=== PATIENT | female | born 1965 | race Caucasian/White ===

== ENCOUNTER → 2017-06-30 16:07 | Outpatient (CLI) | payer BC, SELFPAY ==
--- NOTE | 2017-06-30 16:10 | RAD_ITS ---
STUDY: X-RAY - SKULL REASON FOR EXAM: Female, 52 years old. Lumps TECHNIQUE: 7 view(s) of the skull were obtained. COMPARISON: None. FINDINGS: There is no demonstrated soft tissue swelling. Normal visualized soft tissues. Normal osseous calvarium. There is no demonstrated calvarial fracture. No destructive lesions. Normal visualized facial bones. Normal visualized paranasal sinuses. RAD/Skull min 4 Views IMPRESSION: Normal x-ray examination of the skull. Electronically Signed: Marcus Angel MD at 11:31 EDT , Service support ,
== END ==
PROVIDERS: Family Provider Internal Medicine; PCP Internal Medicine; Visit Provider Internal Medicine
DX: M95.9 Acquired deformity of musculoskeletal system, unspecified (principal)
CPT/HCPCS: 70260

== ENCOUNTER → 2017-10-21 14:58 | Outpatient (CLI) | payer BC, SELFPAY ==
--- NOTE | 2017-10-21 15:02 | EKG12_ITS ---
Test Reason : PREOP Blood Pressure : / mmHG Vent. Rate : 070 BPM Atrial Rate : 070 BPM P-R Int : 142 ms QRS Dur : 064 ms QT Int : 392 ms P-R-T Axes : 069 063 066 degrees QTc Int : 423 ms Normal sinus rhythm Normal ECG Confirmed by CHOLO MORENO, QUITA ([id number]), editor house organ HILARIA DAVIDSON ([id number] on 10/22/2017 12:52:17 PM Referred By: Priscila Chance Confirmed By:QUITA EMMANUEL MD
== END ==
PROVIDERS: Family Provider Internal Medicine; PCP Internal Medicine; Visit Provider Physician Assistant
DX: Z01.810 Encounter for preprocedural cardiovascular examination (principal)
CPT/HCPCS: 93005

== ENCOUNTER → 2018-01-26 07:30 | Outpatient (CLI) | payer BC, SELFPAY ==
--- NOTE | 2018-01-26 10:36 | NEURO ---
NCS and/or EMG Patient Report Ordering Doctor: Bipin Ackerman DATE OF SERVICE: 01/26/18 This is a right upper extremity EMG and nerve conduction study performed on this 52-year-old female who is had right upper extremity discomfort not involving the hand or fingers without trigger. She did have a rotator cuff repair in October 2017 and reports somewhat improved symptoms. Right upper extremity sensory and motor nerve conduction study is performed. The median motor distal latency is mildly prolonged. The median sensory distal latency is mildly prolonged as well. Amplitudes and conduction velocities are preserved. Ulnar motor and sensory and radial sensory responses are normal. The median and ulnar F-wave latencies are within normal range. Right upper extremity needle electromyography is performed. Muscles evaluated included the first dorsal interosseous, abductor pollicis brevis, brachioradialis, biceps, triceps and deltoid muscles. All muscles demonstrated normal insertional activity with absence of pathologic spontaneous activity. Motor unit potential recruitment pattern and amplitude was normal in all muscles tested. Impression: This is an abnormal electrophysiologic study of the right upper extremity consistent with mild carpal tunnel syndrome, this does not appear to be clinically significant.
== END ==
PROVIDERS: Family Provider Internal Medicine; PCP Internal Medicine; Referring Provider Orthopaedic Surgery; Visit Provider Orthopaedic Surgery
DX: M75.51 Bursitis of right shoulder (principal); G56.01 Carpal tunnel syndrome, right upper limb
CPT/HCPCS: 95886; 95910

== ENCOUNTER → 2018-05-01 08:35 | Outpatient (CLI) | payer BC, SELFPAY ==
[2018-05-01 09:12] LABS: Absolute Lymphocyte Count 1.16 X10^3/ul (0.83-4.51); Absolute Neutrophil Count 2.3 X10^3/uL (2.0-7.7); Basophil# 0.02 X10^3/uL; Basophil% 0.4 % (0-1); Eosinophil# 0.52 X10^3/uL; Eosinophils% 11.5 % (0-5); Hematocrit 43.8 % (37-47); Hemoglobin 14.5 g/dl (12.0-15.0); Lymphocyte # 1.16 X10^3/ul (4.0); Lymphocyte % 25.7 % (19-41); Mean Corp Hgb Conc 33.1 g/gl (32-36); Mean Corpuscular Hgb 30.7 pg (27.0-32.0); Mean Corpuscular Volume 92.8 fL (81-99); Mean Platelet Vol. 9.7 fl (6.2-12.0); Monocyte# 0.47 X10^3/uL; Monocyte% 10.4 % (0-10); Neutrophil # 2.34 X10^3/uL (2.7-7.7); Neutrophil % 51.8 % (47-70); Platelet Count 206 K/mm3 (150-450); RBC Distribution Width CV 12.4 % (11.6-14.6); RBC Distribution Width SD 42.1 fl (35.1-43.9); Red Blood Count 4.72 M/mm3 (4.2-5.4); White Blood Count 4.5 K/mm3 (4.4-11.0)
[2018-05-01 09:15] LABS: POSITIVE COUNT NO; POSITIVE DIFFERENTIAL NO; POSITIVE MORPHOLOGY NO
[2018-05-01 09:41] LABS: ALB/GLOB Ratio 1.2 RATIO (0.9-2.4); AST(SGOT) 11 U/L (15-37); Alanine Aminotransfer ALT/SGPT 21 U/L (13-56); Alkaline Phosphatase 65 U/L (45-117); Anion Gap 7 (5-15); BUN 19 mg/dL (7-18); BUN/Creat Ratio 24.6 RATIO (10-20); Calcium,Total 8.5 mg/dL (8.5-10.1); Chloride 110 mmol/L (98-107); Cholesterol 230 mg/dL (200); Creatinine, Serum 0.77 mg/dL (0.55-1.02); EST Glomerular Filtration Rate 83 mL/min (>60); Est Glom Filt Rate - Afr Amer 101 mL/min (>60); Globulin 3.2 g/dL (2.2-4.2); Glucose 103 mg/dL (74-106); High Density Lipoprotein 62 mg/dL; Potassium 4.2 mmol/L (3.5-5.1); Protein, Total 7.2 g/dL (6.4-8.2); Sodium Level 141 mmol/L (136-145); Thyroid Stim Hormone (TSH) 0.76 uIU/mL (0.358-3.74); Triglycerides 123 mg/dL; Very Low Density Lipoprotein 25 mg/dL (5-40)
--- OUTSIDE RECORDS SUMMARY | 2018-07-05 09:32 | XMS RPT_ITS | Continuity of Care Document ---
:1965 Author Organization [facility] Address [address] [facility] [address] [place] [address] Phone Care Team Providers Name Role Phone Samantha Barrera DO Unavailable Benedict Cormier MD Unavailable Bipin Carbajal Unavailable Unavailable Bipin Ackerman DO Unavailable Dr. Mike Varner Unavailable Justino MORENO, Dr. Jose Coughlin Unavailable Lupe Abdi Unavailable Unavailable Domenica PHAN, Ciara Unavailable Unavailable David Joseph Unavailable Unavailable Colby SAWYERCarolina E Unavailable Unavailable Unavailable Problems Name Dates Details Acute cystitis with hematuria (N30.01, 595.0) Status: Active Allergic reaction, initial encounter (T78.40XA, 995.3) Comments: possible will refer to allegerist to see if can test for specific env and chemicals Status: Active Allergic rhinitis (J30.9, 477.9) Status: Active Allergic rhinitis (J30.9, 477.9) Status: Active Asthma (J45.909, 493.90) Status: Active Asthma, mild intermittent (Renamed from Mild intermittent asthma) (J45.20, 493.90) Comments: wants to switch to another med to avoid oral thrush Status: Active BMI 26.0-26.9,adult (Z68.26, V85.22) Status: Active 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, 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 Breast screening (Z12.39, V76.10) Status: Active Carpal tunnel syndrome, left (G56.02, 354.0) Status: Active Contact dermatitis due to poison jacinda (L23.7, 692.6) Status: Active Deliveries (Parity) Comments: 1 Status: Active Dysthymic (F34.1, 300.4) Status: Active Elevated liver enzymes (R74.8, 790.5) Status: Active Emotional disorder (F99, V40.9) Comments: emotional eatign -- offerered emotional eating counselor but she declined Status: Active Fatigue (R53.83, 780.79) Status: Active Folliculitis (L73.9, 704.8) Status: Active Fungal nail infection (B35.1, 110.1) Status: Active GERD (gastroesophageal reflux disease) (K21.9, 530.81) Status: Active Hair loss (L65.9, 704.00) Status: Active Hematuria (R31.9, 599.70) Status: Active Hormone imbalance (E34.9, 259.9) Comments: lack of libidio - testosterone def-- did compounding pharm nad no relief -- she said they were supposed to contact me and they never did Status: Active Hyperlipidemia (E78.5, 272.4) Status: Active Influenza vaccination declined (Renamed from Refused influenza vaccine) (Z28.21, V64.06) Status: Active Laryngitis (J04.0, 464.00) Comments: improving Status: Active Nasal dryness (J34.89, 478.19) Status: Active Non-smoker (Z78.9, V49.89) Status: Active Non-smoker (Z78.9, V49.89) Status: Active Osteopenia (M85.80, 733.90) Comments: needs to start wt bearing exercise, 1500 mg ca and vit d Status: Active Other specified viral infection, in conditions classified elsewhere and of unspecified site (B97.89, 079.89) Status: Active Pharyngitis, acute (J02.9, 462) Status: Active Pregnancies () Comments: 1 Status: Active Screening for hyperlipidemia (Z13.220, V77.91) Status: Active Stress reaction (F43.0, 308.9) Status: Active Tearfulness (R45.89, 780.99) Status: Active Thrush (B37.0, 112.0) Comments: different strain ??-- if no better refer to dermresistant Status: Active Thrush (B37.0, 112.0) Comments: will try nutra fix probiotic Status: Active Unspecified Diagnosis Status: Active Unspecified Diagnosis Status: Active Unspecified Diagnosis Status: Active Unspecified Diagnosis Status: Active Vitamin D deficiency, unspecified (E55.9, 268.9) Status: Active Medications Name Dates Details CALCIUM 500/VITAMIN D, 340-959GK-MFPD (Oral Tablet) 2 (two) Tablet daily for 360 days Quantity: 360 {Tablet} Refills: 0 Ordered:06-Aug-2015 Carolina Bowman CNP Start : 06-Aug-2015 Active Citalopram Hydrobromide 10 MG Oral Tablet 1 (one) Tablet qd for 0 days Quantity: 30 {Tablet} Refills: 3 Ordered:14-Apr-2018 Francisco Javier Barrera DO, DO, Kathleen Start : 14-Apr-2018 Active Dulera 200-5 MCG/ACT Inhalation Aerosol 2 (two) Puff BID for 30 days Quantity: 1 {Inhalation} Refills: 5 Ordered:26-Apr-2018 Francisco Javier Barrera DO, DO, Kathleen Start : 26-Apr-2018 Active ProAir HFA 108 (90 Base) MCG/ACT Inhalation Aerosol Solution 2 (two) Puff tid prn for 0 days Quantity: 1 {Inhaler} Refills: 3 Ordered:23-Mar-2018 Kassandra Kenyon DO Start : 23-Mar-2018 Active Probiotic Oral Capsule 1 (one) Capsule daily for 360 days Quantity: 360 {Capsule} Refills: 3 Ordered:24-Dec-2015 Francisco Javier Barrera DO, DO, Kathleen Start : 24-Dec-2015 Active Allergy 24-HR 180 MG Oral Tablet 1 (one) Tablet daily for 30 days Quantity: 30 {Tablet} Refills: 0 Ordered:21-Apr-2016 Carolina Bowman CNP Start : 04-Feb-2016 End : 05-Mar-2016 Inactive BACTROBAN NASAL, 2% (Nasal Ointment) 1 Ointment each nostril daily for 10 days Quantity: 10 {Ointment} Refills: 0 Ordered:18-Dec-2011 Francisco Javier Barrera DO, DO, Kathleen Start : 18-Dec-2011 End : 28-Dec-2011 Inactive Comments:supply enough for 10 day supply each nostril daily CEFDINIR, 300MG (Oral Capsule) 1 (one) Capsule bid for 7 days Quantity: 14 {QS} Refills: 0 Ordered:17-Jan-2015 Carolina Bowman CNP Start : 17-Jan-2015 End : 24-Jan-2015 Inactive CELEBREX, 100MG (Oral Capsule) 1 (one) Capsule as needed for 30 days Quantity: 30 {Capsule} Refills: 0 Ordered:06-Aug-2015 Ciara Metzger LPN Start : 06-Aug-2015 End : 05-Sep-2015 Inactive Comments:Medication taken as needed. Clotrimazole 10 MG Mouth/Throat Rod 1 (one) Rod Rdo 5x daily for 10 days Quantity: 50 {Rod} Refills: 0 Ordered:03-Dec-2015 Carolina Bowman CNP Start : 03-Dec-2015 End : 13-Dec-2015 Inactive CORTISPORIN, 3.5-28259-5 (Otic Solution) 4 Drop(s) tid for 10 days Quantity: 1 {Solution} Refills: 0 Ordered:19-Nov-2011 Carolina Bowman CNP Start : 19-Nov-2011 End : 29-Nov-2011 Inactive ESTRADIOL, 0.5MG (Oral Tablet) 1 (one) Tablet daily for 360 days Quantity: 360 {Tablet} Refills: 0 Ordered:06-Aug-2015 Carolina Bowman CNP Start : 06-Aug-2015 End : 31-Jul-2016 Inactive HYDROCORTISONE, 2.5% (External Cream) 1 Cream daily for 0 days Quantity: 1 {Cream} Refills: 3 Ordered:13-May-2011 Ronda Crisosotmo LPN Start : 12-Feb-2011 End : 13-May-2011 Inactive Comments:Use for one week at a timeuse indefinetly KETOCONAZOLE, 2% (External Cream) 1 Cream once daily for 0 days Quantity: 1 {Cream} Refills: 0 Ordered:13-May-2011 Ronda Crisostomo LPN Start : 12-Feb-2011 End : 13-May-2011 Inactive Comments:large bottle METAXALONE, 800MG (Oral Tablet) 1 Tablet tid prn for 0 days Quantity: 30 {Tablet} Refills: 0 Ordered:16-Sep-2010 Angela Schneider LPN Start : 28-Aug-2010 End : 16-Sep-2010 Inactive Comments:thirty Mupirocin 2 % External Ointment 1 (one) Application Apply to each nostril TID x 7 days for 7 days Quantity: 1 {Tube} Refills: 0 Ordered:12-Nov-2017 Angela Martínez Start : 12-Nov-2017 End : 19-Nov-2017 Inactive Nystatin 586040 UNIT/ML Mouth/Throat Suspension 5 cc 5times a day for 10 days Quantity: 250 {Milliliter} Refills: 0 Ordered:24-Dec-2015 Francisco Javier Barrera DO, DO, Kathleen Start : 24-Dec-2015 End : 03-Jan-2016 Inactive POTASSIUM, 75MG (Oral Tablet) 1 Tablet daily for 360 days Refills: 0 Ordered:08-Sep-2012 Ronda Crisostomo LPN Start : 21-May-2011 End : 15-May-2012 Inactive PredniSONE 10 MG Oral Tablet 3 (three) Tablet daily for 7 days Quantity: 21 {Tablet} Refills: 0 Ordered:24-Nov-2016 Colby SAWYERCarolina Start : 24-Nov-2016 End : 01-Dec-2016 Inactive Comments:take with food in am PREDNISONE, 20MG (Oral Tablet) 1 Tablet bid for 2 days then daily for 4 days then 1/2 tab qd for 4 days for 0 days Refills: 0 Ordered:16-Sep-2010 Angela Schneider LPN Start : 28-Aug-2010 End : 16-Sep-2010 Inactive VENTOLIN HFA, 108 (90 Base)MCG/ACT (Inhalation Aerosol Solution) 2 (two) Aerosol Soln QID PRN for 30 days Quantity: 1 {Aerosol_Soln} Refills: 3 Ordered:13-Jun-2010 KELIN Murillo Start : 22-Jan-2010 End : 13-Jun-2010 Inactive VISTARIL, 50MG (Oral Capsule) 1 Capsule every night prn itch for 0 days Quantity: 10 {Capsule} Refills: 0 Ordered:28-Aug-2010 Angela Schneider LPN Start : 12-Aug-2010 End : 28-Aug-2010 Inactive VITAMIN B12, 100MCG (Oral Tablet) 1 (one) Tablet daily for 360 days Quantity: 360 {Tablet} Refills: 0 Ordered:06-Aug-2015 Carolina Bowman CNP Start : 06-Aug-2015 End : 31-Jul-2016 Inactive WELLBUTRIN XL, 150MG (Oral Tablet Extended Release 24 Hour) 1 tab bid for 0 days Refills: 0 Ordered:28-Feb-2009 Angela Schneider LPN End : 28-Feb-2009 Inactive ZITHROMAX Z-SANG, 250MG (Oral Tablet) tad Tablet q 6 hr prn for 0 days Quantity: 1 {Tablet} Refills: 0 Ordered:13-Jun-2010 KELIN Murillo Start : 08-Feb-2010 End : 13-Jun-2010 Inactive Advair Diskus 250-50 MCG/DOSE Inhalation Aerosol Powder Breath Activated 1 puff Misc bid for 0 days Quantity: 1 {Disk} Refills: 3 Ordered:03-Dec-2015 Ciara Metzger LPN Start : 06-Jun-2015 End : 03-Dec-2015 Discontinued [place] Saline Nasal Nasal Gel 1 (one) Gel Gel Apply BID for 0 days Quantity: 1 {Tube} Refills: 0 Ordered:26-Apr-2018 Lupe Abdi Start : 12-Nov-2017 End : 26-Apr-2018 Discontinued Diflucan 150 MG Oral Tablet 1 (one) Tablet qod for 8 days for 0 days Quantity: 4 {Tablet} Refills: 0 Ordered:04-Feb-2016 Ciara Metzger LPN Start : 24-Dec-2015 End : 04-Feb-2016 Discontinued FLONASE, 50MCG/ACT (Nasal Suspension) 2 (two) Puff(s) daily for 0 days Quantity: 1 {Suspension} Refills: 0 Ordered:17-Sep-2012 Francisco Javier Barrera DO, DO, Kathleen Start : 17-Sep-2012 End : 17-Sep-2012 Discontinued LAMISIL, 250MG (Oral Tablet) 1 (one) Tablet Tablet qd for 90 days Quantity: 30 {Tablet} Refills: 2 Ordered:06-Aug-2015 Ciara Metzger LPN Start : 17-Nov-2014 End : 06-Aug-2015 Discontinued Comments:do for 12 weeks MELOXICAM, 7.5MG (Oral Tablet) 1 (one) Tablet Tablet daily for 0 days Quantity: 15 {Tablet} Refills: 0 Ordered:17-Jan-2015 Ciara Metzger LPN Start : 15-May-2014 End : 17-Jan-2015 Discontinued Comments:daily OMEPRAZOLE, 40MG (Oral Capsule Delayed Release) 1 (one) Capsule DR Capsule DR daily for 0 days Quantity: 30 {Capsule} Refills: 1 Ordered:07-Aug-2015 Colby SAWYER Katie Start : 07-Aug-2015 Discontinued Comments:1h before a meal once daily x2-4 weeks then wean off PHENERGAN, 12.5MG (Rectal Suppository) 2 (two) Suppository q6h prn for 0 days Quantity: 20 {Suppository} Refills: 0 Ordered:26-Jun-2014 Ronda Crisostomo LPN Start : 22-Jun-2014 End : 26-Jun-2014 Discontinued PROVENTIL HFA, 108 (90 Base)MCG/ACT (Inhalation Aerosol Solution) 2 puffs Aerosol Soln qid, prn for 0 days Quantity: 3 {Aerosol_Soln} Refills: 3 Ordered:17-Jan-2015 Ciara Metzger LPN Start : 21-Feb-2011 End : 17-Jan-2015 Discontinued Comments:please substitute generic albulterol VITAMIN D3, 77570NTFX (Oral Capsule) 1 Capsule 2 x week for 0 days Quantity: 24 {Capsule} Refills: 1 Ordered:23-Jun-2011 Francisco Javier Barrera DO, DO, Kathleen Start : 23-Jun-2011 End : 23-Jun-2011 Discontinued ZOFRAN ODT, 4MG (Oral Tablet Dispersible) 1-2 Tablet Disperse Tablet Disperse q8hrs prn for 0 days Quantity: 30 {Tablet} Refills: 0 Ordered:17-Jan-2015 Ciara Metzger LPN Start : 26-Jun-2014 End : 17-Jan-2015 Discontinued ZyrTEC Allergy 10 MG Oral Capsule 1 (one) Capsule daily for 0 days Quantity: 30 {Capsule} Refills: 0 Ordered:03-Dec-2015 Ciara Metzger LPN Start : 06-Jun-2015 End : 03-Dec-2015 Discontinued Allergies and Adverse Reactions Name Dates Details No Known Drug Allergies (Allergy) Status: Active Past Medical History Name Dates Details Abdominal pain (R10.9, 789.00) Comments: if no improvement will send for US gallbladder Status: Inactive as of 24-Dec-2015 Abnormal glucose tolerance test (R73.09, 790.22) Comments: based on 2 [facility] -- will follow Status: Resolved as of 17-Sep-2012 Back pain, thoracic (M54.6, 724.1) Comments: reproducible, worse with stretching likely musculoskeletal, improving while resting with exercise Status: Inactive as of 24-Dec-2015 Bloating (R14.0, 787.3) Status: Inactive as of 24-Dec-2015 BMI 23.0-23.9, adult (Z68.23, V85.1) Status: Resolved as of 03-May-2018 BMI 25.0-25.9,adult (Z68.25, V85.21) Status: Resolved as of 03-May-2018 BMI 27.0-27.9,adult (Z68.27, V85.23) Status: Resolved as of 03-May-2018 Body mass index (BMI) of 25.0 to 29.9 (E66.3, 278.02) Status: Resolved as of 03-May-2018 Breast pain, left (N64.4, 611.71) Comments: normal mammogram Status: Inactive as of 24-Dec-2015 Bronchitis (J40, 490) Status: Resolved as of 06-May-2012 Bug bites (W57.XXXA, 919.4) Status: Inactive as of 29-Apr-2017 Calf pain (M79.669, 729.5) Status: Inactive as of 24-Dec-2015 Cellulitis (L03.90, 682.9) Comments: from poison jacinda Status: Inactive as of 24-Dec-2015 Chest pain (R07.9, 786.59) Status: Resolved as of 06-May-2012 Chest tightness (R07.89, 786.59) Comments: related to asthma Status: Inactive as of 24-Dec-2015 Chills (R68.83, 780.64) Status: Inactive as of 26-Apr-2018 Chronic obstructive asthma with acute exacerbation (J44.1, 493.22) Status: Resolved as of 18-Dec-2011 Dehydration symptoms (R63.8, 783.9) Status: Inactive as of 26-Apr-2018 Diarrhea (R19.7, 787.91) Status: Inactive as of 26-Apr-2018 Eustachian tube dysfunction (H69.80, 381.81) Status: Resolved as of 18-Dec-2011 Headache, acute (R51, 784.0) Status: Inactive as of 24-Dec-2015 Left wrist pain (M25.532, 719.43) Status: Inactive as of 24-Dec-2015 Muscle spasm (M62.838, 728.85) Status: Resolved as of 16-Sep-2010 Nausea (R11.0, 787.02) Comments: pancreatic enzymes neg and labs normal, US normal nausea improved will do Hida scan Status: Inactive as of 24-Dec-2015 Neck pain (M54.2, 723.1) Status: Resolved as of 16-Sep-2010 Other specified abnormal findings of blood chemistry (R79.89, 790.6) Status: Inactive as of 24-Dec-2015 Otitis externa (H60.90, 380.10) Status: Resolved as of 18-Dec-2011 Pain of hand, unspecified laterality (M79.643, 729.5) Status: Inactive as of 16-Sep-2010 RADIAL STYLOID TENOSYNOVITIS (Dequevain's) (727.04) Status: Resolved as of 18-Dec-2011 Rash (R21, 782.1) Comments: ? contact dermatitis vs other Status: Resolved as of 29-Apr-2017 Right shoulder pain (M25.511, 719.41) Status: Inactive as of 24-Dec-2015 Seborrhea capitis (L21.0, 690.11) Status: Resolved as of 06-May-2012 Shortness of breath at rest (R06.02, 786.05) Status: Inactive as of 06-May-2012 Swelling of left lower extremity (M79.89, 729.81) Status: Inactive as of 24-Dec-2015 Procedures Procedure Dates Details Hysterectomy; Abdominal Completed Date Value Details 26-Jan-2018 NCS and/or EMG Patient Result: Comments: See Note; NOTES: [facility] Pulmonary Services/Neurology [address] [place] [address] MR#: [id number] Acct: [id number] Name: KATHRYN AMARO Rep #: [id number] : 1965 52 From: Ever Allen MD Referring Dr: Bipin Ackerman DO Status: REG CLI Ordering Dr: Date: Location: [facility] Sex: F C NCS and/or EMG Patient Report Ordering Doctor: Bipin Ackerman DATE O F SERVICE: 01/26/18 This is a right upper extremity EMG and nerve conduction study performed on this 52-year-old female who is had right upper extremity discomfort not involving the hand or fingers with out trigger. She did have a rotator cuff repair in October 2017 and reports somewhat improved symptoms. Right upper extremity sensory and motor nerve conduction study is performed. The median motor distal latency is mildly prolonged. The median sensory distal latency is mildly prolonged as well. Amplitudes and conduction velocities are preserved. Ulnar motor and sensory and radial sensory responses are normal. The median and ulnar F-wave latencies are within normal range. Right upper extremity needle electromyography is performed. Muscles evaluated included the first dorsal interosseous, abductor abdoul licis brevis, brachioradialis, biceps, triceps and deltoid muscles. All muscles demonstrated normal insertional activity with absence of pathologic spontaneous activity. Motor unit potential recruitment pattern and amplitude was normal in all muscles tested. Impression: This is an abnormal electrophysiologic study of the right upper extremity consistent with mild carpal tunnel syndrome, this does not appear to be clinically significant. 01/26/18 1105 <Electronically signed by Ever Allen MD> Date Ever Allen MD CC: Samantha Ackerman DO; Ever Allen MD Date Dictated: 01/26/18 1036 Date Transcribed: 01/26/18 1036 Claim Inspector: MAUREEN Signed 22-Oct-2017 12 Lead Electrocardiogram Result: Comments: See Note; NOTES: [facility] Cardiovascular Services [address] [place] [address] 12 Lead EKG 10/21/17 1508 MR#: [id number] Acct: [id number] Name: KATHRYN AMARO Rep #: [id number] : 1965 52 From: Carroll Emmanuel MD Attending Dr: Priscila Chance Status: REG CLI Ordering Dr: Priscila Chance Date: 10/21/17 Location: [facility] Sex: F C Admitted: Test Reason : PREO P Blood Pressure : / mmHG Vent. Rate : 070 BPM Atrial Rate : 070 BPM P-R Int : 142 ms QRS Dur : 064 ms QT Int : 392 ms P-R-T Axes : 069 063 066 degrees QTc Int : 423 ms Normal sinus rhythm Normal ECG Confirmed by CHOLO MORENO, CARROLL ([id number]), editor greeting card HILARIA DAVIDSON ([id number]) on 10/22/2017 12:52:17 PM Referred By: Priscila Chance Confirmed By:CARROLL EMMANUEL MD 10/22/17 1252 Date Carroll Emmanuel MD CC: Priscila Chance; Samantha Barrera DO Signed 30-Jun-2017 Skull min 4 Views Result: Comments: See Note; NOTES: [facility] Imaging Services [address] [place] [address] Skull min 4 Views MR#: [id number] Acct: [id number] Name: KATHRYN AMARO Rep #: [id number] : 1965 F 52 From: Marcus Angel MD PCP: Samantha Barrera DO Status: REG CLI Study: Skull min 4 Views Date of Exam: 06/30/17 Exam# [id number] Ordering Dr: Samantha Barrera DO STUDY: X-RAY - SKULL REASON FOR EXAM: Female, 52 years old. Lumps TECHNIQUE: 7 view(s) of the skull were obtained. COMPARISON: None. FINDINGS: There is no de monstrated soft tissue swelling. Normal visualized soft tissues. Normal osseous calvarium. There is no demonstrated calvarial fracture. No destructive lesions. Normal visualized facial bones. Normal vi sualized paranasal sinuses. 0094 RAD/Skull min 4 Views IMPRESSION: Normal x-ray examination of the skull. Electronically Signed: Marcus Angel MD at 11:31 EDT , Service support , CC: Samantha Barrera DO Claim Inspector: Signed 13-Oct-2016 SCREENING MAMM (CAD), BILAT Result: Comments: See Note; NOTES: [facility] Imaging Services [address] [place] [address] Verdana 4d SCREENING MAMM (CAD), BILAT MR#: [id number] Acct: [id number] Name: ALETHA AMARO Rep #: [id number] : 1965 F 51 From: Ron Roman MD PCP: Samantha Barrera DO Status: [facility] CLI Study: SCREENING MAMM (CAD), BILAT Date of Exam: 10/13/16 Exam# [id number] Ordering Dr: Karuna Mixon MD MAMMOGRAPHY - BILATERAL SCREENING REASON FOR EXAM: Female, 51 years old. Routine annual screening examination. PERTINENT HISTORY: Non- contributory. TECHNIQUE: Digital examination. Mediolat eral oblique (MLO) and craniocaudad (CC) views of both breasts were obtained, along with 3D tomosynthesis. CAD: CAD was performed on this study. COMPARISON: 08/07/2015 _ FINDINGS: Breast Density: Heterogeneously dense, which may obscure small masses. There are no dominant masses or suspicious calcifications. Stable large chunky calcification in the right breast. No other significant abnormalities are identified. There has been no significant change since the prior study. HPBI/SCREENING MAMM (CAD), BILAT IMP RESSION: Stable bilateral screening mammogram. Yearly follow-up mammogram recommended. (A) ASSESSMENT CATEGORY: BIRADS Category 2: Benign. A letter regarding these results will be sent to the patient by the facility within 30 days. BR2 Approximately 10% of breast cancers are not detected by mammography. A normal mammogram should not delay biopsy of a clinically suspicious abnormality. [id number] Electronically Signed: Anujm Roman MD at 8:41 EDT , Service support , CC: Karuna Mixon MD; Samantha Barrera DO Claim Inspector: Signed 22-Jul-2016 Emergency Department Summary Result: Comments: See Note; NOTES: [facility] Medical Records Department [address] [place] [id number] Emergency Department Summary MR#: [id number] Acct: [id number] Name: ALETHA AMARO Rep #: [id number] : 1965 51 From: Kyle Tinsley MD PCP: Samantha Barrera DO Status: DEP ER DATE OF SERVICE: 07/22/2016 HISTORY OF PRESENT ILLNESS: A 51-year-old woman who presents with supra pubic pressure sensation and tingling when she urinates with gross hematuria and clots. She has no history of fever, chills or night sweats. She denies weight gain or weight loss. She denies nausea, vom iting, diarrhea. She denies history of renal or ureterolithiasis. She denies history of cancer. She has no other complaints. PAST MEDICAL HISTORY: Negative. PRIMARY CARE PHYSICIAN: Dr. Holly Munoz EXAMINATION: VITAL SIGNS: Remarkable for pressure of 134/77. She is afebrile. GENERAL: The patient appears in no discomfort. HEENT: Unremarkable. NECK: Trachea midline. LUNGS: Clear to auscultation. H EART: Regular without murmur, gallop or rub. ABDOMEN: She has suprapubic discomfort with deep palpation. There is no CVA tenderness noted. No umbilical or inguinal hernia. There is no inguinal lymphaden opathy. EMERGENCY DEPARTMENT COURSE: Urine is remarkable for leukocyte esterase, negative nitrites, positive blood. Micro reveals 10-25 wbc's with greater than 100 rbc's and no bacteria. A CT was obtai mary since she does not complain of pain and concern this may represent a malignancy. CT was interpreted by our radiologist as cystitis. Culture was sent and the patient was placed on antibiotics. She wa s recommended to follow up with her physician, Dr. Barrera. IMPRESSION: Hemorrhagic cystitis. DISPOSITION: Discharge. MD Vik Retana C: Samantha Barrera DO T: [facility] JOB: [id number] 07/22/164 &amp ;#60;Electronically signed by Kyle Tinsley MD> Date Kyle Tinsley MD Cosigner Signature (If Indicated): Date CC: Samantha Barrera DO Date Dictated: 07/22/162026 Date Transcribed: 07/22/162026 Claim Inspector: Signed 22-Jul-2016 Discharge Instruction Result: Comments: See Note; NOTES: [facility] Medical Records Department [address] [place] [address] Discharge Instruction 07/22/162024 MR#: [id number] Acct: [id number] Name: KATHRYN AMARO Rep #: [id number] : 1965 51 From: Kyle Tinsley MD PCP: Samantha Barrera DO Status: REG ER ED Disposition - Plan for ED Patient: Chief Complaint: Complaint Instructions: ED UTI Cyst itis Female Prescriptions: Ciprofloxacin [Cipro] 500 mg PO BID #14 tablet Phenazopyridine HCl [Pyridium] 200 mg PO TID #10 tablet Referrals: Samantha Barrera DO [Primary Care Provider] - 1 Week What to do if you have Problems For any increased pain, shortness of breath, bleeding, nausea or vomiting, chest pain, or any unexpected problems, contact your Primary Care Provider. Call [facility] ) or report to the closest Emergency Room. Call 911 if necessary. 07/22/162027 <Electronically signed by Kyle Tinsley MD> Date Kyle Tinsley MD Cosigner Signature (If Indicated): Date CC: Samantha Barerra DO 22-Jul-2016 Abdomen/Pelvis W IV Cont ONLY Result: Comments: See Note; NOTES: [facility] Imaging Services [address] [place] [address] Verdana 4d Abdomen/Pelvis W IV Cont ONLY MR#: [id number] Acct: [id number] Name: ROLLY AMARO Rep #: [id number] : 1965 F 51 From: Leo Shin DO PCP: Samantha Barrera DO Status: REG ER Study: Abdomen/Pelvis W IV Cont ONLY Date of Exam: 07/22/16 Exam# [id number] Ordering Dr: Kyle Tinsley MD STUDY: CT ABDOMEN AND PELVIS WITH CONTRAST REASON FOR EXAM: Female, 51 years old. Hematuria today RADIATION DOSAGE (If Supplied By Facility): CTDIvol = ( 14.19 ) mGy, DLP = ( 711.08 ) mGycm TECHNIQUE: Transaxial images were obtained from the dome of the diaphragm to the symphysis pubis without oral contrast. 100ML ml of Isovue 300 contrast was administered. Sagittal and coronal images wer e reconstructed. Individualized dose optimization techniques were used for this CT. COMPARISON: 03/20/2014 FINDINGS: The visualized lung bases are unremarkable. The visualized portions of the heart are within normal limits. There is hepatomegaly with diffuse hepatic enlargement. Normal gallbladder and extrahepatic biliary system. Normal spleen. Normal pancreas. Normal bilateral adrenal glands. Normal right kidney. Nonenhancing mid pole left renal cyst. There is a small hiatal hernia. Normal small intestine. There are multiple colonic diverticula consistent w ith diverticulosis. The appendix is visualized and appears normal. Normal abdominal aorta. Normal inferior vena cava. Normal retroperitoneum. There appears to be circumferential wall thickening of kathi dder suggesting cystitis. There is absence of the uterus consistent with a prior hysterectomy. Normal abdominal wall. Normal osseous structures. CT/Abdomen/Pelvis W IV Cont ONLY IMPRESSION: 1. Circumferential wall thickening of the bladder suggesting cystitis. 2. Nonenhancing left renal cyst 3. No evidence of urolithiasis or renal obstruction . Electronically Signed: Leo Shin DO at 20:11 EDT Tel , Service support [phone], CC: Samantha Barrera DO; Kyle Tinsley MD Claim Inspector: Signed 07-Mar-2016 Esophagus Only Result: Comments: See Note; NOTES: [facility] Imaging Services [address] [place] [address] Verdana 4d Esophagus Only MR#: [id number] Acct: [id number] Name: KATHRYN AMARO Rep #: [id number] : 1965 F 50 From: Amrit Mac MD PCP: Carolina Bowman Status: REG CLI Study: Esophagus Only Date of Exam: 03/07/16 Exam# [id number] Ordering Dr: Mike Varner MD STUDY: AIR-CONTRAST ESOPHAGRAM STUDY REASON FOR EXAM: Female, 50 years old. Difficulty swallowing possible reflux RADIATION DOSAGE (If Supplied By Facility): CTDIvol = ( ) mGy, DLP = ( ) mGycm FLUOROSCOPY TIME (if supp lied): (0:48) minutes/seconds, 17 images. TECHNIQUE: Barium pill swallow with sips of water is performed at the beginning of the study without difficulty. Multiple barium swallows were performed under fluoroscopic monitoring. Multiple views of the esophagus, the upper stomach were performed. COMPARISON: None. FINDINGS: Barium pill swallow with sips of water is p erformed at the beginning of the study without difficulty. The esophagus appears normal in size and shape it shows unremarkable mucosal pattern. There is no evidence of hiatal hernia or abnormal vascula r compression. RAD/Esophagus Only IMPRESSION: Unremarkable study. Electronically Signed: Amrit Mac MD at 12:42 EST Tel , Service support [phone], CC: Carolina Bowman; Mike Varner Claim Inspector: Signed 07-Aug-2015 Bilat Diag Digital AND CAD Result: Comments: See Note; NOTES: [facility] Imaging Services [address] [place] [address] Verdana 4d Bilat Diag Digital AND CAD MR#: [id number] Acct: [id number] Name: KATHRYN AMARO Rep #: [id number] : 1965 F 50 From: Luciano Dowell MD PCP: Carolina Bowman Status: REG CLI Study: Bilat Diag Digital AND CAD Date of Exam: 08/07/15 Exam# [id number] Itzel lara Dr: Carolina Bowman MAMMOGRAPHY - BILATERAL DIAGNOSTIC REASON FOR EXAM: Female, 50 years old. Medial left breast pain. PERTINENT HISTORY: TECHNIQUE: Digital bilateral breast tomosynthesis (3-D m ammographic acquisition) in the CC and MLO projections. Synthesized 2-D images (C-View reconstruction from tomosynthesis acquisition) providing bilateral breast CC and MLO views. Mediolateral oblique (MLO) and craniocaudad (CC) views of both breasts were obtained. CAD: Full Field Digital Mammography with Computer Added Detection was performed. COMPARISON: Comparison is made with prior examinati on dated April 19, 2014 and April 12, 2013. FINDINGS: Breast Composition: The breasts are heterogeneously dense, which may obscure small masses. There are no dominant masses or suspicious calcifications. No other significant abnormalities are identified. There has been no significant change since the prior study. IMPRESSION: Stable bilateral diagnostic mammogram. One year follow-up recommended. (A) ASSESSMENT CATEGORY: BIRADS Category 1: Negative. A letter regarding the se results will be sent to the patient by the facility within 30 days. Approximately 10% of breast cancers are not detected by mammography. A normal mammogram should not delay biopsy of a clinically suspicious abnormality. Electronically Signed: Luciano Dowell MD at 9:36 EDT Tel [phone], Service support [phone], CC: Carolina oBwman Claim Inspector: Signed 06-Aug-2015 Chest PA and Lateral Result: Comments: See Note; NOTES: [facility] Imaging Services [address] [place] [address] Verdana 4d Chest PA and Lateral MR#: [id number] Acct: [id number] Name: SREEDHAR AdornoKATHRYN SUE Rep #: [id number] : 1965 F 50 From: Luciano Dowell MD PCP: Carolina Bowman Status: REG CLI Study: Chest PA and Lateral Date of Exam: 08/06/15 Exam# [id number] Ordering Dr: Carolina Bowman STUDY: X-RAY CHEST REASON FOR EXAM: Female, 50 years old. Back pain. TECHNIQUE: COMPARISON: None. FINDINGS: The lungs are clear and expanded. Sca ttered calcified granulomas. There is no demonstrated pleural abnormality. Normal size heart. Normal mediastinum and jose enrique. Normal visualized pulmonary arteries. Normal visualized aortic arch and jovita cending thoracic aorta. There are degenerative changes of the visualized thoracic spine. Increased kyphosis. Normal visualized ribs, clavicles, and shoulders. There is no demonstrated abnormality of the visualized soft tissue structures of the upper abdomen. IMPRESSION: No acute abnormality is seen. Electronically Signed: Luciano Dowell MD 08/05 at 11:03 EDT Tel [phone], Service support [phone], RAD/Chest PA and Lateral IMPRESSION: No acute abnormality is seen. Electronically Signed: Agustin Dowell MD at 11:03 EDT Tel [phone], Service support [phone], CC: Carolina Bowman Claim Inspector: Signed 06-Aug-2015 Ribs Unil 2V No CXR Result: Comments: See Note; NOTES: [facility] Imaging Services [address] [place] [address] Verdana 4d Ribs Unil 2V No CXR MR#: [id number] Acct: [id number] Name: KATHRYN AMARO Rep #: [id number] : 1965 F 50 From: Luciano Dowell MD PCP: Carolina Bowman Status: REG CLI Study: Ribs Unil 2V No CXR Date of Exam: 08/06/15 Exam# [id number] Ordering Dr: Jorje Bwoman STUDY: X-RAY - UNILATERAL RIBS ( LEFT ) REASON FOR EXAM: Female, 50 years old. Upper chest pain. TECHNIQUE: 4 view(s) of the ribs. COMPARISON: None. FINDINGS: Normal visualized ribs without a demonstrated fracture. The visualized lung is clear and expanded. IMPRESSION: Normal x-ray examination of the ribs. Electronically Signed: Luciano Dowell MD at 11:02 EDT Tel [phone], Service support [phone], 0036 RAD/Ribs Unil 2V No CXR IMPRESSION: Norm al x-ray examination of the ribs. Electronically Signed: Luciano Dowell MD at 11:02 EDT Tel [phone], Service support [phone], CC: Carolina Bowman Claim Inspector: Signed 06-Jun-2015 Spirometry ([id number]) Comments: Fevi/fvc 72% Result: 18-Nov-2014 Shoulder min 2 Views Result: Comments: See Note; NOTES: [facility] Imaging Services [address] [place] [address] Radiology Report MR#: [id number] Acct: [id number] Name: KATHRYN AMARO Rep #: [id number] : 1965 F 49 From: Pete Curtis MD PCP: Samantha Barrera DO Status: REG CLI Study: Shoulder min 2 Views Date of Exam: 11/18/14 Exam# [id number] Ordering Dr: Samantha Barrera: X-RAY - RIGHT SHOULDER REASON FOR EXAM: Female, 49 years old. Right shoulder pain on and off x 20 years-pt states she dislocated it 20 years ago but put it back in herself and never saw a doct or for it almost fell 2-3 weeks ago, eleanor shoulder, now having decrease hand strength, increase shoulder and arm pain TECHNIQUE: 4 view(s) of the shoulder. COMPARISON: None. _ FINDINGS: Normal glenohumeral articulation. There is degenerative arthrosis of the acromioclavicular joint without inferior osseous spur formation. Normal acromio n. Normal humeral head and visualized proximal humerus. The soft tissue structures are unremarkable. Normal visualized pulmonary apex. IMPRESSION: Mild dege nerative findings of the right a.c. joint. Electronically Signed: Pete Curtis MD at 22:54 EDT , Service support [phone], R AD/Shoulder min 2 Views IMPRESSION: Mild 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 Electronically Signed: Pete Curtis MD at 22:54 EDT , Service support [phone], CC: Samantha Barrera DO Claim Inspector: Signed 10-Jul-2014 Hepatobilliary Imaging Result: Comments: See Note; NOTES: [facility] Imaging Services [address] [place] [address] Nuclear Medicine Report MR#: [id number] Acct: [id number] Name: KATHRYN AMARO Rep #: [id number] : 1965 F 49 From: Shreyas Groves DO PCP: Samantha Barrera DO Status: REG CLI Study: Hepatobilliary Imaging Date of Exam: 07/10/14 Exam# [id number] Ordering Dr: Carolina Bowman LINICAL: 49-year-old female with reported history of abdominal pain and nausea. RADIONUCLIDE HEPATOBILIARY SCINTIGRAPHY COMPARISON: Abdominal ultrasound report 06/30/14 CT of the abdomen-pelvis re port of 03/20/14 FINDINGS: Following the intravenous administration of 5.2 mCi of Tc Mebrofenin, hepatobiliary images reveal: 1. Relatively prompt and homogeneous radiopharmaceutical concentratio n is noted by a normal sized liver. No parenchymal defects are identified. 2. Gallbladder activity is identified at 60 minutes post radiopharmaceutical administration. 3. Small intestinal tract is o bserved at 30 minutes following tracer injection. 4. Washout of the radiopharmaceutical by the hepatic parenchyma appears qualitatively normal. Cholecystokinin (0.02 ug/kg) was administered intrave nously over a 30-minute period. The post CCK gallbladder ejection fraction calculated at 20 minutes following Cholecystokinin administration was noted to be 88.0 % (normal greater than 35%). During 3 0 minutes of post CCK imaging, there is no scintigraphic evidence of reflux of the radiotracer into the common hepatic duct or refilling of the gallbladder. There is scintigraphic evidence of post CC K duodenal gastric reflux. IMPRESSION: 1. A gallbladder ejection fraction calculated to be greater than 35% following the administration of Cholecystokinin makes the probability of functional hepat obiliary disease (gallbladder and/or sphincter of Oddi dyskinesia) and/or organic hepatobiliary disease (chronic acalculous cholecystitis and/or cystic duct syndrome) to be low. (Rosanna Chan et al, Journal of Nuclear Medicine 32:1695, 1990). 2. There is scintigraphic evidence of post CCK duodenal-gastric reflux. (Chichi et al, Nucl Med Xiomy Becki Press pg. 35, 1980). Electronically Signed: Shreyas Groves DO at 22:24 EDT Tel [phone], Service support [phone], CC: Carolina Bowman; Samantha Barrera DO Claim Inspector: Signed 30-Jun-2014 Pelvic (Non ) Result: Comments: See Note; NOTES: [facility] Imaging Services [address] [place] [address] Ultrasound Report MR#: [id number] Acct: [id number] Name: KATHRYN AMARO Rep #: [id number] : 1965 F 49 From: Pete Curtis MD PCP: Samantha Barrera DO Status: REG CLI Study: Pelvic (Non ) Date of Exam: 06/30/14 Exam# [id number] Ordering Dr: Carolina Bowman STUDY: U LTRASOUND OF THE FEMALE PELVIS - COMPLETE REASON FOR EXAM: Female, 49 years old. bloating TECHNIQUE: Transabdominal TECHNICAL QUALITY: Adequate. COMPARISON: CT 03/20/14. FINDINGS: The uterus is not visualized and is most likely surgically absent. Right and left ovary not visualized. There is no fluid in the cul-de-sac. The distended urinary bladder had a volume of 226 ml at the time of the exam. IMPRESSION: Hysterectomy and bilateral oophorectomy Electronically Signed: Pete Curtis MD at 19:53 EDT , Service support [phone], CC: Carolina Bowman; Samantha Barrera DO Claim Inspector: Signed 30-Jun-2014 Abdomen Complete Result: Comments: See Note; NOTES: [facility] Imaging Services [address] [place] [address] Ultrasound Report MR#: [id number] Acct: [id number] Name: KATHRYN AMARO Rep #: [id number] : 1965 F 49 From: Noé Pascual MD PCP: Samantha Barrera DO Status: REG CLI Study: Abdomen Complete Date of Exam: 06/30/14 Exam# [id number] Ordering Dr: Carolina Bowman STUDY: ABDOM INAL ULTRASOUND REASON FOR EXAM: Female, 49 years old. Nausea. Bloating TECHNIQUE: Transabdominal ultrasound was performed with real-time and static kuhn scale imaging. TECHNICAL QUALITY: Adequat e. COMPARISON: CT March 20, 2014. FINDINGS: Liver: The liver measures 17.3 cm. There is normal echogenicity of the liver. The bile ducts are within normal l imits. There is hepatic color flow. The direction of portal flow is hepatopetal. There is no demonstrated mass lesion. Gallbladder: Normal distended gallbladder. The gallbladder wall measures 2 mm. There is a negative sonographic Colunga's sign. There is no pericholecystic fluid. There are no gallstones. Common Bile Duct (C.B.D.): The common bile duct measures 2 mm. Pancreas: Normal size of t he head, body and tail of the pancreas. There is normal echogenicity of the pancreas. There is no demonstrated pancreatic mass or cyst. Spleen: Normal size of the spleen. The spleen measures 11.2 cm . Right Kidney: Normal size of the right kidney. The right kidney measures 10.7 cm. Normal renal cortex. The right cortex measures 1.3 cm. There is no demonstrated renal mass or cyst. There is no ri ght hydronephrosis. Left Kidney: Normal size of the left kidney. The left kidney measures 11.3 cm. Normal renal cortex. The left cortex measures 1.5 cm. Cyst measuring 1.9 cm. There is no left hydro nephrosis. Aorta: Normal . I.V.C.: The IVC is patent. There is no ascites. IMPRESSION: Normal abdominal ultrasound examination. No gallstones or biliary di latation. Left renal cyst. Electronically Signed: Noé Pascual MD at 15:42 EDT , Service support [phone], CC: Carolina Bowman; Samantha Barrera DO Claim Inspector: Signed 21-Jun-2014 Toradol Injection, 30 mg ([id number]) Comments: [id number]:02/11/2015Dose:1MlRoute:IMSite:R glutGiven By:RIC signed Result: Comments: Lot:Exp:Dose:1mlRoute:IMSite:R GlutGiven By:RIC signed 19-Apr-2014 Bilat Scrn Digital AND CAD Result: Comments: See Note; NOTES: [facility] Imaging Services [address] [place] [address] Breast Imaging Report MR#: [id number] Acct: [id number] Name: KATHRYN AMARO Rep # : [id number] : 1965 F 49 From: Luciano Dowell MD PCP: Samantha Barrera DO Status: REG CLI Study: Bilat Scrn Digital AND CAD Date of Exam: 04/19/14 Exam# [id number] Ordering Dr: Gasper Barrera DO MAMMOGRAPHY - BILATERAL SCREENING REASON FOR EXAM: Female, 49 years old. Routine annual screening examination. PERTINENT HISTORY: Non- contributory. TECHNIQUE: Digital examination. M ediolateral oblique (MLO) and craniocaudad (CC) views of both breasts were obtained. CAD: CAD was performed on this study. COMPARISON: Comparison is made with prior study dated April 12, 2013 an d December 02, 2011. FINDINGS: Breast Composition: The breasts are heterogeneously dense, which may obscure small masses. There are no dominant masses or suspici ous calcifications. Stable calcified nodule in the inferior medial portion of the right breast. No other significant abnormalities are identified. There has been no significant change since the prio r study. IMPRESSION: Stable bilateral screening mammogram. Yearly follow-up recommended. (A) ASSESSMENT CATEGORY: BIRADS C ategory 2: Benign. A letter regarding these results will be sent to the patient by the facility within 30 days. Approximately 10% of breast cancers are not detected by mammography. A normal mammogra m should not delay biopsy of a clinically suspicious abnormality. Electronically Signed: Luciano Dowell MD at 8:19 EST Tel [phone], Service support [phone], Fax CC: Samantha Barrera DO Claim Inspector: Signed 20-Mar-2014 Abdomen/Pelvis WITH Contrast Result: Comments: See Note; NOTES: [facility] Imaging Services [address] [place] [address] CAT Scan Report MR#: [id number] Acct: [id number] Name: PREMKATHRYN WEN Rep #: [id number] : 1965 F 48 From: Brayan Wilson MD PCP: Samantha Barrera DO Status: REG CLI Study: Abdomen/Pelvis WITH Contrast Date of Exam: 03/20/14 Exam# [id number] Ordering Dr: Samantha Barrera DO STUDY: CT ABDOMEN AND PELVIS WITH CONTRAST REASON FOR EXAM: Female, 48 years old. Left leg swelling with a history of a POLINA/BSO. No other surgical or medical history. RADIATION DOSAGE (If Blake pplied By Facility): CTDIvol = ( 13.07 ) mGy, DLP = ( 1171.33 ) mGycm TECHNIQUE: Transaxial images were obtained from the dome of the diaphragm to the symphysis pubis with oral contrast. 100ml ml of Isovue 300 contrast was administered. Sagittal and coronal images were reconstructed. COMPARISON: None. FINDINGS: The visualized lung bases are unremarkable. The visualized portions of the heart are within normal limits. Normal liver. Normal gallbladder and extrahepatic biliary system. Normal spleen. Normal pancreas. Normal bilateral adrenal glands. Normal right kidney. There is a 1.4 cm left renal cyst. Normal visualized stomach. Normal small intestine. Moderate stool noted in the right hemicolon. Normal appendix, axial images #80 through #82. The small intestine intraluminal contrast is seen from journey of the small bowel. No evidence of a small bowel obstruction. Normal abdominal aorta. Normal inferior vena cava. Normal retroperitoneu m. Normal urinary bladder. Normal abdominal wall. Degenerative changes affecting the lower thoracic spine. IMPRESSION: No CT evidence of an acute intra-abdom inal or pelvic process. Left renal cyst. Normal appendix. Electronically Signed: Brayan Wilson MD at 21:48 EST , Service support [phone], CC: Samantha Barrera DO Claim Inspector: Signed 15-Sep-2013 NCS and/or EMG Patient Result: Comments: See Note; NOTES: [facility] Pulmonary Services/Neurology [address] [place] [address] NCS and/or EMG Patient MR#: [id number] Acct: [id number] Name: LA AMARO RA Rep #: [id number] : 1965 48 From: Ever Allen MD Referring Dr: Carolina Bowman Status: REG CLI Ordering Dr: Carolina Bowman Date: 09/13/13 Location: PSN Sex: F C DATE OF SERVICE: [facility] 2013 REFERRING PHYSICIAN: Carolina Bowman. INTRODUCTION: This is a nerve conduction study performed of the left upper extremity on this 48-year-old female with a 2 week history of left wrist pa in. She denies any symptoms in her hand. Symptoms are worse with flexion of the left wrist. Sensory and motor nerve conduction studies demonstrate mild prolongation of the left median motor response with intact ulnar responses and median and ulnar F waves. The median ulnar and radial sensory responses are normal. IMPRESSION: This is a normal nerve conduction study of the left upper extremity. 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 09/15/13 1108 <Electronically signed by Ever Allen MD&#6 2; Date Ever Allen MD CC: Carolina Bowman; Dr. Carbajal; Samantha Barrera DO; Ever Allen MD Date Dictated: 09/13/13 1043 Date Transcribed: 09/13/13 1520 Claim Inspector: ARON Signed 12-Apr-2013 Bilat Scrn Digital & CAD Result: Comments: See Note; NOTES: [facility] Imaging Services [address] [place] [address] Breast Imaging Report MR#: [id number] Acct: [id number] Name: KATHRYN AMARO Rep # : [id number] : 1965 F 48 From: Luciano Dowell MD PCP: Samantha Barrera DO Status: REG CLI Exam# [id number] Ordering Dr: Samantha Barrera DO MAMMOGRAPHY - BILATERAL SCREENING REASON FOR EXAM: Female, 48 years old. Routine annual screening examination. PERTINENT HISTORY: Non-contributory. TECHNIQUE: Digital examination. Mediolateral oblique (MLO) and craniocaudad (CC) views of both breasts were obtained. CAD: CAD was performed on this study. COMPARISON: Comparison is made with prior study dated December 02, 2011 and December 01, 2007. F INDINGS: The breast composition is heterogeneously dense - ranging from 51% to 75% of the breast tissue. There are no dominant masses or suspicious calcifications. Stable calcified fibroadenoma in the inferior medial portion of the right breast. No other significant abnormalities are identified. There has been no significant change since the prior study. IMPRESSION: Stable bilateral screening mammogram. Yearly follow-up recommended. (A) ASSESSMENT CATEGORY: BIRADS Category 2: Benign finding(s). A letter regarding these results will be sent to the patient by the facility within 30 days. Approximately 10% of breast cancers are not detected by mammography. A normal mammogram should not delay biopsy of a clinic ally suspicious abnormality. Electronically Signed: Luciano Dowell M.D. at 8:09 EST , Service support [phone], CC: Samantha Barrera DO Claim Inspector: Signed 12-Apr-2013 Dexa Bone Density Study (HP) Result: Comments: See Note; NOTES: [facility] Imaging Services [address] [place] [address] Bone Density Report MR#: [id number] Acct: [id number] Name: KATHRYN AMARO Rep #: [id number] : 1965 F 48 From: Luciano Dowell MD PCP: Samantha Barrera DO Status: REG CLI Study: Dexa Bone Density Study (HP) Date of Exam: 04/12/13 Exam# [id number] Ordering Dr: Gasper Barrera DO STUDY: DUAL ENERGY X-RAY ABSORPTIOMETRY / DXA REASON FOR EXAM: Female, 48 years old. Osteopenia. Early menopause. TECHNIQUE: Bone Mineral Density (BMD) measurements of lumbar spine and bilateral hips were obtained. COMPARISON: Comparison is made with prior examination dated March 12, 2011. FINDINGS: Lumbar Spine (L1-L4): g/cm2 (0.934) / T-score (-2.1) / Z-score (-1.9) Findings are suggestive of osteopenia with a moderate fracture risk. Left Femur Total: g/cm2 (0.834) / T-score (-1.4) / Z- score (-1.0) Left Femoral Neck: g/cm2 (0.70 0) / T-score (-2.4) / Z-score (-1.8) Right Femur Total: g/cm2 (0.786) / T-score (-1.8) / Z-score (-1.4) Right Femoral Neck: g/cm2 (0.680) / T-score (-2.6) / Z-score (-1.9) The T-Scores on the most r ecent prior examination were: Lumbar Spine (L1-L4): There has been worsening of bone density since the previous examination. Left Femur Total: which represents a worsening of 11.9%. Right Femur To celia: which represents a worsening of 7.6%. IMPRESSION: The patient is considered osteopenic as outlined below according to World [place] Organization (WHO) criteri a with a moderate fracture risk. There has been worsening of bone density since the previous examination. Reference Information: The T-score is the number of st andard deviations above or below the standard which is normal for young adults at their peak bone mineral density. The World Health Organization (WHO) interprets the T-scores as follows: Above -1 N ormal bone density Between -1 and -2.5 Osteopenia Equal to / or below -2.5 Osteoporosis As a practical clinical guideline, osteopenia may be graded as follows: Mild -1 through -1.5 Moderate -1.6 t hrough -2.0 Severe -2.1 through -2.4 The Z-score is the number of standard deviations above or below age-matched controls. A Z-score of less than -1.5 would be considered abnormal. References: 1. NIH Osteoporosis and Related Bone Diseases http://www.osteo.org 2. International Society for Clinical Densitometry http://www.iscd.org 3. National Osteoporosis Foundation http://www.nof.org Electro nically Signed: Luciano Dowell M.D. 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 Comments: 06/23/11 Status: Active Smoking Status Name Dates Details Never smoker Vital Signs Date Test Result Details [id number] Temperature 98.1 f Comments: Method: Temporal Pulse 80 /min Comments: Pattern: Regular Respiration Rate 18 /min Comments: Pattern: Unlabored O2 SAT 97 % Comments: Room air BP Systolic 101 mm[Hg] Comments: Patient Position: Sitting; Cuff Location: Left Arm; Cuff Size: Standard BP Diastolic 80 mm[Hg] Comments: Patient Position: Sitting; Cuff Location: Left Arm; Cuff Size: Standard Weight 145.5 lb Height 62 in Body Mass Index Calculated 26.61 kg/m2 Body Surface Area Calculated 1.67 m2 [id number] Comments: ortho scatic bp: sitting 105/66 P 98standing 95/67 P 113 Temperature 99 f Comments: Method: Temporal Pulse 113 /min Comments: Pattern: Regular Respiration Rate 20 /min Comments: Pattern: Unlabored O2 SAT 97 % Comments: Room air BP Systolic 80 mm[Hg] Comments: Patient Position: Sitting; Cuff Location: Left Arm; Cuff Size: Standard BP Diastolic 61 mm[Hg] Comments: Patient Position: Sitting; Cuff Location: Left Arm; Cuff Size: Standard Weight 137.5 lb Height 62 in Body Mass Index Calculated 25.15 kg/m2 Body Surface Area Calculated 1.63 m2 :06 Temperature 97.6 f Comments: Method: Temporal Pulse 71 /min Comments: Pattern: Regular Respiration Rate 17 /min Comments: Pattern: Unlabored O2 SAT 96 % Comments: Room air BP Systolic 118 mm[Hg] Comments: Patient Position: Sitting; Cuff Location: Left Arm; Cuff Size: Standard BP Diastolic 82 mm[Hg] Comments: Patient Position: Sitting; Cuff Location: Left Arm; Cuff Size: Standard Weight 133.5 lb Height 62 in Body Mass Index Calculated 24.42 kg/m2 Body Surface Area Calculated 1.61 m2 :04 Pulse 86 /min Comments: Pattern: Regular Respiration Rate 18 /min Comments: Pattern: Unlabored O2 SAT 97 % Comments: Room air BP Systolic 110 mm[Hg] Comments: Patient Position: Sitting; Cuff Location: Left Arm; Cuff Size: Standard BP Diastolic 76 mm[Hg] Comments: Patient Position: Sitting; Cuff Location: Left Arm; Cuff Size: Standard Weight 133.5 lb Height 62 in Body Mass Index Calculated 24.42 kg/m2 Body Surface Area Calculated 1.61 m2 :14 Pulse 88 /min Comments: Pattern: Regular Respiration Rate 18 /min Comments: Pattern: Unlabored O2 SAT 97 % Comments: Room air BP Systolic 118 mm[Hg] Comments: Patient Position: Sitting; Cuff Location: Left Arm; Cuff Size: Standard BP Diastolic 70 mm[Hg] Comments: Patient Position: Sitting; Cuff Location: Left Arm; Cuff Size: Standard Weight 133.5 lb Height 62 in Body Mass Index Calculated 24.42 kg/m2 Body Surface Area Calculated 1.61 m2 :03 Pulse 71 /min Comments: Pattern: Regular Respiration Rate 18 /min Comments: Pattern: Unlabored O2 SAT 99 % Comments: Room air BP Systolic 118 mm[Hg] Comments: Patient Position: Sitting; Cuff Location: Left Arm; Cuff Size: Standard BP Diastolic 80 mm[Hg] Comments: Patient Position: Sitting; Cuff Location: Left Arm; Cuff Size: Standard Weight 131 lb Height 62 in Body Mass Index Calculated 23.96 kg/m2 Body Surface Area Calculated 1.6 m2 :23 Temperature 97.7 f Pulse 79 /min Comments: Pattern: Regular Respiration Rate 16 /min Comments: Pattern: Unlabored O2 SAT 98 % Comments: Room air BP Systolic 118 mm[Hg] Comments: Patient Position: Sitting; Cuff Location: Left Arm; Cuff Size: Standard BP Diastolic 76 mm[Hg] Comments: Patient Position: Sitting; Cuff Location: Left Arm; Cuff Size: Standard Weight 148.25 lb Height 62 in Body Mass Index Calculated 27.12 kg/m2 Body Surface Area Calculated 1.68 m2 :00 Pulse 76 /min Comments: Pattern: Regular Respiration Rate 18 /min Comments: Pattern: Unlabored O2 SAT 97 % Comments: Room air BP Systolic 138 mm[Hg] Comments: Patient Position: Sitting; Cuff Location: Left Arm; Cuff Size: Standard BP Diastolic 80 mm[Hg] Comments: Patient Position: Sitting; Cuff Location: Left Arm; Cuff Size: Standard Weight 148.25 lb Height 62 in Body Mass Index Calculated 27.12 kg/m2 Body Surface Area Calculated 1.68 m2 :30 Temperature 97.7 f Pulse 90 /min Comments: Pattern: Regular Respiration Rate 16 /min Comments: Pattern: Unlabored O2 SAT 97 % Comments: Room air BP Systolic 118 mm[Hg] Comments: Patient Position: Sitting; Cuff Location: Left Arm; Cuff Size: Standard BP Diastolic 76 mm[Hg] Comments: Patient Position: Sitting; Cuff Location: Left Arm; Cuff Size: Standard Weight 141.375 lb Height 62 in Body Mass Index Calculated 25.86 kg/m2 Body Surface Area Calculated 1.65 m2 :13 Pulse 77 /min Comments: Pattern: Regular Respiration Rate 18 /min Comments: Pattern: Unlabored O2 SAT 98 % Comments: Room air BP Systolic 122 mm[Hg] Comments: Patient Position: Sitting; Cuff Location: Left Arm; Cuff Size: Large BP Diastolic 68 mm[Hg] Comments: Patient Position: Sitting; Cuff Location: Left Arm; Cuff Size: Large Weight 141.375 lb Height 62 in Body Mass Index Calculated 25.86 kg/m2 Body Surface Area Calculated 1.65 m2 :22 Temperature 97.2 f Pulse 77 /min Comments: Pattern: Regular Respiration Rate 16 /min Comments: Pattern: Unlabored O2 SAT 98 % Comments: Room air BP Systolic 116 mm[Hg] Comments: Patient Position: Sitting; Cuff Location: Left Arm; Cuff Size: Standard BP Diastolic 74 mm[Hg] Comments: Patient Position: Sitting; Cuff Location: Left Arm; Cuff Size: Standard Weight 138.25 lb Height 62 in Body Mass Index Calculated 25.29 kg/m2 Body Surface Area Calculated 1.63 m2 :50 Pulse 74 /min Comments: Pattern: Regular Respiration Rate 18 /min Comments: Pattern: Unlabored O2 SAT 98 % Comments: Room air BP Systolic 122 mm[Hg] Comments: Patient Position: Sitting; Cuff Location: Left Arm; Cuff Size: Standard BP Diastolic 78 mm[Hg] Comments: Patient Position: Sitting; Cuff Location: Left Arm; Cuff Size: Standard Weight 137 lb Height 62 in Body Mass Index Calculated 25.06 kg/m2 Body Surface Area Calculated 1.63 m2 :40 Temperature 97.2 f Pulse 73 /min Comments: Pattern: Regular Respiration Rate 15 /min Comments: Pattern: Unlabored O2 SAT 97 % Comments: Room air BP Systolic 108 mm[Hg] Comments: Patient Position: Sitting; Cuff Location: Left Arm; Cuff Size: Standard BP Diastolic 72 mm[Hg] Comments: Patient Position: Sitting; Cuff Location: Left Arm; Cuff Size: Standard Weight 131.125 lb Height 62 in Body Mass Index Calculated 23.98 kg/m2 Body Surface Area Calculated 1.6 m2 :13 Temperature 97.4 f Pulse 77 /min Comments: Pattern: Regular Respiration Rate 17 /min Comments: Pattern: Unlabored O2 SAT 98 % Comments: Room air BP Systolic 114 mm[Hg] Comments: Patient Position: Sitting; Cuff Location: Left Arm; Cuff Size: Standard BP Diastolic 80 mm[Hg] Comments: Patient Position: Sitting; Cuff Location: Left Arm; Cuff Size: Standard Weight 131.125 lb Height 62 in Body Mass Index Calculated 23.98 kg/m2 Body Surface Area Calculated 1.6 m2 :24 Temperature 97.8 f Pulse 72 /min Comments: Pattern: Regular Respiration Rate 17 /min Comments: Pattern: Unlabored O2 SAT 96 % Comments: Room air BP Systolic 126 mm[Hg] Comments: Patient Position: Sitting; Cuff Location: Left Arm; Cuff Size: Standard BP Diastolic 82 mm[Hg] Comments: Patient Position: Sitting; Cuff Location: Left Arm; Cuff Size: Standard Weight 131.125 lb Height 62 in Body Mass Index Calculated 23.98 kg/m2 Body Surface Area Calculated 1.6 m2 :52 Temperature 97.4 f Pulse 88 /min Comments: Pattern: Regular Respiration Rate 16 /min Comments: Pattern: Unlabored O2 SAT 95 % Comments: Room air BP Systolic 112 mm[Hg] Comments: Patient Position: Sitting; Cuff Location: Left Arm; Cuff Size: Standard BP Diastolic 68 mm[Hg] Comments: Patient Position: Sitting; Cuff Location: Left Arm; Cuff Size: Standard Weight 131.125 lb Height 62 in Body Mass Index Calculated 23.98 kg/m2 Body Surface Area Calculated 1.6 m2 :47 Pulse 68 /min Comments: Pattern: Regular Respiration Rate 18 /min Comments: Pattern: Unlabored O2 SAT 98 % Comments: Room air BP Systolic 110 mm[Hg] Comments: Patient Position: Sitting; Cuff Location: Left Arm; Cuff Size: Standard BP Diastolic 70 mm[Hg] Comments: Patient Position: Sitting; Cuff Location: Left Arm; Cuff Size: Standard Weight 133.25 lb Height 62 in Body Mass Index Calculated 24.37 kg/m2 Body Surface Area Calculated 1.61 m2 :09 Temperature 98.2 f Comments: Method: Temporal Pulse 90 /min Comments: Pattern: Regular Respiration Rate 16 /min Comments: Pattern: Unlabored O2 SAT 97 % Comments: Room air BP Systolic 102 mm[Hg] Comments: Patient Position: Sitting; Cuff Location: Left Arm; Cuff Size: Standard BP Diastolic 64 mm[Hg] Comments: Patient Position: Sitting; Cuff Location: Left Arm; Cuff Size: Standard Weight 134.25 lb Height 62 in Body Mass Index Calculated 24.55 kg/m2 Body Surface Area Calculated 1.61 m2 :15 Temperature 97 f Pulse 81 /min Comments: Pattern: Regular Respiration Rate 16 /min Comments: Pattern: Unlabored O2 SAT 98 % Comments: Room air BP Systolic 116 mm[Hg] Comments: Patient Position: Sitting; Cuff Location: Left Arm; Cuff Size: Standard BP Diastolic 82 mm[Hg] Comments: Patient Position: Sitting; Cuff Location: Left Arm; Cuff Size: Standard Weight 134.25 lb Height 62 in Body Mass Index Calculated 24.55 kg/m2 Body Surface Area Calculated 1.61 m2 :36 Temperature 98.5 f Pulse 78 /min Comments: Pattern: Regular Respiration Rate 16 /min Comments: Pattern: Unlabored O2 SAT 95 % Comments: Room air BP Systolic 114 mm[Hg] Comments: Patient Position: Sitting; Cuff Location: Left Arm; Cuff Size: Standard BP Diastolic 76 mm[Hg] Comments: Patient Position: Sitting; Cuff Location: Left Arm; Cuff Size: Standard Weight 134.25 lb Height 62 in Body Mass Index Calculated 24.55 kg/m2 Body Surface Area Calculated 1.61 m2 :21 Temperature 98.8 f Comments: Method: Oral Pulse 74 /min Comments: Pattern: Regular Respiration Rate 15 /min O2 SAT 98 % Comments: Room air BP Systolic 120 mm[Hg] Comments: Patient Position: Sitting; Cuff Location: Left Arm; Cuff Size: Standard BP Diastolic 80 mm[Hg] Comments: Patient Position: Sitting; Cuff Location: Left Arm; Cuff Size: Standard Weight 134.5 lb Height 62 in Body Mass Index Calculated 24.6 kg/m2 Body Surface Area Calculated 1.62 m2 :33 Temperature 97.6 f Pulse 82 /min Comments: Pattern: Regular Respiration Rate 18 /min Comments: Pattern: Unlabored O2 SAT 98 % Comments: Room air BP Systolic 110 mm[Hg] Comments: Patient Position: Sitting; Cuff Location: Left Arm; Cuff Size: Standard BP Diastolic 76 mm[Hg] Comments: Patient Position: Sitting; Cuff Location: Left Arm; Cuff Size: Standard Weight 152 lb Height 62.5 in Body Mass Index Calculated 27.36 kg/m2 Body Surface Area Calculated 1.71 m2 :41 Pulse 77 /min Comments: Pattern: Regular Respiration Rate 20 /min Comments: Pattern: Unlabored O2 SAT 98 % Comments: Room air BP Systolic 122 mm[Hg] Comments: Patient Position: Sitting; Cuff Location: Left Arm; Cuff Size: Large BP Diastolic 80 mm[Hg] Comments: Patient Position: Sitting; Cuff Location: Left Arm; Cuff Size: Large Weight 152 lb Height 62.5 in Body Mass Index Calculated 27.36 kg/m2 Body Surface Area Calculated 1.71 m2 :07 Temperature 97.8 f Comments: Method: Oral Pulse 76 /min Comments: Pattern: Regular Respiration Rate 18 /min O2 SAT 97 % Comments: Room air BP Systolic 126 mm[Hg] Comments: Patient Position: Sitting; Cuff Location: Left Arm; Cuff Size: Standard BP Diastolic 78 mm[Hg] Comments: Patient Position: Sitting; Cuff Location: Left Arm; Cuff Size: Standard Weight 152 lb Height 62.5 in Body Mass Index Calculated 27.36 kg/m2 Body Surface Area Calculated 1.71 m2 :25 Pulse 81 /min Comments: Pattern: Regular Respiration Rate 18 /min Comments: Pattern: Unlabored O2 SAT 98 % Comments: Room air BP Systolic 124 mm[Hg] Comments: Patient Position: Sitting; Cuff Location: Left Arm; Cuff Size: Standard BP Diastolic 86 mm[Hg] Comments: Patient Position: Sitting; Cuff Location: Left Arm; Cuff Size: Standard Weight 152 lb Height 62.5 in Body Mass Index Calculated 27.36 kg/m2 Body Surface Area Calculated 1.71 m2 :03 Temperature 98.2 f Comments: Method: Temporal Pulse 72 /min Comments: Pattern: Regular Respiration Rate 16 /min Comments: Pattern: Unlabored O2 SAT 99 % Comments: Room air BP Systolic 122 mm[Hg] Comments: Patient Position: Sitting; Cuff Location: Left Arm; Cuff Size: Standard BP Diastolic 76 mm[Hg] Comments: Patient Position: Sitting; Cuff Location: Left Arm; Cuff Size: Standard Weight 143.0625 lb Height 62.5 in Body Mass Index Calculated 25.75 kg/m2 Body Surface Area Calculated 1.67 m2 :17 Temperature 98.1 f Comments: Method: Oral Pulse 62 /min Comments: Pattern: Regular Respiration Rate 16 /min Comments: Pattern: Unlabored BP Systolic 106 mm[Hg] Comments: Patient Position: Sitting; Cuff Location: Left Arm; Cuff Size: Standard BP Diastolic 78 mm[Hg] Comments: Patient Position: Sitting; Cuff Location: Left Arm; Cuff Size: Standard Weight 143.0625 lb Height 62.5 in Body Mass Index Calculated 25.75 kg/m2 Body Surface Area Calculated 1.67 m2 :40 Temperature 98.2 f Comments: Method: Oral Pulse 60 /min Comments: Pattern: Regular Respiration Rate 18 /min Comments: Pattern: Unlabored BP Systolic 188 mm[Hg] Comments: Patient Position: Sitting; Cuff Location: Left Arm; Cuff Size: Large BP Diastolic 68 mm[Hg] Comments: Patient Position: Sitting; Cuff Location: Left Arm; Cuff Size: Large Weight 140.5625 lb Height 62.5 in Body Mass Index Calculated 25.3 kg/m2 Body Surface Area Calculated 1.66 m2 :38 Pulse 60 /min Comments: Pattern: Regular Respiration Rate 20 /min Comments: Pattern: Unlabored BP Systolic 122 mm[Hg] Comments: Patient Position: Sitting; Cuff Location: Left Arm; Cuff Size: Large BP Diastolic 82 mm[Hg] Comments: Patient Position: Sitting; Cuff Location: Left Arm; Cuff Size: Large Weight 145.125 lb Height 62.5 in Body Mass Index Calculated 26.12 kg/m2 Body Surface Area Calculated 1.68 m2 :09 Temperature 98.7 f Comments: Method: Oral Pulse 76 /min Comments: Pattern: Regular Respiration Rate 16 /min Comments: Pattern: Unlabored BP Systolic 120 mm[Hg] Comments: Patient Position: Sitting; Cuff Location: Left Arm; Cuff Size: Standard BP Diastolic 72 mm[Hg] Comments: Patient Position: Sitting; Cuff Location: Left Arm; Cuff Size: Standard Weight 151.1875 lb Height 62.5 in Body Mass Index Calculated 27.21 kg/m2 Body Surface Area Calculated 1.71 m2 :00 Temperature 98 f Pulse 60 /min Comments: Pattern: Regular Respiration Rate 20 /min Comments: Pattern: Unlabored BP Systolic 118 mm[Hg] Comments: Patient Position: Sitting; Cuff Location: Left Arm; Cuff Size: Standard BP Diastolic 60 mm[Hg] Comments: Patient Position: Sitting; Cuff Location: Left Arm; Cuff Size: Standard Weight 151.1875 lb Height 62.5 in Body Mass Index Calculated 27.21 kg/m2 Body Surface Area Calculated 1.71 m2 :37 Temperature 98.3 f Comments: Method: Oral Pulse 76 /min Comments: Pattern: Regular Respiration Rate 16 /min Comments: Pattern: Unlabored BP Systolic 112 mm[Hg] Comments: Patient Position: Sitting; Cuff Location: Left Arm; Cuff Size: Standard BP Diastolic 74 mm[Hg] Comments: Patient Position: Sitting; Cuff Location: Left Arm; Cuff Size: Standard Weight 150.5625 lb Height 62.5 in Body Mass Index Calculated 27.1 kg/m2 Body Surface Area Calculated 1.7 m2 :27 Temperature 97.8 f Comments: Method: Oral Pulse 72 /min Comments: Pattern: Regular Respiration Rate 16 /min Comments: Pattern: Unlabored BP Systolic 114 mm[Hg] Comments: Patient Position: Sitting; Cuff Location: Left Arm; Cuff Size: Standard BP Diastolic 68 mm[Hg] Comments: Patient Position: Sitting; Cuff Location: Left Arm; Cuff Size: Standard Weight 150.5625 lb Height 62.5 in Body Mass Index Calculated 27.1 kg/m2 Body Surface Area Calculated 1.7 m2 :34 Temperature 97.8 f Comments: Method: Oral Pulse 80 /min Comments: Pattern: Regular Respiration Rate 20 /min Comments: Pattern: Unlabored BP Systolic 118 mm[Hg] Comments: Patient Position: Sitting; Cuff Location: Left Arm; Cuff Size: Large BP Diastolic 72 mm[Hg] Comments: Patient Position: Sitting; Cuff Location: Left Arm; Cuff Size: Large Weight 150.5625 lb Height 62.5 in Body Mass Index Calculated 27.1 kg/m2 Body Surface Area Calculated 1.7 m2 :29 Temperature 98.2 f Comments: Method: Oral Pulse 64 /min Comments: Pattern: Regular Respiration Rate 17 /min Comments: Pattern: Unlabored BP Systolic 112 mm[Hg] Comments: Patient Position: Sitting; Cuff Location: Left Arm; Cuff Size: Standard BP Diastolic 68 mm[Hg] Comments: Patient Position: Sitting; Cuff Location: Left Arm; Cuff Size: Standard Weight 154.5625 lb Height 62.5 in Body Mass Index Calculated 27.82 kg/m2 Body Surface Area Calculated 1.72 m2 :53 Pulse 60 /min Comments: Pattern: Regular Respiration Rate 18 /min Comments: Pattern: Unlabored BP Systolic 110 mm[Hg] Comments: Patient Position: Sitting; Cuff Location: Left Arm; Cuff Size: Standard BP Diastolic 68 mm[Hg] Comments: Patient Position: Sitting; Cuff Location: Left Arm; Cuff Size: Standard Weight 154.5625 lb Height 62.5 in Body Mass Index Calculated 27.82 kg/m2 Body Surface Area Calculated 1.72 m2 :10 Pulse 60 /min Comments: Pattern: Regular Respiration Rate 18 /min Comments: Pattern: Unlabored BP Systolic 122 mm[Hg] Comments: Patient Position: Sitting; Cuff Location: Left Arm; Cuff Size: Large BP Diastolic 78 mm[Hg] Comments: Patient Position: Sitting; Cuff Location: Left Arm; Cuff Size: Large Weight 152.5625 lb Height 62.5 in Body Mass Index Calculated 27.46 kg/m2 Body Surface Area Calculated 1.71 m2 :44 Temperature 98 f Comments: Method: Oral Pulse 82 /min Comments: Pattern: Regular Respiration Rate 18 /min Comments: Pattern: Unlabored BP Systolic 126 mm[Hg] Comments: Patient Position: Sitting; Cuff Location: Left Arm; Cuff Size: Standard BP Diastolic 80 mm[Hg] Comments: Patient Position: Sitting; Cuff Location: Left Arm; Cuff Size: Standard Weight 131 lb Height 62.5 in Body Mass Index Calculated 23.58 kg/m2 Body Surface Area Calculated 1.61 m2 :49 Temperature 97.7 f Comments: Method: Oral Pulse 84 /min Comments: Pattern: Regular Respiration Rate 20 /min Comments: Pattern: Unlabored O2 SAT 98 % Comments: Room air BP Systolic 120 mm[Hg] Comments: Patient Position: Sitting; Cuff Location: Left Arm; Cuff Size: Standard BP Diastolic 68 mm[Hg] Comments: Patient Position: Sitting; Cuff Location: Left Arm; Cuff Size: Standard Weight 131 lb Height 62.5 in Body Mass Index Calculated 23.58 kg/m2 Body Surface Area Calculated 1.61 m2 :44 Temperature 97.2 f Comments: Method: Oral Pulse 60 /min Comments: Pattern: Regular Respiration Rate 20 /min Comments: Pattern: Unlabored BP Systolic 122 mm[Hg] Comments: Patient Position: Sitting; Cuff Location: Left Arm; Cuff Size: Large BP Diastolic 62 mm[Hg] Comments: Patient Position: Sitting; Cuff Location: Left Arm; Cuff Size: Large Weight 130.375 lb Height 62.5 in Body Mass Index Calculated 23.47 kg/m2 Body Surface Area Calculated 1.6 m2 :19 Pulse 72 /min Comments: Pattern: Regular Respiration Rate 20 /min Comments: Pattern: Unlabored BP Systolic 118 mm[Hg] Comments: Patient Position: Sitting; Cuff Location: Left Arm; Cuff Size: Large BP Diastolic 72 mm[Hg] Comments: Patient Position: Sitting; Cuff Location: Left Arm; Cuff Size: Large Weight 130.375 lb Height 62.5 in Body Mass Index Calculated 23.47 kg/m2 Body Surface Area Calculated 1.6 m2 Head Circumference 0.00 cm :06 Temperature 98.7 f Comments: Method: Undefined Pulse 76 /min Comments: Pattern: Regular Respiration Rate 16 /min Comments: Pattern: Undefined BP Systolic 114 mm[Hg] Comments: Patient Position: Sitting; Cuff Location: Left Arm; Cuff Size: Standard BP Diastolic 78 mm[Hg] Comments: Patient Position: Sitting; Cuff Location: Left Arm; Cuff Size: Standard Weight 0 lb Height 0 in Head Circumference 0.00 cm Results Date Description Value Details :38 CBC W/Diff, Automated Comments: [facility] [id number] DohertyJannette [place], [place], [address] Absolute Lymph 1.16 {X10_3/ul} (Normal) Range: 0.83-4.51 Absolute Neut 2.3 {X10_3/uL} (Normal) Range: 2.0-7.7 IM GRAN % 0.200 % (Normal) Range: 0.0-0.9 Comments: IG% - Immature Granulocytes (promyelocytes, myelocytes andmetamyelocytes) > 1% indicates that a LEFT SHIFT is Present. BASO% 0.4 % (Normal) Range: 0-1 EO% 11.5 % (Abnormal) Range: 0-5 MONO% 10.4 % (Abnormal) Range: 0-10 LY% 25.7 % (Normal) Range: 19-41 NEUT% 51.8 % (Normal) Range: 47-70 MPV 9.7 fL (Normal) Range: 6.2-12.0 PLT 206 K/mm3 (Normal) Range: 150-450 RDW SD 42.1 fL (Normal) Range: 35.1-43.9 RDW CV 12.4 % (Normal) Range: 11.6-14.6 MCHC 33.1 {g/gl} (Normal) Range: 32-36 MCH 30.7 pg (Normal) Range: 27.0-32.0 MCV 92.8 fL (Normal) Range: 81-99 HCT 43.8 % (Normal) Range: 37-47 HGB 14.5 g/dL (Normal) Range: 12.0-15.0 RBC 4.72 {M/mm3} (Normal) Range: 4.2-5.4 WBC 4.5 K/mm3 (Normal) Range: 4.4-11.0 :38 Comprehensive Metabolic Profil Comments: [facility] [id number] [place], [address] GAP 7 (Normal) Range: 5-15 CO2 24.0 mmol/L (Normal) Range: 21.0-32.0 CL 110 mmol/L (Abnormal) Range: 98-107 K 4.2 mmol/L (Normal) Range: 3.5-5.1 NA 141 mmol/L (Normal) Range: 136-145 T BILI 0.40 mg/dL (Normal) Range: 0.20-1.00 ALT 21 U/L (Normal) Range: 13-56 ALK P 65 U/L (Normal) Range: 45-117 AST 11 U/L (Abnormal) Range: 15-37 CA 8.5 mg/dL (Normal) Range: 8.5-10.1 A/G 1.2 {RATIO} (Normal) Range: 0.9-2.4 GLOB 3.2 g/dL (Normal) Range: 2.2-4.2 ALB 4.0 g/dL (Normal) Range: 3.2-5.0 T PROT 7.2 g/dL (Normal) Range: 6.4-8.2 BUN/CRE 24.6 {RATIO} (Abnormal) Range: 10-20 EST GFR - AA 101 mL/min (Normal) Comments: GFR Calc EST GFR 83 mL/min (Normal) Comments: Non- GFR Calc CREAT,SERUM 0.77 mg/dL (Normal) Range: 0.55-1.02 Comments: The validity of the calculated GFR AND GFRAA in patients over70 years has not been determined. Clinical correlation isessential. BUN 19 mg/dL (Abnormal) Range: 7-18 GLU 103 mg/dL (Normal) Range: 74-106 Comments: Fasting Glucose result from 100 to 125 mg/dLsuggests IMPAIRED HOMEOSTASIS per A.D.A. criteria.Please note revised GLUCOSE reference range [id number]/02/2018. :38 Lipid Profile Comments: [facility] [id number] [place], [place], [id number] VLDL 25 mg/dL (Normal) Range: 5-40 LDL 143 mg/dL (Abnormal) Range: 0-130 HDL 62 mg/dL (Normal) Comments: The drugs N-Acetylcysteine and Metamizole may falselydepress this assay. Reference Range HDL <40 mg/dL Low HDL Cholesterol HDL >or= 60 mg/dL High HDL Cholesterol TRIG 123 mg/dL (Normal) Comments: The drugs N-Acetylcysteine and Metamizole may falselydepress this assay.Serum Triglycerides Reference Interval Normal <150 mg/dL Borderline high 150 - 199 mg/dL High 200 - 499 mg/dL Very High > or = 500 mg/dL CHOL 230 mg/dL (Abnormal) Comments: <200 mg/dL Desirable 200-240 mg/dL Borderline >240 mg/dL High Risk [id number] Thyroid Stim Hormone (TSH) Comments: [facility] [id number] [facility] [address]. [place], [place], [address] TSH 0.76 {uIU/mL} (Normal) Range: 0.358-3.74 [id number] ([id number]) Comments: PATIENT NOT FASTINGPERFORMED BY: [id number] [facility] [id number] AFP, Serum, Tumor Marker 6.2 ng/mL (Normal) Range: 0.0-8.3 Comments: Kyler ECLIA methodology :06 HEPATIC FUNCTION PANEL Comments: PATIENT NOT FASTINGPERFORMED BY: [id number] [facility] [id number] ([id number]) ALT (SGPT) 30 [iU]/L (Normal) Range: 0-32 AST (SGOT) 18 [iU]/L (Normal) Range: 0-40 Alkaline Phosphatase 56 [iU]/L (Normal) Range: 39-117 Bilirubin, Direct 0.10 mg/dL (Normal) Range: 0.00-0.40 Bilirubin, Total 0.2 mg/dL (Normal) Range: 0.0-1.2 Albumin 4.8 g/dL (Normal) Range: 3.5-5.5 Protein, Total 6.7 g/dL (Normal) Range: 6.0-8.5 [id number] HEPATIC FUNCTION PANEL Comments: PATIENT NOT FASTINGPERFORMED BY: [employer] [id number] [facility] [id number] ([id number]) ALT (SGPT) 110 [iU]/L (Abnormal) Range: 0-32 AST (SGOT) 48 [iU]/L (Abnormal) Range: 0-40 Alkaline Phosphatase 52 [iU]/L (Normal) Range: 39-117 Bilirubin, Direct 0.16 mg/dL (Normal) Range: 0.00-0.40 Bilirubin, Total 0.5 mg/dL (Normal) Range: 0.0-1.2 Albumin 4.5 g/dL (Normal) Range: 3.5-5.5 Protein, Total 6.5 g/dL (Normal) Range: 6.0-8.5 [id number] CBC & PLATELETS (AUTO) Comments: PATIENT NOT FASTINGPERFORMED BY: [employer] [id number] [facility] [id number] ([id number]) Platelets 312 {x10E3/uL} (Normal) Range: 150-379 RDW 12.7 % (Normal) Range: 12.3-15.4 MCHC 34.6 g/dL (Normal) Range: 31.5-35.7 MCH 30.7 pg (Normal) Range: 26.6-33.0 MCV 89 fL (Normal) Range: 79-97 Hematocrit 38.4 % (Normal) Range: 34.0-46.6 Hemoglobin 13.3 g/dL (Normal) Range: 11.1-15.9 RBC 4.33 {x10E6/uL} (Normal) Range: 3.77-5.28 WBC 6.0 {x10E3/uL} (Normal) Range: 3.4-10.8 [id number] PARATHORMONE ([id number]) Comments: PATIENT NOT FASTINGPERFORMED BY: [address] Yhcl[address] [facility] [id number] PTH, Intact 30 pg/mL (Normal) Range: 15-65 19-Gif-798737:56 CALCIFEDIOL (38325) Comments: PATIENT NOT FASTINGPERFORMED BY: LabCo Rymrfy9523 [facility] [id number] Vitamin D, 25-Hydroxy 79.3 ng/mL (Normal) Range: 30.0-100.0 Comments: Vitamin D deficiency has been defined by the [place] of[place] and an Endocrine Society practice guideline as alevel of serum 25-OH vitamin D less than 20 ng/mL (1,2).The Endocrine Society went on to further define vitamin Dinsufficiency as a level between 21 and 29 ng/mL (2).1. IOM ([place] of [employer]). 2010. Dietary reference intakes for calcium and D. [place]: The National Academies Press.2. Henna MF, Jerman MORRIS, Piedad SHARP, et al. Evaluation, treatment, and prevention of vitamin D deficiency: an Endocrine Society clinical practice guideline. JCEM. 2010; 96(7):1911-30. 46-Dfz-731181:56 MAGNESIUM (33090) Comments: PATIENT NOT FASTINGPERFORMED BY: LabCoSaint Michael's Medical CenterYbbtvh6195 [facility] [id number] Magnesium 2.1 mg/dL (Normal) Range: 1.6-2.3 06-Oyd-041918:51 Metabolic Panel, Comprehensive Comments: PATIENT NOT FASTINGPERFORMED BY: LabCoSaint Michael's Medical CenterQzqyaa3885 [facility] [id number] (60154) ALT (SGPT) 67 [iU]/L (Abnormal) Range: 0-32 AST (SGOT) 45 [iU]/L (Abnormal) Range: 0-40 Alkaline Phosphatase 61 [iU]/L (Normal) Range: 39-117 Bilirubin, Total 0.3 mg/dL (Normal) Range: 0.0-1.2 A/G Ratio 2.2 (Normal) Range: 1.2-2.2 Globulin, Total 1.8 g/dL (Normal) Range: 1.5-4.5 Albumin 4.0 g/dL (Normal) Range: 3.5-5.5 Protein, Total 5.8 g/dL (Abnormal) Range: 6.0-8.5 Calcium 7.7 mg/dL (Abnormal) Range: 8.7-10.2 Carbon Dioxide, Total 18 mmol/L (Abnormal) Range: 20-29 Chloride 107 mmol/L (Abnormal) Range: 96-106 Potassium 3.7 mmol/L (Normal) Range: 3.5-5.2 Sodium 142 mmol/L (Normal) Range: 134-144 BUN/Creatinine Ratio 14 (Normal) Range: 9-23 eGFR If Africn Am 89 mL/min/1.73 (Normal) eGFR If NonAfricn Am 77 mL/min/1.73 (Normal) Creatinine 0.87 mg/dL (Normal) Range: 0.57-1.00 BUN 12 mg/dL (Normal) Range: 6-24 Glucose 116 mg/dL (Abnormal) Range: 65-99 64-Ssg-498232:51 CBC & PLATELETS (AUTO) Comments: PATIENT NOT FASTINGPERFORMED BY: Leti ArtsFormerly [facility]6370 [facility] [id number] (12272) Platelets 101 {x10E3/uL} Range: 150-379 (Abnormal) RDW 12.8 % (Normal) Range: 12.3-15.4 MCHC 35.2 g/dL (Normal) Range: 31.5-35.7 MCH 30.9 pg (Normal) Range: 26.6-33.0 MCV 88 fL (Normal) Range: 79-97 Hematocrit 37.8 % (Normal) Range: 34.0-46.6 Hemoglobin 13.3 g/dL (Normal) Range: 11.1-15.9 RBC 4.30 {x10E6/uL} Range: 3.77-5.28 (Normal) WBC 10.6 {x10E3/uL} Range: 3.4-10.8 (Normal) :1 Cortisol - AM 13.3 ug/dL (Normal) Comments: PATIENT NOT FASTINGPERFORMED BY: Leti ArtsFormerly [facility]6370 [facility] [id number] BY: [address] [id number] Range: 6.2-19.4 :10 CALCIFEDIOL (69175) Comments: PATIENT NOT FASTINGPERFORMED BY: [facility]6370 [facility] [id number] BY: GeliyooCentraState Healthcare SystemEyqfiuovie0037 [facility] [id number] Vitamin D, 25-Hydroxy 86.0 ng/mL (Normal) Range: 30.0-100.0 Comments: Vitamin D deficiency has been defined by the [place] [facility] Hospitalcine and an Endocrine Society practice guideline as alevel of serum 25-OH vitamin D less than 20 ng/mL (1,2).The Endocrine Society went on to further define vitamin Dinsufficiency as a level between 21 and 29 ng/mL (2).1. IOM ([place]). 2010. Dietary reference intakes for calcium and D. [place]: The National Academies Press.2. Henna MF, Jerman NC, Piedad SHARP, et al. Evaluation, treatment, and prevention of vitamin D deficiency: an Endocrine Society clinical practice guideline. JCEM. 2010; 96(7):1911-30. 95-Ehr-99332:10 TESTOSTERONE TOTAL (04943) Comments: PATIENT NOT FASTINGPERFORMED BY: Leaf70 [facility] [id number] BY: Sidense[address] [id number] Information: AM CORTISOL Testosterone, Serum <3 ng/dL (Abnormal) Range: 3-41 87-Dir-33877:10 ESTRONE (78337) Comments: PATIENT NOT FASTINGPERFORMED BY: Leaf70 NeighborMDFormerly [facility], [facility] [id number] BY: Geliyoo[address] [id number] Estrone, Serum 36 pg/mL (Normal) Comments: . Age Male Female 0 - 5 years 18 - 53 19 - 46 6 - 7 years 17 - 48 17 - 4 4 8 - 9 years 20 - 54 31 - 70 10 - 11 years 21 - 49 28 - 68 12 - 14 years 17 - 44 57 - 140 Adult 12 - 72 See below Female: Follicular Phase 37 - 138 Mid-cycle 60 - 229 Luteal Phase 50 - 114 Post Menopausal 14 - 103 44-Oeg-47211:10 PROGESTERONE (20970) Comments: PATIENT NOT FASTINGPERFORMED BY: Leaf70 [facility] [id number] BY: Sidense[address] [id number] Progesterone 0.2 ng/mL (Normal) Comments: Follicular phase 0.1 - 0.9 Luteal phase 1.8 - 23.9 Ovulation phase 0.1 - 12.0 First trimester 11.0 - 44.3 Second trimester 25.4 - 83.3 Third t rimester 58.7 - 214.0 Postmenopausal 0.0 - 0.1 99-Rsu-97113:10 ESTRADIOL (81061) Comments: PATIENT NOT FASTINGPERFORMED BY: SidenseSaint Michael's Medical CenterMvhzce2037 [facility] [id number] BY: Sidense[address] [id number] Estradiol <5.0 pg/mL (Normal) Comments: Adult Female: Follicular phase 12.5 - 166.0 Ovulation phase 85.8 - 498.0 Luteal phase 43.8 - 211.0 Postmenopausal <6.0 - 54.7 1st trimester 215.0 - & gt;4300.0 Girls (1-10 years) 6.0 - 27.0Roche ECLIA methodology 89-Xkh-925012:02 CBC & PLATELETS (AUTO) Comments: PATIENT NOT FASTINGPERFORMED BY: Leti ArtsFormerly [facility]6370 [facility] [id number] (56708) Platelets 214 {x10E3/uL} (Normal) Range: 150-379 RDW 13.0 % (Normal) Range: 12.3-15.4 MCHC 32.9 g/dL (Normal) Range: 31.5-35.7 MCH 31.3 pg (Normal) Range: 26.6-33.0 MCV 95 fL (Normal) Range: 79-97 Hematocrit 41.0 % (Normal) Range: 34.0-46.6 Hemoglobin 13.5 g/dL (Normal) Range: 11.1-15.9 RBC 4.32 {x10E6/uL} (Normal) Range: 3.77-5.28 WBC 6.8 {x10E3/uL} (Normal) Range: 3.4-10.8 36-Sxm-995760:02 TSH (65225) Comments: PATIENT NOT FASTINGPERFORMED BY: [facility]6370 [facility] [id number] TSH 1.190 {uIU/mL} (Normal) Range: 0.450-4.500 49-Yvu-314380:02 T4, FREE (THYROXINE) (14328) Comments: PATIENT NOT FASTINGPERFORMED BY: [address] [id number] T4,Free(Direct) 1.07 ng/dL (Normal) Range: 0.82-1.77 25-Nsd-040797:02 T3, FREE (TRIDOTHYRONINE) (67440) Comments: PATIENT NOT FASTINGPERFORMED BY: [place] [address] [facility] [id number] Triiodothyronine,Free,Serum 2.9 pg/mL (Normal) Range: 2.0-4.4 61-Cow-009542:02 Metabolic Panel, Comprehensive Comments: PATIENT NOT FASTINGPERFORMED BY: [place] [address] [facility] [id number] (96704) ALT (SGPT) 14 [iU]/L (Normal) Range: 0-32 AST (SGOT) 14 [iU]/L (Normal) Range: 0-40 Alkaline Phosphatase, S 51 [iU]/L (Normal) Range: 39-117 Bilirubin, Total <0.2 mg/dL (Normal) Range: 0.0-1.2 A/G Ratio 1.9 (Normal) Range: 1.2-2.2 Globulin, Total 2.2 g/dL (Normal) Range: 1.5-4.5 Albumin, Serum 4.2 g/dL (Normal) Range: 3.5-5.5 Protein, Total, Serum 6.4 g/dL (Normal) Range: 6.0-8.5 Calcium, Serum 9.5 mg/dL (Normal) Range: 8.7-10.2 Carbon Dioxide, Total 23 mmol/L (Normal) Range: 18-29 Chloride, Serum 102 mmol/L (Normal) Range: 96-106 Potassium, Serum 4.2 mmol/L (Normal) Range: 3.5-5.2 Sodium, Serum 141 mmol/L (Normal) Range: 134-144 BUN/Creatinine Ratio 39 (Abnormal) Range: 9-23 eGFR If Africn Am 81 mL/min/1.73 (Normal) eGFR If NonAfricn Am 70 mL/min/1.73 (Normal) Creatinine, Serum 0.94 mg/dL (Normal) Range: 0.57-1.00 BUN 37 mg/dL (Abnormal) Range: 6-24 Glucose, Serum 84 mg/dL (Normal) Range: 65-99 93-Fba-561223:02 IRON (54257) Comments: PATIENT NOT FASTINGPERFORMED BY: HistoRx6370 NeighborMDFormerly [facility], [facility] [id number] Iron, Serum 46 ug/dL (Normal) Range: 27-159 08-Vrw-349624:02 DHEA-S (DEHYDROEPIANDROSTERONE Comments: PATIENT NOT FASTINGPERFORMED BY: Leaf70 JacobsGeckoFormerly [facility], [facility] [id number] SULFATE) (47433) DHEA-Sulfate 40.7 ug/dL (Abnormal) Range: 41.2-243.7 :57 Microscopic Examination Comments: PATIENT NOT FASTINGPERFORMED BY: HistoRx6370 2[facility]avantAt[facility] Health [id number] Bacteria Few (Normal) Mucus Threads Present (Normal) Epithelial Cells (non renal) 0-10 {/hpf} (Normal) Range: 0 - 10 RBC 0-2 {/hpf} (Normal) Range: 0 - 2 WBC 0-5 {/hpf} (Normal) Range: 0 - 5 :57 URINALYSIS (30662) Comments: PATIENT NOT FASTINGPERFORMED BY: HistoRx6370 2heuresavantAtrium Health [id number] Microscopic Examination See below: (Normal) Comments: Microscopic was indicated and was performed. Nitrite, Urine Negative (Normal) Urobilinogen,Semi-Qn 0.2 mg/dL (Normal) Range: 0.2-1.0 Bilirubin Negative (Normal) Occult Blood Negative (Normal) Ketones Negative (Normal) Glucose Negative (Normal) Protein Negative (Normal) WBC Esterase 1+ (Abnormal) Appearance Clear (Normal) Urine-Color Yellow (Normal) pH 7.0 (Normal) Range: 5.0-7.5 Specific [place] 1.008 (Normal) Range: 1.005-1.030 :50 Basic Metabolic Profile (BMP) Comments: [facility] [address] [place], [place], [id number] GAP 4 (Abnormal) Range: 5-15 CO2 27.0 mmol/L (Normal) Range: 21.0-32.0 CL 109 mmol/L (Abnormal) Range: 98-107 K 3.7 mmol/L (Normal) Range: 3.5-5.1 NA 140 mmol/L (Normal) Range: 136-145 CA 9.1 mg/dL (Normal) Range: 8.5-10.1 BUN/CRE 22.7 {RATIO} (Abnormal) Range: 10-20 Estimated CRCL 60.49 ml/min (Normal) EST GFR - AA 87 mL/min (Normal) Comments: GFR Calc EST GFR 72 mL/min (Normal) Comments: Non- GFR Calc CREAT,SERUM 0.88 mg/dL (Normal) Range: 0.55-1.02 Comments: The validity of the calculated GFR AND GFRAA in patients over70 years has not been determined. Clinical correlation isessential. BUN 20 mg/dL (Abnormal) Range: 7-18 GLU 87 mg/dL (Normal) Range: 70-110 :50 CBC W/Diff, Automated Comments: [facility] Ditetaerbd[address] [place], [place], [id number] Absolute Lymph 1.18 {X10_3/ul} (Normal) Range: 0.83-4.51 Absolute Neut 7.7 {X10_3/uL} (Normal) Range: 2.0-7.7 IM GRAN % 0.200 % (Normal) Range: 0.0-0.9 Comments: IG% - Immature Granulocytes (promyelocytes, myelocytes andmetamyelocytes) > 1% indicates that a LEFT SHIFT is Present. BASO% 0.3 % (Normal) Range: 0-1 EO% 4.7 % (Normal) Range: 0-5 MONO% 8.5 % (Normal) Range: 0-10 LY% 11.5 % (Abnormal) Range: 19-41 NEUT% 74.8 % (Abnormal) Range: 47-70 MPV 9.2 fL (Normal) Range: 6.2-12.0 PLT 199 K/mm3 (Normal) Range: 150-450 RDW SD 41.0 fL (Normal) Range: 35.1-43.9 RDW CV 12.2 % (Normal) Range: 11.6-14.6 MCHC 34.2 {g/gl} (Normal) Range: 32-36 MCH 31.4 pg (Normal) Range: 27.0-32.0 MCV 91.7 fL (Normal) Range: 81-99 HCT 40.9 % (Normal) Range: 37-47 HGB 14.0 g/dL (Normal) Range: 12.0-15.0 RBC 4.46 {M/mm3} (Normal) Range: 4.2-5.4 WBC 10.3 K/mm3 (Normal) Range: 4.4-11.0 26-Ebo-159730:00 Urinalysis, Complete Comments: Order Date: 07/22/16Order Date: 07/22/16How was Urine Obtained? 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 [place], [place], [id number] MUCUS, URINE 0 SEEN {/hpf} (Normal) BACTERIA 0 SEEN {/hpf} (Normal) SQUAM EPI 0 SEEN {/hpf} (Normal) Range: 5-10 RBC-UA > 100 SEEN {/hpf} (Normal) Range: 0-5 WBC 10-25 SEEN {/hpf} (Normal) Range: 0-5 LEUK ESTERASE 500 /ul (Abnormal) OCCULT BLOOD-UR 250 /ul (Abnormal) NITRITE UR Negative (Normal) UROBILI Normal mg/dL (Normal) PROT DIPSTX 100 mg/dL (Abnormal) pH UR 7.0 (Normal) Range: 5.0 - 8.0 SP.GR. DIPSTX 1.010 (Normal) Range: 1.002-1.030 KETONE UR Negative mg/dL (Normal) BILIRUBIN URINE Negative mg/dL (Normal) GLUCOSE, UR Normal mg/dL (Normal) CLARITY Cloudy (Normal) COLOR SEE COMMENT BELOW (Normal) Comments: Visual Urine Color: PINK 40-Xba-396916:44 Culture, Wound Comments: [facility] [address] [place], [address] CUW See Note (Normal) Comments: Order Date: 03/12/16 Order Info: [id number] - *Culture and Sensitivity, wound Comments: *no yeastGram StainSOURCE: MOUTH TOUNGE ALSO CHECK FOR YEAST Gram Stain 2+ Gram positive rods 2+ Gram positive c occi Rare Epithelial cells No White Blood Cells No Yeast Like Organisms Wound CultureMixed normal respiratory birdie. No YEAST, Haemophilus, Streptococcus pneumoniae, beta-hemolytic Streptococcus or Staphylococcus aureus isolated. 18-Cgf-766197:49 HgA1C , Office (12928) HgA1C , Office 5.3 % (Normal) Range: 4.6 - 7.1 :03 Metabolic Panel, Basic Comments: PATIENT NOT FASTINGPERFORMED BY: Hartman Wright [facility] [id number] Information: [id number] (48566) Calcium, Serum 9.4 mg/dL (Normal) Range: 8.7-10.2 Carbon Dioxide, Total 20 mmol/L (Normal) Range: 18-29 Chloride, Serum 107 mmol/L (Normal) Range: 97-108 Potassium, Serum 4.8 mmol/L (Normal) Range: 3.5-5.2 Sodium, Serum 144 mmol/L (Normal) Range: 134-144 BUN/Creatinine Ratio 30 (Abnormal) Range: 9-23 eGFR If Africn Am 110 mL/min/1.73 (Normal) eGFR If NonAfricn Am 95 mL/min/1.73 (Normal) Creatinine, Serum 0.74 mg/dL (Normal) Range: 0.57-1.00 BUN 22 mg/dL (Normal) Range: 6-24 Glucose, Serum 103 mg/dL (Abnormal) Range: 65-99 :03 CALCIFEDIOL (58569) Comments: PATIENT NOT FASTINGPERFORMED BY: [employer]70 [facility] [id number] Vitamin D, 25-Hydroxy 38.0 ng/mL (Normal) Range: 30.0-100.0 Comments: Vitamin D deficiency has been defined by the [place] of[place]icine and an Endocrine Society practice guideline as alevel of serum 25-OH vitamin D less than 20 ng/mL (1,2).The Endocrine Society went on to further define vitamin Dinsufficiency as a level between 21 and 29 ng/mL (2).1. IOM ([place]). 2010. Dietary reference intakes for calcium and D. [place]: The National Academies Press.2. Henna MF, Jerman MORRIS, Piedad SHARP, et al. Evaluation, treatment, and prevention of vitamin D deficiency: an Endocrine Society clinical practice guideline. JCEM. 2010; 96(7):1911-30. 72-Xhm-435416:03 TSH (THYROID STIMULATING Comments: PATIENT NOT FASTINGPERFORMED BY: Cargoh.comFormerly [facility] [id number] HORMONE) (79965) TSH 0.764 {uIU/mL} (Normal) Range: 0.450-4.500 :45 HEPATIC FUNCTION PANEL Comments: PATIENT NOT FASTINGPERFORMED BY: HistoRx6370 2[facility]ant[facility] Health [id number] Information: [id number] (85927) ALT (SGPT) 12 [iU]/L (Normal) Range: 0-32 AST (SGOT) 12 [iU]/L (Normal) Range: 0-40 Alkaline Phosphatase, S 42 [iU]/L (Normal) Range: 39-117 Bilirubin, Direct 0.17 mg/dL (Normal) Range: 0.00-0.40 Bilirubin, Total 0.6 mg/dL (Normal) Range: 0.0-1.2 Albumin, Serum 4.7 g/dL (Normal) Range: 3.5-5.5 Protein, Total, Serum 6.6 g/dL (Normal) Range: 6.0-8.5 :58 HEPATIC FUNCTION PANEL Comments: PATIENT NOT FASTINGPERFORMED BY: Z2 Wwfnsl7126 [facility] [id number] Information: [id number] (15226) ALT (SGPT) 14 [iU]/L (Normal) Range: 0-32 AST (SGOT) 14 [iU]/L (Normal) Range: 0-40 Alkaline Phosphatase, S 42 [iU]/L (Normal) Range: 39-117 Bilirubin, Direct 0.17 mg/dL (Normal) Range: 0.00-0.40 Bilirubin, Total 0.7 mg/dL (Normal) Range: 0.0-1.2 Albumin, Serum 4.9 g/dL (Normal) Range: 3.5-5.5 Protein, Total, Serum 6.9 g/dL (Normal) Range: 6.0-8.5 :43 HEPATIC FUNCTION PANEL Comments: PATIENT NOT FASTINGPERFORMED BY: [place] [address] [facility] [id number] Information: [id number] (43464) ALT (SGPT) 16 [iU]/L (Normal) Range: 0-32 AST (SGOT) 12 [iU]/L (Normal) Range: 0-40 Alkaline Phosphatase, S 44 [iU]/L (Normal) Range: 39-117 Bilirubin, Direct 0.13 mg/dL Range: 0.00-0.40 (Normal) Bilirubin, Total 0.4 mg/dL (Normal) Range: 0.0-1.2 Albumin, Serum 4.6 g/dL (Normal) Range: 3.5-5.5 Protein, Total, Serum 6.6 g/dL (Normal) Range: 6.0-8.5 Amylase, Serum 68 U/L (Normal) Comments: PATIENT NOT FASTINGPERFORMED BY: [facility]6370 [facility] [id number] 0:23 Range: 31-124 Lipase, Serum 17 U/L (Normal) Comments: PATIENT NOT FASTINGPERFORMED BY: [facility]6370 [facility] [id number] Information: [id number] 0:23 Range: 0-59 Written Authorization WAR (Normal) Comments: PATIENT NOT FASTINGPERFORMED BY: [facility]6370 [facility] [id number] 0:23 Comments: Written Authorization Received.Authorization received from KELIN MURILLO [id number] by Rosemary Staples 36-Kld-839182:23 Metabolic Panel, Comprehensive Comments: PATIENT NOT FASTINGPERFORMED BY: Sidense Enndcv7927 [facility] [id number] (17116) ALT (SGPT) 13 [iU]/L (Normal) Range: 0-32 AST (SGOT) 11 [iU]/L (Normal) Range: 0-40 Alkaline Phosphatase, S 45 [iU]/L (Normal) Range: 39-117 Bilirubin, Total 0.3 mg/dL (Normal) Range: 0.0-1.2 A/G Ratio 2.5 (Normal) Range: 1.1-2.5 Globulin, Total 1.9 g/dL (Normal) Range: 1.5-4.5 Albumin, Serum 4.7 g/dL (Normal) Range: 3.5-5.5 Protein, Total, Serum 6.6 g/dL (Normal) Range: 6.0-8.5 Calcium, Serum 9.1 mg/dL (Normal) Range: 8.7-10.2 Carbon Dioxide, Total 20 mmol/L (Normal) Range: 18-29 Chloride, Serum 103 mmol/L (Normal) Range: 97-108 Potassium, Serum 3.9 mmol/L (Normal) Range: 3.5-5.2 Sodium, Serum 142 mmol/L (Normal) Range: 134-144 BUN/Creatinine Ratio 21 (Normal) Range: 9-23 eGFR If Africn Am 101 mL/min/1.73 (Normal) eGFR If NonAfricn Am 87 mL/min/1.73 (Normal) Creatinine, Serum 0.80 mg/dL (Normal) Range: 0.57-1.00 BUN 17 mg/dL (Normal) Range: 6-24 Glucose, Serum 105 mg/dL (Abnormal) Range: 65-99 36-Wks-562379:23 HEPATIC FUNCTION PANEL Comments: PATIENT NOT FASTINGPERFORMED BY: Z2 Lnrjxb[address] [facility] [id number] (87722) Bilirubin, Direct 0.10 mg/dL (Normal) Range: 0.00-0.40 23-Iut-940700:23 CBC, Platelets & Auto Comments: PATIENT NOT FASTINGPERFORMED BY: Z2 Sdnk[address] [facility] [id number] Information: [id number] Diff (37401) Immature Grans (Abs) 0.0 {x10E3/uL} (Normal) Range: 0.0-0.1 Immature Granulocytes 0 % (Normal) Baso (Absolute) 0.0 {x10E3/uL} (Normal) Range: 0.0-0.2 Eos (Absolute) 0.3 {x10E3/uL} (Normal) Range: 0.0-0.4 Monocytes(Absolute) 0.6 {x10E3/uL} (Normal) Range: 0.1-0.9 Lymphs (Absolute) 0.6 {x10E3/uL} (Abnormal) Range: 0.7-3.1 Neutrophils (Absolute) 5.0 {x10E3/uL} (Normal) Range: 1.4-7.0 Basos 0 % (Normal) Eos 4 % (Normal) Monocytes 10 % (Normal) Lymphs 10 % (Normal) Neutrophils 76 % (Normal) Platelets 169 {x10E3/uL} (Normal) Range: 150-379 RDW 12.6 % (Normal) Range: 12.3-15.4 MCHC 33.3 g/dL (Normal) Range: 31.5-35.7 MCH 31.2 pg (Normal) Range: 26.6-33.0 MCV 94 fL (Normal) Range: 79-97 Hematocrit 42.6 % (Normal) Range: 34.0-46.6 Hemoglobin 14.2 g/dL (Normal) Range: 11.1-15.9 RBC 4.55 {x10E6/uL} (Normal) Range: 3.77-5.28 WBC 6.5 {x10E3/uL} (Normal) Range: 3.4-10.8 49-Dcs-048527:13 URINE TULIO CULTURE-IDENTIFICATN Comments: PATIENT NOT FASTINGPERFORMED BY: CATRACHO [facility] Ximvgs1437 [facility] [id number] Information: SRC: URINE [id number] (83865) Result 1 MUG (Normal) Comments: Mixed urogenital flora5,000 Colonies/mL Urine Culture,Comprehensive Final report (Normal) 06-Syi-229058:07 Urinalysis, Office (75178) UA - LEUKOCYTE ESTERASE Negative (Normal) UA - NITRITE Negative (Normal) URINE UROBILINGN DEBBIE TIMED 2 mg/dL (Normal) UA - PROTEIN Negative mg/dL (Normal) UA - PH 5.0 (Normal) UA - BLOOD Negative (Normal) UA - SPECIFIC GRAVITY 1.030 (Abnormal) UA - KETONES Negative mg/dL (Normal) UA - BILIRUBIN Negative (Normal) UA - GLUCOSE Negative (Normal) :35 Rapid Flu (37964 x 2) Influenza A Ag Negative (Normal) :08 HEPATIC FUNCTION PANEL Comments: PATIENT NOT FASTINGPERFORMED BY: SidenseSaint Michael's Medical CenterNckyor6686 [facility] [id number] Information: [id number], [id number] (69814) ALT (SGPT) 13 [iU]/L (Normal) Range: 0-32 AST (SGOT) 9 [iU]/L (Normal) Range: 0-40 Alkaline Phosphatase, S 45 [iU]/L (Normal) Range: 39-117 Bilirubin, Direct 0.09 mg/dL (Normal) Range: 0.00-0.40 Bilirubin, Total 0.4 mg/dL (Normal) Range: 0.0-1.2 Albumin, Serum 4.8 g/dL (Normal) Range: 3.5-5.5 Protein, Total, Serum 6.8 g/dL (Normal) Range: 6.0-8.5 :41 HEPATIC FUNCTION PANEL Comments: PATIENT NOT FASTINGPERFORMED BY: LabCoSaint Michael's Medical CenterAzhirb9902 [facility] [id number] Information: [id number] (13827) ALT (SGPT) 14 [iU]/L (Normal) Range: 0-32 AST (SGOT) 14 [iU]/L (Normal) Range: 0-40 Alkaline Phosphatase, S 49 [iU]/L (Normal) Range: 39-117 Bilirubin, Direct 0.13 mg/dL (Normal) Range: 0.00-0.40 Bilirubin, Total 0.5 mg/dL (Normal) Range: 0.0-1.2 Albumin, Serum 4.8 g/dL (Normal) Range: 3.5-5.5 Protein, Total, Serum 6.9 g/dL (Normal) Range: 6.0-8.5 :53 CALCIFIDIOL (88062) VIT D 25 Comments: PATIENT WAS FASTINGPERFORMED BY: [facility]6370 [facility] [id number] Vitamin D, 25-Hydroxy 41.1 ng/mL (Normal) Range: 30.0-100.0 Comments: Vitamin D deficiency has been defined by the [place] of[facility] and an Endocrine Society practice guideline as alevel of serum 25-OH vitamin D less than 20 ng/mL (1,2).The Endocrine Society went on to further define vitamin Dinsufficiency as a level between 21 and 29 ng/mL (2).1. IOM ([place] of Medicine). 2010. Dietary reference intakes for calcium and D. [place]: The National AcademCoinify Press.2. Henna MF, Jerman MORRIS, Piedad SHARP, et al. Evaluation, treatment, and prevention of vitamin D deficiency: an Endocrine Society clinical practice guideline. JCEM. 2010; 96(7):1911-30. :53 LIPID PANEL (83255) Comments: PATIENT WAS FASTINGPERFORMED BY: [facility] [facility] [id number] Information: [id number] LDL/HDL Ratio 2.3 {ratio_units} (Normal) Range: 0.0-3.2 LDL Cholesterol Calc 137 mg/dL (Abnormal) Range: 0-99 VLDL Cholesterol Kaleb 12 mg/dL (Normal) Range: 5-40 HDL Cholesterol 60 mg/dL (Normal) Comments: According to ATP-III Guidelines, HDL-C >59 mg/dL is considered anegative risk factor for CHD. Triglycerides 60 mg/dL (Normal) Range: 0-149 Cholesterol, Total 209 mg/dL (Abnormal) Range: 100-199 :41 LIPID PANEL ([id number]) Comments: PATIENT WAS FASTINGPERFORMED BY: [facility] [facility] [id number] Information: [id number] LDL/HDL Ratio 2.2 {ratio_units} (Normal) Range: 0.0-3.2 LDL Cholesterol Calc 153 mg/dL (Abnormal) Range: 0-99 HDL Cholesterol 70 mg/dL (Normal) Comments: According to ATP-III Guidelines, HDL-C >59 mg/dL is considered anegative risk factor for CHD. VLDL Cholesterol Kaleb 18 mg/dL (Normal) Range: 5-40 Triglycerides 89 mg/dL (Normal) Range: 0-149 Cholesterol, Total 241 mg/dL (Abnormal) Range: 100-199 :26 Blood Glucose , Office (50766) Blood Glucose , Office 179 (Normal) :26 HgA1C , Office (01724) HgA1C , Office 5.4 % (Normal) Range: 4.6 - 7.1 :28 LIPOPROTEIN, BLD, BY NMR Comments: PATIENT WAS FASTINGPERFORMED BY: Prabhjot [employer] [id number] [facility], [place], [facility] [id number] BY: [facility]Former[facility] [facility] [id number] Information: [id number] ([id number]) LP-IR Score 38 (Normal) Comments: The LP-IR Score combines information from lipoproteinparticle concentration and size to give improvedassessment of insulin resistance and diabetes risk.Small LDL-P, LDL Particle Size, HDL-Pa rticle, andL P-IR Score have been validated by [employer]but not cleared by [place] FDA; the clinical utilityof these test results has not been fully established.INSULIN RESISTANCE MARKER <--Insulin Sensitive I nsulin Resistant--> Percentile in Reference PopulationInsulin Resistance ScoreLP-IR Score Low 25th 50th 75th High <27 27 45 63 >63 LDL Size 21.2 nm (Normal) Comments: INTERPRETATIVE INFORMATION PARTICLE CONCENTRATION AND SIZE <--Lower CVD Risk High er CVD Risk--> LDL AND HDL PARTICLES Percentile in Reference Population HDL-P (total) High 75th 50th 25th Low >34.9 34.9 30.5 26.7 <26.7 . Small LDL-P Low 25th 50th 75th High <117 117 527 839 >839 . LDL Size <-Large (Pattern A)- > <-Small (Pattern B)-> 23.0 20.6 20.5 19.0 Small LDL-P 719 nmol/L (Abnormal) HDL-P (Total) 43.1 umol/L (Normal) Cholesterol, Total 223 mg/dL (Abnormal) Triglycerides 58 mg/dL (Normal) HDL-C 68 mg/dL (Normal) LDL-C 143 mg/dL (Abnormal) Comments: . Optimal < 100 Above optimal 100 - 129 Borderline 1 30 - 159 High 160 - 189 Very high > 189 . LDL-P 1970 nmol/L (Abnormal) Comments: Low < 1000 Moderate 1000 - 1299 Borderline-High 1300 - 1599 High 1600 - 2000 Very High > 2000 52-Lei-76376:28 HEPATIC FUNCTION PANEL Comments: PATIENT WAS FASTINGPERFORMED BY: S7 [employer] Wbx0504 [facility], [place], operated by [facility] [id number] BY: CB LabCoSaint Michael's Medical CenterSprmaa1254 [facility] [id number] ([id number]) ALT (SGPT) 23 [iU]/L (Normal) Range: 0-32 AST (SGOT) 25 [iU]/L (Normal) Range: 0-40 Alkaline Phosphatase, S 56 [iU]/L (Normal) Range: 25-150 Bilirubin, Direct 0.12 mg/dL (Normal) Range: 0.00-0.40 Bilirubin, Total 0.5 mg/dL (Normal) Range: 0.0-1.2 Albumin, Serum 4.8 g/dL (Normal) Range: 3.5-5.5 Protein, Total, Serum 6.7 g/dL (Normal) Range: 6.0-8.5 78-Llr-798034:43 HgA1C , Office (63218) HgA1C , Office 5.3 % (Normal) Range: 4.6 - 7.1 98-Gtz-234072:43 Blood Glucose , Office (61726) Blood Glucose , Office 113 (Normal) :34 Microscopic Examination Comments: PATIENT WAS FASTINGPERFORMED BY: [facility] HospitalWddhxk4057 [facility] [id number] Bacteria Few (Normal) Mucus Threads Present (Normal) Epithelial Cells (non renal) 0-10 {/hpf} (Normal) Range: 0 - 10 RBC 0-3 {/hpf} (Normal) Range: 0 - 3 WBC 6-10 {/hpf} (Abnormal) Range: 0 - 5 :34 TSH (46226) Comments: PATIENT WAS FASTINGPERFORMED BY: [facility] HospitalFcrpzl4998 [facility] [id number] TSH 0.714 {uIU/mL} (Normal) Range: 0.450-4.500 :34 URINALYSIS, W/ MICRO (23633) Comments: PATIENT WAS FASTINGPERFORMED BY: [facility] HospitalLdmbek4611 [facility] [id number] Microscopic Examination See below: (Normal) Nitrite, Urine Positive (Abnormal) Urobilinogen,Semi-Qn 0.2 mg/dL (Normal) Range: 0.0-1.9 Bilirubin Negative (Normal) Occult Blood Negative (Normal) Ketones Negative (Normal) Glucose Negative (Normal) Protein Negative (Normal) WBC Esterase Negative (Normal) Appearance Clear (Normal) Urine-Color Yellow (Normal) pH 5.5 (Normal) Range: 5.0-7.5 Specific [place] 1.019 (Normal) Range: 1.005-1.030 :34 MICROALBUMIN: CREATININE RATIO Comments: PATIENT WAS FASTINGPERFORMED BY: Leti ArtsFormerly [facility]6370 [facility] [id number] ([id number]) AND (92503) Microalb/Creat Ratio 5.1 {mg/g_creat} (Normal) Range: 0.0-30.0 Microalbumin, Urine 4.2 ug/mL (Normal) Range: 0.0-17.0 Creatinine, Urine 82.3 mg/dL (Normal) Range: 15.0-278.0 :34 CBC WITH MANUAL DIFF (86109) Comments: PATIENT WAS FASTINGPERFORMED BY: [facility]CoSaint [facility] Medical CenterHnmyft8366 [facility] [id number] Immature Grans (Abs) 0.0 {x10E3/uL} (Normal) Range: 0.0-0.1 Immature Granulocytes 0 % (Normal) Range: 0-2 Baso (Absolute) 0.0 {x10E3/uL} (Normal) Range: 0.0-0.2 Eos (Absolute) 0.4 {x10E3/uL} (Normal) Range: 0.0-0.4 Monocytes(Absolute) 0.5 {x10E3/uL} (Normal) Range: 0.1-1.0 Lymphs (Absolute) 1.1 {x10E3/uL} (Normal) Range: 0.7-4.5 Neutrophils (Absolute) 2.7 {x10E3/uL} (Normal) Range: 1.8-7.8 Basos 1 % (Normal) Range: 0-3 Eos 8 % (Abnormal) Range: 0-7 Monocytes 10 % (Normal) Range: 4-13 Lymphs 24 % (Normal) Range: 14-46 Neutrophils 57 % (Normal) Range: 40-74 Platelets 251 {x10E3/uL} (Normal) Range: 140-415 RDW 12.7 % (Normal) Range: 12.3-15.4 MCHC 33.9 g/dL (Normal) Range: 31.5-35.7 MCH 31.1 pg (Normal) Range: 26.6-33.0 MCV 92 fL (Normal) Range: 79-97 Hematocrit 41.6 % (Normal) Range: 34.0-46.6 Hemoglobin 14.1 g/dL (Normal) Range: 11.1-15.9 RBC 4.54 {x10E6/uL} (Normal) Range: 3.77-5.28 WBC 4.7 {x10E3/uL} (Normal) Range: 4.0-10.5 :34 METABOLIC PANEL, COMPREHENSIVE Comments: PATIENT WAS FASTINGPERFORMED BY: LabCoSaint [facility] Medical CenterGyvljc8442 [facility] [id number] (48840) ALT (SGPT) 13 [iU]/L (Normal) Range: 0-32 AST (SGOT) 15 [iU]/L (Normal) Range: 0-40 Alkaline Phosphatase, S 67 [iU]/L (Normal) Range: 25-150 Bilirubin, Total 0.7 mg/dL (Normal) Range: 0.0-1.2 A/G Ratio 2.3 (Normal) Range: 1.1-2.5 Globulin, Total 2.1 g/dL (Normal) Range: 1.5-4.5 Albumin, Serum 4.8 g/dL (Normal) Range: 3.5-5.5 Protein, Total, Serum 6.9 g/dL (Normal) Range: 6.0-8.5 Calcium, Serum 9.4 mg/dL (Normal) Range: 8.7-10.2 Carbon Dioxide, Total 21 mmol/L (Normal) Range: 20-32 Chloride, Serum 106 mmol/L (Normal) Range: 97-108 Potassium, Serum 4.5 mmol/L (Normal) Range: 3.5-5.2 Sodium, Serum 142 mmol/L (Normal) Range: 134-144 BUN/Creatinine Ratio 34 (Abnormal) Range: 9-23 eGFR If Africn Am 94 mL/min/1.73 (Normal) eGFR If NonAfricn Am 81 mL/min/1.73 (Normal) Creatinine, Serum 0.86 mg/dL (Normal) Range: 0.57-1.00 BUN 29 mg/dL (Abnormal) Range: 6-24 Glucose, Serum 104 mg/dL (Abnormal) Range: 65-99 53-Jsy-56760:34 LIPID PANEL (61289) Comments: PATIENT WAS FASTINGPERFORMED BY: LabCoSaint Michael's Medical CenterRvycrw9774 [facility] [id number] LDL/HDL Ratio 1.7 {ratio_units} (Normal) Range: 0.0-3.2 LDL Cholesterol Calc 132 mg/dL (Abnormal) Range: 0-99 VLDL Cholesterol Kaleb 14 mg/dL (Normal) Range: 5-40 HDL Cholesterol 76 mg/dL (Normal) Comments: According to ATP-III Guidelines, HDL-C >59 mg/dL is considered anegative risk factor for CHD. Triglycerides 69 mg/dL (Normal) Range: 0-149 Cholesterol, Total 222 mg/dL (Abnormal) Range: 100-199 3-Ltn-447855:06 Blood Glucose , Office (30237) Blood Glucose , Office 109 (Normal) 6-Yka-468174:06 HgA1C , Office (95288) HgA1C , Office 5.5 % (Normal) Range: 4.6 - 7.1 99-Imh-413483:57 BILAT SCRN DIGITAL & CAD Radiology Report See Note (Normal) Comments: MAMMOGRAPHY - BILATERAL SCREENING REASON FOR EXAM: Female, 46 years old. Routine annual screeningexamination. PERTINENT HISTORY: TECHNIQUE: Digital examination. Mediolateral oblique ( MLO) andcran iocaudad (CC) views of both breasts were obtained. CAD: CAD wasperformed on this study. COMPARISON: December 01, 2007. FINDINGS:The breast composition is heterogeneously dense. There are no dominant mas ses or suspicious calcifications. No other significant abnormalities are identified. IMPRESSION:Stable bilateral screening mammogram. Yearly follow-up recommended. (A) ASSESSMENT CATEGORY:BIRADS Emily gory 1: Negative. A letter regarding these results will besent to the patient by the facility within 30 days. Approximately 10% of breast cancers are not detected by mammography. Anormal mammogram sh ould not delay biopsy of a clinically suspiciousabnormality. Signed:Philip Dominguez M.D.December 02, 2011 at 1:17:04 PM [phone] Signed MV/MV If you are the referring physician a nd would like to consult with theradiologist who provided this interpretation, please contact Philip Melgar M.D. at . If this radiologist is unavailable, youwillbe directed to another radiologist to assist. If you are a patient with a question regarding this report, pleasecontactyour referring physician directly. Professional Interpretation Provided By: [employer], Phone , These documents contain legally protected and confidential healthinformation intended only for the use of the individual or entity namedabove. If you are not the intended recipient, you are hereby notifiedthatany disclosure, copying, distribution, or other use of these documents isstrictly prohibited. If you have received this information in error,pleasenotify the sender immediate ly and arrange for the return or destructionofthese documents. Dictated on 12/02/11 1157 by RAMÓN MORENO,Kwakuanscribed on 12/03/11 160 by ITS IMPORTSign by PHILIP MELGAR MD on 12/03/111607 Sign by: PHILIP MELGAR MD :46 LIPID VLDL 26 mg/dL (Normal) Range: 5-40 LDL 140 mg/dL (Abnormal) Range: 0-130 HDL 56 mg/dL (Normal) Comments: Reference Range HDL <40 mg/dL Low HDL Cholesterol HDL >or= 60 mg/dL High HDL Cholesterol TRIG 130 mg/dL (Normal) Comments: Serum Triglycerides Reference Interval Normal <150 mg/dL Borderline high 150 - 199 mg/dL High 200 - 499 mg/dL Very High > or = 500 mg/dL CHOL 222 mg/dL (Abnormal) Comments: <200 mg/dL Desirable 200-240 mg/dL Borderline >240 mg/dL High Risk :46 VITD 45.7 ng/mL (Normal) Range: 30.0-100.0 Comments: Vitamin D deficiency has been defined by the [place] of[place]icine and an Endocrine Society practice guideline as alevel of serum 25-OH vitamin D less than 20 ng/mL (1,2).The Endocrine Society went on to further define vitamin Dinsufficiency as a level between 21 and 29 ng/mL (2).1. IOM ([place] of Medicine). 2010. Dietary reference intakes for calcium and D. [place]: The National Academies Press.2. Henna MF, Jerman [place], Piedad SHARP, et al. Evaluation, treatment, and prevention of vitamin D deficiency: an Endocrine Society clinical practice guideline. JCEM. 2010; 96(7): 1911-30.Performed at: [address] [id number] Director: Darlene Schwartz MD, Phone: [phone] HgA1C , Office (63698) HgA1C , Office 6.0 % (Normal) Range: 4.6 - 7.1 :43 Blood Glucose , Office (65111) Blood Glucose , 99 (Normal) Office :45 VITD 121.0 ng/mL Range: 30.0-100.0 (Abnormal) Comments: Vitamin D deficiency has been defined by the [place] of[place]icine and an Endocrine Society practice guideline as alevel of serum 25-OH vitamin D less than 20 ng/mL (1,2).The Endocrine Society went on to further define vitamin Dinsufficiency as a level between 21 and 29 ng/mL (2).1. IOM ([place] of Medicine). 2010. Dietary reference intakes for calcium and D. [place]: The National Academies Press.2. Henna MF, J[place], Piedad SHARP, et al. Evaluation, treatment, and prevention of vitamin D deficiency: an Endocrine Society clinical practice guideline. JCEM. 2010; 96(7): 1911-30. .Effective June 16, 2011, Vitamin D, 25 Hydroxy specimen requirements will change to serum only.Performed at: [address] [id number] Director: Darlene Schwartz MD, Phone: [phone] 8-Gwi-818412:0 CULTURE, THROAT See Note (Normal) Comments: Normal throat birdie isolated. No beta-hemolyticstreptococcus isolated. 5 :48 DEXA BONE DENSITY STUDY (HP) Radiology Report See Note (Normal) Comments: PROCEDURE: DUAL ENERGY X-RAY ABSORPTIOMETRY / DEXA. REASON FOR EXAM: Female, 45 years old. Status post hysterectomy. TECHNIQUE: Bone Mineral Density (BMD) measurements of lumbar spine andbilateral hips were obtained. COMPARISON: None. FINDINGS: Lumbar Spine (L1-L4): g/cm2 (0.944) / T-score (-2.0) / Z-score (-2.0)Left Femur Total: g/cm2 (0.795) / T-score (-1.8) / Z-score (-1.2)Right F emur Total: g/cm2 (0.736) / T-score (-2.2) / Z-score (-1.6) IMPRESSION:The patient is considered osteopenic, as outlined above, according toWorldHealth Organization (WHO) criteria. Fracture risk i s moderate. Reference Information:The T-score is the number of standard deviations above or below thestandard which is normal for young adults at their peak bone mineraldensity. The World Health Organiz ation (WHO) interprets the T-scores asfollows: Above -1 Normal bone densityBetween -1 and -2.5 OsteopeniaEqual to / or below -2.5 Osteoporosis As a practical clinical guideline, osteopenia may be graded as follows:Mild -1 through -1.5Moderate -1.6 through -2.0Severe -2.1 through -2.4 The Z-score is the number of standard deviations above or below age-matchedcontrols. A Z-score of less than -1.5 would be considered abnormal. References:1. NIH Osteoporosis and Related Bone Diseases http://www.osteo.org2. International Society for Clinical Densitometry http://www.iscd.org3. National Osteoporosis Foundation http://www.nof.org Dictated on 03/12/11 0858 by Hector Dowell MDranscribed on 03/12/111115 by ITS IMPORTSign by Luciano Dowell MD on 03/12/11 111 Sign by: Luciano Dowell MD 90-Bui-044717:53 PARATHORMONE (89533) Comments: PATIENT NOT FASTINGPERFORMED BY: [facility] [place] [id number] PTH, Intact 26 pg/mL (Normal) Range: 15-65 76-Ybm-855285:53 CALCIUM SERUM (50227) Comments: PATIENT NOT FASTINGPERFORMED BY: [facility] [place] [id number] Calcium, Serum 9.5 mg/dL (Normal) Range: 8.7-10.2 12-Feb-20110:00 CALCIFEDIOL (93857) Comments: PATIENT NOT FASTINGPERFORMED BY: [facility] Healthlin[address] [place] [id number] Information: PSPN Vitamin D, 25-Hydroxy 11.6 ng/mL (Abnormal) Range: 32.0-100.0 Comments: Effective March 03, 2011 Vitamin D, 25-Hydroxy reference intervals will be changing to 30-100. .Recent studies consider the lower li krysta of 32.0 ng/mL to be athreshold for optimal health.Sulaiman HILL. J Nutr. 2004;135(2):317-22. 12-Feb-20110:00 Vitamin B-12 (cyanocobalamin) Comments: PATIENT NOT FASTINGPERFORMED BY: [facility]CoSaint [facility] CenterBbfnzu8186 [facility] [id number] (00667) Vitamin B12 549 pg/mL (Normal) Range: 211-946 :59 CERV SPINE,MIN 4 VIEWS Radiology Report See Note (Normal) Comments: CLINICAL:Female, 45 years old. Neck pain radiating to both shoulders. X-RAY EXAMINATION - CERVICAL SPINE TECHNIQUE:Five views of the cervical spine were obtained. COMPARISON:January 14, 2006 FINDINGS:No rmal craniovertebral junction. Normal anterior atlantoaxialarticulation. Normal odontoid process. Normal cervical lordosis. Normal vertebral bodies and posterior osseouselements. There is slight ret rolisthesis of C3 on C4. There is multi-level degenerative disc space narrowing with endplatespondylosis at C5-C6 and C6-C7. Normal visualized intervertebralneuroforamina. Normal visualized soft tissue structures. IMPRESSION:Multilevel degenerative disc disease.Slight retrolisthesis of C3 on C4. Dictated on 08/28/10 1011 by Brittney DYER MDcribed on 08/28/10 1423 by ITS IMPORTSign by JENNIFER DYER MD on 08/28/10 1424 Sign by: JENNIFER DYER MD :59 CHEST, PA AND LATERAL Radiology Report See Note (Normal) Comments: CLINICAL:Female, 45 years old. Shortness of breath with bruising of the leftsideof chest. X-RAY EXAMINATION - CHEST TECHNIQUE:PA and lateral views of the chest. COMPARISON:February 27 FINDINGS: The lungs are expanded. There is no demonstrated pulmonary parenchymalabnormality. There is no demonstrated pleural abnormality. The heart is normal in size and morphology. Normal mediastinum and jose enrique . Normal visualized pulmonary arteries. Normal visualized aortic arch anddescending thoracic aorta. Normal visualized thoracic spine. IMPRESSION:Normal x-ray examination of the chest. Dictated on 1011 by Brittney DYER MDcribed on 08/28/10 1425 by ITS IMPORTSign by JENNIFER DYER MD on 08/28/10 1426 Sign by: JENNIFER DYER MD GLUP 89 mg/dL (Normal) Comments: GLU,2HPPG 75gm GLUC PPG GLUP from 1119:[id number]. :07 : CORTISOL 4051 9.5 ug/dL (Normal) Range: 2.3-19.4 00 Comments: Please note referenceinterval change : DHEA SULF 4697 28 ug/dL (Abnormal) Range: 32-240 00 Comments: Effective March 19, 2009, DHEA-Sulfate will be changing to the [employer] ECLIA methodology. The reference interval will be changing to: Units: ug/dL Age Both 1 - 6 days 108.0 - 607.0 1 - 4 weeks 31.6 - 431.0 1 - 12 months 3.4 - 124.0 1 - 4 yrs 0.5 - 19.4 5 - 9 yrs 2.8 - 85.2 Age Male Female 10-14 yrs 24.4 - 247.0 33.9 - 280.0 15-19 yrs 70.2 - 492.0 65.1 - 368.0 20-24 yrs 211.0 - 492.0 148.0 - 407.0 25-34 yrs 160.0 - 449.0 98.8 - 340.0 35-44 yrs 88.9 - 427.0 60.9 - 337.0 45-54 yrs 44.3 - 331.0 35.4 - 256.0 55-64 yrs 51.7 - 295.0 18.9 - 205.0 65-74 yrs 33.6 - 249.0 9.4 - 246.0 >75 yrs 16.2 - 123.0 12.0 - 154.0 : ESTRADIOL 4515 < 5.1 pg/mL Comments: Adult Female: Follicular phase 12.5 - 166.0 Ovulation phase 85.8 - 498.0 Luteal phase 00 (Normal) 43.8 - 211.0 Postmenopausal <6.0 - 54.7 1st trimester 215.0 - & gt;4300.0 Girls (1-10 years) 6.0 - 27.0. Please note referenceinterval change [employer] ECLIA methodology : FREE T3 3.1 pg/mL (Normal) Range: 2.18-3.98 00 : INSULIN 4333 8.1 {uIU/mL} Range: 0.0-29.1 00 (Normal) Comments: Effective March 19, 2009, Insulin will be changing to the [employer] ECLIA methodology. The reference interval will be changing to: 0.0 - 24.9 uIU/mL . PLEASE NOTE: Specimen requirements will be changing to: FROZEN SERUM Performed At: [address] [id number] LIPID CHOL 207 mg/dL (Abnormal) Comments: <200 mg/dL Desirable 200-240 mg/dL Borderline >240 mg/dL High Risk HDL 67 mg/dL (Normal) Comments: Reference Range HDL <40 mg/dL Low HDL Cholesterol HDL >or= 60 mg/dL High HDL Cholesterol LDL 121 mg/dL (Normal) Range: 0-130 TRIG 97 mg/dL (Normal) Comments: Serum Triglycerides Reference Interval Normal <150 mg/dL Borderline high 150 - 199 mg/dL High 200 - 499 mg/dL Very High > or = 500 mg/dL VLDL 19 mg/dL (Normal) Range: 5-40 :0 PROGESTER. 4317 < 0.1 ng/mL (Normal) Comments: Follicular phase 0.2 - 1.5 Luteal phase 1.7 - 27.0 Ovulation phase 0.8 - 3.0 0 Postmenopausal 0.1 - 0.8 Please note referenceinterval change :0 T4 FREE DIRECT 0.8 ng/dL (Normal) Range: 0.76-1.146 0 :0 TESTOSTER 4226 < 3 ng/dL (Abnormal) Range: 6-82 0 Comments: Please note referenceinterval change :0 TSH 0.50 {uIU/mL} (Normal) Range: 0.358-3.74 0 Plan of Care Name Dates Details Instructions Hyperlipidemia : Follow up in 6 months Indication: Hyperlipidemia Dysthymic : Continue Current Prescription(s) Indication: Dysthymic BMI 26.0-26.9,adult : Eprescribed prescriptions (G8553) Indication: BMI 26.0-26.9,adult BMI 25.0-25.9,adult : Follow up if no improvement or if symptoms worsen Indication: BMI 25.0-25.9,adult BMI 25.0-25.9,adult : Eprescribed prescriptions (G8553) Indication: BMI 25.0-25.9,adult Folliculitis : Follow up if no improvement or if symptoms worsen Indication: Folliculitis Non-smoker : Eprescribed prescriptions (G8553) Indication: Non-smoker Bone anomaly : Reviewed Diagnostic Tests Indication: Bone anomaly Hair loss : Reviewed Lab Indication: Hair loss Non-smoker : Eprescribed prescriptions (G8553) Indication: Non-smoker Dysthymic : Follow up in 4 weeks Indication: Dysthymic BMI 23.0-23.9, adult : Eprescribed prescriptions (G8553) Indication: BMI 23.0-23.9, adult Bug bites : Eprescribed prescriptions (G8553) Indication: Bug bites Hematuria : Reviewed Lab Indication: Hematuria Hematuria : Reviewed Diagnostic Tests Indication: Hematuria Hematuria : Reviewed Otr Driver Letter Indication: Hematuria Allergic rhinitis : Follow up after consult Indication: Allergic rhinitis Thrush : Follow up if no improvement or if symptoms worsen Indication: Thrush Laryngitis : Laryngitis Education Indication: Laryngitis Breast pain, left : Follow up if no improvement or if symptoms worsen Indication: Breast pain, left Back pain, thoracic : Reviewed Diagnostic Tests Indication: Back pain, thoracic Breast pain, left : Reviewed Lab Indication: Breast pain, left Breast pain, left : Reviewed Diagnostic Tests Indication: Breast pain, left Fatigue : Follow up in 1 week Indication: Fatigue Chest tightness : Follow up in 3 months Indication: Chest tightness Fungal nail infection : Follow up if no improvement or if symptoms worsen Indication: Fungal nail infection Contact dermatitis due to poison jacinda : Poison Jacinda Education Indication: Contact dermatitis due to poison jacinda Right shoulder pain : Shoulder Injection Indication: Right shoulder pain Right shoulder pain : Reviewed Diagnostic Tests Indication: Right shoulder pain Right shoulder pain : Joint Aspiration (Arthrocentesis): joint Indication: Right shoulder pain Fungal nail infection : Eprescribed prescriptions (G8553) Indication: Fungal nail infection Allergic rhinitis : Follow up in 6 weeks Indication: Allergic rhinitis Allergic rhinitis : Follow up if no improvement or if symptoms worsen Indication: Allergic rhinitis Nausea : Reviewed Diagnostic Tests Indication: Nausea Nausea : Reviewed Lab Indication: Nausea Nausea : Follow up in 1 week Indication: Nausea Nausea : Follow up if no improvement or if symptoms worsen Indication: Nausea Carpal tunnel syndrome, left : Follow up - Make appt after diagnostic tests Indication: Carpal tunnel syndrome, left Asthma : Continue Current Prescription(s) Indication: Asthma Hyperlipidemia : Follow up in 4 months: do spiromketry Indication: Hyperlipidemia Osteopenia : Reviewed Diagnostic Tests Indication: Osteopenia Hyperlipidemia : Reviewed Lab Indication: Hyperlipidemia Abnormal glucose tolerance test : Follow up in 6 months gen med and to follow sugar Indication: Abnormal glucose tolerance test Asthma : Continue Current Prescription(s) Indication: Asthma Hyperlipidemia : Reviewed Lab Indication: Hyperlipidemia Osteopenia : *Calcium Education (KF) Indication: Osteopenia Abnormal glucose tolerance test : Reviewed Lab Indication: Abnormal glucose tolerance test Abnormal glucose tolerance test : Follow up in 4 months Indication: Abnormal glucose tolerance test Hyperlipidemia : Cholesterol mgmt Indication: Hyperlipidemia Hyperlipidemia : *Cholesterol - Nonprescription Treatment Indication: Hyperlipidemia Hyperlipidemia : *Cholesterol - Medication Side Effects Indication: Hyperlipidemia Abnormal glucose tolerance test : Diet, Exercise, and Wt loss Indication: Abnormal glucose tolerance test Abnormal glucose tolerance test : *Diabetes Education Indication: Abnormal glucose tolerance test Abnormal glucose tolerance test : Follow up in 4 months Indication: Abnormal glucose tolerance test Hyperlipidemia : *Cholesterol - Nonprescription Treatment Indication: Hyperlipidemia Hyperlipidemia : Cholesterol mgmt Indication: Hyperlipidemia Abnormal glucose tolerance test : Diet, Exercise, and Wt loss Indication: Abnormal glucose tolerance test Abnormal glucose tolerance test : *Diabetes Education Indication: Abnormal glucose tolerance test Osteopenia : *Calcium Education (KF) Indication: Osteopenia Asthma : Asthma: asthma Indication: Asthma Asthma : Follow up in 6 months: do spirometry Indication: Asthma Osteopenia : Continue Current Prescription(s) Indication: Osteopenia Osteopenia : Reviewed Diagnostic Tests Indication: Osteopenia Other specified viral infection, in conditions classified elsewhere and of unspecified site : Follow up in 2 weeks Indication: Other specified viral infection, in conditions classified elsewhere and of unspecified site Other specified viral infection, in conditions classified elsewhere and of unspecified site : *URI Symptoms Indication: Other specified viral infection, in conditions classified elsewhere and of unspecified site Other specified viral infection, in conditions classified elsewhere and of unspecified site : *URI Treatment Indication: Other specified viral infection, in conditions classified elsewhere and of unspecified site RADIAL STYLOID TENOSYNOVITIS (Dequevain's) : extensor thumb tendon injection injection Indication: RADIAL STYLOID TENOSYNOVITIS (Dequevain's) RADIAL STYLOID TENOSYNOVITIS (Dequevain's) : Follow up as needed Indication: RADIAL STYLOID TENOSYNOVITIS (Dequevain's) Vitamin D deficiency, unspecified : *ERGOCALCIFEROL DOSAGE PER SHEWMON Indication: Vitamin D deficiency, unspecified Seborrhea capitis : Follow up in 3 weeksmec Indication: Seborrhea capitis Pain of hand, unspecified laterality : FOLLOW UP IN 3 WEEKS Indication: Pain of hand, unspecified laterality Bronchitis : *URI Treatment Indication: Bronchitis Bronchitis : *URI Symptoms Indication: Bronchitis Bronchitis : *Antibiotic Usage Education - Female Indication: Bronchitis Chronic obstructive asthma with acute exacerbation : Solu Medrol Injection/ Education Indication: Chronic obstructive asthma with acute exacerbation Bronchitis : *URI Treatment Indication: Bronchitis Bronchitis : *URI Symptoms Indication: Bronchitis Bronchitis : *Antibiotic Usage Education - Female Indication: Bronchitis Contact dermatitis due to poison jacinda : Poison Jacinda Education Indication: Contact dermatitis due to poison jacinda Planned Observations TSH ([id number])Indication: Hair loss On: 84-Bvh-246723:11 Request METABOLIC PANEL, COMPREHENSIVE ([id number])Indication: Hyperlipidemia On: 92-Bls-615065:11 Request CBC W/AUTO DIFF WBC ([id number])Indication: Hyperlipidemia On: 99-Ddx-705513:11 Request LIPID PANEL ([id number])Indication: Hyperlipidemia On: 79-Mmk-512761:11 Request Rapid Flu (15130 x 2)Indication: Unspecified Diagnosis On: 28-Pof-200454:19 Request CORTISOL FREE ([id number]) MorningIndication: Hormone imbalance On: 17-Sep-20178:03 Request HEPATIC FUNCTION PANEL ([id number])Indication: Fungal nail infection On: 16-Jan-2015 Request HEPATIC FUNCTION PANEL ([id number])Indication: Fungal nail infection On: 15-May-2014 Request LIPID PANEL ([id number])Indication: Hyperlipidemia On: 77-Fgx-657886:10 Request Vitamin D Hydroxy ([id number])Indication: Vitamin D deficiency, unspecified On: 03-Spf-54568:46 Request TULIO CULTURE-OTHER ([id number])Indication: Pharyngitis, acute On: :35 Request Rapid Strep Test, Office ([id number])Indication: Pharyngitis, acute On: :35 Request Glucose, PP/2 Hour (07361)Indication: Other specified abnormal findings of blood chemistry On: :29 Request LIPID PANEL ([id number])Indication: Screening for hyperlipidemia On: :29 Request Planned Procedures INFUSION OF NORMAL SALINE On: 23-Feb-2018 Intent ([id number])By: Colby SAWYER, Comments: Lot#[id number]: [id number] Site given:left anticubital space 1000ml Given By: rocael phan ABN signed patient tolerated without any difficulty Carolina Padilla ORTHOSTATIC BLOOD On: 23-Feb-2018 Intent PRESSURE ASSESSMENT ([id number])By: Carolina Bowman CNP ELECTROCARDIOGRAM, On: 23-Feb-2018 Intent COMPLETE (ECG) ([id number])By: Carolina Bowman CNP X-RAY SKULL 4+ VIEWS On: 29-Jun-2017 Intent ([id number])By: Samantha Barrera DO, DO, Kathleen Xurgvjvkk-Ngp-Kvzs On: 06-Aug-2015 Intent ([id number])By: Carolina Bowman CNP Radiology - ChestBy: On: 06-Aug-2015 Intent Carolina Bowman CNP MAMMOGRAM, BILATERAL On: 06-Aug-2015 Intent ([id number])By: Carolina Bowman CNP Solu -Medrol Injection, On: 17-Jan-2015 Intent 125 mg ([id number])By: Colby Comments: [id number]:06/2017Dose:125mgRoute:imSite:l hipGiven By:Carolina Stone CNP Radiology - Shoulder - On: 17-Nov-2014 Intent RightBy: Samantha Barrera DO, DO, Kathleen Nuclear Medicine - HIDA On: 05-Jul-2014 Intent w/CPKBy: Carolina Bowman CNP Nuclear Medicine - HIDA On: 26-Jun-2014 Intent w/CPKBy: Colby SAWYER Carolina Padilla Ultrasound - Abdomen On: 26-Jun-2014 Intent Complete & PelvisBy: Colby SAWYER Katie Ultrasound - On: 26-Jun-2014 Intent GallbladderBy: Colby SAWYER, Comments: if negative schedule Hida scan Carolina Padilla Phenergan Injection, up On: 21-Jun-2014 Intent to 50 mg ([id number])By: Colby Comments: Lot:[id number]:01/12/2016Dose:1MLRoute:IMSite:L GlutGiven By:RIC schneider CNPCarolina MAMMOGRAM, SCREENING, On: 24-Mar-2014 Intent BOTH BREAST ([id number])By: Angela Schneider LPN CT - Abdomen & Pelvis (IV On: 16-Mar-2014 Intent Contrast Needed)By: Samantha Barrera DO, DO, Kathleen Doppler Ultrasound On: 16-Mar-2014 Intent OtherBy: Holly LINDSAY, Comments: left lower extrem Samantha Samantha Barrera DO EMGBy: Colby SAWYER Carolina Padilla On: 02-Sep-2013 Intent Comments: send results to Dr Carbajal Nerve ConductionBy: Colby On: 02-Sep-2013 Intent 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 Carbajal Spirometry ([id number])By: On: 17-Sep-2012 Intent Samantha Barrera DO Comments: ok but poor effort clinical asx and not using rescue inhaler Samantha Barrera DO MAMMOGRAM, SCREENING, On: 17-Sep-2012 Intent BOTH BREASTS ([id number])By: Comments: due after 12/01/12 Holly DO, Samantha HollySamantha love DO DXA, BONE DENSITY, AXIAL On: 17-Sep-2012 Intent SKELETON ([id number])By: Comments: do not do until after feb Samantha Barrera DO, DO, Kathleen Eprescribed prescriptions On: 17-Sep-2012 Intent ([id number])By: Ellen Rivera LPN Eprescribed prescriptions On: 08-Sep-2012 Intent ([id number])By: Kassandra Kenyon DO EKG ([id number])By: Holly On: 06-May-2012 Intent Samantha LINDSAY DO, Comments: nsr no acute chg Samantha Spirometry ([id number])By: On: 18-Dec-2011 Intent Samantha Barrera DO, DO, Kathleen MAMMOGRAM, SCREENING, On: 23-Jun-2011 Intent BOTH BREASTS ([id number])By: Samantha Barrera DO, DO, Samantha THER/PROPH/DIAG INJ, On: 13-May-2011 Intent SC/IM ([id number])By: Colby Comments: 1/2ml kenalog 40 [id number] and exp 1/2ml bupivacaine -dk and exp 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, 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 DXA, BONE DENSITY, AXIAL On: 21-Feb-2011 Intent SKELETON ([id number])By: Samantha Barrera DO, DO, Kathleen Spirometry ([id number])By: On: 28-Aug-2010 Intent Samantha Barrera DO Comments: mild obstruction Samantha Barrrea DO Eprescribed prescriptions On: 28-Aug-2010 Intent ([id number])By: Samantha Barrera DO, DO, Kathleen Radiology - Cervical On: 28-Aug-2010 Intent SpineBy: Samantha Barrera DO, DO, Samantha Radiology - Chest- PA and On: 28-Aug-2010 Intent LatBy: Samantha Barrera DO, DO, Kathleen Solu -Medrol Injection, On: 12-Aug-2010 Intent 125 mg ([id number])By: Adilia Rios MD Eprescribed prescriptions On: 12-Aug-2010 Intent ([id number])By: Adilia Rios MD Pulse Oximetry ([id number])By: On: 13-Jun-2010 Intent KELIN Murillo Pulse Oximetry ([id number])By: On: 08-Feb-2010 Intent Samantha Barrera DO Comments: 95% Samantha Barrera DO Solu- Medrol Injection, On: 08-Feb-2010 Intent 125mg ([id number])By: Holly Comments: 2ml given im rt hip [id number] exp 09-12-11 DOSamantha DO, Kathleen Aerosol Treatment On: 08-Feb-2010 Intent ([id number])By: Holly LINDSAY, Comments: after aerosol much better a/e less wheeze Samantha Tan DO Spirometry ([id number])By: On: 28-Feb-2009 Intent Samantha Barrera DO Comments: ok stable physiologic variant Samantha Barrera DO Planned Medications INJECTION, KETOROLAC TROMETHAMINE, PER 15 MG Ordered: 21-Jun-2014 Pending Carolina Bowman CNP INJECTION, METHYLPREDNISOLONE SODIUM SUCCINATE, UP TO 125 MG Ordered: 08-Feb-2010 Pending Samantha Barrera DO, DO, Kathleen INJECTION, METHYLPREDNISOLONE SODIUM SUCCINATE, UP TO 125 MG Ordered: 12-Aug-2010 Pending Adilia Rios MD INJECTION, METHYLPREDNISOLONE SODIUM SUCCINATE, UP TO 125 MG Ordered: 17-Jan-2015 Pending Carolina Bowman CNP Phenergan 50 MG/ML Injection Solution Ordered: 21-Jun-2014 Pending Carolina Bowman CNP UNCLASSIFIED DRUGS Ordered: 23-Feb-2018 Pending Carolina Bowman CNP Instructions Name Dates Details BMI 26.0-26.9,adult : How to access health information online Indication: BMI 26.0-26.9,adult BMI 26.0-26.9,adult : How to access health information online - Detail Indication: BMI 26.0-26.9,adult BMI 26.0-26.9,adult : Patient Instructions Indication: BMI 26.0-26.9,adult BMI 25.0-25.9,adult : How to access health information online Indication: BMI 25.0-25.9,adult BMI 25.0-25.9,adult : How to access health information online - Detail Indication: BMI 25.0-25.9,adult BMI 25.0-25.9,adult : Patient Instructions Indication: BMI 25.0-25.9,adult Non-smoker : How to access health information online Indication: Non-smoker Non-smoker : How to access health information online - Detail Indication: Non-smoker Folliculitis : Patient Instructions Indication: Folliculitis Non-smoker : How to access health information online Indication: Non-smoker Non-smoker : How to access health information online - Detail Indication: Non-smoker Non-smoker : Patient Instructions Indication: Non-smoker Non-smoker : How to access health information online Indication: Non-smoker Non-smoker : How to access health information online - Detail Indication: Non-smoker Non-smoker : Patient Instructions Indication: Non-smoker BMI 23.0-23.9, adult : How to access health information online - Detail Indication: BMI 23.0-23.9, adult BMI 23.0-23.9, adult : Patient Instructions Indication: BMI 23.0-23.9, adult Bug bites : How to access health information online Indication: Bug bites Bug bites : How to access health information online - Detail Indication: Bug bites Bug bites : Patient Instructions Indication: Bug bites Non-smoker : How to access health information online Indication: Non-smoker Non-smoker : How to access health information online - Detail Indication: Non-smoker Non-smoker : Patient Instructions Indication: Non-smoker Thrush : Patient Instructions Indication: Thrush Body mass index (BMI) of 25.0 to 29.9 : Patient Instructions Indication: Body mass index (BMI) of 25.0 to 29.9 Right shoulder pain : How to access health information online Indication: Right shoulder pain Right shoulder pain : How to access health information online - Detail Indication: Right shoulder pain Right shoulder pain : Patient Instructions Indication: Right shoulder pain Fungal nail infection : How to access health information online Indication: Fungal nail infection Fungal nail infection : How to access health information online - Detail Indication: Fungal nail infection Fungal nail infection : Patient Instructions Indication: Fungal nail infection Vitamin D deficiency, unspecified : Patient Instructions Indication: Vitamin D deficiency, unspecified Hyperlipidemia : Patient Instructions Indication: Hyperlipidemia Contact dermatitis due to poison jacinda : Patient Instructions Indication: Contact dermatitis due to poison jacinda Abnormal glucose tolerance test : Patient Instructions: limit sugars 20 grams a day / aviod all white starches - start exercise program Indication: Abnormal glucose tolerance test Encounters Office Visit On: 26-Apr-2018 16:23 Encounter Reason: Follow up for chronic medical issues - The patient feels well with no complaints, has good energy level and is sleeping well. Patient has been compliant with instructions. Current medication use: no jonathan End: 26-Apr-2018 17:17 e effects. Patient sleeps 6 hours per night. Impact of disease: no emotional impact. Nutrition: balanced diet. Note for Follow up for chronic medical issues: the hormone replacement wasnt working so i stopped itEncounter Diagnosis: BMI 26.0-26.9,adult, Non-smoker, Hyperlipidemia, Asthma, Hair loss, Hormone imbalance, Dysthymic, Influenza vaccination declined (Borisamed from Refused influenza vaccine) [facility] Prescription Refill On: 03-Mar-2018 16:38 Encounter Diagnosis: Elevated liver enzymes End: 03-Mar-2018 16:42 [facility] Annotation/Addendum On: 24-Feb-2018 10:15 Encounter Diagnosis: Unspecified Diagnosis End: 24-Feb-2018 10:19 [facility] Lab Order On: 24-Feb-2018 8:10 Encounter Diagnosis: Elevated liver enzymes End: 24-Feb-2018 8:13 [facility] Office Visit On: 23-Feb-2018 13:49 Encounter Reason: Diarrhea - The onset of the diarrhea has been sudden and has been occurring in an intermittent (usually after meals) pattern for 1 week. The course has been decreasing (after using imodium). The stools End: 23-Feb-2018 15:39 are watery. The volume of the stools is large. The symptoms have been associated with fever, nocturnal bowel movements, vomiting (1 episode) and weakness., [ADDITIONAL REASON] Vomiting - Note for Vomiting: Vomiting 5 days ago, then in am BM pasty and went ice cold and sweating Encounter Diagnosis: Non-smoker, BMI 25.0-25.9,adult, Dehydration symptoms, Chills, Diarrhea [facility] Office Visit On: 12-Nov-2017 11:05 Encounter Reason: Nasal Congestion - The onset of the nasal congestion has been acute. It is relieved by [id number]-[id number] medication. Note for Nasal congestion: Symptoms started a few weeks ago with nasal dryness, matthew End: 12-Nov-2017 12:35 ty inside of nose. No nosebleeds, drainage, headaches. Was seen for this problem before and Dr. Barrera prescribed ointment for it and it worked.Encounter Diagnosis: BMI 23.0-23.9, adult, Non-smoker, Folliculitis, Asthma, Nasal dryness [facility] Phone Encounter On: 17-Sep-2017 8:00 Encounter Diagnosis: Hormone imbalance, Osteopenia (733.90) End: 17-Sep-2017 8:05 [facility] Office Visit On: 15-Jul-2017 15:51 Encounter Reason: Follow up tests - Date: (06/30/17).Encounter Diagnosis: Non-smoker, BMI 23.0-23.9, adult, Hair loss, Bone anomaly End: 15-Jul-2017 16:29 [facility] Office Visit On: 29-Jun-2017 16:13 Encounter Reason: Follow up Meds - The patient feels well with minor complaints, has decreased energy level and is sleeping well. Patient has been compliant with instructions. Current medication use: experiencing side ef End: 29-Jun-2017 17:00 fects and compliant with dosing regimen. Patient sleeps 7 hours per night. Nutrition: balanced diet.Encounter Diagnosis: BMI 23.0-23.9, adult, Non-smoker, Dysthymic, Stress reaction, Emotional disorder, Bone anomaly, Hair loss [facility] Office Visit On: 29-Apr-2017 15:50 Encounter Reason: Depression - The onset of the depression has been gradual and has been occurring in a persistent pattern for months. The course has been constant. The depression is described as feeling sad. The sympto End: 29-Apr-2017 16:44 ms have been associated with depression in the past, while the symptoms have not been associated with difficulty sleeping.Encounter Diagnosis: Non-smoker, BMI 23.0-23.9, adult, Tearfulness, Dysthymic, Stress reaction [facility] Office Visit On: 24-Nov-2016 16:15 Encounter Reason: Insect Bite/Sting - Presenting symptoms included multiple insect bites/stings, itching at the site of the bite/sting, swelling at the site of the bite/sting, redness at the site of the bite/sting and pa End: 24-Nov-2016 17:08 in at the site of the bite/sting. Symptoms include multiple insect bites or stings, itching at the site of the bite or sting, pain at the site of the bite or sting and redness at the site of the bite or sting. Symptoms are located on the left arm, left leg and right hand. The symptoms occur constantly.Encounter Diagnosis: BMI 27.0-27.9,adult, Non-smoker, Bug bites, Rash [facility] Office Visit On: 13-Aug-2016 15:58 Encounter Reason: Follow up ER - Reason for hospitalization note: (bladder wall inflamed and I was peeing blood and tingling when I peeded). Patient has been compliant with instructions. The patient feels well with minor complaints. End: 13-Aug-2016 16:25 Encounter Diagnosis: BMI 27.0-27.9,adult, Non-smoker, Acute cystitis with hematuria, Hematuria [facility] Office Visit On: 04-Feb-2016 16:23 Encounter Reason: Thrush - Mouth feels yucky, scrapes tongue, throat feels as if something is in it. Encounter Diagnosis: Allergic rhinitis, Thrush, GERD (gastroesophageal reflux disease) End: 04-Feb-2016 16:43 [facility] Office Visit On: 24-Dec-2015 16:02 Encounter Reason: ThrushEncounter Diagnosis: Thrush, Laryngitis, Fungal nail infection End: 24-Dec-2015 17:46 [facility] Office Visit On: 03-Dec-2015 16:20 Encounter Reason: Hoarsness - hoarsenessOn dulera wondering if this cause layrngitis Encounter Diagnosis: Laryngitis, Thrush End: 03-Dec-2015 17:00 [facility] Phone Encounter On: 24-Sep-2015 12:41 Encounter Diagnosis: Asthma End: 24-Sep-2015 12:46 [facility] Office Visit On: 24-Sep-2015 11:37 Encounter Reason: Allergic Reaction - AdultEncounter Diagnosis: Allergic reaction, initial encounter, Body mass index (BMI) of 25.0 to 29.9 End: 24-Sep-2015 12:34 [facility] Office Visit On: 13-Aug-2015 8:08 Encounter Reason: Follow up tests - Diagnostic tests include mammography and other (labs). Date: (08/06). Current symptoms include other (pain with stretching-back pain).Encounter Diagnosis: Breast pain, left, Back pain, thoracic End: 13-Aug-2015 10:10 [facility] Office Visit On: 06-Aug-2015 9:08 Encounter Reason: Back Pain - This condition occurred without any known injury. The injury involved the mid back. This occurred 2 week(s) ago at home. Symptoms include back pain. Symptoms are located in the left mid back End: 06-Aug-2015 9:55 . The pain radiates to the shoulder (left chest/breast area). The patient describes the pain as sharp. Onset was sudden 2 week(s) ago. The symptoms occur intermittently. The patient describes symptoms a s unchanged. Symptoms are exacerbated by bending and twisting. The patient is not currently being treated for this problem. Previous presentation included mid back pain. Note for Back pain: back pain occured then compressed back with pain directly to breast on left side , [ADDITIONAL REASON] Breast pain - The breast pain has been occurring for weeks (2). The course has b een recurrent. The breast pain is described as moderate. The location of the pain is in the left upper inner quadrant. Note for Breast pain: With radiation to back , [ADDITIONAL REASON] Mouth Pain - Symptoms include sore tongue. The episodes occur daily. Encounter Diagnosis: Breast pain, left, Thrush, Asthma, mild intermittent (Renamed from Mild intermittent asthma), Back pain, thoracic, Fatigue [facility] Office Visit On: 06-Jun-2015 9:20 Encounter Reason: Asthma - The onset of the asthma has been gradual and has been occurring for 4 days. The course has been worsening. The asthma has no relieving factors. No previous evaluations were reported. Note for End: 06-Jun-2015 10:30 Asthma : new job so shoulder betterEncounter Diagnosis: Chest tightness, Asthma, mild intermittent (Renamed from Mild intermittent asthma), Allergic rhinitis, Thrush [facility] Office Visit On: 17-Jan-2015 8:47 Encounter Reason: Rash - The last clinic visit was 1 week(s) ago. No changes in management were made at the last visit. Symptoms include skin blistering, skin bumps, draining, skin redness and skin weeping. The skin rash End: 17-Jan-2015 10:20 is located on the right buttock and right leg. Onset was sudden 1 week(s) ago. There is no known event that preceded symptom onset. The symptoms occur constantly. The episodes occur daily and last for 1 week. The patient describes this as moderate in severity and worsening. Symptoms are not exacerbated by constant allergen contact, continuous moisture, itch- scratch cycle, sunlight, tight clothing, dr y air, friction, harsh soaps, hot water or over washing. Symptoms are not relieved by cold compresses, barrier creams, antihistamines or topical corticosteroids. Associated symptoms include purulent huong inage. The patient is not currently being treated for this problem. By report there is good compliance with treatment. Previous presentation included rash, redness, itching, blistering and weeping. This problem has not been previously evaluated. This problem has not been previously treated.Encounter Diagnosis: CONTACT DERMATITIS D/T POISON JACINDA, (692.6), Right shoulder pain, Fungal nail infection, Cellulitis [facility] Office Visit On: 23-Nov-2014 11:36 Encounter Reason: Shoulder Problem - This shoulder problem is following a specific injury. The patient is right hand dominant. The injury involved the right shoulder. This occurred 1 week(s) ago. Symptoms include shoulder pain.Encounter Diagnosis: End: 23-Nov-2014 14:10 Right shoulder pain [facility] Office Visit On: 17-Nov-2014 13:55 Encounter Reason: Nail ProblemsEncounter Diagnosis: Fungal nail infection, Right shoulder pain End: 17-Nov-2014 14:30 [facility] Office Visit On: 19-Jul-2014 9:09 Encounter Reason: Follow up tests - Diagnostic tests include other (HIDA scan). Date: (07/10/14). Current symptoms include abdominal pain (comes and goes. Also feel bloated when I eat).Encounter Diagnosis: Hormonal Imbalance (259.9), Abdominal pain, End: 19-Jul-2014 9:47 Allergic rhinitis, GERD (gastroesophageal reflux disease) [facility] Office Visit On: 05-Jul-2014 8:33 Encounter Reason: Follow up acute care visit - The patient feeling better since last seen. Patient has been compliant with instructions. Current medication use: no side effects. Patient sleeps 7 hours per night. Impact o End: 05-Jul-2014 8:45 f disease: no overall impact. Nutrition: balanced diet.Encounter Diagnosis: Nausea, Allergic rhinitis [facility] Office Visit On: 26-Jun-2014 10:14 Encounter Reason: Follow up acute care visit - The patient feels the same, has decreased energy level and worsening. Patient has been non-compliant with instructions. Current medication use: experiencing side effects (di End: 26-Jun-2014 11:00 arrhea ). The medical issues the patient is following up for include All identified problems below and other (SHARP, Abd pain ).Encounter Diagnosis: Nausea, Right shoulder pain, Bloating, Allergic rhinitis [facility] Phone Encounter On: 22-Jun-2014 15:16 Encounter Diagnosis: Unspecified Diagnosis End: 22-Jun-2014 15:21 [facility] Office Visit On: 21-Jun-2014 9:27 Encounter Reason: Headache - The last clinic visit was 4 day(s) ago. Symptoms include new onset headache and nausea. The headache is located in the entire head. The patient describes the pain as dull. Onset was sudden 4 End: 21-Jun-2014 12:36 day(s) ago. The headaches occur daily and last for 4 days. The patient describes this as moderate in severity and unchanged. Current treatment includes non- opioid analgesics. By report there is good com pliance with treatment. Previous presentation included new onset headache and nausea., [ADDITIONAL REASON] Nausea - The last clinic visit was 3 day(s) ago. Symptoms include nausea, abdomi nal pain and anorexia. Symptom onset was sudden 3 day(s) ago. The symptoms occur intermittently. The patient describes this as moderate in severity and unchanged. Symptoms are exacerbated by eating keily ds. Associated symptoms include headache. Previous presentation included nausea and abdominal pain. Encounter Diagnosis: Headache, acute, Nausea, Abdominal pain [facility] Phone Encounter On: 24-Mar-2014 12:24 Encounter Diagnosis: Breast screening End: 24-Mar-2014 12:25 [facility] Office Visit On: 16-Mar-2014 9:31 Encounter Reason: Nail Problems - The last clinic visit was month(s) ago (yrs and has used the otc stuff and it is not healing). No changes in management were made at the last visit. Symptoms include nail discoloration. Symptoms are severe., End: 16-Mar-2014 13:52 [ADDITIONAL REASON] Edema - No changes in management were made at the last visit. Symptoms include edema. The edema involves the left lower extremity. There is no known event that preceded symptom onset. Encounter Diagnosis: Swelling of left lower extremity, Calf pain, Fungal nail infection [facility] Office Visit On: 02-Sep-2013 8:54 Encounter Reason: Wrist Pain - The patient is right hand dominant. Symptoms include wrist pain and decreased range of motion. Symptoms are located in the left wrist. The pain radiates to the left hand and left forearm. T End: 02-Sep-2013 9:30 he patient describes the pain as burning (with touch ) and stinging. The symptoms occur constantly. The patient describes symptoms as severe and worsening. Symptoms are exacerbated by motion at the wrist, use of the hand and direct pressure. Encounter Diagnosis: Left wrist pain, Carpal tunnel syndrome, left [facility] Office Visit On: 21-Apr-2013 8:05 Encounter Reason: Follow up tests - Date: (04/12/13 labs)., [ADDITIONAL REASON] Follow up for chronic medical issues - The patient feels well with minor complai End: 21-Apr-2013 9:30 nts, has good energy level and is sleeping well. Patient has been compliant with instructions. Current medication use: no side effects and compliant with dosing regimen. Patient sleeps 7 hours per night . Nutrition: balanced diet and no supplemental vitamins & iron. The medical issues the patient is following up for include All identified problems below, asthma and osteoporosis/osteopenia. weight :. Encounter Diagnosis: Hyperlipidemia (272.4), Asthma (493.11), Osteopenia (733.90), Vitamin D deficiency, unspecified (268.9) [facility] Office Visit On: 17-Sep-2012 14:02 Encounter Diagnosis: Hyperlipidemia (272.4), Abnormal Glucose Tolerance Test (790.22), Asthma (493.11), Osteopenia (733.90) End: 17-Sep-2012 15:26 [facility] Office Visit On: 08-Sep-2012 8:13 Encounter Reason: Rash - The last clinic visit was 2 day(s) ago. No changes in management were made at the last visit. Symptoms include skin blistering, skin bumps and skin redness. The skin rash is located on the left t End: 10-Sep-2012 13:25 runcal area (and bra strap area.) and right truncal area. Onset was gradual. The patient describes this as moderate in severity and worsening. Symptoms are exacerbated by constant allergen contact (says cat bringing it in and getting on her bed covers.). Symptoms are relieved by antihistamines.Encounter Diagnosis: CONTACT DERMATITIS D/T POISON JACINDA, (692.6), Abnormal Glucose Tolerance Test (790.22) [facility] Office Visit On: 06-May-2012 10:35 Encounter Reason: Follow up tests - Date: (04/30/12 labs)., [ADDITIONAL REASON] Follow up for chronic medical issues - The patient feels well with minor complai End: 06-May-2012 16:11 nts, has good energy level and is sleeping well. Patient has been compliant with instructions. Current medication use: no side effects and compliant with dosing regimen. Patient sleeps 7 hours per night . Nutrition: balanced diet and supplemental vitamins. The medical issues the patient is following up for include All identified problems below, blood sugar issues and high cholesterol. weight :. Encounter Diagnosis: Abnormal Glucose Tolerance Test (790.22), Hyperlipidemia (272.4), BRONCHITIS, NOT SPECIFIED ACUTE OR CHRONIC (490.), Chest pain (786.59), Seborrhea capitis (690.11), Osteopenia (733.90) [facility] Phone Encounter On: 18-Dec-2011 10:05 Encounter Diagnosis: Abnormal Glucose Tolerance Test (790.22) End: 18-Dec-2011 10:07 [facility] Office Visit On: 18-Dec-2011 8:32 Encounter Reason: Follow up tests - Date: (12/02/11 labs)., [ADDITIONAL REASON] Follow up for chronic medical issues - The patient feels well with minor complai End: 18-Dec-2011 9:24 nts, has good energy level and is sleeping well. Patient has been compliant with instructions. Current medication use: no side effects and compliant with dosing regimen. Patient sleeps 7 hours per night . Nutrition: balanced diet and supplemental vitamins. The medical issues the patient is following up for include All identified problems below, high blood pressure and high cholesterol. weight :. Encounter Diagnosis: Asthma (493.11), Eustachian tube dysfunction (381.81), Otitis externa (380.10), Osteopenia (733.90), CHRONIC OBSTRUCTIVE ASTHMA WITH (ACUTE) EXACERBATION (493.22), RADIAL STYLOID TENOSYNOVITIS (Dequevain's)(727.04), Abnormal Glucose Tolerance Test (790.22), Hyperlipidemia (272.4), Foliculitis (704.8) [facility] Office Visit On: 19-Nov-2011 8:59 Encounter Reason: Ear Discharge - Symptoms include ear pain, while symptoms do not include dizziness, hearing impairment, need for high sound levels or tinnitus. Symptoms are located in the right ear. Onset was sudden 4 End: 19-Nov-2011 9:46 day(s) ago. Onset followed barotrauma. The symptoms occur constantly. The patient describes this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
--- OUTSIDE RECORDS SUMMARY | 2018-07-05 09:33 | XMS RPT_ITS | Continuity of Care Document ---
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) Status: [...] 780.99) Status: Active Thrush (B37.0, 112.0) Comments: will try nutra fix probiotic Status: Active Thrush (B37.0, 112.0) Comments: different strain ??-- if no better refer to dermresistant Status: Active Unspecified Diagnosis Status: Active Unspecified Diagnosis Status: Active Unspecified Diagnosis Status: Active Unspecified Diagnosis Status: Active Vitamin D deficiency, unspecified (E55.9, 268.9) Status: Active Medications Name Dates Details CALCIUM 500/VITAMIN D, 626-482XI-VSMQ (Oral Tablet) 2 (two) Tablet daily for [...] days Quantity: 360 {Capsule} Refills: 3 Ordered:24-Dec-2015 Holly LINDSAY YariElise Samantha Start : 24-Dec-2015 Active Allergy 24-HR 180 MG Oral Tablet 1 (one) Tablet daily for 30 days Quantity: 30 {Tablet} Refills: 0 Ordered:21-Apr-2016 Carolina Bowman CNP Start : 04-Feb-2016 End : 05-Mar-2016 Inactive BACTROBAN NASAL, 2% (Nasal Ointment) 1 Ointment each nostril daily for 10 days Quantity: 10 {Ointment} Refills: 0 Ordered:18-Dec-2011 Holly LINDSAYFrancisco Javier Samantha Start : 18-Dec-2011 End : 28-Dec-2011 Inactive Comments:supply enough for 10 day supply each nostril daily CEFDINIR, 300MG (Oral Capsule) 1 (one) Capsule bid for 7 days Quantity: 14 {QS} Refills: 0 Ordered:17-Jan-2015 Carolina Bowman CNP Start : 17-Jan-2015 End : 24-Jan-2015 Inactive CELEBREX, 100MG (Oral Capsule) 1 (one) Capsule as needed for 30 days Quantity: 30 {Capsule} Refills: 0 Ordered:06-Aug-2015 Blayne Metzger LPNa Start : 06-Aug-2015 End : 05-Sep-2015 Inactive Comments:Medication taken as needed. Clotrimazole 10 MG Mouth/Throat Rod 1 (one) Rod Rod 5x daily for 10 days Quantity: 50 {Rod} Refills: 0 Ordered:03-Dec-2015 Carolina Bowman CNP Start : 03-Dec-2015 End : 13-Dec-2015 Inactive CORTISPORIN, 3.5-89039-7 (Otic Solution) 4 Drop(s) tid for 10 [...] Quantity: 1 {Cream} Refills: 3 Ordered:13-May-2011 Ronda Crisostomo LPN Start : 12-Feb-2011 [...] : 12-Nov-2017 End : 19-Nov-2017 Inactive Nystatin 647344 UNIT/ML Mouth/Throat Suspension 5 cc 5times a [...] days Quantity: 21 {Tablet} Refills: 0 Ordered:24-Nov-2016 Carolina Bowman CNP Start : 24-Nov-2016 End : 01-Dec-2016 Inactive [...] days Quantity: 360 {Tablet} Refills: 0 Ordered:06-Aug-2015 Janisdamonbenita SAWYERCarolina Start : 06-Aug-2015 End : 31-Jul-2016 Inactive [...] Start : 06-Jun-2015 End : 03-Dec-2015 Discontinued [place] Saline Nasal Nasal Gel 1 (one) Gel [...] days Quantity: 30 {Capsule} Refills: 1 Ordered:07-Aug-2015 Carolina Bowman CNP Start : 07-Aug-2015 Discontinued Comments:1h before a [...] Discontinued Comments:please substitute generic albulterol VITAMIN D3, 35085TSYW (Oral Capsule) 1 Capsule 2 x week for 0 days Quantity: 24 {Capsule} Refills: 1 Ordered:23-Jun-2011 Francisco Javier Barrera DO, DO, Kathleen Start : 23-Jun-2011 End : 23-Jun-2011 Discontinued ZOFRAN ODT, 4MG (Oral Tablet Dispersible) 1-2 Tablet Disperse Tablet Disperse q8hrs prn for 0 days Quantity: 30 {Tablet} Refills: 0 Ordered:17-Jan-2015 Slarb Blayne PHANa Start : 26-Jun-2014 End : 17-Jan-2015 Discontinued ZyrTEC Allergy 10 MG Oral Capsule 1 (one) Capsule daily for 0 days Quantity: 30 {Capsule} Refills: 0 Ordered:03-Dec-2015 SlaBlayne mora LPNa Start : 06-Jun-2015 End : 03-Dec-2015 Discontinued Allergies and Adverse Reactions Name Dates Details No Known Drug Allergies (Allergy) Status: Active Past Medical History Name Dates Details Abdominal pain (R10.9, 789.00) Comments: if no improvement will send for US gallbladder Status: Inactive as of 24-Dec-2015 Abnormal glucose tolerance test (R73.09, 790.22) Comments: based on 2 [facility] -- will follow Status: Resolved as of 17-Sep-2012 Back pain, thoracic (M54.6, 724.1) Comments: reproducible, worse with stretching likely musculoskeletal, improving while resting with exercise Status: Inactive as of 24-Dec-2015 Bloating (R14.0, 787.3) Status: Inactive as of 24-Dec-2015 Breast pain, left (N64.4, 611.71) Comments: normal [...] EMG Patient Result: Comments: See Note; NOTES: [facility] Pulmonary Services/Neurology [address] [place] [address] MR#: [id number] Acct: [id number] Name: KATHRYN AMARO Rep #: [id number] : 1965 52 From: Ever Allen MD Referring Dr: Bipin Ackerman DO Status: REG CLI Ordering Dr: Date: Location: [facility] Sex: F C NCS and/or EMG Patient [...] MD> Date Ever Allen MD CC: Samantha lewis DO; Bipin Ackerman DO; Ever Allen MD Date Dictated: 01/26/18 1036 Date Transcribed: 01/26/18 1036 Band Master: NF Signed 22-Oct-2017 12 Lead Electrocardiogram Result: Comments: See Note; NOTES: [facility] Cardiovascular Services [address] [place] [address] 12 Lead EKG 10/21/17 1508 MR#: [id number] Acct: [id number] Name: KATHRYN AMARO Rep #: [id number] : 1965 52 From: Carroll Emmanuel MD Attending Dr: Priscila Chance Status: REG CLI Ordering Dr: Priscila Chance Date: 10/21/17 Location: [facility] Sex: F C Admitted: Test Reason : PREO P Blood Pressure : / mmHG Vent. Rate : 070 BPM Atrial Rate : 070 BPM P-R Int : 142 ms QRS Dur : 064 ms QT Int : 392 ms P-R-T Axes : 069 063 066 degrees QTc Int : 423 ms Normal sinus rhythm Normal ECG Confirmed by CHOLO MORENO, CARROLL ([id number]), web content editor HILARIA DAVIDSON ([id number]) on 10/22/2017 12:52:17 PM Referred By: Priscila Chance Confirmed By:CARROLL EMMANUEL MD 10/22/17 1252 Date Carroll Emmanuel MD CC: Priscila Chance; Samantha Barrera DO Signed 30-Jun-2017 Skull min 4 Views Result: Comments: See Note; NOTES: [facility] Imaging Services [address] [place] [address] Skull min 4 Views MR#: [id number] Acct: [id number] Name: KATHRYN AMARO Rep #: [id number] : 1965 F 52 From: Marcus Angel MD PCP: Samantha Barrera DO Status: REG CLI Study: Skull min 4 Views Date of Exam: 06/30/17 Exam# [id number] Ordering Dr: Samantha Barrera DO STUDY: X-RAY [...] Service support , CC: Samantha Barrera DO Band Master: Signed 13-Oct-2016 SCREENING MAMM (CAD), BILAT Result: Comments: See Note; NOTES: [facility] Imaging Services [address] [place] [address] Verdana 4d SCREENING MAMM (CAD), BILAT MR#: [id number] Acct: [id number] Name: ALETHA AMARO Rep #: [id number] : 1965 F 51 From: Ron Roman MD PCP: Samantha Barrera DO Status: REG CLI Study: SCREENING MAMM (CAD), BILAT Date of Exam: 10/13/16 Exam# [id number] Ordering Dr: Karuna Mixon MD MAMMOGRAPHY - [...] delay biopsy of a clinically suspicious abnormality. [id number] Electronically Signed: Anjum Roman MD at 8:41 EDT , Service support , CC: Karuna Mixon MD; Samantha Barrera DO Band Master: Signed 22-Jul-2016 Emergency Department Summary Result: Comments: See Note; NOTES: [facility] Medical Records Department [address] [place] [address] Emergency Department Summary MR#: [id number] Acct: [id number] Name: ALETHA AMARO Rep #: [id number] : 1965 51 From: Kyle Tinsley MD [...] Vik Retana C: Samantha Barrera DO T: [facility] JOB: [id number] 07/22/162113 &amp ;#60;Electronically signed by Kyle Tinsley MD> Date Kyle Tinsley MD Cosigner Signature (If Indicated): Date CC: Samantha Barrera DO Date Dictated: 07/22/162026 Date Transcribed: 07/22/162026 Band Master: Signed 22-Jul-2016 Discharge Instruction Result: Comments: See Note; NOTES: [facility] Medical Records Department [address] [place] [address] Discharge Instruction 07/22/162024 MR#: [id number] Acct: [id number] Name: KATHRYN AMARO Rep #: [id number] : 1965 51 From: Kyle Tinsley MD [...] problems, contact your Primary Care Provider. Call [facility] ) or report to the closest Emergency Room. Call 911 if necessary. 07/22/162027 <Electronically signed by Kyle Tinsley MD> Date Kyle Tinsley MD Cosigner Signature (If Indicated): Date CC: Samantha Barrera DO 22-Jul-2016 Abdomen/Pelvis W IV Cont ONLY Result: Comments: See Note; NOTES: [facility] Imaging Services [address] [place] [address] Verdana 4d Abdomen/Pelvis W IV Cont ONLY MR#: [id number] Acct: [id number] Name: PREMROLLY WEN Rep #: [id number] : 1965 F 51 From: Leo Shin DO PCP: Samantha Barrera DO Status: REG ER Study: Abdomen/Pelvis W IV Cont ONLY Date of Exam: 07/22/16 Exam# [id number] Ordering Dr: Kyle Tinsley MD STUDY: CT [...] at 20:11 EDT Tel , Service support [phone], CC: Samantha Barrera DO; Kyle Tinsley MD Band Master: Signed 07-Mar-2016 Esophagus Only Result: Comments: See Note; NOTES: [facility] Imaging Services [address] [place] [address] Verdana 4d Esophagus Only MR#: [id number] Acct: [id number] Name: KATHRYN AMARO Rep #: [id number] : 1965 F 50 From: Amrit Mac MD PCP: Carolina Bowman Status: REG CLI Study: Esophagus Only Date of Exam: 03/07/16 Exam# [id number] Ordering Dr: Mike Varner MD STUDY: AIR-CONTRAST [...] at 12:42 EST Tel , Service support [phone], CC: Carolina Bowman; Mike Varner Band Master: Signed 07-Aug-2015 Bilat Diag Digital AND CAD Result: Comments: See Note; NOTES: [facility] Imaging Services [address] [place] [address] Verdana 4d Bilat Diag Digital AND CAD MR#: [id number] Acct: [id number] Name: KATHRYN AMARO Rep #: [id number] : 1965 F 50 From: Luciano Dowell MD PCP: Carolina Bowman Status: REG CLI Study: Bilat Diag Digital AND CAD Date of Exam: 08/07/15 Exam# [id number] Itzel lara Dr: Carolina Bowman MAMMOGRAPHY - [...] Luciano Dowell MD at 9:36 EDT Tel [phone], Service support [phone], CC: Carolina Bowman Band Master: Signed 06-Aug-2015 Chest PA and Lateral Result: Comments: See Note; NOTES: [facility] Imaging Services [address] [place] [address] Verdana 4d Chest PA and Lateral MR#: [id number] Acct: [id number] Name: KATHRYN JACOBSEN Rep #: [id number] : 1965 F 50 From: Luciano Dowell MD PCP: Carolina Bowman Status: REG CLI Study: Chest PA and Lateral Date of Exam: 08/06/15 Exam# [id number] Ordering Dr: Carolina Bowman STUDY: X-RAY CHEST [...] Dowell MD 08/05 at 11:03 EDT Tel [phone], Service support [phone], RAD/Chest PA and Lateral IMPRESSION: No acute abnormality is seen. Electronically Signed: Agustin Dowell MD at 11:03 EDT Tel [phone], Service support [phone], CC: Carolina Bowman Band Master: Signed 06-Aug-2015 Ribs Unil 2V No CXR Result: Comments: See Note; NOTES: [facility] Imaging Services [address] [place] [address] Verdana 4d Ribs Unil 2V No CXR MR#: [id number] Acct: [id number] Name: KATHRYN AMARO Rep #: [id number] : 1965 F 50 From: Luciano Dowell MD PCP: Carolina Bowman Status: REG CLI Study: Ribs Unil 2V No CXR Date of Exam: 08/06/15 Exam# [id number] Ordering Dr: Jorje Bowman STUDY: X-RAY - UNILATERAL RIBS ( LEFT ) REASON FOR EXAM: Female, 50 years old. Upper chest pain. TECHNIQUE: 4 view(s) of the ribs. COMPARISON: None. FINDINGS: Normal visualized ribs without a demonstrated fracture. The visualized lung is clear and expanded. IMPRESSION: Normal x-ray examination of the ribs. Electronically Signed: Luciano Dowell MD at 11:02 EDT Tel [phone], Service support [phone], 0036 RAD/Ribs Unil 2V No CXR IMPRESSION: Norm al x-ray examination of the ribs. Electronically Signed: Luciano Dowell MD at 11:02 EDT Tel [phone], Service support [phone], CC: Carolina Bowman Band Master: Signed 06-Jun-2015 Spirometry (00772) Comments: Fevi/fvc 72% Result: 18-Nov-2014 Shoulder min 2 Views Result: Comments: See Note; NOTES: [facility] Imaging Services [address] [place] [address] Radiology Report MR#: [id number] Acct: [id number] Name: KATHRYN AMARO Rep #: [id number] : 1965 F 49 From: Pete Curtis MD PCP: Samantha Barrera DO Status: REG CLI Study: Shoulder min 2 Views Date of Exam: 11/18/14 Exam# [id number] Ordering Dr: Samantha Barrera TUDY: X-RAY - RIGHT SHOULDER REASON FOR EXAM: [...] MD at 22:54 EDT , Service support [phone], R AD/Shoulder min 2 Views IMPRESSION: Mild 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 Electronically Signed: Pete Curtis MD at 22:54 EDT , Service support , CC: Samantha Barrera DO Band Master: Signed 10-Jul-2014 Hepatobilliary Imaging Result: Comments: See Note; NOTES: [facility] Imaging Services [address] [place] [address] Nuclear Medicine Report MR#: [id number] Acct: [id number] Name: KATHRYN AMARO Rep #: [id number] : 1965 F 49 From: Shreyas Groves DO PCP: Samantha Barrera DO Status: REG CLI Study: Hepatobilliary Imaging Date of Exam: 07/10/14 Exam# [id number] Ordering Dr: Carolina Bowman LINICAL: 49-year-old female [...] Shreyas Groves DO at 22:24 EDT Tel [phone], Service support [phone], CC: Carolina Bowman; Samantha Barrera DO Band Master: Signed 30-Jun-2014 Pelvic (Non ) Result: Comments: See Note; NOTES: [facility] Imaging Services [address] [place] [address] Ultrasound Report MR#: [id number] Acct: [id number] Name: KATHRYN AMARO Rep #: [id number] : 1965 F 49 From: Pete Curtis MD PCP: Samantha Barrera DO Status: REG CLI Study: Pelvic (Non ) Date of Exam: 06/30/14 Exam# [id number] Ordering Dr: Carolina Bowman STUDY: U LTRASOUND [...] MD at 19:53 EDT , Service support [phone], CC: Carolina Bowman; Samantha Barrera DO Band Master: Signed 30-Jun-2014 Abdomen Complete Result: Comments: See Note; NOTES: [facility] Imaging Services [address] [place] [address] Ultrasound Report MR#: [id number] Acct: [id number] Name: KATHRYN AMARO Rep #: [id number] : 1965 F 49 From: Noé Pascual MD PCP: Samantha Barrera DO Status: REG CLI Study: Abdomen Complete Date of Exam: 06/30/14 Exam# [id number] Ordering Dr: Carolina Bowman STUDY: ABDOM INAL [...] MD at 15:42 EDT , Service support [phone], CC: Carolina Bowman; Samantha Barrera DO Band Master: Signed 21-Jun-2014 Toradol Injection, 30 mg (J1885) Comments: Lot:57-125-HPPyx:02/11/2015Dose:1MlRoute:IMSite:R glutGiven By:RIC signed Result: Comments: Lot:Exp:Dose:1mlRoute:IMSite:R GlutGiven By:RIC signed 19-Apr-2014 Bilat Scrn Digital AND CAD Result: Comments: See Note; NOTES: [facility] Imaging Services [address] [place] [address] Breast Imaging Report MR#: [id number] Acct: [id number] Name: KATHRYN AMARO Rep # : [id number] : 1965 F 49 From: Luciano Dowell MD PCP: Samantha Barrera DO Status: REG CLI Study: Bilat Scrn Digital AND CAD Date of Exam: 04/19/14 Exam# [id number] Ordering Dr: Gasper Barrera DO MAMMOGRAPHY - [...] Luciano Dowell MD at 8:19 EST Tel [phone], Service support [phone], Fax CC: Samantha Barrera DO Band Master: Signed 20-Mar-2014 Abdomen/Pelvis WITH Contrast Result: Comments: See Note; NOTES: [facility] Imaging Services [address] [place] [address] CAT Scan Report MR#: [id number] Acct: [id number] Name: KATHRYN AMARO Rep #: [id number] : 1965 F 48 From: Brayan Wilson MD PCP: Samantha Barrera DO Status: REG CLI Study: Abdomen/Pelvis WITH Contrast Date of Exam: 03/20/14 Exam# [id number] Ordering Dr: Samantha Barrera DO STUDY: CT [...] MD at 21:48 EST , Service support [phone], CC: Samantha Barrera DO Band Master: Signed 15-Sep-2013 NCS and/or EMG Patient Result: Comments: See Note; NOTES: [facility] Pulmonary Services/Neurology [address] [place] [address] NCS and/or EMG Patient MR#: [id number] Acct: [id number] Name: LA AMARO RA Rep #: [id number] : 1965 48 From: Ever Allen MD Referring Dr: Carolina Bowman Status: REG CLI Ordering Dr: Carolina Bowman Date: 09/13/13 Location: [facility] Sex: F C DATE OF SERVICE: [facility] [...] Dictated: 09/13/13 1043 Date Transcribed: 09/13/13 1520 Band Master: SHARP Signed 12-Apr-2013 Bilat Scrn Digital & CAD Result: Comments: See Note; NOTES: [facility] Imaging Services [address] [place] [address] Breast Imaging Report MR#: [id number] Acct: [id number] Name: KATHRYN AMARO Rep # : [id number] : 1965 F 48 From: Luciano Dowell MD PCP: Samantha Barrera DO Status: REG CLI Exam# [id number] Ordering Dr: Samantha Barrera DO MAMMOGRAPHY - [...] M.D. at 8:09 EST , Service support [phone], CC: Samantha Barrera DO Band Master: Signed 12-Apr-2013 Dexa Bone Density Study (HP) Result: Comments: See Note; NOTES: [facility] Imaging Services [address] [place] [address] Bone Density Report MR#: [id number] Acct: [id number] Name: KATHRYN AMARO Rep #: [id number] : 1965 F 48 From: Luciano Dowell MD PCP: Samantha Barrera DO Status: [facility] Study: Dexa Bone Density Study (HP) Date of Exam: 04/12/13 Exam# [id number] Ordering Dr: Holly, Ka thleen DO STUDY: DUAL ENERGY X-RAY ABSORPTIOMETRY / [...] M.D. 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 Comments: 06/23/11 Status: Active Smoking Status Name Dates Details Never smoker Vital Signs Date Test Result Details 96-Iwh-271107:28 Temperature 98.1 f Comments: Method: Temporal Pulse [...] kg/m2 Body Surface Area Calculated 1.67 m2 28-Zxd-426411:51 Comments: ortho scatic bp: sitting 105/66 P [...] 0.00 cm Results Date Description Value Details :06 [id number] (28248) Comments: PATIENT NOT FASTINGPERFORMED BY: [employer] [id number] AFP, Serum, Tumor Marker 6.2 ng/mL (Normal) Range: 0.0-8.3 Comments: Kyler ECLIA methodology :06 HEPATIC FUNCTION PANEL Comments: PATIENT NOT FASTINGPERFORMED BY: [employer]6370 [facility] [id number] ([id number]) ALT (SGPT) 30 [iU]/L (Normal) Range: 0-32 AST (SGOT) 18 [iU]/L (Normal) Range: 0-40 Alkaline Phosphatase 56 [iU]/L (Normal) Range: 39-117 Bilirubin, Direct 0.10 mg/dL (Normal) Range: 0.00-0.40 Bilirubin, Total 0.2 mg/dL (Normal) Range: 0.0-1.2 Albumin 4.8 g/dL (Normal) Range: 3.5-5.5 Protein, Total 6.7 g/dL (Normal) Range: 6.0-8.5 88-Iya-287647:56 HEPATIC FUNCTION PANEL Comments: PATIENT NOT FASTINGPERFORMED BY: [employer]6370 [facility] [id number] (76232) ALT (SGPT) 110 [iU]/L (Abnormal) Range: 0-32 AST (SGOT) 48 [iU]/L (Abnormal) Range: 0-40 Alkaline Phosphatase 52 [iU]/L (Normal) Range: 39-117 Bilirubin, Direct 0.16 mg/dL (Normal) Range: 0.00-0.40 Bilirubin, Total 0.5 mg/dL (Normal) Range: 0.0-1.2 Albumin 4.5 g/dL (Normal) Range: 3.5-5.5 Protein, Total 6.5 g/dL (Normal) Range: 6.0-8.5 53-Zrx-228456:56 CBC & PLATELETS (AUTO) Comments: PATIENT NOT FASTINGPERFORMED BY: [facility]6370 [facility] [id number] (37815) Platelets 312 {x10E3/uL} (Normal) Range: 150-379 RDW 12.7 % (Normal) Range: 12.3-15.4 MCHC 34.6 g/dL (Normal) Range: 31.5-35.7 MCH 30.7 pg (Normal) Range: 26.6-33.0 MCV 89 fL (Normal) Range: 79-97 Hematocrit 38.4 % (Normal) Range: 34.0-46.6 Hemoglobin 13.3 g/dL (Normal) Range: 11.1-15.9 RBC 4.33 {x10E6/uL} (Normal) Range: 3.77-5.28 WBC 6.0 {x10E3/uL} (Normal) Range: 3.4-10.8 :56 PARATHORMONE (36734) Comments: PATIENT NOT FASTINGPERFORMED BY: [facility]6370 [facility] [id number] PTH, Intact 30 pg/mL (Normal) Range: 15-65 97-Qev-712163:56 CALCIFEDIOL (54359) Comments: PATIENT NOT FASTINGPERFORMED BY: [facility]6370 [facility] [id number] Vitamin D, 25-Hydroxy 79.3 ng/mL (Normal) Range: 30.0-100.0 Comments: Vitamin D deficiency has been defined by the [place] of[place] and an Endocrine Society practice guideline as alevel of serum 25-OH vitamin D less than 20 ng/mL (1,2).The Endocrine Society went on to further define vitamin Dinsufficiency as a level between 21 and 29 ng/mL (2).1. IOM ([place] [employer]). 2010. Dietary reference intakes for calcium and D. [place]: The National Academies Press.2. Henna MF, Jerman MORRIS, Piedad SHARP, et al. Evaluation, treatment, and prevention of vitamin D deficiency: an Endocrine Society clinical practice guideline. JCEM. 2010; 96(7):1911-30. 45-Uqk-764791:56 MAGNESIUM (57097) Comments: PATIENT NOT FASTINGPERFORMED BY: [facility] Prfszb5976 [facility] [id number] Magnesium 2.1 mg/dL (Normal) Range: 1.6-2.3 17-Zxs-528995:51 Metabolic Panel, Comprehensive Comments: PATIENT NOT FASTINGPERFORMED BY: [facility] Fngwlu4270 [facility] [id number] (26854) ALT (SGPT) 67 [iU]/L (Abnormal) Range: 0-32 [...] 6-24 Glucose 116 mg/dL (Abnormal) Range: 65-99 02-Vfj-043958:51 CBC & PLATELETS (AUTO) Comments: PATIENT NOT FASTINGPERFORMED BY: [facility]6370 [facility] [id number] (75717) Platelets 101 {x10E3/uL} Range: 150-379 (Abnormal) RDW [...] ug/dL (Normal) Comments: PATIENT NOT FASTINGPERFORMED BY: [facility]6370 [facility] [id number] BY: [employer] [id number] 0 Range: 6.2-19.4 00-Vqx-16693:10 CALCIFEDIOL (76015) Comments: PATIENT NOT FASTINGPERFORMED BY: [place] 3080370 [facility] [id number] BY: [facility] [id number] Vitamin D, 25-Hydroxy 86.0 ng/mL (Normal) Range: 30.0-100.0 Comments: Vitamin D deficiency has been defined by the [place] [employer] and an Endocrine Society practice guideline as alevel of serum 25-OH vitamin D less than 20 ng/mL (1,2).The Endocrine Society went on to further define vitamin Dinsufficiency as a level between 21 and 29 ng/mL (2).1. IOM ([place] [employer]). 2010. Dietary reference intakes for calcium and D. [place]: The National Academies Press.2. Henna MF, Jerman [place], Piedad SHARP, et al. Evaluation, treatment, and prevention of vitamin D deficiency: an Endocrine Society clinical practice guideline. JCEM. 2010; 96(7):1911-30. 64-Loe-62094:10 TESTOSTERONE TOTAL (21482) Comments: PATIENT NOT FASTINGPERFORMED BY: [employer]70 [facility] [id number] BY: Rayneer[address] [id number] Information: AM CORTISOL Testosterone, Serum <3 ng/dL (Abnormal) Range: 3-41 49-Xcq-01925:10 ESTRONE (90158) Comments: PATIENT NOT FASTINGPERFORMED BY: [employer]70 [facility] [id number] BY: Rayneer[address] [id number] Estrone, Serum 36 pg/mL (Normal) Comments: . [...] - 114 Post Menopausal 14 - 103 59-Xsy-07637:10 PROGESTERONE (89905) Comments: PATIENT NOT FASTINGPERFORMED BY: [employer] Wdajfb3579 [facility] [id number] BY: Rayneer[address] [id number] Progesterone 0.2 ng/mL (Normal) Comments: Follicular phase 0.1 - 0.9 Luteal phase 1.8 - 23.9 Ovulation phase 0.1 - 12.0 First trimester 11.0 - 44.3 Second trimester 25.4 - 83.3 Third t rimester 58.7 - 214.0 Postmenopausal 0.0 - 0.1 01-Hzb-64310:10 ESTRADIOL (07170) Comments: PATIENT NOT FASTINGPERFORMED BY: [facility]6370 [facility] [id number] BY: [address] [id number] Estradiol <5.0 pg/mL (Normal) Comments: Adult Female: Follicular phase 12.5 - 166.0 Ovulation phase 85.8 - 498.0 Luteal phase 43.8 - 211.0 Postmenopausal <6.0 - 54.7 1st trimester 215.0 - & gt;4300.0 Girls (1-10 years) 6.0 - 27.0Roche ECLIA methodology 21-Hzq-316000:02 CBC & PLATELETS (AUTO) Comments: PATIENT NOT FASTINGPERFORMED BY: [address] [id number] (78687) Platelets 214 {x10E3/uL} (Normal) Range: 150-379 RDW 13.0 % (Normal) Range: 12.3-15.4 MCHC 32.9 g/dL (Normal) Range: 31.5-35.7 MCH 31.3 pg (Normal) Range: 26.6-33.0 MCV 95 fL (Normal) Range: 79-97 Hematocrit 41.0 % (Normal) Range: 34.0-46.6 Hemoglobin 13.5 g/dL (Normal) Range: 11.1-15.9 RBC 4.32 {x10E6/uL} (Normal) Range: 3.77-5.28 WBC 6.8 {x10E3/uL} (Normal) Range: 3.4-10.8 91-Ktv-836992:02 TSH (30414) Comments: PATIENT NOT FASTINGPERFORMED BY: [place] 3080370 [facility] [id number] TSH 1.190 {uIU/mL} (Normal) Range: 0.450-4.500 20-Gjp-990182:02 T4, FREE (THYROXINE) (74578) Comments: PATIENT NOT FASTINGPERFORMED BY: [address] [id number] T4,Free(Direct) 1.07 ng/dL (Normal) Range: 0.82-1.77 22-Tho-411705:02 T3, FREE (TRIDOTHYRONINE) (66842) Comments: PATIENT NOT FASTINGPERFORMED BY: RayneerCrownpoint Healthcare FacilityYvofxa1462 JacobsViva la VitaUNC Health [id number] Triiodothyronine,Free,Serum 2.9 pg/mL (Normal) Range: 2.0-4.4 09-Squ-875992:02 Metabolic Panel, Comprehensive Comments: PATIENT NOT FASTINGPERFORMED BY: Rayneer Yaizih3288 [facility] [id number] (71995) ALT (SGPT) 14 [iU]/L (Normal) Range: 0-32 [...] Glucose, Serum 84 mg/dL (Normal) Range: 65-99 35-Taq-259411:02 IRON (56529) Comments: PATIENT NOT FASTINGPERFORMED BY: Enuclia SemiconductorHenry Ford West Bloomfield Hospital6370 [facility] [id number] Iron, Serum 46 ug/dL (Normal) Range: 27-159 08-Msm-308126:02 DHEA-S (DEHYDROEPIANDROSTERONE Comments: PATIENT NOT FASTINGPERFORMED BY: [facility]6370 [facility] [id number] SULFATE) (62849) DHEA-Sulfate 40.7 ug/dL (Abnormal) Range: 41.2-243.7 :57 Microscopic Examination Comments: PATIENT NOT FASTINGPERFORMED BY: [facility]6370 [facility] [id number] Bacteria Few (Normal) Mucus Threads Present (Normal) Epithelial Cells (non renal) 0-10 {/hpf} (Normal) Range: 0 - 10 RBC 0-2 {/hpf} (Normal) Range: 0 - 2 WBC 0-5 {/hpf} (Normal) Range: 0 - 5 :57 URINALYSIS (65601) Comments: PATIENT NOT FASTINGPERFORMED BY: [facility]6370 [facility] [id number] Microscopic Examination See below: (Normal) Comments: Microscopic was indicated and was performed. Nitrite, Urine Negative (Normal) Urobilinogen,Semi-Qn 0.2 mg/dL (Normal) Range: 0.2-1.0 Bilirubin Negative (Normal) Occult Blood Negative (Normal) Ketones Negative (Normal) Glucose Negative (Normal) Protein Negative (Normal) WBC Esterase 1+ (Abnormal) Appearance Clear (Normal) Urine-Color Yellow (Normal) pH 7.0 (Normal) Range: 5.0-7.5 Specific Wells 1.008 (Normal) Range: 1.005-1.030 56-Azu-575868:50 Basic Metabolic Profile (BMP) Comments: [facility] Ywnsmoyret0[address] Mal[address] DohertyJannette [place], [place], [id number] GAP 4 (Abnormal) Range: 5-15 CO2 27.0 [...] 7-18 GLU 87 mg/dL (Normal) Range: 70-110 30-Jjq-775578:50 CBC W/Diff, Automated Comments: [facility] Dgcnuzdlac88[address] [place], [address] Absolute Lymph 1.18 {X10_3/ul} (Normal) Range: 0.83-4.51 [...] 4.2-5.4 WBC 10.3 K/mm3 (Normal) Range: 4.4-11.0 77-Ceq-036110:00 Urinalysis, Complete Comments: Order Date: 07/22/16Order Date: 07/22/16How was Urine Obtained? MARKET RESEARCH MANAGER TO SPECIFYWMercy Health St[facility] Qptdsdtozh0179 [facility] Christelle. [place], [place], [id number] MUCUS, URINE 0 SEEN {/hpf} (Normal) BACTERIA [...] BELOW (Normal) Comments: Visual Urine Color: PINK 51-Egr-467714:44 Culture, Wound Comments: [facility] Uzrkqalsqo48[address]herty. [place], [place], [address] CUW See Note (Normal) Comments: Order Date: [...] pneumoniae, beta-hemolytic Streptococcus or Staphylococcus aureus isolated. 71-Xyh-679597:49 HgA1C , Office (04533) HgA1C , Office 5.3 % (Normal) Range: 4.6 - 7.1 :03 Metabolic Panel, Basic Comments: PATIENT NOT FASTINGPERFORMED BY: RayneerJFK Johnson Rehabilitation InstituteWbwstd5514 [facility] [id number] Information: [id number] (36478) Calcium, Serum 9.4 mg/dL (Normal) Range: 8.7-10.2 [...] 103 mg/dL (Abnormal) Range: 65-99 :03 CALCIFEDIOL (02216) Comments: PATIENT NOT FASTINGPERFORMED BY: RayneerJFK Johnson Rehabilitation InstituteLslxcy5291 [facility] [id number] Vitamin D, 25-Hydroxy 38.0 ng/mL (Normal) Range: 30.0-100.0 Comments: Vitamin D deficiency has been defined by the [place] ofBarber[facility] Citizens Hospitalcine and an Endocrine Society practice guideline as alevel of serum 25-OH vitamin D less than 20 ng/mL (1,2).The Endocrine Society went on to further define vitamin Dinsufficiency as a level between 21 and 29 ng/mL (2).1. IOM ([place] Medicine). 2010. Dietary reference intakes for calcium and D. [place]: The National Academies Press.2. Henna MF, Jerman MORRIS, Piedad SHARP, et al. Evaluation, treatment, and prevention of vitamin D deficiency: an Endocrine Society clinical practice guideline. JCEM. 2010; 96(7):1911-30. :03 TSH (THYROID STIMULATING Comments: PATIENT NOT FASTINGPERFORMED BY: [facility]6370 [facility] [id number] HORMONE) (09444) TSH 0.764 {uIU/mL} (Normal) Range: 0.450-4.500 :45 HEPATIC FUNCTION PANEL Comments: PATIENT NOT FASTINGPERFORMED BY: [address] [id number] Information: [id number] (46191) ALT (SGPT) 12 [iU]/L (Normal) Range: 0-32 AST (SGOT) 12 [iU]/L (Normal) Range: 0-40 Alkaline Phosphatase, S 42 [iU]/L (Normal) Range: 39-117 Bilirubin, Direct 0.17 mg/dL (Normal) Range: 0.00-0.40 Bilirubin, Total 0.6 mg/dL (Normal) Range: 0.0-1.2 Albumin, Serum 4.7 g/dL (Normal) Range: 3.5-5.5 Protein, Total, Serum 6.6 g/dL (Normal) Range: 6.0-8.5 :58 HEPATIC FUNCTION PANEL Comments: PATIENT NOT FASTINGPERFORMED BY: [place] 3080370 [facility] [id number] Information: [id number] (27717) ALT (SGPT) 14 [iU]/L (Normal) Range: 0-32 AST (SGOT) 14 [iU]/L (Normal) Range: 0-40 Alkaline Phosphatase, S 42 [iU]/L (Normal) Range: 39-117 Bilirubin, Direct 0.17 mg/dL (Normal) Range: 0.00-0.40 Bilirubin, Total 0.7 mg/dL (Normal) Range: 0.0-1.2 Albumin, Serum 4.9 g/dL (Normal) Range: 3.5-5.5 Protein, Total, Serum 6.9 g/dL (Normal) Range: 6.0-8.5 :43 HEPATIC FUNCTION PANEL Comments: PATIENT NOT FASTINGPERFORMED BY: [address] [id number] Information: [id number] (05492) ALT (SGPT) 16 [iU]/L (Normal) Range: 0-32 AST (SGOT) 12 [iU]/L (Normal) Range: 0-40 Alkaline Phosphatase, S 44 [iU]/L (Normal) Range: 39-117 Bilirubin, Direct 0.13 mg/dL Range: 0.00-0.40 (Normal) Bilirubin, Total 0.4 mg/dL (Normal) Range: 0.0-1.2 Albumin, Serum 4.6 g/dL (Normal) Range: 3.5-5.5 Protein, Total, Serum 6.6 g/dL (Normal) Range: 6.0-8.5 Amylase, Serum 68 U/L (Normal) Comments: PATIENT NOT FASTINGPERFORMED BY: [place] 3080370 [facility] [id number] 0:23 Range: 31-124 Lipase, Serum 17 U/L (Normal) Comments: PATIENT NOT FASTINGPERFORMED BY: [facility]6370 [facility] [id number] Information: [id number] 0:23 Range: 0-59 Written Authorization WAR (Normal) Comments: PATIENT NOT FASTINGPERFORMED BY: [facility]6370 [facility] [id number] 0:23 Comments: Written Authorization Received.Authorization received from KELIN MURILLO [id number] by Rosemary Staples 13-Vty-894388:23 Metabolic Panel, Comprehensive Comments: PATIENT NOT FASTINGPERFORMED BY: [facility]6370 [facility] [id number] (09276) ALT (SGPT) 13 [iU]/L (Normal) Range: 0-32 [...] Glucose, Serum 105 mg/dL (Abnormal) Range: 65-99 55-Gxa-489406:23 HEPATIC FUNCTION PANEL Comments: PATIENT NOT FASTINGPERFORMED BY: FarmeronCrownpoint Healthcare FacilityGrtkqs3520 [facility] [id number] (19624) Bilirubin, Direct 0.10 mg/dL (Normal) Range: 0.00-0.40 00-Rkl-501548:23 CBC, Platelets & Auto Comments: PATIENT NOT FASTINGPERFORMED BY: FarmeronJFK Johnson Rehabilitation InstituteUrdjmw1328 [facility] [id number] Information: [id number] Diff (15202) Immature Grans (Abs) 0.0 {x10E3/uL} (Normal) Range: [...] 3.77-5.28 WBC 6.5 {x10E3/uL} (Normal) Range: 3.4-10.8 73-Drl-454519:13 URINE TULIO CULTURE-IDENTIFICATN Comments: PATIENT NOT FASTINGPERFORMED BY: Analiza [facility] [id number] Information: SRC: URINE [id number] (14346) Result 1 MUG (Normal) Comments: Mixed urogenital flora5,000 Colonies/mL Urine Culture,Comprehensive Final report (Normal) 88-Kkn-391194:07 Urinalysis, Office (77257) UA - LEUKOCYTE ESTERASE Negative (Normal) UA - NITRITE Negative (Normal) URINE UROBILINGN DEBBIE TIMED 2 mg/dL (Normal) UA - PROTEIN Negative mg/dL (Normal) UA - PH 5.0 (Normal) UA - BLOOD Negative (Normal) UA - SPECIFIC GRAVITY 1.030 (Abnormal) UA - KETONES Negative mg/dL (Normal) UA - BILIRUBIN Negative (Normal) UA - GLUCOSE Negative (Normal) 95-Kmm-72518:35 Rapid Flu (64869 x 2) Influenza A Ag Negative (Normal) 19-Apr-20148:08 HEPATIC FUNCTION PANEL Comments: PATIENT NOT FASTINGPERFORMED BY: IntelliMatDublin [place] [id number] Information: [id number], [id number] (15625) ALT (SGPT) 13 [iU]/L (Normal) Range: 0-32 AST (SGOT) 9 [iU]/L (Normal) Range: 0-40 Alkaline Phosphatase, S 45 [iU]/L (Normal) Range: 39-117 Bilirubin, Direct 0.09 mg/dL (Normal) Range: 0.00-0.40 Bilirubin, Total 0.4 mg/dL (Normal) Range: 0.0-1.2 Albumin, Serum 4.8 g/dL (Normal) Range: 3.5-5.5 Protein, Total, Serum 6.8 g/dL (Normal) Range: 6.0-8.5 :41 HEPATIC FUNCTION PANEL Comments: PATIENT NOT FASTINGPERFORMED BY: [facility]6370 [facility] [id number] Information: [id number] (34242) ALT (SGPT) 14 [iU]/L (Normal) Range: 0-32 AST (SGOT) 14 [iU]/L (Normal) Range: 0-40 Alkaline Phosphatase, S 49 [iU]/L (Normal) Range: 39-117 Bilirubin, Direct 0.13 mg/dL (Normal) Range: 0.00-0.40 Bilirubin, Total 0.5 mg/dL (Normal) Range: 0.0-1.2 Albumin, Serum 4.8 g/dL (Normal) Range: 3.5-5.5 Protein, Total, Serum 6.9 g/dL (Normal) Range: 6.0-8.5 :53 CALCIFIDIOL (12837) VIT D 25 Comments: PATIENT WAS FASTINGPERFORMED BY: [facility]6370 [facility] [id number] Vitamin D, 25-Hydroxy 41.1 ng/mL (Normal) Range: 30.0-100.0 Comments: Vitamin D deficiency has been defined by the [place] of[place] and an Endocrine Society practice guideline as alevel of serum 25-OH vitamin D less than 20 ng/mL (1,2).The Endocrine Society went on to further define vitamin Dinsufficiency as a level between 21 and 29 ng/mL (2).1. IOM ([place] of Medicine). 2010. Dietary reference intakes for calcium and D. [place]: The National Academies Press.2. Henna MF, Jerman MORRIS, Piedad SHARP, et al. Evaluation, treatment, and prevention of vitamin D deficiency: an Endocrine Society clinical practice guideline. JCEM. 2010; 96(7):1911-30. 32-Eki-20857:53 LIPID PANEL (34262) Comments: PATIENT WAS FASTINGPERFORMED BY: LabCoSara Ville 4929570 [facility] [id number] Information: [id number] LDL/HDL Ratio 2.3 {ratio_units} (Normal) Range: 0.0-3.2 LDL Cholesterol Calc 137 mg/dL (Abnormal) Range: 0-99 VLDL Cholesterol Kaleb 12 mg/dL (Normal) Range: 5-40 HDL Cholesterol 60 mg/dL (Normal) Comments: According to ATP-III Guidelines, HDL-C >59 mg/dL is considered anegative risk factor for CHD. Triglycerides 60 mg/dL (Normal) Range: 0-149 Cholesterol, Total 209 mg/dL (Abnormal) Range: 100-199 :41 LIPID PANEL (77251) Comments: PATIENT WAS FASTINGPERFORMED BY: LabCoJFK Johnson Rehabilitation InstitutePwuawz9631 [facility] [id number] Information: [id number] LDL/HDL Ratio 2.2 {ratio_units} (Normal) Range: 0.0-3.2 LDL Cholesterol Calc 153 mg/dL (Abnormal) Range: 0-99 HDL Cholesterol 70 mg/dL (Normal) Comments: According to ATP-III Guidelines, HDL-C >59 mg/dL is considered anegative risk factor for CHD. VLDL Cholesterol Kaleb 18 mg/dL (Normal) Range: 5-40 Triglycerides 89 mg/dL (Normal) Range: 0-149 Cholesterol, Total 241 mg/dL (Abnormal) Range: 100-199 :26 Blood Glucose , Office (69917) Blood Glucose , Office 179 (Normal) :26 HgA1C , Office (31714) HgA1C , Office 5.4 % (Normal) Range: 4.6 - 7.1 38-Skq-08118:28 LIPOPROTEIN, BLD, BY NMR Comments: PATIENT WAS FASTINGPERFORMED BY: Prabhjot LipoSciYesweplay Yba[address] Cueto [place] [id number] BY: CATRACHO LabCo Tpjtue8956 [address] [place] [id number] Information: [id number] (18078) LP-IR Score 38 (Normal) Comments: The LP-IR [...] 1600 - 2000 Very High > 2000 36-Qpk-79071:28 HEPATIC FUNCTION PANEL Comments: PATIENT WAS FASTINGPERFORMED BY: Tractive2500 [facility] [id number] BY: Snipi70 DigilabUNC Hospitals [facility] [id number] (98324) ALT (SGPT) 23 [iU]/L (Normal) Range: 0-32 AST (SGOT) 25 [iU]/L (Normal) Range: 0-40 Alkaline Phosphatase, S 56 [iU]/L (Normal) Range: 25-150 Bilirubin, Direct 0.12 mg/dL (Normal) Range: 0.00-0.40 Bilirubin, Total 0.5 mg/dL (Normal) Range: 0.0-1.2 Albumin, Serum 4.8 g/dL (Normal) Range: 3.5-5.5 Protein, Total, Serum 6.7 g/dL (Normal) Range: 6.0-8.5 68-Bre-731233:43 HgA1C , Office (49310) HgA1C , Office 5.3 % (Normal) Range: 4.6 - 7.1 13-Ioj-245460:43 Blood Glucose , Office (20901) Blood Glucose , Office 113 (Normal) :34 Microscopic Examination Comments: PATIENT WAS FASTINGPERFORMED BY: Snipi70 JacobsImage SocketUNC Hospitals Hillsborough Campus [id number] Bacteria Few (Normal) Mucus Threads Present (Normal) Epithelial Cells (non renal) 0-10 {/hpf} (Normal) Range: 0 - 10 RBC 0-3 {/hpf} (Normal) Range: 0 - 3 WBC 6-10 {/hpf} (Abnormal) Range: 0 - 5 :34 TSH (15086) Comments: PATIENT WAS FASTINGPERFORMED BY: RayneerJFK Johnson Rehabilitation InstituteRsmgtu5691 [facility] [id number] TSH 0.714 {uIU/mL} (Normal) Range: 0.450-4.500 :34 URINALYSIS, W/ MICRO (13281) Comments: PATIENT WAS FASTINGPERFORMED BY: RayneerJFK Johnson Rehabilitation InstituteDeubyx6106 [facility] [id number] Microscopic Examination See below: (Normal) Nitrite, Urine Positive (Abnormal) Urobilinogen,Semi-Qn 0.2 mg/dL (Normal) Range: 0.0-1.9 Bilirubin Negative (Normal) Occult Blood Negative (Normal) Ketones Negative (Normal) Glucose Negative (Normal) Protein Negative (Normal) WBC Esterase Negative (Normal) Appearance Clear (Normal) Urine-Color Yellow (Normal) pH 5.5 (Normal) Range: 5.0-7.5 Specific Wells 1.019 (Normal) Range: 1.005-1.030 :34 MICROALBUMIN: CREATININE RATIO Comments: PATIENT WAS FASTINGPERFORMED BY: Enuclia SemiconductorHenry Ford West Bloomfield Hospital6370 [facility] [id number] (89483) AND (25168) Microalb/Creat Ratio 5.1 {mg/g_creat} (Normal) Range: 0.0-30.0 Microalbumin, Urine 4.2 ug/mL (Normal) Range: 0.0-17.0 Creatinine, Urine 82.3 mg/dL (Normal) Range: 15.0-278.0 :34 CBC WITH MANUAL DIFF (60793) Comments: PATIENT WAS FASTINGPERFORMED BY: Enuclia SemiconductorHenry Ford West Bloomfield Hospital6370 [facility] [id number] Immature Grans (Abs) 0.0 {x10E3/uL} (Normal) Range: [...] 3.77-5.28 WBC 4.7 {x10E3/uL} (Normal) Range: 4.0-10.5 69-Khm-99187:34 METABOLIC PANEL, COMPREHENSIVE Comments: PATIENT WAS FASTINGPERFORMED BY: LabCoJFK Johnson Rehabilitation InstituteEtjole8028 [facility] [id number] (77640) ALT (SGPT) 13 [iU]/L (Normal) Range: 0-32 [...] Glucose, Serum 104 mg/dL (Abnormal) Range: 65-99 74-Nqi-41625:34 LIPID PANEL (07254) Comments: PATIENT WAS FASTINGPERFORMED BY: LabHenry Ford West Bloom[facility] Hospital6370 [facility] [id number] LDL/HDL Ratio 1.7 {ratio_units} (Normal) Range: 0.0-3.2 LDL Cholesterol Calc 132 mg/dL (Abnormal) Range: 0-99 VLDL Cholesterol Kaleb 14 mg/dL (Normal) Range: 5-40 HDL Cholesterol 76 mg/dL (Normal) Comments: According to ATP-III Guidelines, HDL-C >59 mg/dL is considered anegative risk factor for CHD. Triglycerides 69 mg/dL (Normal) Range: 0-149 Cholesterol, Total 222 mg/dL (Abnormal) Range: 100-199 9-Cnx-662880:06 Blood Glucose , Office (23670) Blood Glucose , Office 109 (Normal) 3-Zqz-415138:06 HgA1C , Office (68104) HgA1C , Office 5.5 % (Normal) Range: 4.6 - 7.1 31-Fee-322335:57 BILAT SCRN DIGITAL & CAD Radiology Report [...] Dominguez M.D.December 02, 2011 at 1:17:04 PM [phone] Signed MV/MV If you are the referring physician a nd would like to consult with theradiologist who provided this interpretation, please contact Philip Melgar M.D. at . If this radiologist is unavailable, youwillbe directed to another radiologist to assist. If you are a patient with a question regarding this report, pleasecontactyour referring physician directly. Professional Interpretation Provided By: ooma, Phone , These documents contain legally protected [...] destructionofthese documents. Dictated on 12/02/11 1157 by Deann MELGAR MDcribed on 12/03/11 1607 by ITS IMPORTSign by PHILIP MELGAR MD on 12/03/11 1608 Sign by: PHILIP MELGAR MD 27-Ofv-21824:46 LIPID VLDL 26 mg/dL (Normal) Range: 5-40 [...] D deficiency has been defined by the [place] of[place]icine and an Endocrine Society practice guideline as alevel of serum 25-OH vitamin D less than 20 ng/mL (1,2).The Endocrine Society went on to further define vitamin Dinsufficiency as a level between 21 and 29 ng/mL (2).1. IOM ([place] of Medicine). 2010. Dietary reference intakes for calcium and D. [place]: The National AcademReelmotionmedia.com Press.2. Henna MF, Jerman MORRIS, Piedad SHARP, et al. Evaluation, treatment, and prevention of vitamin D deficiency: an Endocrine Society clinical practice guideline. JCEM. 2010; 96(7): 1911-30.Performed at: [address] [id number] Director: Darlene Schwartz MD, Phone: [phone] HgA1C , Office (21235) HgA1C , Office 6.0 % (Normal) Range: 4.6 - 7.1 :43 Blood Glucose , Office (60671) Blood Glucose , 99 (Normal) Office :45 VITD 121.0 ng/mL Range: 30.0-100.0 (Abnormal) Comments: Vitamin D deficiency has been defined by the [place] of[place]icine and an Endocrine Society practice guideline as alevel of serum 25-OH vitamin D less than 20 ng/mL (1,2).The Endocrine Society went on to further define vitamin Dinsufficiency as a level between 21 and 29 ng/mL (2).1. IOM ([place] of Medicine). 2010. Dietary reference intakes for calcium and D. [place]: The National AcademReelmotionmedia.com Press.2. Henna MF, Jerman [place], Piedad SHARP, et al. Evaluation, treatment, and prevention of vitamin D deficiency: an Endocrine Society clinical practice guideline. JCEM. 2010; 96(7): 1911-30. .Effective June 16, 2011, Vitamin D, 25 Hydroxy specimen requirements will change to serum only.Performed at: [address] [id number] Director: Darlene Schwartz MD, Phone: [phone] 4-Vzz-474210:0 CULTURE, THROAT See Note (Normal) Comments: Normal throat birdie isolated. No beta-hemolyticstreptococcus isolated. 5 82-Tmi-19338:48 DEXA BONE DENSITY STUDY (HP) Radiology Report [...] 03/12/11 0858 by Hector Dowell MDranscribed on 03/12/11 111 by ITS IMPORTSign by Luciano Dowell MD on 03/12/111116 Sign by: Luciano Dowell MD 63-Hvt-592117:53 PARATHORMONE (06507) Comments: PATIENT NOT FASTINGPERFORMED BY: CB [facility] Fkbvnv1384 Jacobs RoadDublin [place] [id number] PTH, Intact 26 pg/mL (Normal) Range: 15-65 63-Sgt-578458:53 CALCIUM SERUM (47875) Comments: PATIENT NOT FASTINGPERFORMED BY: CB [facility] Hphzct1128 Jacobs RoadDublin [place] [id number] Calcium, Serum 9.5 mg/dL (Normal) Range: 8.7-10.2 :00 CALCIFEDIOL (95986) Comments: PATIENT NOT FASTINGPERFORMED BY: CB [facility] Iijuru6240 Jacobs RoadDublin [place] [id number] Information: PSPN Vitamin D, 25-Hydroxy 11.6 ng/mL (Abnormal) Range: 32.0-100.0 Comments: Effective March 03, 2011 Vitamin D, 25-Hydroxy reference intervals will be changing to 30-100. .Recent studies consider the lower li krysta of 32.0 ng/mL to be athreshold for optimal health.Sulaiman HILL. J Nutr. 2004;135(2):317-22. 12-Feb-20110:00 Vitamin B-12 (cyanocobalamin) Comments: PATIENT NOT FASTINGPERFORMED BY: CB [facility] Gdvipf8240 Jacobs RoadDublin [place] [id number] (95284) Vitamin B12 549 pg/mL (Normal) Range: 211-946 [...] retrolisthesis of C3 on C4. Dictated on 08/28/101010 by EVELYN DYER MDOTranscribed on 08/28/101422 by ITS IMPORTSign by JENNIFER DYER MD on 08/28/101423 Sign by: JENNIFER DYER MD :59 CHEST, [...] x-ray examination of the chest. Dictated on 1010 by EVELYN DYER MDOTranscribed on 08/28/101424 by ITS IMPORTSign by JENNIFER DYER MD on 08/28/101425 Sign by: JENNIFER DYER MD GLUP 89 mg/dL (Normal) Comments: GLU,2HPPG 75gm GLUC PPG GLUP from 1119:L66942H. :07 : CORTISOL 4051 9.5 ug/dL (Normal) Range: 2.3-19.4 00 Comments: Please note referenceinterval change : DHEA SULF 4697 28 ug/dL (Abnormal) Range: 32-240 00 Comments: Effective March 19, 2009, DHEA-Sulfate will be changing to the Kyler VetiaryIA methodology. The reference interval will be changing [...] be changing to: FROZEN SERUM Performed At: [address] [id number] :00 LIPID CHOL 207 mg/dL (Abnormal) Comments: [...] Diagnostic Tests Indication: Hematuria Hematuria : Reviewed [employer] Letter Indication: Hematuria Allergic rhinitis : Follow [...] due to poison jacinda Planned Observations TSH (12524)Indication: Hair loss On: :11 Request METABOLIC PANEL, COMPREHENSIVE (44644)Indication: Hyperlipidemia On: :11 Request CBC W/AUTO DIFF WBC (02558)Indication: Hyperlipidemia On: :11 Request LIPID PANEL (86134)Indication: Hyperlipidemia On: 29-One-268212:11 Request Rapid Flu (36061 x 2)Indication: Unspecified Diagnosis On: 50-Jrt-174038:19 Request CORTISOL FREE (36940) MorningIndication: Hormone imbalance On: 17-Sep-20178:03 Request HEPATIC FUNCTION PANEL (51197)Indication: Fungal nail infection On: 16-Jan-2015 Request HEPATIC FUNCTION PANEL (64165)Indication: Fungal nail infection On: 15-May-2014 Request LIPID PANEL (89361)Indication: Hyperlipidemia On: 08-Zzw-246149:10 Request Vitamin D Hydroxy (41433)Indication: Vitamin D deficiency, unspecified On: 84-Xlg-10680:46 Request TULIO CULTURE-OTHER (20418)Indication: Pharyngitis, acute On: :35 Request Rapid Strep Test, Office (81234)Indication: Pharyngitis, acute On: :35 Request Glucose, PP/2 Hour (44600)Indication: Other specified abnormal findings of blood chemistry On: :29 Request LIPID PANEL (04940)Indication: Screening for hyperlipidemia On: :29 Request Planned Procedures INFUSION OF NORMAL SALINE On: 23-Feb-2018 Intent (J3490)By: Colby SAWYER, Comments: Lot#[id number]: IV Site given:left anticubital space 1000ml Given By: rocael BOUDREAUX signed patient tolerated without any difficulty Carolina Padilla ORTHOSTATIC BLOOD On: 23-Feb-2018 Intent PRESSURE ASSESSMENT (72916)By: Carolina Bowman CNP ELECTROCARDIOGRAM, On: 23-Feb-2018 Intent COMPLETE (ECG) (80910)By: Carolina Bowman CNP X-RAY SKULL 4+ VIEWS On: 29-Jun-2017 Intent (18012)By: Samantha Barrera DO, DO, Kathleen Osfgplddr-Bhj-Titf On: 06-Aug-2015 Intent (48662)By: Carolina Bowman CNP Radiology - ChestBy: On: 06-Aug-2015 Intent Carolina Bowman CNP MAMMOGRAM, BILATERAL On: 06-Aug-2015 Intent (84030)By: Carolina Bowman CNP Solu -Medrol Injection, On: 17-Jan-2015 Intent 125 mg (J2930)By: Colby Comments: Lot:[id number]:06/2017Dose:125mgRoute:imSite:l hipGiven By:Carolina Stone CNP Radiology - Shoulder - On: 17-Nov-2014 Intent RightBy: Samantha Barrera DO, DO, Kathleen Nuclear Medicine - [place] On: 05-Jul-2014 Intent w/CPKBy: Carolina Bowman CNP Nuclear Medicine - [place] On: 26-Jun-2014 Intent w/CPKBy: Carolina Bowman CNP Ultrasound - Abdomen On: 26-Jun-2014 Intent Complete & PelvisBy: Carolina Bowman CNP Ultrasound - On: 26-Jun-2014 Intent GallbladderBy: Colby SAWYER, Comments: if negative schedule [place] scan Carolina Padilla Phenergan Injection, up On: 21-Jun-2014 Intent to 50 mg ([id number])By: Colby Comments: Lot:[id number]:01/12/2016Dose:1MLRoute:IMSite:L GlutGiven By:ANSVIS signed [employer]GER, Katie MAMMOGRAM, SCREENING, On: 24-Mar-2014 Intent BOTH BREAST ([id number])By: Angela Schneider LPN CT - Abdomen & Pelvis (IV On: 16-Mar-2014 Intent Contrast Needed)By: Samantha Barrera DO, DO, Kathleen Doppler Ultrasound On: 16-Mar-2014 Intent OtherBy: Holly LINDSAY, Comments: left lower extrem Samantha Holly DO, Samantha EMGBy: Carolina Bowman CNP On: 02-Sep-2013 Intent Comments: send results to Dr Carbajal Nerve ConductionBy: Colby On: 02-Sep-2013 Intent Carolina SAWYER Comments: send results to Dr. Carbajal Spirometry ([id number])By: On: 17-Sep-2012 Intent Samantha Barrera DO Comments: ok but poor effort clinical asx and not using rescue inhaler Samantha Barrera DO MAMMOGRAM, SCREENING, On: 17-Sep-2012 Intent BOTH BREASTS ([id number])By: Comments: due after 12/01/12 Holly DO, Samantha Holly DO, Samantha DXA, BONE DENSITY, AXIAL On: 17-Sep-2012 Intent SKELETON ([id number])By: Comments: do not do until after feb Holly DO, Samantha Holly DO, Samantha Eprescribed prescriptions On: 17-Sep-2012 Intent ([id number])By: Ellen Rivera LPN Eprescribed prescriptions On: 08-Sep-2012 Intent ([id number])By: Kassandra Kenyon DO EKG ([id number])By: Holly On: 06-May-2012 Intent DOSamantha Holly DO, Comments: nsr no acute chg Samantha Spirometry ([id number])By: On: 18-Dec-2011 Intent Holly DOSamantha Holly DO, Samantha MAMMOGRAM, SCREENING, On: 23-Jun-2011 Intent BOTH BREASTS ([id number])By: Samantha Barrera DO DO, Samantha THER/PROPH/DIAG INJ, On: 13-May-2011 Intent SC/IM ([id number])By: Colby Comments: 1/2ml kenalog 40 [id number] and exp /2ml bupivacaine -633-dk and exp Carolina SAWYER DXA, BONE DENSITY, AXIAL On: 21-Feb-2011 Intent SKELETON ([id number])By: Samantha Barrera DO, DO,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
--- OUTSIDE RECORDS SUMMARY | 2018-07-05 09:34 | XMS RPT_ITS | Continuity of Care Document ---
:1965 Author Organization [facility] Address [address] [facility] [address] [place] [address] Phone Care Team Providers Name Role Phone Samantha Barrera DO Unavailable Benedict Cormier MD Unavailable Bipin Carbajal Unavailable Unavailable Bipin Ackerman DO Unavailable Dr. Mike Varner Unavailable Justino MORENO, Dr. 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 Breast screening (Z12.39, V76.10) Status: Active Carpal tunnel syndrome, left (G56.02, 354.0) Status: Active Chills (R68.83, 780.64) Status: Active Contact dermatitis due to poison jacinda (L23.7, 692.6) Status: Active Dehydration symptoms (R63.8, 783.9) Status: Active Deliveries (Parity) Comments: 1 Status: Active Diarrhea (R19.7, 787.91) Status: Active Dysthymic (F34.1, 300.4) Status: Active Emotional disorder (F99, V40.9) Comments: emotional eatign -- offerered emotional eating counselor but she declined Status: Active Fatigue (R53.83, 780.79) Status: Active Folliculitis (L73.9, 704.8) Status: Active Fungal nail infection (B35.1, 110.1) Status: Active GERD (gastroesophageal reflux disease) (K21.9, 530.81) Status: Active Hair loss (L65.9, 704.00) Status: Active Hematuria (R31.9, 599.70) Status: Active Hormone imbalance (E34.9, 259.9) Status: Active Hyperlipidemia (E78.5, 272.4) Comments: uncontrolled Status: Active Laryngitis (J04.0, 464.00) Comments: improving [...] 268.9) Status: Active Medications Name Dates Details Thornton Saline Nasal Nasal Gel 1 (one) Gel Gel Apply BID for 0 days Quantity: 1 {Tube} Refills: 0 Ordered:23-Feb-2018 Lupe Abdi Start : 12-Nov-2017 Active CALCIUM 500/VITAMIN D, 895-309DT-UQUG (Oral Tablet) 2 (two) Tablet daily for 360 days Quantity: 360 {Tablet} Refills: 0 Ordered:06-Aug-2015 Carolina Bowman CNP Start : 06-Aug-2015 Active Citalopram Hydrobromide 10 MG Oral Tablet 1 (one) Tablet qd for 0 days Quantity: 30 {Tablet} Refills: 3 Ordered:21-Dec-2017 Francisco Javier Barrera DO, DO, Kathleen Start : 21-Dec-2017 Active ProAir HFA 108 (90 Base) MCG/ACT Inhalation Aerosol Solution 2 (two) Puff tid prn for 0 days Quantity: 1 {Inhaler} Refills: 3 Ordered:12-Nov-2017 Francisco Javier Barrera DO, DO, Kathleen Start : 12-Nov-2017 Active Probiotic Oral Capsule 1 (one) Capsule [...] : 03-Dec-2015 End : 13-Dec-2015 Inactive CORTISPORIN, 3.5-44386-9 (Otic Solution) 4 Drop(s) tid for 10 days Quantity: 1 {Solution} Refills: 0 Ordered:19-Nov-2011 Carolina Bowman CNP Start : 19-Nov-2011 End : 29-Nov-2011 Inactive Dulera 200-5 MCG/ACT Inhalation Aerosol 2 (two) Puff BID for 30 days Quantity: 1 {Inhalation} Refills: 0 Ordered:21-Dec-2017 Holly Francisco Javier DO, Kathleen Start : 21-Dec-2017 End : 20-Jan-2018 Inactive ESTRADIOL, 0.5MG (Oral Tablet) 1 (one) [...] : 12-Nov-2017 End : 19-Nov-2017 Inactive Nystatin 515650 UNIT/ML Mouth/Throat Suspension 5 cc 5times a [...] days Quantity: 360 {Tablet} Refills: 0 Ordered:06-Aug-2015 Colby SAWYER Katie Start : 06-Aug-2015 End : 31-Jul-2016 Inactive [...] Start : 06-Jun-2015 End : 03-Dec-2015 Discontinued Diflucan 150 MG Oral Tablet 1 [...] Discontinued Comments:please substitute generic albulterol VITAMIN D3, 16148VYMS (Oral Capsule) 1 Capsule 2 x week [...] as of 24-Dec-2015 Abnormal glucose tolerance test (R73.02, 790.22) Comments: based on 2 [facility] -- will follow Status: Resolved as of [...] to asthma Status: Inactive as of 24-Dec-2015 Chronic obstructive asthma with acute exacerbation (J44.1, 493.22) Status: Resolved as of 18-Dec-2011 Eustachian tube dysfunction (H69.80, 381.81) Status: Resolved [...] EMG Patient Result: Comments: See Note; NOTES: [facility] Pulmonary Services/Neurology [address] [place] [address] MR#: [id number] Acct: [id number] Name: KATHRYN AMARO Rep #: [id number] : 1965 52 From: Ever Allen MD Referring Dr: Bipin Ackerman DO Status: REG CLI Ordering Dr: Date: Location: PSN Sex: F C NCS and/or EMG Patient [...] Date Dictated: 01/26/18 1036 Date Transcribed: 01/26/18 103 Rubber Tubing Backer: NF Signed 22-Oct-2017 12 Lead Electrocardiogram Result: Comments: See Note; NOTES: [facility] Cardiovascular Services [address] [place] [address] 12 Lead EKG 10/21/17 1508 MR#: [id number] Acct: [id number] Name: KATHRYN AMARO Rep #: [id number] : 1965 52 From: Carroll mEmanuel MD Attending Dr: Priscila Chance Status: REG CLI Ordering Dr: Priscila Chance Date: 10/21/17 Location: [facility] Sex: F C Admitted: Test Reason : PREO P Blood Pressure : / mmHG Vent. Rate : 070 BPM Atrial Rate : 070 BPM P-R Int : 142 ms QRS Dur : 064 ms QT Int : 392 ms P-R-T Axes : 069 063 066 degrees QTc Int : 423 ms Normal sinus rhythm Normal ECG Confirmed by CHOLO MORENO, CARROLL ([id number]), sports editor HILARIA DAVIDSON ([id number]) on 10/22/2017 12:52:17 PM Referred By: Priscila Chance Confirmed By:CARROLL EMMANUEL MD 10/22/17 1252 Date Carroll Emmanuel MD CC: Priscila Chance; Samantha Barrera DO Signed 30-Jun-2017 Skull min 4 Views Result: Comments: See Note; NOTES: [facility] Imaging Services [address] [place] [address] Skull min 4 Views MR#: [id number] Acct: [id number] Name: KATHRYN AMARO Rep #: [id number] : 1965 F 52 From: Marcus nAgel MD PCP: Samantha Barrera DO Status: REG CLI Study: Skull min 4 Views Date of Exam: 06/30/17 Exam# [id number] Ordering Dr: Samantha Barrera DO STUDY: X-RAY [...] Service support , CC: Samantha Barrera DO Rubber Tubing Backer: Signed 13-Oct-2016 SCREENING MAMM (CAD), BILAT Result: Comments: See Note; NOTES: [facility] Imaging Services [address] [place] [address] Verdana 4d SCREENING MAMM (CAD), BILAT MR#: [id number] Acct: [id number] Name: ALETHA AMARO Rep #: [id number] : 1965 F 51 From: Ron Roman MD PCP: Samantha Barrera DO Status: REG CLI Study: SCREENING MAMM (CAD), BILAT Date of Exam: 10/13/16 Exam# [id number] Ordering Dr: Karuna Mixon MD MAMMOGRAPHY - [...] delay biopsy of a clinically suspicious abnormality. [id number] Electronically Signed: Anjum Roman MD at 8:41 EDT , Service support , CC: Karuna Mixon MD; Samantha Barrera DO Rubber Tubing Backer: Signed 22-Jul-2016 Emergency Department Summary Result: Comments: See Note; NOTES: [facility] Medical Records Department [address] [place] [address] Emergency Department Summary MR#: [id number] Acct: [id number] Name: ALETHA AMARO Rep #: [id number] : 1965 51 From: Kyle Tinsley MD [...] Vik Retana C: Samantha Barrera DO T: NTS JOB: [id number] 07/22/162113 &amp ;#60;Electronically signed by Kyle Tinsley MD> Date Kyle Tinsley MD Cosigner Signature (If Indicated): Date CC: Samantha Barrera DO Date Dictated: 07/22/162026 Date Transcribed: 07/22/162026 Rubber Tubing Backer: Signed 22-Jul-2016 Discharge Instruction Result: Comments: See Note; NOTES: [facility] Medical Records Department [address] [place] [address] [place] [address] Discharge Instruction 07/22/162024 MR#: [id number] Acct: [id number] Name: KATHRYN AMARO BETTYE Rep #: [id number] : 1965 51 From: Kyle Tinsley MD [...] Cosigner Signature (If Indicated): Date CC: Samantha Holly LINDSAY 22-Jul-2016 Abdomen/Pelvis W IV Cont ONLY Result: Comments: See Note; NOTES: [facility] Imaging Services [address] [place] [address] Verdana 4d Abdomen/Pelvis W IV Cont ONLY MR#: [id number] Acct: [id number] Name: ROLLY AMARO Rep #: [id number] : 1965 F 51 From: Leo Shin DO PCP: Samantha Barrera DO Status: REG ER Study: Abdomen/Pelvis W IV Cont ONLY Date of Exam: 07/22/16 Exam# [id number] Ordering Dr: Kyle Tinsley MD STUDY: CT [...] renal obstruction . Electronically Signed: Leo Shin at 20:11 EDT Tel , Service support [phone], CC: Samantha Barrera DO; Kyle Tinsley MD Rubber Tubing Backer: Signed 07-Mar-2016 Esophagus Only Result: Comments: See Note; NOTES: [facility] Imaging Services [address] [place] [address] Verdadeirdre 4d Esophagus Only MR#: [id number] Acct: [id number] Name: KATHRYN AMARO Rep #: [id number] : 1965 F 50 From: Amrit Mac MD PCP: Carolina Bowman Status: REG CLI Study: Esophagus Only Date of Exam: 03/07/16 Exam# [id number] Ordering Dr: Mike Varner MD STUDY: AIR-CONTRAST [...] at 12:42 EST Tel , Service support [phone], CC: Carolina Bowman; Mike Varner Rubber Tubing Backer: Signed 07-Aug-2015 Bilat Diag Digital AND CAD Result: Comments: See Note; NOTES: [facility] Imaging Services [address] [place] [address] Verdana 4d Bilat Diag Digital AND CAD MR#: [id number] Acct: [id number] Name: KATHRYN AMARO Rep #: [id number] : 1965 F 50 From: Luciano Dowell MD PCP: Carolina Bowman Status: REG CLI Study: Bilat Diag Digital AND CAD Date of Exam: 08/07/15 Exam# [id number] Itzel lara Dr: Carolina Bowman MAMMOGRAPHY - [...] Luciano Dowell MD at 9:36 EDT Tel [phone], Service support [phone], CC: Carolina Bowman Rubber Tubing Backer: Signed 06-Aug-2015 Chest PA and Lateral Result: Comments: See Note; NOTES: [facility] Imaging Services [address] [place] [address] Verdana 4d Chest PA and Lateral MR#: [id number] Acct: [id number] Name: SREEDHAR AdornoKATHRYN WEN Rep #: [id number] : 1965 F 50 From: Luciano Dowell MD PCP: Carolina Bowman Status: REG CLI Study: Chest PA and Lateral Date of Exam: 08/06/15 Exam# [id number] Ordering Dr: Carolina Bowman STUDY: X-RAY CHEST [...] Dowell MD 08/05 at 11:03 EDT Tel [phone], Service support [phone], RAD/Chest PA and Lateral IMPRESSION: No acute abnormality is seen. Electronically Signed: Agustin Dowell MD at 11:03 EDT Tel [phone], Service support [phone], CC: Carolina Bowman Rubber Tubing Backer: Signed 06-Aug-2015 Ribs Unil 2V No CXR Result: Comments: See Note; NOTES: [facility] Imaging Services [address] [place] [address] Verdana 4d Ribs Unil 2V No CXR MR#: [id number] Acct: [id number] Name: KATHRYN AMARO Rep #: [id number] : 1965 F 50 From: Luciano Dowell MD PCP: Carolina Bowman Status: REG CLI Study: Ribs Unil 2V No CXR Date of Exam: 08/06/15 Exam# [id number] Ordering Dr: Jorje Bowman STUDY: X-RAY - UNILATERAL RIBS ( LEFT ) REASON FOR EXAM: Female, 50 years old. Upper chest pain. TECHNIQUE: 4 view(s) of the ribs. COMPARISON: None. FINDINGS: Normal visualized ribs without a demonstrated fracture. The visualized lung is clear and expanded. IMPRESSION: Normal x-ray examination of the ribs. Electronically Signed: Luciano Dowell MD at 11:02 EDT Tel [phone], Service support [phone], 0036 RAD/Ribs Unil 2V No CXR IMPRESSION: Norm al x-ray examination of the ribs. Electronically Signed: Luciano Dowell MD at 11:02 EDT Tel [phone], Service support [phone], CC: Carolina Bowman Rubber Tubing Backer: Signed 06-Jun-2015 Spirometry (68889) Comments: Fevi/fvc 72% Result: 18-Nov-2014 Shoulder min 2 Views Result: Comments: See Note; NOTES: [facility] Imaging Services [address] [place] [address] Radiology Report MR#: [id number] Acct: [id number] Name: KATHRYN AMARO Rep #: [id number] : 1965 F 49 From: Pete Curtis MD PCP: Samantha Barrera DO Status: REG CLI Study: Shoulder min 2 Views Date of Exam: 11/18/14 Exam# [id number] Ordering Dr: Samantha Barrera TUDY: X-RAY - [...] MD at 22:54 EDT , Service support [phone], R AD/Shoulder min 2 Views IMPRESSION: Mild 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 Electronically Signed: Pete Curtis MD at 22:54 EDT , Service support , CC: Samantha Barrera DO Rubber Tubing Backer: Signed 10-Jul-2014 Hepatobilliary Imaging Result: Comments: See Note; NOTES: [facility] Imaging Services [address] [place] [address] Nuclear Medicine Report MR#: [id number] Acct: [id number] Name: KATHRYN AMARO Rep #: [id number] : 1965 F 49 From: Shreyas Groves DO PCP: Samantha Barrera DO Status: REG CLI Study: Hepatobilliary Imaging Date of Exam: 07/10/14 Exam# [id number] Ordering Dr: Carolina Bowman LINICAL: 49-year-old female [...] et al, Journal of Nuclear Medicine 32:1695, 1991). 2. There is scintigraphic evidence of post CCK duodenal-gastric reflux. (Chichi et al, Nucl Med Xiomy Becki Press pg. 35, 1981). Electronically Signed: Shreyas Groves DO at 22:24 EDT Tel [phone], Service support [phone], CC: Carolina Bowman; Samantha Barrera DO Rubber Tubing Backer: Signed 30-Jun-2014 Pelvic (Non ) Result: Comments: See Note; NOTES: [facility] Imaging Services [address] [facility] [place] [address] Ultrasound Report MR#: [id number] Acct: [id number] Name: KATHRYN AMARO Rep #: : 1965 F 49 From: Pete Curtis MD PCP: Samantha Barrera DO Status: REG CLI Study: Pelvic (Non ) Date of Exam: 06/30/14 Exam# [id number] Ordering Dr: Carolina Bowman STUDY: U LTRASOUND [...] MD at 19:53 EDT , Service support [phone], CC: Carolina Bowman; Samantha Barrera DO Rubber Tubing Backer: Signed 30-Jun-2014 Abdomen Complete Result: Comments: See Note; NOTES: [facility] Imaging Services [address] [place] [address] Ultrasound Report MR#: [id number] Acct: [id number] Name: KATHRYN AMARO Rep #: [id number] : 1965 F 49 From: Noé Pascual MD PCP: Samantha Barrera DO Status: REG CLI Study: Abdomen Complete Date of Exam: 06/30/14 Exam# [id number] Ordering Dr: Carolina Bowman STUDY: ABDOM INAL [...] 2 mm. There is a negative sonographic Colugna's sign. There is no pericholecystic fluid. There [...] MD at 15:42 EDT , Service support [phone], CC: Carolina Bowman; Samantha Barrera DO Rubber Tubing Backer: Signed 21-Jun-2014 Toradol Injection, 30 mg (J1885) Comments: Lot:[id number]:02/11/2015Dose:1MlRoute:IMSite:R glutGiven By:RIC signed Result: Comments: Lot:Exp:Dose:1mlRoute:IMSite:R GlutGiven By:RIC signed 19-Apr-2014 Bilat Scrn Digital AND CAD Result: Comments: See Note; NOTES: [facility] Imaging Services [address] [place] [address] Breast Imaging Report MR#: [id number] Acct: [id number] Name: KATHRYN AMARO Rep # : [id number] : 1965 F 49 From: Luciano Dowell MD PCP: Samantha Barrera DO Status: REG CLI Study: Bilat Scrn Digital AND CAD Date of Exam: 04/19/14 Exam# [id number] Ordering Dr: Gasper Barrera DO MAMMOGRAPHY - [...] Luciano Dowell MD at 8:19 EST Tel [phone], Service support [phone], Fax CC: Samantha Barrera DO Rubber Tubing Backer: Signed 20-Mar-2014 Abdomen/Pelvis WITH Contrast Result: Comments: See Note; NOTES: [facility] Imaging Services [address] [place] [address] CAT Scan Report MR#: [id number] Acct: [id number] Name: KATHRYN AMARO Rep #: [id number] : 1965 F 48 From: Brayan Wilson MD PCP: Samantha Barrera DO Status: REG CLI Study: Abdomen/Pelvis WITH Contrast Date of Exam: 03/20/14 Exam# [id number] Ordering Dr: Samantha Barrera DO STUDY: CT [...] MD at 21:48 EST , Service support [phone], CC: Samantha Barrera DO Rubber Tubing Backer: Signed 15-Sep-2013 NCS and/or EMG Patient Result: Comments: See Note; NOTES: [facility] Pulmonary Services/Neurology [address] [place] [address] NCS and/or EMG Patient MR#: [id number] Acct: [id number] Name: LA AMARO RA Rep #: [id number] : 1965 48 From: Ever Allen MD Referring Dr: Carolina Bowman Status: REG CLI Ordering Dr: Carolina Bowman Date: 09/13/13 Location: PSN Sex: F C DATE OF SERVICE: [facility] 2013 REFERRING PHYSICIAN: Carolina Bowman. INTRODUCTION: This [...] Dictated: 09/13/13 1043 Date Transcribed: 09/13/13 1520 Rubber Tubing Backer: SHARP Signed 12-Apr-2013 Bilat Scrn Digital & CAD Result: Comments: See Note; NOTES: [facility] Imaging Services [address] [place] [address] Breast Imaging Report MR#: [id number] Acct: [id number] Name: KATHRYN AMARO Rep # : [id number] : 1965 F 48 From: Luciano Dowell MD PCP: Samantha Barrera DO Status: REG CLI Exam# [id number] Ordering Dr: Samantha Barrera DO MAMMOGRAPHY - [...] M.D. at 8:09 EST , Service support [phone], CC: Samantha Barrera DO Rubber Tubing Backer: Signed 12-Apr-2013 Dexa Bone Density Study (HP) Result: Comments: See Note; NOTES: [facility] Imaging Services [address] [place] [place] [address] Bone Density Report MR#: [id number] Acct: [id number] Name: KATHRYN AMARO Rep #: [id number] : 1965 F 48 From: Luciano Dowell MD PCP: Samantha Barrera DO Status: [facility] Study: Dexa Bone Density Study (HP) Date of Exam: 04/12/13 Exam# [id number] Ordering Dr: Gasper Barrera DO STUDY: DUAL [...] M.D. 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 Comments: 06/23/11 Status: Active Smoking Status Name Dates Details Never smoker Vital Signs Date Test Result Details 05-Xja-911684:51 Comments: ortho scatic bp: sitting 105/66 P [...] kg/m2 Body Surface Area Calculated 1.6 m2 39-Siy-044192:19 Pulse 72 /min Comments: Pattern: Regular Respiration [...] 0.00 cm Results Date Description Value Details :10 Cortisol - AM 13.3 ug/dL (Normal) Comments: PATIENT NOT FASTINGPERFORMED BY: CATRACHO Holden6370 [facility] [id number] BY: JACQUES LabCaro Lnaeqqnfko8343 [facility] [id number] Range: 6.2-19.4 09-Buo-42788:10 CALCIFEDIOL (20585) Comments: PATIENT NOT FASTINGPERFORMED BY: CATRACHO Holden6370 [facility] [id number] BY: Memopal[address] [id number] Vitamin D, 25-Hydroxy 86.0 ng/mL (Normal) Range: 30.0-100.0 Comments: Vitamin D deficiency has been defined by the [place] of[facility] and an Endocrine Society practice guideline as alevel of serum 25-OH vitamin D less than 20 ng/mL (1,2).The Endocrine Society went on to further define vitamin Dinsufficiency as a level between 21 and 29 ng/mL (2).1. IOM ([place] of Medicine). 2010. Dietary reference intakes for calcium and D. [place]: The National Academies Press.2. Henna MF, Jerman MORRIS, Piedad SHARP, et al. Evaluation, treatment, and prevention of vitamin D deficiency: an Endocrine Society clinical practice guideline. JCEM. 2010; 96(7):1911-30. 91-Ccz-41590:10 TESTOSTERONE TOTAL (52254) Comments: PATIENT NOT FASTINGPERFORMED BY: ipvive Nllsoj3832 [facility] [id number] BY: [employer] [id number] Information: AM CORTISOL Testosterone, Serum <3 ng/dL (Abnormal) Range: 3-41 10-Fah-93318:10 ESTRONE (09856) Comments: PATIENT NOT FASTINGPERFORMED BY: ipvive Unwxda2696 [facility] [id number] BY: Memopal[address] [id number] Estrone, Serum 36 pg/mL (Normal) Comments: . [...] - 114 Post Menopausal 14 - 103 52-Ftv-38667:10 PROGESTERONE (21106) Comments: PATIENT NOT FASTINGPERFORMED BY: [employer] CoffeeSaint Barnabas Medical CenterHxjfae3704 [facility] [id number] BY: [address] [id number] Progesterone 0.2 ng/mL (Normal) Comments: Follicular phase 0.1 - 0.9 Luteal phase 1.8 - 23.9 Ovulation phase 0.1 - 12.0 First trimester 11.0 - 44.3 Second trimester 25.4 - 83.3 Third t rimester 58.7 - 214.0 Postmenopausal 0.0 - 0.1 01-Rkh-58511:10 ESTRADIOL (76280) Comments: PATIENT NOT FASTINGPERFORMED BY: [employer] Zisxqn0670 [facility] [id number] BY: Memopal[address] [id number] Estradiol <5.0 pg/mL (Normal) Comments: Adult Female: Follicular phase 12.5 - 166.0 Ovulation phase 85.8 - 498.0 Luteal phase 43.8 - 211.0 Postmenopausal <6.0 - 54.7 1st trimester 215.0 - & gt;4300.0 Girls (1-10 years) 6.0 - 27.0Roche ECLIA methodology 35-Sby-471006:02 CBC & PLATELETS (AUTO) Comments: PATIENT NOT FASTINGPERFORMED BY: [employer] [place] CoffeeKenneth [place] 6293470 [facility] [id number] (77028) Platelets 214 {x10E3/uL} (Normal) Range: 150-379 RDW 13.0 % (Normal) Range: 12.3-15.4 MCHC 32.9 g/dL (Normal) Range: 31.5-35.7 MCH 31.3 pg (Normal) Range: 26.6-33.0 MCV 95 fL (Normal) Range: 79-97 Hematocrit 41.0 % (Normal) Range: 34.0-46.6 Hemoglobin 13.5 g/dL (Normal) Range: 11.1-15.9 RBC 4.32 {x10E6/uL} (Normal) Range: 3.77-5.28 WBC 6.8 {x10E3/uL} (Normal) Range: 3.4-10.8 73-Mxx-746392:02 TSH (71481) Comments: PATIENT NOT FASTINGPERFORMED BY: [facility]6370 [facility] [id number] TSH 1.190 {uIU/mL} (Normal) Range: 0.450-4.500 94-Xvf-444047:02 T4, FREE (THYROXINE) (82991) Comments: PATIENT NOT FASTINGPERFORMED BY: [address] [id number] T4,Free(Direct) 1.07 ng/dL (Normal) Range: 0.82-1.77 34-Tij-086319:02 T3, FREE (TRIDOTHYRONINE) (31858) Comments: PATIENT NOT FASTINGPERFORMED BY: [facility]6370 [facility] [id number] Triiodothyronine,Free,Serum 2.9 pg/mL (Normal) Range: 2.0-4.4 72-Ima-046224:02 Metabolic Panel, Comprehensive Comments: PATIENT NOT FASTINGPERFORMED BY: [place] 7317370 [facility] [id number] (62011) ALT (SGPT) 14 [iU]/L (Normal) Range: 0-32 [...] Glucose, Serum 84 mg/dL (Normal) Range: 65-99 79-Mcp-499204:02 IRON (97642) Comments: PATIENT NOT FASTINGPERFORMED BY: [facility] [facility] [id number] Iron, Serum 46 ug/dL (Normal) Range: 27-159 71-Vwy-424303:02 DHEA-S (DEHYDROEPIANDROSTERONE Comments: PATIENT NOT FASTINGPERFORMED BY: [employer] [id number] SULFATE) (87098) DHEA-Sulfate 40.7 ug/dL (Abnormal) Range: 41.2-243.7 :57 Microscopic Examination Comments: PATIENT NOT FASTINGPERFORMED BY: [employer] [facility] [id number] Bacteria Few (Normal) Mucus Threads Present (Normal) Epithelial Cells (non renal) 0-10 {/hpf} (Normal) Range: 0 - 10 RBC 0-2 {/hpf} (Normal) Range: 0 - 2 WBC 0-5 {/hpf} (Normal) Range: 0 - 5 :57 URINALYSIS (31131) Comments: PATIENT NOT FASTINGPERFORMED BY: [employer] [id number] Microscopic Examination See below: (Normal) Comments: Microscopic was indicated and was performed. Nitrite, Urine Negative (Normal) Urobilinogen,Semi-Qn 0.2 mg/dL (Normal) Range: 0.2-1.0 Bilirubin Negative (Normal) Occult Blood Negative (Normal) Ketones Negative (Normal) Glucose Negative (Normal) Protein Negative (Normal) WBC Esterase 1+ (Abnormal) Appearance Clear (Normal) Urine-Color Yellow (Normal) pH 7.0 (Normal) Range: 5.0-7.5 Specific [place] 1.008 (Normal) Range: 1.005-1.030 53-Mdr-865985:50 Basic Metabolic Profile (BMP) Comments: [facility] [address] [place], [place], [id number] GAP 4 (Abnormal) Range: 5-15 CO2 27.0 [...] Range: 70-110 :50 CBC W/Diff, Automated Comments: [facility] [address] [place], [place], [id number] Absolute Lymph 1.18 {X10_3/ul} (Normal) Range: 0.83-4.51 [...] 4.2-5.4 WBC 10.3 K/mm3 (Normal) Range: 4.4-11.0 43-Nvy-214434:00 Urinalysis, Complete Comments: Order Date: 07/22/16Order Date: 07/22/16How was Urine Obtained? MANAGER SECONDARY TO [facility] Ybutkablvp3250 [facility] [address]. [place], [place], [id number] MUCUS, URINE 0 SEEN {/hpf} (Normal) BACTERIA [...] BELOW (Normal) Comments: Visual Urine Color: PINK 15-Kiw-075363:44 Culture, Wound Comments: [facility] [address] [place], [address] CUW See Note (Normal) Comments: Order Date: [...] pneumoniae, beta-hemolytic Streptococcus or Staphylococcus aureus isolated. 10-Ijc-518169:49 HgA1C , Office (54951) HgA1C , Office 5.3 % (Normal) Range: 4.6 - 7.1 :03 Metabolic Panel, Basic Comments: PATIENT NOT FASTINGPERFORMED BY: [facility] WorldwideUNC [facility] [id number] Information: [id number] (01885) Calcium, Serum 9.4 mg/dL (Normal) Range: 8.7-10.2 [...] 103 mg/dL (Abnormal) Range: 65-99 :03 CALCIFEDIOL (71014) Comments: PATIENT NOT FASTINGPERFORMED BY: BB[facility] WorldwideUNC [facility] [id number] Vitamin D, 25-Hydroxy 38.0 ng/mL (Normal) Range: 30.0-100.0 Comments: Vitamin D deficiency has been defined by the [place] of[place]icine and an Endocrine Society practice guideline as alevel of serum 25-OH vitamin D less than 20 ng/mL (1,2).The Endocrine Society went on to further define vitamin Dinsufficiency as a level between 21 and 29 ng/mL (2).1. IOM ([place] of Medicine). 2010. Dietary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
--- OUTSIDE RECORDS SUMMARY | 2018-07-05 09:35 | XMS RPT_ITS | Continuity of Care Document ---
:1965 Author Organization [facility] Address [address] [facility] [address] [place] [address] Phone Care Team Providers Name Role Phone [...] Medications Name Dates Details CALCIUM 500/VITAMIN D, 076-505QW-MWIF (Oral Tablet) 2 (two) Tablet daily for [...] : 03-Dec-2015 End : 13-Dec-2015 Inactive CORTISPORIN, 3.5-41277-0 (Otic Solution) 4 Drop(s) tid for 10 [...] : 12-Nov-2017 End : 19-Nov-2017 Inactive Nystatin 299453 UNIT/ML Mouth/Throat Suspension 5 cc 5times a [...] Start : 06-Jun-2015 End : 03-Dec-2015 Discontinued [place] Saline Nasal Nasal Gel 1 (one) Gel [...] Discontinued Comments:please substitute generic albulterol VITAMIN D3, 85112XYLT (Oral Capsule) 1 Capsule 2 x week [...] test (R73.09, 790.22) Comments: based on 2 [facility] -- will follow Status: Resolved as [...] EMG Patient Result: Comments: See Note; NOTES: [facility] Pulmonary Services/Neurology [address] [place] [address] MR#: [id number] Acct: [id number] Name: KATHRYN AMARO Rep #: [id number] : 1965 52 From: Ever Allen MD Referring Dr: Bipin Ackerman DO Status: REG CLI Ordering Dr: Date: Location: [facility] Sex: F C NCS and/or EMG [...] Dictated: 01/26/18 1036 Date Transcribed: 01/26/18 1036 Assistant Program Director: NF Signed 22-Oct-2017 12 Lead Electrocardiogram Result: Comments: See Note; NOTES: [facility] Cardiovascular Services [address] [place] [address] 12 Lead EKG 10/21/17 1508 MR#: [id number] Acct: [id number] Name: KATHRYN AMARO Rep #: [id number] : 1965 52 From: Carroll Emmanuel MD Attending Dr: Priscila Chance Status: REG CLI Ordering Dr: Priscila Chance Date: 10/21/17 Location: [facility] Sex: F C Admitted: Test Reason : PREO P Blood Pressure : / mmHG Vent. Rate : 070 BPM Atrial Rate : 070 BPM P-R Int : 142 ms QRS Dur : 064 ms QT Int : 392 ms P-R-T Axes : 069 063 066 degrees QTc Int : 423 ms Normal sinus rhythm Normal ECG Confirmed by CHOLO MORENO, CARROLL ([id number]), deputy editor in chief HILARIA DAVIDSON ([id number]) on 10/22/2017 12:52:17 PM Referred By: Priscila Chance Confirmed By:CARROLL EMMANUEL MD 10/22/17 1252 Date Carroll Emmanuel MD CC: Priscila Chance; Samantha Barrera DO Signed 30-Jun-2017 Skull min 4 Views Result: Comments: See Note; NOTES: [facility] Imaging Services [address] [place] [address] Skull min 4 Views MR#: [id number] Acct: [id number] Name: KATHRYN AMARO Rep #: [id number] : 1965 F 52 From: Marcus Angel MD PCP: Samantha Barrera DO Status: REG CLI Study: Skull min 4 Views Date of Exam: 06/30/17 Exam# [id number] Ordering Dr: Samantha Barrera DO STUDY: X-RAY [...] Service support , CC: Samantha Barrera DO Assistant Program Director: Signed 13-Oct-2016 SCREENING MAMM (CAD), BILAT Result: Comments: See Note; NOTES: [facility] Imaging Services [address] [place] [address] Verdana 4d SCREENING MAMM (CAD), BILAT MR#: [id number] Acct: [id number] Name: ALETHA AMARO Rep #: [id number] : 1965 F 51 From: Ron Roman MD PCP: Samantha Barrera DO Status: REG CLI Study: SCREENING MAMM (CAD), BILAT Date of Exam: 10/13/16 Exam# [id number] Ordering Dr: Karuna Mixon MD MAMMOGRAPHY - [...] delay biopsy of a clinically suspicious abnormality. [id number] Electronically Signed: Anjum Roman MD at 8:41 EDT , Service support , CC: Karuna Mixon MD; Samantha Barrera DO Assistant Program Director: Signed 22-Jul-2016 Emergency Department Summary Result: Comments: See Note; NOTES: [facility] Medical Records Department [address] [place] [address] Emergency Department Summary MR#: [id number] Acct: [id number] Name: ALETHA AMARO Rep #: [id number] : 1965 51 From: Kyle Tinsley MD [...] HISTORY: Negative. PRIMARY CARE PHYSICIAN: Dr. Holly Munzo EXAMINATION: VITAL SIGNS: Remarkable for pressure of [...] Vik Retana C: Samantha Barrera DO T: [facility] JOB: [id number] 07/22/162113 &amp ;#60;Electronically signed by Kyle Tinsley MD> Date Kyle Tinsley MD Cosigner Signature (If Indicated): Date CC: Samantha Barrera DO Date Dictated: 07/22/162026 Date Transcribed: 07/22/162026 Assistant Program Director: Signed 22-Jul-2016 Discharge Instruction Result: Comments: See Note; NOTES: [facility] Medical Records Department [address] [place] [address] Discharge Instruction 07/22/162024 MR#: [id number] Acct: [id number] Name: KATHRYN AMARO Rep #: [id number] : 1965 51 From: Kyle Tinsley MD [...] problems, contact your Primary Care Provider. Call [employer] [facility] ) or report to the closest Emergency Room. Call 911 if necessary. 07/22/162027 <Electronically signed by Kyle Tinsley MD> Date Kyle Tinsley MD Cosigner Signature (If Indicated): Date CC: Samantha Barrera DO 22-Jul-2016 Abdomen/Pelvis W IV Cont ONLY Result: Comments: See Note; NOTES: [facility] Imaging Services [address] [place] [address] Verdana 4d Abdomen/Pelvis W IV Cont ONLY MR#: [id number] Acct: [id number] Name: PREMROLLY WEN Rep #: [id number] : 1965 F 51 From: Leo Shin DO PCP: Samantha Barrera DO Status: REG ER Study: Abdomen/Pelvis W IV Cont ONLY Date of Exam: 07/22/16 Exam# [id number] Ordering Dr: Kyle Tinsley MD STUDY: CT [...] at 20:11 EDT Tel , Service support [phone], CC: Samantha Barrera DO; Kyle Tinsley MD Assistant Program Director: Signed 07-Mar-2016 Esophagus Only Result: Comments: See Note; NOTES: [facility] Imaging Services [address] [place] [address] Verdana 4d Esophagus Only MR#: [id number] Acct: [id number] Name: KATHRYN AMARO Rep #: [id number] : 1965 F 50 From: Amrit Mac MD PCP: Carolina Bowman Status: REG CLI Study: Esophagus Only Date of Exam: 03/07/16 Exam# [id number] Ordering Dr: Mike Varner MD STUDY: AIR-CONTRAST [...] at 12:42 EST Tel , Service support [phone], CC: Carolina Bowman; Mike Varner Assistant Program Director: Signed 07-Aug-2015 Bilat Diag Digital AND CAD Result: Comments: See Note; NOTES: [facility] Imaging Services [address] [place] [address] Verdana 4d Bilat Diag Digital AND CAD MR#: [id number] Acct: [id number] Name: KATHRYN AMARO Rep #: [id number] : 1965 F 50 From: Luciano Dowell MD PCP: Carolina Bowman Status: REG CLI Study: Bilat Diag Digital AND CAD Date of Exam: 08/07/15 Exam# [id number] Itzel lara Dr: Carolina Bowman MAMMOGRAPHY - [...] Luciano Dowell MD at 9:36 EDT Tel [phone], Service support [phone], CC: Carolina Bowman Assistant Program Director: Signed 06-Aug-2015 Chest PA and Lateral Result: Comments: See Note; NOTES: [facility] Imaging Services [address] [place] [address] Verdana 4d Chest PA and Lateral MR#: [id number] Acct: [id number] Name: AKTHRYN JACOBSEN Rep #: [id number] : 1965 F 50 From: Luciano Dowell MD PCP: Carolina Bowman Status: REG CLI Study: Chest PA and Lateral Date of Exam: 08/06/15 Exam# [id number] Ordering Dr: Carolina Bowman STUDY: X-RAY CHEST [...] Dowell MD 08/05 at 11:03 EDT Tel [phone], Service support [phone], RAD/Chest PA and Lateral IMPRESSION: No acute abnormality is seen. Electronically Signed: Agustin Dowell MD at 11:03 EDT Tel [phone], Service support [phone], CC: Carolina Bowman Assistant Program Director: Signed 06-Aug-2015 Ribs Unil 2V No CXR Result: Comments: See Note; NOTES: [facility] Imaging Services [address] [place] [address] Verdana 4d Ribs Unil 2V No CXR MR#: [id number] Acct: [id number] Name: KATHRYN AMARO Rep #: [id number] : 1965 F 50 From: Luciano Dowell MD PCP: Carolina Bowman Status: REG CLI Study: Ribs Unil 2V No CXR Date of Exam: 08/06/15 Exam# [id number] Ordering Dr: Jorje Bowman STUDY: X-RAY - UNILATERAL RIBS ( LEFT ) REASON FOR EXAM: Female, 50 years old. Upper chest pain. TECHNIQUE: 4 view(s) of the ribs. COMPARISON: None. FINDINGS: Normal visualized ribs without a demonstrated fracture. The visualized lung is clear and expanded. IMPRESSION: Normal x-ray examination of the ribs. Electronically Signed: Luciano Dowell MD at 11:02 EDT Tel [phone], Service support [phone], 0036 RAD/Ribs Unil 2V No CXR IMPRESSION: Norm al x-ray examination of the ribs. Electronically Signed: Luciano Dowell MD at 11:02 EDT Tel [phone], Service support [phone], CC: Carolina Bowman Assistant Program Director: Signed 06-Jun-2015 Spirometry (40732) Comments: Fevi/fvc 72% Result: 18-Nov-2014 Shoulder min 2 Views Result: Comments: See Note; NOTES: [facility] Imaging Services [address] [place] [address] Radiology Report MR#: [id number] Acct: [id number] Name: KATHRYN AMARO Rep #: [id number] : 1965 F 49 From: Pete Curtis MD PCP: Samantha Barrera DO Status: REG CLI Study: Shoulder min 2 Views Date of Exam: 11/18/14 Exam# [id number] Ordering Dr: Samantha Barrera TUDY: X-RAY - [...] MD at 22:54 EDT , Service support [phone], R AD/Shoulder min 2 Views IMPRESSION: Mild 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 Electronically Signed: Pete Curtis MD at 22:54 EDT , Service support , CC: Samantha Barrera DO Assistant Program Director: Signed 10-Jul-2014 Hepatobilliary Imaging Result: Comments: See Note; NOTES: [facility] Imaging Services [address] [place] [address] Nuclear Medicine Report MR#: [id number] Acct: [id number] Name: KATHRYN AMARO Rep #: [id number] : 1965 F 49 From: Shreyas Groves DO PCP: Samantha Barrera DO Status: REG CLI Study: Hepatobilliary Imaging Date of Exam: 07/10/14 Exam# [id number] Ordering Dr: Carolina Bowman LINICAL: 49-year-old female [...] Shreyas Groves DO at 22:24 EDT Tel [phone], Service support [phone], CC: Carolina Bowman; Samantha Barrera DO Assistant Program Director: Signed 30-Jun-2014 Pelvic (Non ) Result: Comments: See Note; NOTES: [facility] Imaging Services [address] [place] [address] Ultrasound Report MR#: [id number] Acct: [id number] Name: KATHRYN AMARO Rep #: [id number] : 1965 F 49 From: Pete Curtis MD PCP: Samantha Barrera DO Status: REG CLI Study: Pelvic (Non ) Date of Exam: 06/30/14 Exam# [id number] Ordering Dr: Carolina Bowman STUDY: U LTRASOUND [...] MD at 19:53 EDT , Service support [phone], CC: Carolina Bowman; Samantha Barrera DO Assistant Program Director: Signed 30-Jun-2014 Abdomen Complete Result: Comments: See Note; NOTES: [facility] Imaging Services [address] [place] [address] Ultrasound Report MR#: [id number] Acct: [id number] Name: KATHRYN AMARO Rep #: [id number] : 1965 F 49 From: Noé Pascual MD PCP: Samantha Barrera DO Status: REG CLI Study: Abdomen Complete Date of Exam: 06/30/14 Exam# [id number] Ordering Dr: Carolina Bowman STUDY: ABDOM INAL [...] MD at 15:42 EDT , Service support [phone], CC: Carolina Bowman; Samantha Barrera DO Assistant Program Director: Signed 21-Jun-2014 Toradol Injection, 30 mg (J1885) Comments: Lot:[id number]:02/11/2015Dose:1MlRoute:IMSite:R glutGiven By:RIC signed Result: Comments: Lot:Exp:Dose:1mlRoute:IMSite:R GlutGiven By:RIC signed 19-Apr-2014 Bilat Scrn Digital AND CAD Result: Comments: See Note; NOTES: [facility] Imaging Services [address] [place] [address] Breast Imaging Report MR#: [id number] Acct: [id number] Name: KATHRYN AMARO Rep # : [id number] : 1965 F 49 From: Luciano Dowell MD PCP: Samantha Barrera DO Status: REG CLI Study: Bilat Scrn Digital AND CAD Date of Exam: 04/19/14 Exam# [id number] Ordering Dr: Gasper Barrera DO MAMMOGRAPHY - [...] Luciano Dowell MD at 8:19 EST Tel [phone], Service support [phone], Fax CC: Samantha Barrera DO Assistant Program Director: Signed 20-Mar-2014 Abdomen/Pelvis WITH Contrast Result: Comments: See Note; NOTES: [facility] Imaging Services [address] [place] [address] CAT Scan Report MR#: [id number] Acct: [id number] Name: KATHRYN AMARO Rep #: [id number] : 1965 F 48 From: Brayan Wilson MD PCP: Samantha Barrera DO Status: REG CLI Study: Abdomen/Pelvis WITH Contrast Date of Exam: 03/20/14 Exam# [id number] Ordering Dr: Samantha Barrera DO STUDY: CT [...] MD at 21:48 EST , Service support [phone], CC: Samantha Barrera DO Assistant Program Director: Signed 15-Sep-2013 NCS and/or EMG Patient Result: Comments: See Note; NOTES: [facility] Pulmonary Services/Neurology [address] [place] [address] NCS and/or EMG Patient MR#: [id number] Acct: [id number] Name: LA AMARO RA Rep #: [id number] : 1965 48 From: Ever Allen MD Referring Dr: Carolina Bowman Status: REG CLI Ordering Dr: Carolina Bowman Date: 09/13/13 Location: [facility] Sex: F C DATE OF SERVICE: [facility] 2013 REFERRING PHYSICIAN: Carolina Bowman. INTRODUCTION: This [...] Dictated: 09/13/13 1043 Date Transcribed: 09/13/13 1520 Assistant Program Director: SHARP Signed 12-Apr-2013 Bilat Scrn Digital & CAD Result: Comments: See Note; NOTES: [facility] Imaging Services [address] [place] [address] Breast Imaging Report MR#: [id number] Acct: [id number] Name: KTAHRYN AMARO Rep # : [id number] : 1965 F 48 From: Luciano Dowell MD PCP: Samantha Barrera DO Status: REG CLI Exam# [id number] Ordering Dr: Samantha Barrera DO MAMMOGRAPHY - [...] M.D. at 8:09 EST , Service support [phone], CC: Samantha Barrera DO Assistant Program Director: Signed 12-Apr-2013 Dexa Bone Density Study (HP) Result: Comments: See Note; NOTES: [facility] Imaging Services [address] [place] [address] Bone Density Report MR#: [id number] Acct: [id number] Name: KATHRYN AMARO Rep #: [id number] : 1965 F 48 From: Luciano Dowell MD PCP: Samantha Barrera DO Status: [facility] Study: Dexa Bone Density Study (HP) Date of Exam: 04/12/13 Exam# [id number] Ordering Dr: Holly, Ka thleen DO STUDY: [...] M.D. 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 Comments: 06/23/11 Status: Active Smoking Status Name Dates Details Never smoker Vital Signs Date Test Result Details 89-Gla-487363:28 Temperature 98.1 f Comments: Method: Temporal Pulse [...] kg/m2 Body Surface Area Calculated 1.67 m2 70-Yca-470953:51 Comments: ortho scatic bp: sitting 105/66 P [...] cm Results Date Description Value Details :06 TSEGS-SCAWJODEGCU-NMDJC (99371) Comments: PATIENT NOT FASTINGPERFORMED BY: [employer]70 elmeme.[facility] [id number] AFP, Serum, Tumor Marker 6.2 ng/mL (Normal) Range: 0.0-8.3 Comments: Kyler ECLIA methodology :06 HEPATIC FUNCTION PANEL Comments: PATIENT NOT FASTINGPERFORMED BY: [employer]6370 elmeme.me[facility] [id number] (84807) ALT (SGPT) 30 [iU]/L (Normal) Range: 0-32 AST (SGOT) 18 [iU]/L (Normal) Range: 0-40 Alkaline Phosphatase 56 [iU]/L (Normal) Range: 39-117 Bilirubin, Direct 0.10 mg/dL (Normal) Range: 0.00-0.40 Bilirubin, Total 0.2 mg/dL (Normal) Range: 0.0-1.2 Albumin 4.8 g/dL (Normal) Range: 3.5-5.5 Protein, Total 6.7 g/dL (Normal) Range: 6.0-8.5 02-Lgz-980100:56 HEPATIC FUNCTION PANEL Comments: PATIENT NOT FASTINGPERFORMED BY: [employer]6370 [facility] [id number] (56425) ALT (SGPT) 110 [iU]/L (Abnormal) Range: 0-32 AST (SGOT) 48 [iU]/L (Abnormal) Range: 0-40 Alkaline Phosphatase 52 [iU]/L (Normal) Range: 39-117 Bilirubin, Direct 0.16 mg/dL (Normal) Range: 0.00-0.40 Bilirubin, Total 0.5 mg/dL (Normal) Range: 0.0-1.2 Albumin 4.5 g/dL (Normal) Range: 3.5-5.5 Protein, Total 6.5 g/dL (Normal) Range: 6.0-8.5 76-Ujd-397027:56 CBC & PLATELETS (AUTO) Comments: PATIENT NOT FASTINGPERFORMED BY: [facility] [id number] (83570) Platelets 312 {x10E3/uL} (Normal) Range: 150-379 RDW 12.7 % (Normal) Range: 12.3-15.4 MCHC 34.6 g/dL (Normal) Range: 31.5-35.7 MCH 30.7 pg (Normal) Range: 26.6-33.0 MCV 89 fL (Normal) Range: 79-97 Hematocrit 38.4 % (Normal) Range: 34.0-46.6 Hemoglobin 13.3 g/dL (Normal) Range: 11.1-15.9 RBC 4.33 {x10E6/uL} (Normal) Range: 3.77-5.28 WBC 6.0 {x10E3/uL} (Normal) Range: 3.4-10.8 :56 PARATHORMONE (01370) Comments: PATIENT NOT FASTINGPERFORMED BY: [facility] [id number] PTH, Intact 30 pg/mL (Normal) Range: 15-65 87-Yrp-057457:56 CALCIFEDIOL (94284) Comments: PATIENT NOT FASTINGPERFORMED BY: [facility] [id number] Vitamin D, 25-Hydroxy 79.3 ng/mL (Normal) Range: 30.0-100.0 Comments: Vitamin D deficiency has been defined by the [place] of[place] and an Endocrine Society practice guideline as alevel of serum 25-OH vitamin D less than 20 ng/mL (1,2).The Endocrine Society went on to further define vitamin Dinsufficiency as a level between 21 and 29 ng/mL (2).1. IOM ([place] of [employer]). 2010. Dietary reference intakes for calcium and D. [place]: The National Academies Press.2. Henna MF, Jerman MORRIS, Piedad SHARP, et al. Evaluation, treatment, and prevention of vitamin D deficiency: an Endocrine Society clinical practice guideline. JCEM. 2010; 96(7):1911-30. 19-Mxl-409482:56 MAGNESIUM (36409) Comments: PATIENT NOT FASTINGPERFORMED BY: [facility] [employer]ox6667 [facility] [id number] Magnesium 2.1 mg/dL (Normal) Range: 1.6-2.3 72-Mug-389738:51 Metabolic Panel, Comprehensive Comments: PATIENT NOT FASTINGPERFORMED BY: [facility] Zeaevj2836 [facility] [id number] (29328) ALT (SGPT) 67 [iU]/L (Abnormal) Range: 0-32 [...] 6-24 Glucose 116 mg/dL (Abnormal) Range: 65-99 46-Vnn-904571:51 CBC & PLATELETS (AUTO) Comments: PATIENT NOT FASTINGPERFORMED BY: [facility] [id number] (30604) Platelets 101 {x10E3/uL} Range: 150-379 (Abnormal) RDW [...] ug/dL (Normal) Comments: PATIENT NOT FASTINGPERFORMED BY: [facility] [id number] BY: [employer] [id number] 0 Range: 6.2-19.4 14-Mnk-81541:10 CALCIFEDIOL (13979) Comments: PATIENT NOT FASTINGPERFORMED BY: [place] [address]0170 [facility] [id number] BY: [facility] [id number] Vitamin D, 25-Hydroxy 86.0 ng/mL (Normal) Range: 30.0-100.0 Comments: Vitamin D deficiency has been defined by the [place] of[place] and an Endocrine Society practice guideline as alevel of serum 25-OH vitamin D less than 20 ng/mL (1,2).The Endocrine Society went on to further define vitamin Dinsufficiency as a level between 21 and 29 ng/mL (2).1. IOM ([place] of [employer]). 2010. Dietary reference intakes for calcium and D. [place]: The National Academies Press.2. Henna MF, Jerman [place], Piedad SHARP, et al. Evaluation, treatment, and prevention of vitamin D deficiency: an Endocrine Society clinical practice guideline. JCEM. 2010; 96(7):1911-30. 82-Pwk-23103:10 TESTOSTERONE TOTAL (95985) Comments: PATIENT NOT FASTINGPERFORMED BY: [employer]70 [facility] [id number] BY: [employer] [id number] Information: AM CORTISOL Testosterone, Serum <3 ng/dL (Abnormal) Range: 3-41 10-Dax-33124:10 ESTRONE (42028) Comments: PATIENT NOT FASTINGPERFORMED BY: [employer]70 [facility] [id number] BY: [employer] [id number] Estrone, Serum 36 pg/mL (Normal) Comments: . [...] - 114 Post Menopausal 14 - 103 19-Pat-63673:10 PROGESTERONE (22008) Comments: PATIENT NOT FASTINGPERFORMED BY: 9DIAMOND Dypwko0776 [facility] [id number] BY: [employer] [id number] Progesterone 0.2 ng/mL (Normal) Comments: Follicular phase 0.1 - 0.9 Luteal phase 1.8 - 23.9 Ovulation phase 0.1 - 12.0 First trimester 11.0 - 44.3 Second trimester 25.4 - 83.3 Third t rimester 58.7 - 214.0 Postmenopausal 0.0 - 0.1 87-Mhh-23282:10 ESTRADIOL (88686) Comments: PATIENT NOT FASTINGPERFORMED BY: [facility] [id number] BY: [address] [id number] Estradiol <5.0 pg/mL (Normal) Comments: Adult Female: Follicular phase 12.5 - 166.0 Ovulation phase 85.8 - 498.0 Luteal phase 43.8 - 211.0 Postmenopausal <6.0 - 54.7 1st trimester 215.0 - & gt;4300.0 Girls (1-10 years) 6.0 - 27.0Roche ECLIA methodology 72-Vnm-113285:02 CBC & PLATELETS (AUTO) Comments: PATIENT NOT FASTINGPERFORMED BY: [address] [id number] (15003) Platelets 214 {x10E3/uL} (Normal) Range: 150-379 RDW 13.0 % (Normal) Range: 12.3-15.4 MCHC 32.9 g/dL (Normal) Range: 31.5-35.7 MCH 31.3 pg (Normal) Range: 26.6-33.0 MCV 95 fL (Normal) Range: 79-97 Hematocrit 41.0 % (Normal) Range: 34.0-46.6 Hemoglobin 13.5 g/dL (Normal) Range: 11.1-15.9 RBC 4.32 {x10E6/uL} (Normal) Range: 3.77-5.28 WBC 6.8 {x10E3/uL} (Normal) Range: 3.4-10.8 72-Ams-355018:02 TSH (58610) Comments: PATIENT NOT FASTINGPERFORMED BY: [place] 4540170 [facility] [id number] TSH 1.190 {uIU/mL} (Normal) Range: 0.450-4.500 01-Shi-211531:02 T4, FREE (THYROXINE) (05439) Comments: PATIENT NOT FASTINGPERFORMED BY: [address] [id number] T4,Free(Direct) 1.07 ng/dL (Normal) Range: 0.82-1.77 07-Rcu-958655:02 T3, FREE (TRIDOTHYRONINE) (11491) Comments: PATIENT NOT FASTINGPERFORMED BY: [facility]shipSanta Fe Indian HospitalVnxixo9363 Jacobsvmock.comNovant Health [facility] [id number] Triiodothyronine,Free,Serum 2.9 pg/mL (Normal) Range: 2.0-4.4 47-Udy-881676:02 Metabolic Panel, Comprehensive Comments: PATIENT NOT FASTINGPERFORMED BY: [employer] Kbjzub6612 [facility] [id number] (31694) ALT (SGPT) 14 [iU]/L (Normal) Range: 0-32 [...] Glucose, Serum 84 mg/dL (Normal) Range: 65-99 79-Kag-849118:02 IRON (83539) Comments: PATIENT NOT FASTINGPERFORMED BY: [facility] System6370 [facility] [id number] Iron, Serum 46 ug/dL (Normal) Range: 27-159 53-Gjw-511129:02 DHEA-S (DEHYDROEPIANDROSTERONE Comments: PATIENT NOT FASTINGPERFORMED BY: [facility] [id number] SULFATE) (69157) DHEA-Sulfate 40.7 ug/dL (Abnormal) Range: 41.2-243.7 :57 Microscopic Examination Comments: PATIENT NOT FASTINGPERFORMED BY: [facility] [id number] Bacteria Few (Normal) Mucus Threads Present (Normal) Epithelial Cells (non renal) 0-10 {/hpf} (Normal) Range: 0 - 10 RBC 0-2 {/hpf} (Normal) Range: 0 - 2 WBC 0-5 {/hpf} (Normal) Range: 0 - 5 :57 URINALYSIS (40654) Comments: PATIENT NOT FASTINGPERFORMED BY: [facility] [id number] Microscopic Examination See below: (Normal) Comments: Microscopic was indicated and was performed. Nitrite, Urine Negative (Normal) Urobilinogen,Semi-Qn 0.2 mg/dL (Normal) Range: 0.2-1.0 Bilirubin Negative (Normal) Occult Blood Negative (Normal) Ketones Negative (Normal) Glucose Negative (Normal) Protein Negative (Normal) WBC Esterase 1+ (Abnormal) Appearance Clear (Normal) Urine-Color Yellow (Normal) pH 7.0 (Normal) Range: 5.0-7.5 Specific Fabens 1.008 (Normal) Range: 1.005-1.030 38-Bic-075145:50 Basic Metabolic Profile (BMP) Comments: [facility] Xpglshihyo[address] [place], [place], [id number] GAP 4 (Abnormal) Range: 5-15 CO2 27.0 [...] 7-18 GLU 87 mg/dL (Normal) Range: 70-110 67-Opd-231605:50 CBC W/Diff, Automated Comments: [facility] J[address] [place], [address] Absolute Lymph 1.18 {X10_3/ul} (Normal) Range: 0.83-4.51 [...] 4.2-5.4 WBC 10.3 K/mm3 (Normal) Range: 4.4-11.0 23-Uwp-660833:00 Urinalysis, Complete Comments: Order Date: 07/22/16Order Date: 07/22/16How was Urine Obtained? FIRER WATERTENDER TO [facility]WW[facility] Squidzmvjn2501 [facility] Christelle. [place], [place], [id number] MUCUS, URINE 0 SEEN {/hpf} (Normal) BACTERIA [...] BELOW (Normal) Comments: Visual Urine Color: PINK 80-Wkp-833409:44 Culture, Wound Comments: [facility] Mcizkcohcb59[address]. [place], [place], [address] CUW See Note (Normal) Comments: Order Date: [...] pneumoniae, beta-hemolytic Streptococcus or Staphylococcus aureus isolated. 46-Yam-537173:49 HgA1C , Office (38272) HgA1C , Office 5.3 % (Normal) Range: 4.6 - 7.1 :03 Metabolic Panel, Basic Comments: PATIENT NOT FASTINGPERFORMED BY: Urban AirshipSt. Luke's Warren HospitalByjpzf8520 [facility] [id number] Information: [id number] (63065) Calcium, Serum 9.4 mg/dL (Normal) Range: 8.7-10.2 [...] 103 mg/dL (Abnormal) Range: 65-99 :03 CALCIFEDIOL (48721) Comments: PATIENT NOT FASTINGPERFORMED BY: Urban AirshipSt. Luke's Warren HospitalZglpmj8125 [facility] [id number] Vitamin D, 25-Hydroxy 38.0 ng/mL (Normal) Range: 30.0-100.0 Comments: Vitamin D deficiency has been defined by the [place] ofWilson [facility] Hospitalcine and an Endocrine Society practice guideline as alevel of serum 25-OH vitamin D less than 20 ng/mL (1,2).The Endocrine Society went on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
--- OUTSIDE RECORDS SUMMARY | 2018-07-05 09:36 | XMS RPT_ITS | Continuity of Care Document ---
:1965 Author Organization [facility] Address [address] [facility] [address] [place] [address] Phone Care Team Providers Name Role Phone [...] 268.9) Status: Active Medications Name Dates Details Manley Saline Nasal Nasal Gel 1 (one) Gel Gel Apply BID for 0 days Quantity: 1 {Tube} Refills: 0 Ordered:23-Feb-2018 Lupe Abdi Start : 12-Nov-2017 Active CALCIUM 500/VITAMIN D, 935-608VJ-OYWE (Oral Tablet) 2 (two) Tablet daily for 360 days Quantity: 360 {Tablet} Refills: 0 Ordered:06-Aug-2015 Colby SAWYER Katie Start : 06-Aug-2015 Active Citalopram Hydrobromide 10 MG Oral Tablet 1 (one) Tablet qd for 0 days Quantity: 30 {Tablet} Refills: 3 Ordered:14-Apr-2018 Francisco Javier Barrera DO, DO, Kathleen Start : 14-Apr-2018 Active Dulera 200-5 MCG/ACT Inhalation Aerosol 2 (two) Puff BID for 30 days Quantity: 1 {Inhalation} Refills: 0 Ordered:23-Mar-2018 Fast DOKassandra A Start : 23-Mar-2018 Active ProAir HFA 108 (90 Base) MCG/ACT Inhalation Aerosol Solution 2 (two) Puff tid prn for 0 days Quantity: 1 {Inhaler} Refills: 3 Ordered:23-Mar-2018 Fast DO Kassandra A Start : 23-Mar-2018 Active Probiotic Oral Capsule 1 (one) Capsule daily for 360 days Quantity: 360 {Capsule} Refills: 3 Ordered:24-Dec-2015 Francisco Javier Barrera DO, DO, Kathleen Start : 24-Dec-2015 Active Allergy 24-HR 180 MG Oral Tablet 1 (one) Tablet daily for 30 days Quantity: 30 {Tablet} Refills: 0 Ordered:21-Apr-2016 Janisdamonbenita SAWYERCarolina Start : 04-Feb-2016 End : 05-Mar-2016 Inactive [...] days Quantity: 14 {QS} Refills: 0 Ordered:17-Jan-2015 Colby SAWYERCarolina Start : 17-Jan-2015 End : 24-Jan-2015 Inactive CELEBREX, 100MG (Oral Capsule) 1 (one) Capsule as needed for 30 days Quantity: 30 {Capsule} Refills: 0 Ordered:06-Aug-2015 Ciara Metzger LPN Start : 06-Aug-2015 End : 05-Sep-2015 Inactive Comments:Medication taken as needed. Clotrimazole 10 MG Mouth/Throat Rod 1 (one) Rod Rod 5x daily for 10 days Quantity: 50 {Rod} Refills: 0 Ordered:03-Dec-2015 Colby SAWYERCarolina Start : 03-Dec-2015 End : 13-Dec-2015 Inactive CORTISPORIN, 3.5-44535-9 (Otic Solution) 4 Drop(s) tid for 10 days Quantity: 1 {Solution} Refills: 0 Ordered:19-Nov-2011 Colby SAWYER Carolina Padilla Start : 19-Nov-2011 End : 29-Nov-2011 Inactive ESTRADIOL, 0.5MG (Oral Tablet) 1 (one) Tablet daily for 360 days Quantity: 360 {Tablet} Refills: 0 Ordered:06-Aug-2015 Colby SAWYER Carolina Padilla Start : 06-Aug-2015 End : 31-Jul-2016 Inactive [...] : 12-Nov-2017 End : 19-Nov-2017 Inactive Nystatin 437110 UNIT/ML Mouth/Throat Suspension 5 cc 5times a [...] Discontinued Comments:please substitute generic albulterol VITAMIN D3, 70832AXXV (Oral Capsule) 1 Capsule 2 x week [...] test (R73.09, 790.22) Comments: based on 2 [facility] -- will follow Status: Resolved [...] EMG Patient Result: Comments: See Note; NOTES: [facility] Services/Neurology [address] [place] [address] MR#: [id number] Acct: [id number] Name: KATHRYN AMARO Rep #: [id number] : 1965 52 From: Ever Allen MD Referring Dr: Bipin Ackerman DO Status: REG CLI Ordering Dr: Date: Location: [facility] Sex: F C NCS and/or EMG [...] Dictated: 01/26/18 1036 Date Transcribed: 01/26/18 1036 Rn Clinician: NF Signed 22-Oct-2017 12 Lead Electrocardiogram Result: Comments: See Note; NOTES: [facility] Cardiovascular Services [address] [place] [address] 12 Lead EKG 10/21/17 1508 MR#: [id number] Acct: [id number] Name: KATHRYN AMARO Rep #: [id number] : 1965 52 From: Carroll Emmanuel MD [...] Normal ECG Confirmed by CHOLO MORENO, CARROLL ([id number]), geophysicist HILARIA DAVIDSON ([id number]) on 10/22/2017 12:52:17 PM Referred By: Priscila Chance Confirmed By:CARROLL EMMANUEL MD 10/22/17 1252 Date Carroll Emmanuel MD CC: Priscila Chance; Samantha Barrera DO Signed 30-Jun-2017 Skull min 4 Views Result: Comments: See Note; NOTES: [facility] Imaging Services [address] [place] [address] Skull min 4 Views MR#: [id number] Acct: [id number] Name: KATHRYN AMARO Rep #: [id number] : 1965 F 52 From: Marcus Angel MD PCP: Samantha Barrera DO Status: REG CLI Study: Skull min 4 Views Date of Exam: 06/30/17 Exam# [id number] Ordering Dr: Samantha Barrera DO STUDY: X-RAY [...] Service support , CC: Samantha Barrera DO Rn Clinician: Signed 13-Oct-2016 SCREENING MAMM (CAD), BILAT Result: Comments: See Note; NOTES: [facility] Imaging Services [address] [place] [address] Verdana 4d SCREENING MAMM (CAD), BILAT MR#: [id number] Acct: [id number] Name: ALETHA AMARO Rep #: [id number] : 1965 F 51 From: Ron Roman MD PCP: Samantha Barrera DO Status: [facility] CLI Study: SCREENING MAMM (CAD), BILAT Date of Exam: 10/13/16 Exam# [id number] Ordering Dr: Karuna Mixon MD MAMMOGRAPHY - [...] delay biopsy of a clinically suspicious abnormality. [id number] Electronically Signed: Anjum Roman MD at 8:41 EDT , Service support , CC: Karuna Mixon MD; Samantha Barrera DO Rn Clinician: Signed 22-Jul-2016 Emergency Department Summary Result: Comments: See Note; NOTES: [facility] Medical Records Department [address] [place] [address] Emergency Department Summary MR#: [id number] Acct: [id number] Name: ALETHA AMARO Rep #: [id number] : 1965 51 From: Kyle Tinsley MD [...] Vik Retana C: Samantha Barrera DO T: [facility] JOB: [id number] 07/22/162113 &amp ;#60;Electronically signed by Kyle Tinsley MD> Date Kyle Tinsley MD Cosigner Signature (If Indicated): Date CC: Samantha Barrera DO Date Dictated: 07/22/162026 Date Transcribed: 07/22/162026 Rn Clinician: Signed 22-Jul-2016 Discharge Instruction Result: Comments: See Note; NOTES: [facility] Medical Records Department [address] [place] [address] [place] [address] Discharge Instruction 07/22/162024 MR#: [id number] Acct: [id number] Name: KATHRYN AMARO BETTYE Rep #: [id number] : 1965 51 From: Kyle Tinsley MD [...] Tinsley MD Cosigner Signature (If Indicated): Date _ CC: Samantha Holly LINDSAY 22-Jul-2016 Abdomen/Pelvis W IV Cont ONLY Result: Comments: See Note; NOTES: [facility] Imaging Services [address] [place] [address] Verdana 4d Abdomen/Pelvis W IV Cont ONLY MR#: [id number] Acct: [id number] Name: ROLLY AMARO Rep #: [id number] : 1965 F 51 From: Leo Shin DO PCP: Samantha Barrera DO Status: REG ER Study: Abdomen/Pelvis W IV Cont ONLY Date of Exam: 07/22/16 Exam# [id number] Ordering Dr: Kyle Tinsley MD STUDY: CT [...] at 20:11 EDT Tel , Service support [phone], CC: Samantha Barrera DO; Kyle Tinsley MD Rn Clinician: Signed 07-Mar-2016 Esophagus Only Result: Comments: See Note; NOTES: [facility] Imaging Services [address] [place] [address] Verdana 4d Esophagus Only MR#: [id number] Acct: [id number] Name: KATHRYN AMARO Rep #: [id number] : 1965 F 50 From: Amrit Mac MD PCP: Carolina Bowman Status: REG CLI Study: Esophagus Only Date of Exam: 03/07/16 Exam# [id number] Ordering Dr: Mike Varner MD STUDY: AIR-CONTRAST [...] at 12:42 EST Tel , Service support [phone], CC: Carolina Bowman; Mike Varner Rn Clinician: Signed 07-Aug-2015 Bilat Diag Digital AND CAD Result: Comments: See Note; NOTES: [facility] Imaging Services [address] [place] [address] Verdana 4d Bilat Diag Digital AND CAD MR#: [id number] Acct: [id number] Name: KATHRYN AMARO Rep #: [id number] : 1965 F 50 From: Luciano Dowell MD PCP: Carolina Bowman Status: REG CLI Study: Bilat Diag Digital AND CAD Date of Exam: 08/07/15 Exam# [id number] Itzel lara Dr: Carolina Bowman MAMMOGRAPHY - [...] Luciano Dowell MD at 9:36 EDT Tel [phone], Service support [phone], CC: Carolina Bowman Rn Clinician: Signed 06-Aug-2015 Chest PA and Lateral Result: Comments: See Note; NOTES: [facility] Imaging Services [address] [place] [address] Verdana 4d Chest PA and Lateral MR#: [id number] Acct: [id number] Name: KATHRYN JACOBSEN Rep #: [id number] : 1965 F 50 From: Luciano Dowell MD PCP: Carolina Bowman Status: REG CLI Study: Chest PA and Lateral Date of Exam: 08/06/15 Exam# [id number] Ordering Dr: Carolina Bowman STUDY: X-RAY CHEST [...] Dowell MD 08/05 at 11:03 EDT Tel [phone], Service support [phone], RAD/Chest PA and Lateral IMPRESSION: No acute abnormality is seen. Electronically Signed: Agustin Dowell MD at 11:03 EDT Tel [phone], Service support [phone], CC: Carolina Bowman Rn Clinician: Signed 06-Aug-2015 Ribs Unil 2V No CXR Result: Comments: See Note; NOTES: [facility] Imaging Services [address] [place] [address] Verdana 4d Ribs Unil 2V No CXR MR#: [id number] Acct: [id number] Name: KATHRYN AMARO Rep #: [id number] : 1965 F 50 From: Luciano Dowell MD PCP: Carolina Bowman Status: REG CLI Study: Ribs Unil 2V No CXR Date of Exam: 08/06/15 Exam# [id number] Ordering Dr: Jorje Bowman STUDY: X-RAY - UNILATERAL RIBS ( LEFT ) REASON FOR EXAM: Female, 50 years old. Upper chest pain. TECHNIQUE: 4 view(s) of the ribs. COMPARISON: None. FINDINGS: Normal visualized ribs without a demonstrated fracture. The visualized lung is clear and expanded. IMPRESSION: Normal x-ray examination of the ribs. Electronically Signed: Luciano Dowell MD at 11:02 EDT Tel [phone], Service support [phone], 0036 RAD/Ribs Unil 2V No CXR IMPRESSION: Norm al x-ray examination of the ribs. Electronically Signed: Luciano Dowell MD at 11:02 EDT Tel [phone], Service support [phone], CC: Carolina Bowman Rn Clinician: Signed 06-Jun-2015 Spirometry (21206) Comments: Fevi/fvc 72% Result: 18-Nov-2014 Shoulder min 2 Views Result: Comments: See Note; NOTES: [facility] Services [address] [place] [address] Radiology Report MR#: [id number] Acct: [id number] Name: KATHRYN AMARO Rep #: [id number] : 1965 F 49 From: Pete Curtis MD PCP: Samantha Barrera DO Status: REG CLI Study: Shoulder min 2 Views Date of Exam: 11/18/14 Exam# [id number] Ordering Dr: Samantha Barrera TUDY: X-RAY - [...] MD at 22:54 EDT , Service support [phone], R AD/Shoulder min 2 Views IMPRESSION: Mild 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 Electronically Signed: Pete Curtis MD at 22:54 EDT , Service support , CC: Samantha Barrera DO Rn Clinician: Signed 10-Jul-2014 Hepatobilliary Imaging Result: Comments: See Note; NOTES: [facility] [address] [place] [address] Nuclear Medicine Report MR#: [id number] Acct: [id number] Name: KATHRYN AMARO Rep #: [id number] : 1965 F 49 From: Shreyas Groves DO PCP: Samantha Barrera DO Status: REG CLI Study: Hepatobilliary Imaging Date of Exam: 07/10/14 Exam# [id number] Ordering Dr: Carolina Bowman LINICAL: 49-year-old female [...] Shreyas Groves DO at 22:24 EDT Tel [phone], Service support [phone], CC: Carolina Bowman; Samantha Barrera DO Rn Clinician: Signed 30-Jun-2014 Pelvic (Non ) Result: Comments: See Note; NOTES: [facility] [address] [facility] [place] [address] Ultrasound Report MR#: [id number] Acct: [id number] Name: KATHRYN AMARO Rep #: : 1965 F 49 From: Pete Curtis MD PCP: Samantha Barrera DO Status: REG CLI Study: Pelvic (Non ) Date of Exam: 06/30/14 Exam# [id number] Ordering Dr: Carolina Bowman STUDY: U LTRASOUND [...] MD at 19:53 EDT , Service support [phone], CC: Carolina Bowman; Samantha Barrera DO Rn Clinician: Signed 30-Jun-2014 Abdomen Complete Result: Comments: See Note; NOTES: [facility] [address] [place] [address] Ultrasound Report MR#: [id number] Acct: [id number] Name: KATHRYN AMARO Rep #: : 1965 F 49 From: Noé Pascual MD PCP: Samantha Barrera DO Status: REG CLI Study: Abdomen Complete Date of Exam: 06/30/14 Exam# [id number] Ordering Dr: Carolina Bowman STUDY: ABDOM INAL [...] MD at 15:42 EDT , Service support [phone], CC: Carolina Bowman; Samantha Barrera DO Rn Clinician: Signed 21-Jun-2014 Toradol Injection, 30 mg (J1885) Comments: Lot:68-378-PSHnx:02/11/2015Dose:1MlRoute:IMSite:R glutGiven By:RIC signed Result: Comments: Lot:Exp:Dose:1mlRoute:IMSite:R GlutGiven By:RIC signed 19-Apr-2014 Bilat Scrn Digital AND CAD Result: Comments: See Note; NOTES: [facility] Services [address] [place], [place] [address] Breast Imaging Report MR#: [id number] Acct: [id number] Name: KATHRYN AMARO Rep # : [id number] : 1965 F 49 From: Luciano Dowell MD PCP: Samantha Barrera DO Status: REG CLI Study: Bilat Scrn Digital AND CAD Date of Exam: 04/19/14 Exam# [id number] Ordering Dr: Gasper Barrera DO MAMMOGRAPHY - [...] Luciano Dowell MD at 8:19 EST Tel [phone], Service support [phone], Fax CC: Samantha Barrera DO Rn Clinician: Signed 20-Mar-2014 Abdomen/Pelvis WITH Contrast Result: Comments: See Note; NOTES: [facility] Imaging Services [address] [place] [address] CAT Scan Report MR#: [id number] Acct: [id number] Name: KATHRYN AMARO Rep #: [id number] : 1965 F 48 From: Brayan Wilson MD PCP: Samantha Barrera DO Status: REG CLI Study: Abdomen/Pelvis WITH Contrast Date of Exam: 03/20/14 Exam# [id number] Ordering Dr: Samantha Barrera DO STUDY: CT [...] MD at 21:48 EST , Service support [phone], CC: Samantha Barrera DO Rn Clinician: Signed 15-Sep-2013 NCS and/or EMG Patient Result: Comments: See Note; NOTES: [facility] Services/Neurology [facility] [place] [address] NCS and/or EMG Patient MR#: [id number] Acct: [id number] Name: LA AMARO RA Rep #: [id number] : 1965 48 From: Ever Allen MD Referring Dr: Carolina Bowman Status: REG CLI Ordering Dr: Carolina Bowman Date: 09/13/13 Location: PSN Sex: F C DATE OF SERVICE: [facility] 2013 REFERRING PHYSICIAN: Carolina Bowman. INTRODUCTION: This [...] Dictated: 09/13/13 1043 Date Transcribed: 09/13/13 1520 Rn Clinician: SHARP Signed 12-Apr-2013 Bilat Scrn Digital & CAD Result: Comments: See Note; NOTES: [facility] [address] [place] [address] Breast Imaging Report MR#: [id number] Acct: [id number] Name: KATHRYN AMARO Rep # : [id number] : 1965 F 48 From: Luciano Dowell MD PCP: Samantha Barrera DO Status: REG CLI Exam# [id number] Ordering Dr: Samantha Barrera DO MAMMOGRAPHY - [...] M.D. at 8:09 EST , Service support [phone], CC: Samantha Barrera DO Rn Clinician: Signed 12-Apr-2013 Dexa Bone Density Study (HP) Result: Comments: See Note; NOTES: [facility] Imaging Services [address] [place] [address] Bone Density Report MR#: [id number] Acct: [id number] Name: KATHRYN AMARO Rep #: [id number] : 1965 F 48 From: Luciano Dowell MD PCP: Samantha Barrera DO Status: [facility] Study: Dexa Bone Density Study (HP) Date of Exam: 04/12/13 Exam# [id number] Ordering Dr: Gasper Barrera DO STUDY: DUAL [...] M.D. 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 Comments: 06/23/11 Status: Active Smoking Status Name Dates Details Never smoker Vital Signs Date Test Result Details 34-Inh-480392:51 Comments: ortho scatic bp: sitting 105/66 P [...] cm Results Date Description Value Details :06 ORDYA-OKFICJPUOZX-OYCCI (50212) Comments: PATIENT NOT FASTINGPERFORMED BY: [employer]70 JacobsKenguruNovant Health Forsy[facility] Medical Center [id number] AFP, Serum, Tumor Marker 6.2 ng/mL (Normal) Range: 0.0-8.3 Comments: Kyler ECLIA methodology :06 HEPATIC FUNCTION PANEL Comments: PATIENT NOT FASTINGPERFORMED BY: [employer]70 [facility] [id number] (40000) ALT (SGPT) 30 [iU]/L (Normal) Range: 0-32 AST (SGOT) 18 [iU]/L (Normal) Range: 0-40 Alkaline Phosphatase 56 [iU]/L (Normal) Range: 39-117 Bilirubin, Direct 0.10 mg/dL (Normal) Range: 0.00-0.40 Bilirubin, Total 0.2 mg/dL (Normal) Range: 0.0-1.2 Albumin 4.8 g/dL (Normal) Range: 3.5-5.5 Protein, Total 6.7 g/dL (Normal) Range: 6.0-8.5 :56 HEPATIC FUNCTION PANEL Comments: PATIENT NOT FASTINGPERFORMED BY: LabCoBristol-Myers Squibb Children's HospitalUexvit6370 [facility] [id number] (48893) ALT (SGPT) 110 [iU]/L (Abnormal) Range: 0-32 AST (SGOT) 48 [iU]/L (Abnormal) Range: 0-40 Alkaline Phosphatase 52 [iU]/L (Normal) Range: 39-117 Bilirubin, Direct 0.16 mg/dL (Normal) Range: 0.00-0.40 Bilirubin, Total 0.5 mg/dL (Normal) Range: 0.0-1.2 Albumin 4.5 g/dL (Normal) Range: 3.5-5.5 Protein, Total 6.5 g/dL (Normal) Range: 6.0-8.5 :56 CBC & PLATELETS (AUTO) Comments: PATIENT NOT FASTINGPERFORMED BY: LabCoBristol-My[facility] Squibb Children's HospitalDdnwcz3343 [facility] [id number] (70405) Platelets 312 {x10E3/uL} (Normal) Range: 150-379 RDW 12.7 % (Normal) Range: 12.3-15.4 MCHC 34.6 g/dL (Normal) Range: 31.5-35.7 MCH 30.7 pg (Normal) Range: 26.6-33.0 MCV 89 fL (Normal) Range: 79-97 Hematocrit 38.4 % (Normal) Range: 34.0-46.6 Hemoglobin 13.3 g/dL (Normal) Range: 11.1-15.9 RBC 4.33 {x10E6/uL} (Normal) Range: 3.77-5.28 WBC 6.0 {x10E3/uL} (Normal) Range: 3.4-10.8 :56 PARATHORMONE (78096) Comments: PATIENT NOT FASTINGPERFORMED BY: [facility] Zxeoql6068 Jacobs RoadDublin [place] [id number] PTH, Intact 30 pg/mL (Normal) Range: 15-65 :56 CALCIFEDIOL (57871) Comments: PATIENT NOT FASTINGPERFORMED BY: [facility] Upptkr1401 Jacobs RoadDublin [place] [id number] Vitamin D, 25-Hydroxy 79.3 ng/mL (Normal) Range: 30.0-100.0 Comments: Vitamin D deficiency has been defined by the [place] of[place]icine and an Endocrine Society practice guideline as alevel of serum 25-OH vitamin D less than 20 ng/mL (1,2).The Endocrine Society went on to further define vitamin Dinsufficiency as a level between 21 and 29 ng/mL (2).1. IOM ([place] of Medicine). 2010. Dietary reference intakes for calcium and D. [place]: The National Academies Press.2. Henna MF, Jerman [place], Piedad SHARP, et al. Evaluation, treatment, and prevention of vitamin D deficiency: an Endocrine Society clinical practice guideline. JCEM. 2010; 96(7):1911-30. :56 MAGNESIUM (21973) Comments: PATIENT NOT FASTINGPERFORMED BY: [facility] Ahiytl7914 Jacobs RoadDublin [place] [id number] Magnesium 2.1 mg/dL (Normal) Range: 1.6-2.3 :51 Metabolic Panel, Comprehensive Comments: PATIENT NOT FASTINGPERFORMED BY: [facility] Iwmvuw6483 Jacobs RoadDublin [place] [id number] (09601) ALT (SGPT) 67 [iU]/L (Abnormal) Range: 0-32 [...] 6-24 Glucose 116 mg/dL (Abnormal) Range: 65-99 78-Kbr-984212:51 CBC & PLATELETS (AUTO) Comments: PATIENT NOT FASTINGPERFORMED BY: [facility] Ybiwcf2473 [facility] [id number] (78506) Platelets 101 {x10E3/uL} Range: 150-379 (Abnormal) RDW 12.8 % (Normal) Range: 12.3-15.4 MCHC 35.2 g/dL (Normal) Range: 31.5-35.7 MCH 30.9 pg (Normal) Range: 26.6-33.0 MCV 88 fL (Normal) Range: 79-97 Hematocrit 37.8 % (Normal) Range: 34.0-46.6 Hemoglobin 13.3 g/dL (Normal) Range: 11.1-15.9 RBC 4.30 {x10E6/uL} Range: 3.77-5.28 (Normal) WBC 10.6 {x10E3/uL} Range: 3.4-10.8 (Normal) 66-Fob-15559:1 Cortisol - AM 13.3 ug/dL (Normal) Comments: PATIENT NOT FASTINGPERFORMED BY: CB [facility] Wkzjwl9115 [address] [facility]in [place] [id number] BY: [address] [id number] 0 Range: 6.2-19.4 29-Vjc-16040:10 CALCIFEDIOL (12770) Comments: PATIENT NOT FASTINGPERFORMED BY: CB [facility] Gsrqyt5862 [facility] [id number] BY: [address] [id number] Vitamin D, 25-Hydroxy 86.0 ng/mL (Normal) Range: 30.0-100.0 Comments: Vitamin D deficiency has been defined by the [place] of[place]icine and an Endocrine Society practice guideline as alevel of serum 25-OH vitamin D less than 20 ng/mL (1,2).The Endocrine Society went on to further define vitamin Dinsufficiency as a level between 21 and 29 ng/mL (2).1. IOM ([place] of [place]). 2010. Dietary reference intakes for calcium and D. [place]: The National Academies Press.2. Henna MF, Jerman [place], Piedad SHARP, et al. Evaluation, treatment, and prevention of vitamin D deficiency: an Endocrine Society clinical practice guideline. JCEM. 2010; 96(7):1911-30. :10 TESTOSTERONE TOTAL (12012) Comments: PATIENT NOT FASTINGPERFORMED BY: CB [facility] Mqgisy5753 [facility] [id number] BY: Lab[address] [id number] Information: AM CORTISOL Testosterone, Serum <3 ng/dL (Abnormal) Range: 3-41 :10 ESTRONE (82523) Comments: PATIENT NOT FASTINGPERFORMED BY: CB [facility] Ztehob8019 [facility] [id number] BY: [address] [id number] Estrone, Serum 36 pg/mL (Normal) Comments: . [...] - 114 Post Menopausal 14 - 103 67-Nne-86413:10 PROGESTERONE (40775) Comments: PATIENT NOT FASTINGPERFORMED BY: [employer] [facility] [id number] BY: [employer] [id number] Progesterone 0.2 ng/mL (Normal) Comments: Follicular phase 0.1 - 0.9 Luteal phase 1.8 - 23.9 Ovulation phase 0.1 - 12.0 First trimester 11.0 - 44.3 Second trimester 25.4 - 83.3 Third t rimester 58.7 - 214.0 Postmenopausal 0.0 - 0.1 19-Zmk-06937:10 ESTRADIOL (86932) Comments: PATIENT NOT FASTINGPERFORMED BY: [employer] [facility] HospitalDNAe LTDNovant Health Forsyth Medical Center [id number] BY: [employer] [id number] Estradiol <5.0 pg/mL (Normal) Comments: Adult Female: Follicular phase 12.5 - 166.0 Ovulation phase 85.8 - 498.0 Luteal phase 43.8 - 211.0 Postmenopausal <6.0 - 54.7 1st trimester 215.0 - & gt;4300.0 Girls (1-10 years) 6.0 - 27.0Roche ECLIA methodology 27-Xqq-204048:02 CBC & PLATELETS (AUTO) Comments: PATIENT NOT FASTINGPERFORMED BY: [employer] [facility] [id number] (25837) Platelets 214 {x10E3/uL} (Normal) Range: 150-379 RDW 13.0 % (Normal) Range: 12.3-15.4 MCHC 32.9 g/dL (Normal) Range: 31.5-35.7 MCH 31.3 pg (Normal) Range: 26.6-33.0 MCV 95 fL (Normal) Range: 79-97 Hematocrit 41.0 % (Normal) Range: 34.0-46.6 Hemoglobin 13.5 g/dL (Normal) Range: 11.1-15.9 RBC 4.32 {x10E6/uL} (Normal) Range: 3.77-5.28 WBC 6.8 {x10E3/uL} (Normal) Range: 3.4-10.8 50-Yzr-546825:02 TSH (28760) Comments: PATIENT NOT FASTINGPERFORMED BY: [place] [id number] [facility] [id number] TSH 1.190 {uIU/mL} (Normal) Range: 0.450-4.500 37-Zgl-408231:02 T4, FREE (THYROXINE) (74914) Comments: PATIENT NOT FASTINGPERFORMED BY: [address] [id number] T4,Free(Direct) 1.07 ng/dL (Normal) Range: 0.82-1.77 34-Aoa-471078:02 T3, FREE (TRIDOTHYRONINE) (47893) Comments: PATIENT NOT FASTINGPERFORMED BY: [facility]6370 [facility] [id number] Triiodothyronine,Free,Serum 2.9 pg/mL (Normal) Range: 2.0-4.4 46-Lzu-352334:02 Metabolic Panel, Comprehensive Comments: PATIENT NOT FASTINGPERFORMED BY: [place] 8396170 [facility] [id number] (56548) ALT (SGPT) 14 [iU]/L (Normal) Range: 0-32 [...] Glucose, Serum 84 mg/dL (Normal) Range: 65-99 19-Eix-440289:02 IRON (16766) Comments: PATIENT NOT FASTINGPERFORMED BY: Perfect AudienceBristol-Myers Squibb Children's HospitalSxdowv0339 [facility] [id number] Iron, Serum 46 ug/dL (Normal) Range: 27-159 47-Bxo-870435:02 DHEA-S (DEHYDROEPIANDROSTERONE Comments: PATIENT NOT FASTINGPERFORMED BY: Perfect AudienceBristol-Myers Squibb Children's HospitalLwmktq5808 [facility] [id number] SULFATE) (01792) DHEA-Sulfate 40.7 ug/dL (Abnormal) Range: 41.2-243.7 :57 Microscopic Examination Comments: PATIENT NOT FASTINGPERFORMED BY: Perfect AudienceBristol-Myers Squibb Children's HospitalIitlec3280 [facility] [id number] Bacteria Few (Normal) Mucus Threads Present (Normal) Epithelial Cells (non renal) 0-10 {/hpf} (Normal) Range: 0 - 10 RBC 0-2 {/hpf} (Normal) Range: 0 - 2 WBC 0-5 {/hpf} (Normal) Range: 0 - 5 :57 URINALYSIS (80715) Comments: PATIENT NOT FASTINGPERFORMED BY: [facility]CoB[facility] Children's HospitalHzuvjj4380 [address] [place] [id number] Microscopic Examination See below: (Normal) Comments: Microscopic was indicated and was performed. Nitrite, Urine Negative (Normal) Urobilinogen,Semi-Qn 0.2 mg/dL (Normal) Range: 0.2-1.0 Bilirubin Negative (Normal) Occult Blood Negative (Normal) Ketones Negative (Normal) Glucose Negative (Normal) Protein Negative (Normal) WBC Esterase 1+ (Abnormal) Appearance Clear (Normal) Urine-Color Yellow (Normal) pH 7.0 (Normal) Range: 5.0-7.5 Specific [place] 1.008 (Normal) Range: 1.005-1.030 03-Vfo-757171:50 Basic Metabolic Profile (BMP) Comments: [facility] [address] [place], [place],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
--- OUTSIDE RECORDS SUMMARY | 2018-07-05 09:37 | XMS RPT_ITS | Continuity of Care Document ---
:1965 Author Organization [facility] Address [address] [place] [address] Phone Care Team Providers Name Role Phone [...] 268.9) Status: Active Medications Name Dates Details [place] Saline Nasal Nasal Gel 1 (one) Gel Gel Apply BID for 0 days Quantity: 1 {Tube} Refills: 0 Ordered:23-Feb-2018 Lupe Abdi Start : 12-Nov-2017 Active CALCIUM 500/VITAMIN D, 393-401EB-DUFP (Oral Tablet) 2 (two) Tablet daily for [...] : 03-Dec-2015 End : 13-Dec-2015 Inactive CORTISPORIN, 3.5-37699-0 (Otic Solution) 4 Drop(s) tid for 10 [...] : 12-Nov-2017 End : 19-Nov-2017 Inactive Nystatin 869413 UNIT/ML Mouth/Throat Suspension 5 cc 5times a [...] Discontinued Comments:please substitute generic albulterol VITAMIN D3, 99852MRMU (Oral Capsule) 1 Capsule 2 x week [...] test (R73.09, 790.22) Comments: based on 2 [facility] -- will follow Status: Resolved [...] EMG Patient Result: Comments: See Note; NOTES: [facility] Pulmonary Services/Neurology [address] [place] [address] MR#: [id number] Acct: [id number] Name: KATHRYN AMARO Rep #: [id number] : 1965 52 From: Ever Allen MD Referring Dr: Bipin Ackerman DO Status: REG CLI Ordering Dr: Date: Location: [facility] Sex: F C NCS and/or EMG [...] Dictated: 01/26/18 1036 Date Transcribed: 01/26/18 1036 Airbrush Artist Technical: NF Signed 22-Oct-2017 12 Lead Electrocardiogram Result: Comments: See Note; NOTES: [facility] Cardiovascular Services [address] [place] [address] 12 Lead EKG 10/21/17 1508 MR#: [id number] Acct: [id number] Name: KATHRYN AMARO Rep #: [id number] : 1965 52 From: Carroll Emmanuel MD [...] Normal ECG Confirmed by CHOLO MORENO, CARROLL ([id number]), index editor HILARIA DAVIDSON ([id number]) on 10/22/2017 12:52:17 PM Referred By: Priscila Chance Confirmed By:CARROLL EMMANUEL MD 10/22/17 1252 Date Carroll Emmanuel MD CC: Priscila Chance; Samantha Barrera DO Signed 30-Jun-2017 Skull min 4 Views Result: Comments: See Note; NOTES: [facility] Imaging Services [address] [place] [address] Skull min 4 Views MR#: [id number] Acct: [id number] Name: KATHRYN AMARO Rep #: [id number] : 1965 F 52 From: Marcus Angel MD PCP: Samantha Barrera DO Status: REG CLI Study: Skull min 4 Views Date of Exam: 06/30/17 Exam# [id number] Ordering Dr: Samantha Barrera DO STUDY: X-RAY [...] Service support , CC: Samantha Barrera DO Airbrush Artist Technical: Signed 13-Oct-2016 SCREENING MAMM (CAD), BILAT Result: Comments: See Note; NOTES: [facility] Imaging Services [address] [place] [address] Verdana 4d SCREENING MAMM (CAD), BILAT MR#: [id number] Acct: [id number] Name: ALETHA AMARO Rep #: [id number] : 1965 F 51 From: Ron Roman MD PCP: Samantha Barrera DO Status: [facility] CLI Study: SCREENING MAMM (CAD), BILAT Date of Exam: 10/13/16 Exam# [id number] Ordering Dr: Karuna Mixon MD MAMMOGRAPHY - [...] delay biopsy of a clinically suspicious abnormality. [id number] Electronically Signed: Anjum Roman MD at 8:41 EDT , Service support , CC: Karuna Mixon MD; Samantha Barrera DO Airbrush Artist Technical: Signed 22-Jul-2016 Emergency Department Summary Result: Comments: See Note; NOTES: [facility] Medical Records Department [address] [place] [address] Emergency Department Summary MR#: [id number] Acct: [id number] Name: ALETHA AMARO Rep #: [id number] : 1965 51 From: Kyle Tinsley MD [...] Vik Retana C: Samantha Barrera DO T: [facility] JOB: [id number] 07/22/162113 &amp ;#60;Electronically signed by Kyle Tinsley MD> Date Kyle Tinsley MD Cosigner Signature (If Indicated): Date CC: Samantha Barrera DO Date Dictated: 07/22/162026 Date Transcribed: 07/22/162026 Airbrush Artist Technical: Signed 22-Jul-2016 Discharge Instruction Result: Comments: See Note; NOTES: [facility] Medical Records Department [address] [place] [address] [place] [address] Discharge Instruction 07/22/162024 MR#: [id number] Acct: [id number] Name: KATHRYN AMARO BETTYE Rep #: [id number] : 1965 51 From: Kyle Tinsley MD [...] Cont ONLY Result: Comments: See Note; NOTES: [facility] Imaging Services [address] [place] [address] Verdana 4d Abdomen/Pelvis W IV Cont ONLY MR#: [id number] Acct: [id number] Name: ROLLY AMARO Rep #: [id number] : 1965 F 51 From: Leo Shin DO PCP: Samantha Barrera DO Status: REG ER Study: Abdomen/Pelvis W IV Cont ONLY Date of Exam: 07/22/16 Exam# [id number] Ordering Dr: Kyle Tinsley MD STUDY: CT [...] at 20:11 EDT Tel , Service support [phone], CC: Samantha Barrera DO; Kyle Tinsley MD Airbrush Artist Technical: Signed 07-Mar-2016 Esophagus Only Result: Comments: See Note; NOTES: [facility] Imaging Services [address] [place] [address] Verdana 4d Esophagus Only MR#: [id number] Acct: [id number] Name: KATHRYN AMARO Rep #: [id number] : 1965 F 50 From: Amrit Mac MD PCP: Carolina Bowman Status: REG CLI Study: Esophagus Only Date of Exam: 03/07/16 Exam# [id number] Ordering Dr: Mike Varner MD STUDY: AIR-CONTRAST [...] at 12:42 EST Tel , Service support [phone], CC: Carolina Bowman; Mike Varner Airbrush Artist Technical: Signed 07-Aug-2015 Bilat Diag Digital AND CAD Result: Comments: See Note; NOTES: [facility] Imaging Services [address] [place] [address] Verdana 4d Bilat Diag Digital AND CAD MR#: [id number] Acct: [id number] Name: KATHRYN AMARO Rep #: [id number] : 1965 F 50 From: Luciano Dowell MD PCP: Carolina Bowman Status: REG CLI Study: Bilat Diag Digital AND CAD Date of Exam: 08/07/15 Exam# [id number] Itzel lara Dr: Carolina Bowman MAMMOGRAPHY - [...] Luciano Dowell MD at 9:36 EDT Tel [phone], Service support [phone], CC: Carolina Bowman Airbrush Artist Technical: Signed 06-Aug-2015 Chest PA and Lateral Result: Comments: See Note; NOTES: [facility] Imaging Services [address] [place] [address] Verdana 4d Chest PA and Lateral MR#: [id number] Acct: [id number] Name: KATHRYN JACOBSEN Rep #: [id number] : 1965 F 50 From: Luciano Dowell MD PCP: Carolina Bowman Status: REG CLI Study: Chest PA and Lateral Date of Exam: 08/06/15 Exam# [id number] Ordering Dr: Carolina Bowman STUDY: X-RAY CHEST [...] Dowell MD 08/05 at 11:03 EDT Tel [phone], Service support [phone], RAD/Chest PA and Lateral IMPRESSION: No acute abnormality is seen. Electronically Signed: Agustin Dowell MD at 11:03 EDT Tel [phone], Service support [phone], CC: Carolina Bowman Airbrush Artist Technical: Signed 06-Aug-2015 Ribs Unil 2V No CXR Result: Comments: See Note; NOTES: [facility] Imaging Services [address] [place] [address] Verdana 4d Ribs Unil 2V No CXR MR#: [id number] Acct: [id number] Name: KATHRYN AMARO Rep #: [id number] : 1965 F 50 From: Luciano Dowell MD PCP: Carolina Bowman Status: REG CLI Study: Ribs Unil 2V No CXR Date of Exam: 08/06/15 Exam# [id number] Ordering Dr: Jorje Bowman STUDY: X-RAY - UNILATERAL RIBS ( LEFT ) REASON FOR EXAM: Female, 50 years old. Upper chest pain. TECHNIQUE: 4 view(s) of the ribs. COMPARISON: None. FINDINGS: Normal visualized ribs without a demonstrated fracture. The visualized lung is clear and expanded. IMPRESSION: Normal x-ray examination of the ribs. Electronically Signed: Luciano Dowell MD at 11:02 EDT Tel [phone], Service support [phone], 0036 RAD/Ribs Unil 2V No CXR IMPRESSION: Norm al x-ray examination of the ribs. Electronically Signed: Luciano Dowell MD at 11:02 EDT Tel [phone], Service support [phone], CC: Carolina Bowman Airbrush Artist Technical: Signed 06-Jun-2015 Spirometry (52804) Comments: Fevi/fvc 72% Result: 18-Nov-2014 Shoulder min 2 Views Result: Comments: See Note; NOTES: [facility] Imaging Services [address] [place] [address] Radiology Report MR#: [id number] Acct: [id number] Name: KATHRYN AMARO Rep #: [id number] : 1965 F 49 From: Pete Curtis MD PCP: Samantha Barrera DO Status: REG CLI Study: Shoulder min 2 Views Date of Exam: 11/18/14 Exam# [id number] Ordering Dr: Samantha Barrera TUDY: X-RAY - [...] MD at 22:54 EDT , Service support [phone], R AD/Shoulder min 2 Views IMPRESSION: Mild 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 Electronically Signed: Pete Curtis MD at 22:54 EDT , Service support [phone], CC: Samantha Barrera DO Airbrush Artist Technical: Signed 10-Jul-2014 Hepatobilliary Imaging Result: Comments: See Note; NOTES: [facility] Imaging Services [address] [place] [address] Nuclear Medicine Report MR#: [id number] Acct: [id number] Name: KATHRYN AMARO Rep #: [id number] : 1965 F 49 From: Shreyas Groves DO PCP: Samantha Barrera DO Status: REG CLI Study: Hepatobilliary Imaging Date of Exam: 07/10/14 Exam# [id number] Ordering Dr: Carolina Bowman LINICAL: 49-year-old female [...] Shreyas Groves DO at 22:24 EDT Tel [phone], Service support [phone], CC: Carolina Bowman; Samantha Barrera DO Airbrush Artist Technical: Signed 30-Jun-2014 Pelvic (Non ) Result: Comments: See Note; NOTES: [facility] Imaging Services [address] [place] [address] Ultrasound Report MR#: [id number] Acct: [id number] Name: KATHRYN AMARO Rep #: : 1965 F 49 From: Pete Curtis MD PCP: Samantha Barrera DO Status: REG CLI Study: Pelvic (Non ) Date of Exam: 06/30/14 Exam# [id number] Ordering Dr: Carolina Bowman STUDY: U LTRASOUND [...] MD at 19:53 EDT , Service support [phone], CC: Carolina Bowman; Samantha Barrera DO Airbrush Artist Technical: Signed 30-Jun-2014 Abdomen Complete Result: Comments: See Note; NOTES: [facility] Imaging Services [address] [place] [address] Ultrasound Report MR#: [id number] Acct: [id number] Name: KATHRYN AMARO Rep #: : 1965 F 49 From: Noé Pascual MD PCP: Samantha Barrera DO Status: REG CLI Study: Abdomen Complete Date of Exam: 06/30/14 Exam# [id number] Ordering Dr: Carolina Bowman STUDY: ABDOM INAL [...] MD at 15:42 EDT , Service support [phone], CC: Carolina Bowman; Samantha Barrera DO Airbrush Artist Technical: Signed 21-Jun-2014 Toradol Injection, 30 mg (J1885) Comments: Lot:79-781-[id number]:02/11/2015Dose:1MlRoute:IMSite:R glutGiven By:RIC signed Result: Comments: Lot:Exp:Dose:1mlRoute:IMSite:R GlutGiven By:RIC signed 19-Apr-2014 Bilat Scrn Digital AND CAD Result: Comments: See Note; NOTES: [facility] Imaging Services [address] [place], [place] [address] Breast Imaging Report MR#: [id number] Acct: [id number] Name: KATHRYN AMARO Rep # : [id number] : 1965 F 49 From: Luciano Dowell MD PCP: Samantha Barrera DO Status: REG CLI Study: Bilat Scrn Digital AND CAD Date of Exam: 04/19/14 Exam# [id number] Ordering Dr: Gasper Barrera DO MAMMOGRAPHY - [...] Luciano Dowell MD at 8:19 EST Tel [phone], Service support [phone], Fax CC: Samantha Barrera DO Airbrush Artist Technical: Signed 20-Mar-2014 Abdomen/Pelvis WITH Contrast Result: Comments: See Note; NOTES: [facility] Imaging Services [address] [place] [address] CAT Scan Report MR#: [id number] Acct: [id number] Name: KATHRYN AMARO Rep #: [id number] : 1965 F 48 From: Brayan Wilson MD PCP: Samantha Barrera DO Status: REG CLI Study: Abdomen/Pelvis WITH Contrast Date of Exam: 03/20/14 Exam# [id number] Ordering Dr: Samantha Barrera DO STUDY: CT [...] MD at 21:48 EST , Service support [phone], CC: Samantha Barrera DO Airbrush Artist Technical: Signed 15-Sep-2013 NCS and/or EMG Patient Result: Comments: See Note; NOTES: [facility] Pulmonary Services/Neurology [facility] [place] [address] NCS and/or EMG Patient MR#: [id number] Acct: [id number] Name: LA AMARO RA Rep #: [id number] : 1965 48 From: Ever Allen MD Referring Dr: Carolina Bowman Status: REG CLI Ordering Dr: Carolina Bowman Date: 09/13/13 Location: PSN Sex: F C DATE OF SERVICE: [facility] 2013 REFERRING PHYSICIAN: Carolina Bowman. [...] Dictated: 09/13/13 1043 Date Transcribed: 09/13/13 1520 Airbrush Artist Technical: SHARP Signed 12-Apr-2013 Bilat Scrn Digital & CAD Result: Comments: See Note; NOTES: [facility] Imaging Services [address] [place] [address] Breast Imaging Report MR#: [id number] Acct: [id number] Name: KATHRYN AMARO Rep # : [id number] : 1965 F 48 From: Luciano Dowell MD PCP: Samantha Barrera DO Status: REG CLI Exam# [id number] Ordering Dr: Samantha Barrera DO MAMMOGRAPHY - [...] M.D. at 8:09 EST , Service support [phone], CC: Samantha Barrera DO Airbrush Artist Technical: Signed 12-Apr-2013 Dexa Bone Density Study (HP) Result: Comments: See Note; NOTES: [facility] Imaging Services [address] [place] [address] Bone Density Report MR#: [id number] Acct: [id number] Name: KATHRYN AMARO Rep #: [id number] : 1965 F 48 From: Luciano Dowell MD PCP: Samantha Barrera DO Status: [facility] Study: Dexa Bone Density Study (HP) Date of Exam: 04/12/13 Exam# [id number] Ordering Dr: Gasper Barrera DO STUDY: DUAL [...] M.D. 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 Comments: 06/23/11 Status: Active Smoking Status Name Dates Details Never smoker Vital Signs Date Test Result Details 65-Owb-975154:51 Comments: ortho scatic bp: sitting 105/66 P [...] cm Results Date Description Value Details :06 [id number]-GWXNZDAKDYN-DKIZZ (59575) Comments: PATIENT NOT FASTINGPERFORMED BY: [employer]70 JacobsValen AnalyticsCare[facility] [id number] AFP, Serum, Tumor Marker 6.2 ng/mL (Normal) Range: 0.0-8.3 Comments: Kyler ECLIA methodology :06 HEPATIC FUNCTION PANEL Comments: PATIENT NOT FASTINGPERFORMED BY: [employer] [facility] [id number] ([id number]) ALT (SGPT) 30 [iU]/L (Normal) Range: 0-32 AST (SGOT) 18 [iU]/L (Normal) Range: 0-40 Alkaline Phosphatase 56 [iU]/L (Normal) Range: 39-117 Bilirubin, Direct 0.10 mg/dL (Normal) Range: 0.00-0.40 Bilirubin, Total 0.2 mg/dL (Normal) Range: 0.0-1.2 Albumin 4.8 g/dL (Normal) Range: 3.5-5.5 Protein, Total 6.7 g/dL (Normal) Range: 6.0-8.5 :56 HEPATIC FUNCTION PANEL Comments: PATIENT NOT FASTINGPERFORMED BY: LabCoRobert [facility] Hospital at RahwayNirigr2738 [facility] [id number] ([id number]) ALT (SGPT) 110 [iU]/L (Abnormal) Range: 0-32 AST (SGOT) 48 [iU]/L (Abnormal) Range: 0-40 Alkaline Phosphatase 52 [iU]/L (Normal) Range: 39-117 Bilirubin, Direct 0.16 mg/dL (Normal) Range: 0.00-0.40 Bilirubin, Total 0.5 mg/dL (Normal) Range: 0.0-1.2 Albumin 4.5 g/dL (Normal) Range: 3.5-5.5 Protein, Total 6.5 g/dL (Normal) Range: 6.0-8.5 :56 CBC & PLATELETS (AUTO) Comments: PATIENT NOT FASTINGPERFORMED BY: LabCoRobert [facility] Johnson [facility] Hospital at RahwayPcwxho0215 [facility] [id number] ([id number]) Platelets 312 {x10E3/uL} (Normal) Range: 150-379 RDW 12.7 % (Normal) Range: 12.3-15.4 MCHC 34.6 g/dL (Normal) Range: 31.5-35.7 MCH 30.7 pg (Normal) Range: 26.6-33.0 MCV 89 fL (Normal) Range: 79-97 Hematocrit 38.4 % (Normal) Range: 34.0-46.6 Hemoglobin 13.3 g/dL (Normal) Range: 11.1-15.9 RBC 4.33 {x10E6/uL} (Normal) Range: 3.77-5.28 WBC 6.0 {x10E3/uL} (Normal) Range: 3.4-10.8 :56 PARATHORMONE (48244) Comments: PATIENT NOT FASTINGPERFORMED BY: [facility] Cnrkrz1329 Jacobs RoadDublin [place] [id number] PTH, Intact 30 pg/mL (Normal) Range: 15-65 :56 CALCIFEDIOL (97453) Comments: PATIENT NOT FASTINGPERFORMED BY: [facility] Nmbhqg5258 Jacobs RoadDublin [place] [id number] Vitamin D, 25-Hydroxy 79.3 ng/mL (Normal) Range: 30.0-100.0 Comments: Vitamin D deficiency has been defined by the [place] of[place]icine and an Endocrine Society practice guideline as alevel of serum 25-OH vitamin D less than 20 ng/mL (1,2).The Endocrine Society went on to further define vitamin Dinsufficiency as a level between 21 and 29 ng/mL (2).1. IOM ([place] of Medicine). 2010. Dietary reference intakes for calcium and D. [place]: The National Academies Press.2. Henna MF, Jerman [place], Piedad SHARP, et al. Evaluation, treatment, and prevention of vitamin D deficiency: an Endocrine Society clinical practice guideline. JCEM. 2010; 96(7):1911-30. :56 MAGNESIUM (39127) Comments: PATIENT NOT FASTINGPERFORMED BY: [facility] Dyftyw2057 Jacobs RoadDublin [place] [id number] Magnesium 2.1 mg/dL (Normal) Range: 1.6-2.3 :51 Metabolic Panel, Comprehensive Comments: PATIENT NOT FASTINGPERFORMED BY: [facility] Dijmyv8369 Jacobs RoadDublin [place] [id number] (29493) ALT (SGPT) 67 [iU]/L (Abnormal) Range: 0-32 [...] 6-24 Glucose 116 mg/dL (Abnormal) Range: 65-99 42-Nlw-873330:51 CBC & PLATELETS (AUTO) Comments: PATIENT NOT FASTINGPERFORMED BY: [facility] Xqjzko0092 [facility] [id number] (60747) Platelets 101 {x10E3/uL} Range: 150-379 (Abnormal) RDW 12.8 % (Normal) Range: 12.3-15.4 MCHC 35.2 g/dL (Normal) Range: 31.5-35.7 MCH 30.9 pg (Normal) Range: 26.6-33.0 MCV 88 fL (Normal) Range: 79-97 Hematocrit 37.8 % (Normal) Range: 34.0-46.6 Hemoglobin 13.3 g/dL (Normal) Range: 11.1-15.9 RBC 4.30 {x10E6/uL} Range: 3.77-5.28 (Normal) WBC 10.6 {x10E3/uL} Range: 3.4-10.8 (Normal) 76-Xnb-93290:1 Cortisol - AM 13.3 ug/dL (Normal) Comments: PATIENT NOT FASTINGPERFORMED BY: CB [facility] Jrnuwa6084 [address] [facility]in [place] [id number] BY: [address] [id number] 0 Range: 6.2-19.4 42-Box-06554:10 CALCIFEDIOL (10227) Comments: PATIENT NOT FASTINGPERFORMED BY: CB [facility] Mobicz2685 [address] [facility] [id number] BY: [address] [id number] Vitamin D, 25-Hydroxy 86.0 ng/mL (Normal) Range: 30.0-100.0 Comments: Vitamin D deficiency has been defined by the [place] of[place]icine and an Endocrine Society practice guideline as alevel of serum 25-OH vitamin D less than 20 ng/mL (1,2).The Endocrine Society went on to further define vitamin Dinsufficiency as a level between 21 and 29 ng/mL (2).1. IOM ([place] of Medicine). 2010. Dietary reference intakes for calcium and D. [place]: The National Academies Press.2. Henna MF, Jerman [place], Piedad SHARP, et al. Evaluation, treatment, and prevention of vitamin D deficiency: an Endocrine Society clinical practice guideline. JCEM. 2010; 96(7):1911-30. :10 TESTOSTERONE TOTAL (02968) Comments: PATIENT NOT FASTINGPERFORMED BY: CB [facility] Czlnts8913 [facility] [id number] BY: Lab[address] [id number] Information: AM CORTISOL Testosterone, Serum <3 ng/dL (Abnormal) Range: 3-41 :10 ESTRONE (71621) Comments: PATIENT NOT FASTINGPERFORMED BY: CB [facility] Kxhlof5255 [address] [facility] [id number] BY: [address] [id number] Estrone, Serum 36 pg/mL (Normal) Comments: . [...] - 114 Post Menopausal 14 - 103 12-Jsm-72782:10 PROGESTERONE (69506) Comments: PATIENT NOT FASTINGPERFORMED BY: [employer] [facility] [id number] BY: [address] [id number] Progesterone 0.2 ng/mL (Normal) Comments: Follicular phase 0.1 - 0.9 Luteal phase 1.8 - 23.9 Ovulation phase 0.1 - 12.0 First trimester 11.0 - 44.3 Second trimester 25.4 - 83.3 Third t rimester 58.7 - 214.0 Postmenopausal 0.0 - 0.1 53-Qpu-44820:10 ESTRADIOL (88079) Comments: PATIENT NOT FASTINGPERFORMED BY: [employer]alk[employer] Shyp Jcaobs Br[facility] Methodist HospitalGenio Studio LtdCarePartners Rehabilitation Hospital [id number] BY: [employer] [id number] Estradiol <5.0 pg/mL (Normal) Comments: Adult Female: Follicular phase 12.5 - 166.0 Ovulation phase 85.8 - 498.0 Luteal phase 43.8 - 211.0 Postmenopausal <6.0 - 54.7 1st trimester 215.0 - & gt;4300.0 Girls (1-10 years) 6.0 - 27.0Roche ECLIA methodology 04-Pvm-652706:02 CBC & PLATELETS (AUTO) Comments: PATIENT NOT FASTINGPERFORMED BY: [employer] [facility] [id number] (73137) Platelets 214 {x10E3/uL} (Normal) Range: 150-379 RDW 13.0 % (Normal) Range: 12.3-15.4 MCHC 32.9 g/dL (Normal) Range: 31.5-35.7 MCH 31.3 pg (Normal) Range: 26.6-33.0 MCV 95 fL (Normal) Range: 79-97 Hematocrit 41.0 % (Normal) Range: 34.0-46.6 Hemoglobin 13.5 g/dL (Normal) Range: 11.1-15.9 RBC 4.32 {x10E6/uL} (Normal) Range: 3.77-5.28 WBC 6.8 {x10E3/uL} (Normal) Range: 3.4-10.8 42-Sqw-947439:02 TSH (81286) Comments: PATIENT NOT FASTINGPERFORMED BY: [place] 3259070 [facility] [id number] TSH 1.190 {uIU/mL} (Normal) Range: 0.450-4.500 51-Ykc-396658:02 T4, FREE (THYROXINE) (78538) Comments: PATIENT NOT FASTINGPERFORMED BY: [address] [id number] T4,Free(Direct) 1.07 ng/dL (Normal) Range: 0.82-1.77 82-Ysa-185582:02 T3, FREE (TRIDOTHYRONINE) (47923) Comments: PATIENT NOT FASTINGPERFORMED BY: [facility]6370 [facility] [id number] Triiodothyronine,Free,Serum 2.9 pg/mL (Normal) Range: 2.0-4.4 09-Niu-272480:02 Metabolic Panel, Comprehensive Comments: PATIENT NOT FASTINGPERFORMED BY: [place] 3259070 [facility] [id number] (25128) ALT (SGPT) 14 [iU]/L (Normal) Range: 0-32 [...] Glucose, Serum 84 mg/dL (Normal) Range: 65-99 39-Hcw-675020:02 IRON (31516) Comments: PATIENT NOT FASTINGPERFORMED BY: TheLaddersRobert Wood Johnson [facility] Hospital at RahwayEmxbqi8391 [facility] [id number] Iron, Serum 46 ug/dL (Normal) Range: 27-159 63-Ywc-234368:02 DHEA-S (DEHYDROEPIANDROSTERONE Comments: PATIENT NOT FASTINGPERFORMED BY: TheLaddersRobert Wood Johnson [facility] Hospital at RahwayXdbhan8173 [facility] [id number] SULFATE) (63457) DHEA-Sulfate 40.7 ug/dL (Abnormal) Range: 41.2-243.7 :57 Microscopic Examination Comments: PATIENT NOT FASTINGPERFORMED BY: TheLaddersRobert Wood Johnson [facility] Hospital at RahwayUudxgu4220 [facility] [id number] Bacteria Few (Normal) Mucus Threads Present (Normal) Epithelial Cells (non renal) 0-10 {/hpf} (Normal) Range: 0 - 10 RBC 0-2 {/hpf} (Normal) Range: 0 - 2 WBC 0-5 {/hpf} (Normal) Range: 0 - 5 :57 URINALYSIS (07875) Comments: PATIENT NOT FASTINGPERFORMED BY: LabCoRobert Wood Johnson University Hospital at RahwayIvbirj5698 [address] [place] [id number] Microscopic Examination See below: (Normal) Comments: Microscopic was indicated and was performed. Nitrite, Urine Negative (Normal) Urobilinogen,Semi-Qn 0.2 mg/dL (Normal) Range: 0.2-1.0 Bilirubin Negative (Normal) Occult Blood Negative (Normal) Ketones Negative (Normal) Glucose Negative (Normal) Protein Negative (Normal) WBC Esterase 1+ (Abnormal) Appearance Clear (Normal) Urine-Color Yellow (Normal) pH 7.0 (Normal) Range: 5.0-7.5 Specific [place] 1.008 (Normal) Range: 1.005-1.030 38-Gsw-172921:50 Basic Metabolic Profile (BMP) Comments: [facility] Sjivsxnbpl[address] [facility] [place], [place], [id number] GAP 4 (Abnormal) Range: 5-15 CO2 27.0 [...] Range: 70-110 :50 CBC W/Diff, Automated Comments: [facility] [address] [place], [place], [id number] Absolute Lymph 1.18 {X10_3/ul} (Normal) Range: 0.83-4.51 [...] 4.2-5.4 WBC 10.3 K/mm3 (Normal) Range: 4.4-11.0 66-Avs-137102:00 Urinalysis, Complete Comments: Order Date: 07/22/16Order Date: 07/22/16How was Urine Obtained? DOLL WIG HACKLER TO [facility] Kgxld[address]pb[address] [place], [place], [id number] MUCUS, URINE 0 SEEN {/hpf} (Normal) BACTERIA [...] BELOW (Normal) Comments: Visual Urine Color: PINK 42-Fhy-591149:44 Culture, Wound Comments: [facility] Hmjtfxanxq[address] [place], [address] CUW See Note (Normal) Comments: Order Date: [...] pneumoniae, beta-hemolytic Streptococcus or Staphylococcus aureus isolated. 53-Zml-250536:49 HgA1C , Office (44499) HgA1C , Office 5.3 % (Normal) Range: 4.6 - 7.1 59-Bpo-819041:03 Metabolic Panel, Basic Comments: PATIENT NOT FASTINGPERFORMED BY: [facility] Tzvkeo2863 [facility] [id number] Information: [id number] (65903) Calcium, Serum 9.4 mg/dL (Normal) Range: 8.7-10.2 [...] 103 mg/dL (Abnormal) Range: 65-99 :03 CALCIFEDIOL (31439) Comments: PATIENT NOT FASTINGPERFORMED BY: [facility] Apulnr8650 [facility] [id number] Vitamin D, 25-Hydroxy 38.0 ng/mL (Normal) Range: 30.0-100.0 Comments: Vitamin D deficiency has been defined by the [place] of[place]icine and an Endocrine Society practice guideline as alevel of serum 25-OH vitamin D less than 20 ng/mL (1,2).The Endocrine Society went on to further define vitamin Dinsufficiency as a level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
--- OUTSIDE RECORDS SUMMARY | 2018-07-05 09:37 | XMS RPT_ITS | Continuity of Care Document ---
:1965 Author Organization [facility] Address [address] [facility] [address] [place] [address] Phone Care Team Providers Name Role Phone [...] 268.9) Status: Active Medications Name Dates Details [place] Saline Nasal Nasal Gel 1 (one) Gel Gel Apply BID for 0 days Quantity: 1 {Tube} Refills: 0 Ordered:23-Feb-2018 Lupe Abdi Start : 12-Nov-2017 Active CALCIUM 500/VITAMIN D, 529-793PZ-ZDOX (Oral Tablet) 2 (two) Tablet daily for [...] Quantity: 10 {Ointment} Refills: 0 Ordered:18-Dec-2011 Holly Francisco Javier DO, Kathleen Start : 18-Dec-2011 End : [...] : 03-Dec-2015 End : 13-Dec-2015 Inactive CORTISPORIN, 3.5-30056-3 (Otic Solution) 4 Drop(s) tid for 10 days Quantity: 1 {Solution} Refills: 0 Ordered:19-Nov-2011 Carolina Bowman CNP Start : 19-Nov-2011 End : 29-Nov-2011 Inactive Dulera 200-5 MCG/ACT Inhalation Aerosol 2 (two) Puff BID for 30 days Quantity: 1 {Inhalation} Refills: 0 Ordered:21-Dec-2017 Holly LINDSAYFrancisco Javier DO, Kathleen Start : 21-Dec-2017 End : 20-Jan-2018 Inactive ESTRADIOL, 0.5MG (Oral Tablet) 1 (one) Tablet daily for 360 days Quantity: 360 {Tablet} Refills: 0 Ordered:06-Aug-2015 Colby DIGNACarolina Start : 06-Aug-2015 End : 31-Jul-2016 Inactive [...] : 12-Nov-2017 End : 19-Nov-2017 Inactive Nystatin 526454 UNIT/ML Mouth/Throat Suspension 5 cc 5times a [...] days Quantity: 21 {Tablet} Refills: 0 Ordered:24-Nov-2016 Janisdamonbenita SAWYERCarolina Start : 24-Nov-2016 End : 01-Dec-2016 [...] days Quantity: 360 {Tablet} Refills: 0 Ordered:06-Aug-2015 Janiscecil DIGNACarolina Start : 06-Aug-2015 End : 31-Jul-2016 Inactive [...] 30 {Capsule} Refills: 1 Ordered:07-Aug-2015 Colby SAWYER Carolina Padilla Start : 07-Aug-2015 Discontinued Comments:1h before a [...] Discontinued Comments:please substitute generic albulterol VITAMIN D3, 46579MTYF (Oral Capsule) 1 Capsule 2 x week [...] test (R73.02, 790.22) Comments: based on 2 [facility] -- will follow Status: Resolved as of [...] EMG Patient Result: Comments: See Note; NOTES: [facility] Pulmonary Services/Neurology [address] [place] [address] MR#: [id number] Acct: [id number] Name: KATHRYN AMARO Rep #: [id number] : 1965 52 From: Ever Allen MD Referring Dr: Bipin Ackerman DO Status: REG CLI Ordering Dr: Date: Location: [facility] Sex: F C NCS and/or EMG [...] Dictated: 01/26/18 1036 Date Transcribed: 01/26/18 103 Marine Painter: MAUREEN Signed 22-Oct-2017 12 Lead Electrocardiogram Result: Comments: See Note; NOTES: [facility] Cardiovascular Services [address] [place] [address] 12 Lead EKG 10/21/17 1508 MR#: [id number] Acct: [id number] Name: KATHRYN AMARO Rep #: [id number] : 1965 52 From: Carroll Emmanuel MD Attending Dr: Priscila Chance Status: REG CLI Ordering Dr: Prisicla Chance Date: 10/21/17 Location: [facility] Sex: F [...] Normal ECG Confirmed by CHOLO MORENO, CARROLL ([id number]), editor in chief HILARIA DAVIDSON ([id number]) on 10/22/2017 12:52:17 PM Referred By: Priscila Chance Confirmed By:CARROLL EMMANUEL MD 10/22/17 1252 Date Carroll Emmanuel MD CC: Priscila Chance; Samantha Barrera DO Signed 30-Jun-2017 Skull min 4 Views Result: Comments: See Note; NOTES: [facility] Imaging Services [address] [place] [address] Skull min 4 Views MR#: [id number] Acct: [id number] Name: KATHRYN AMARO Rep #: [id number] : 1965 F 52 From: Marcus Angel MD PCP: Samantha Barrera DO Status: REG CLI Study: Skull min 4 Views Date of Exam: 06/30/17 Exam# [id number] Ordering Dr: Samantha Barrera DO STUDY: X-RAY [...] Service support , CC: Samantha Barrera DO Marine Painter: Signed 13-Oct-2016 SCREENING MAMM (CAD), BILAT Result: Comments: See Note; NOTES: [facility] Imaging Services [address] [place] [address] Verdana 4d SCREENING MAMM (CAD), BILAT MR#: [id number] Acct: [id number] Name: ALETHA AMARO Rep #: [id number] : 1965 F 51 From: Ron Roman MD PCP: Samantha Barrera DO Status: REG CLI Study: SCREENING MAMM (CAD), BILAT Date of Exam: 10/13/16 Exam# [id number] Ordering Dr: Karuna Mixon MD MAMMOGRAPHY - [...] delay biopsy of a clinically suspicious abnormality. [id number] Electronically Signed: Anjum Roman MD at 8:41 EDT , Service support , CC: Karuna Mixon MD; Samantha Barrera DO Marine Painter: Signed 22-Jul-2016 Emergency Department Summary Result: Comments: See Note; NOTES: [facility] Medical Records Department [address] [place] [address] Emergency Department Summary MR#: [id number] Acct: [id number] Name: ALETHA AMARO Rep #: [id number] : 1965 51 From: Kyle Tinsley MD [...] C: Samantha Barrera DO T: NTS JOB: [id number] 07/22/162113 &amp ;#60;Electronically signed by Kyle Tinsley MD> Date Kyle Tinsley MD Cosigner Signature (If Indicated): Date CC: Samantha Barrera DO Date Dictated: 07/22/162026 Date Transcribed: 07/22/162026 Marine Painter: Signed 22-Jul-2016 Discharge Instruction Result: Comments: See Note; NOTES: [facility] Medical Records Department [address] [place] [address] Discharge Instruction 07/22/162024 MR#: [id number] Acct: [id number] Name: KATHRYN AMARO Rep #: [id number] : 1965 51 From: Kyle Tinsley MD [...] your Primary Care Provider. Call [facility] ( [phone]) or report to the closest Emergency Room. Call 911 if necessary. 07/22/162027 <Electronically signed by Kyle Tinsley MD> Date Kyle Tinsley MD Cosigner Signature (If Indicated): Date CC: Samantha Barrera DO 22-Jul-2016 Abdomen/Pelvis W IV Cont ONLY Result: Comments: See Note; NOTES: [facility] Imaging Services [address] [place] [address] Verdana 4d Abdomen/Pelvis W IV Cont ONLY MR#: [id number] Acct: [id number] Name: ROLLY AMARO Rep #: [id number] : 1965 F 51 From: Leo Shin DO PCP: Samantha Barrera DO Status: REG ER Study: Abdomen/Pelvis W IV Cont ONLY Date of Exam: 07/22/16 Exam# [id number] Ordering Dr: Kyle Tinsley MD STUDY: CT [...] at 20:11 EDT Tel , Service support [phone], CC: Samantha Barrera DO; Kyle Tinsley MD Marine Painter: Signed 07-Mar-2016 Esophagus Only Result: Comments: See Note; NOTES: [facility] Imaging Services [address] [place] [address] Verdana 4d Esophagus Only MR#: [id number] Acct: [id number] Name: KATHRYN AMARO Rep #: [id number] : 1965 F 50 From: Amrit Mac MD PCP: Carolina Bowman Status: REG CLI Study: Esophagus Only Date of Exam: 03/07/16 Exam# [id number] Ordering Dr: Mike Varner MD STUDY: AIR-CONTRAST [...] at 12:42 EST Tel , Service support [phone], CC: Carolina Bowman; Mike Varner Marine Painter: Signed 07-Aug-2015 Bilat Diag Digital AND CAD Result: Comments: See Note; NOTES: [facility] Imaging Services [address] [place] [address] Verdana 4d Bilat Diag Digital AND CAD MR#: [id number] Acct: [id number] Name: KATHRYN AMARO Rep #: [id number] : 1965 F 50 From: Luciano Dowell MD PCP: Carolina Bowman Status: REG CLI Study: Bilat Diag Digital AND CAD Date of Exam: 08/07/15 Exam# [id number] Itzel lara Dr: Carolina Bowman MAMMOGRAPHY - [...] Luciano Dowell MD at 9:36 EDT Tel [phone], Service support [phone], CC: Carolina Bowman Marine Painter: Signed 06-Aug-2015 Chest PA and Lateral Result: Comments: See Note; NOTES: [facility] Imaging Services [address] [place] [address] Verdana 4d Chest PA and Lateral MR#: [id number] Acct: [id number] Name: KATHRYN JACOBSEN Rep #: [id number] : 1965 F 50 From: Luciano Dowell MD PCP: Carolina Bowman Status: REG CLI Study: Chest PA and Lateral Date of Exam: 08/06/15 Exam# [id number] Ordering Dr: Carolina Bowman STUDY: X-RAY CHEST [...] Dowell MD 08/05 at 11:03 EDT Tel [phone], Service support [phone], RAD/Chest PA and Lateral IMPRESSION: No acute abnormality is seen. Electronically Signed: Agustin Dowell MD at 11:03 EDT Tel [phone], Service support [phone], CC: Carolina Bowman Marine Painter: Signed 06-Aug-2015 Ribs Unil 2V No CXR Result: Comments: See Note; NOTES: [facility] Imaging Services [address] [place] [address] Verdana 4d Ribs Unil 2V No CXR MR#: [id number] Acct: [id number] Name: KATHRYN AMARO Rep #: [id number] : 1965 F 50 From: Luciano Dowell MD PCP: Carolina Bowman Status: REG CLI Study: Ribs Unil 2V No CXR Date of Exam: 08/06/15 Exam# [id number] Ordering Dr: Jorje Bowman STUDY: X-RAY - UNILATERAL RIBS ( LEFT ) REASON FOR EXAM: Female, 50 years old. Upper chest pain. TECHNIQUE: 4 view(s) of the ribs. COMPARISON: None. FINDINGS: Normal visualized ribs without a demonstrated fracture. The visualized lung is clear and expanded. IMPRESSION: Normal x-ray examination of the ribs. Electronically Signed: Luciano Dowell MD at 11:02 EDT Tel [phone], Service support [phone], 0036 RAD/Ribs Unil 2V No CXR IMPRESSION: Norm al x-ray examination of the ribs. Electronically Signed: Luciano Dowell MD at 11:02 EDT Tel [phone], Service support [phone], CC: Carolina Bestbenita Marine Painter: Signed 06-Jun-2015 Spirometry (74806) Comments: Fevi/fvc 72% Result: 18-Nov-2014 Shoulder min 2 Views Result: Comments: See Note; NOTES: [facility] Imaging Services [address] [place] [address] Radiology Report MR#: [id number] Acct: [id number] Name: KATHRYN AMARO Rep #: [id number] : 1965 F 49 From: Pete Curtis MD PCP: Samantha Barrera DO Status: REG CLI Study: Shoulder min 2 Views Date of Exam: 11/18/14 Exam# [id number] Ordering Dr: Samantha Barrera TUDY: X-RAY - RIGHT SHOULDER REASON FOR EXAM: Female, 49 years old. 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 Electronically Signed: Pete Curtis MD at 22:54 EDT , Service support , CC: Samantha Barrera DO Marine Painter: Signed 10-Jul-2014 Hepatobilliary Imaging Result: Comments: See Note; NOTES: [facility] Imaging Services [address] [place] [address] Nuclear Medicine Report MR#: [id number] Acct: [id number] Name: KATHRYN AMARO Rep #: [id number] : 1965 F 49 From: Shreyas Groves DO PCP: Samantha Barrera DO Status: REG CLI Study: Hepatobilliary Imaging Date of Exam: 07/10/14 Exam# [id number] Ordering Dr: Carolina Bowman LINICAL: 49-year-old female [...] Shreyas Groves DO at 22:24 EDT Tel [phone], Service support [phone], CC: Carolina Bowman; Samantha Barrera DO Marine Painter: Signed 30-Jun-2014 Pelvic (Non ) Result: Comments: See Note; NOTES: [facility] Imaging Services [address] [place] [address] Ultrasound Report MR#: [id number] Acct: [id number] Name: KATHRYN AMARO Rep #: : 1965 F 49 From: Pete Curtis MD PCP: Samantha Barrera DO Status: REG CLI Study: Pelvic (Non ) Date of Exam: 06/30/14 Exam# [id number] Ordering Dr: Carolina Bowman STUDY: U LTRASOUND [...] MD at 19:53 EDT , Service support [phone], CC: Carolina Bowman; Samantha Barrera DO Marine Painter: Signed 30-Jun-2014 Abdomen Complete Result: Comments: See Note; NOTES: [facility] Imaging Services [address] [place] [address] Ultrasound Report MR#: [id number] Acct: [id number] Name: KATHRYN AMARO Rep #: : 1965 F 49 From: Noé Pascual MD PCP: Samantha Barrera DO Status: REG CLI Study: Abdomen Complete Date of Exam: 06/30/14 Exam# [id number] Ordering Dr: Carolina Bowman STUDY: ABDOM INAL [...] MD at 15:42 EDT , Service support [phone], CC: Carolina Bowman; Samantha Barrera DO Marine Painter: Signed 21-Jun-2014 Toradol Injection, 30 mg (J1885) Comments: Lot:31-028-YGHza:02/11/2015Dose:1MlRoute:IMSite:R glutGiven By:RIC signed Result: Comments: Lot:Exp:Dose:1mlRoute:IMSite:R GlutGiven By:RIC signed 19-Apr-2014 Bilat Scrn Digital AND CAD Result: Comments: See Note; NOTES: [facility] Imaging Services [address] [place] [address] Breast Imaging Report MR#: [id number] Acct: [id number] Name: KATHRYN AMARO Rep # : [id number] : 1965 F 49 From: Luciano Dowell MD PCP: Samantha Barrera DO Status: REG CLI Study: Bilat Scrn Digital AND CAD Date of Exam: 04/19/14 Exam# [id number] Ordering Dr: Gasper Barrera DO MAMMOGRAPHY - [...] Luciano Dowell MD at 8:19 EST Tel [phone], Service support [phone], Fax CC: Samantha Barrera DO Marine Painter: Signed 20-Mar-2014 Abdomen/Pelvis WITH Contrast Result: Comments: See Note; NOTES: [facility] Imaging Services [address] [place] [address] CAT Scan Report MR#: [id number] Acct: [id number] Name: KATHRYN AMARO Rep #: [id number] : 1965 F 48 From: Brayan Wilson MD PCP: Samantha Barrera DO Status: REG CLI Study: Abdomen/Pelvis WITH Contrast Date of Exam: 03/20/14 Exam# [id number] Ordering Dr: Samantha Barrera DO STUDY: CT [...] MD at 21:48 EST , Service support [phone], CC: Samantha Barrera DO Marine Painter: Signed 15-Sep-2013 NCS and/or EMG Patient Result: Comments: See Note; NOTES: [facility] Pulmonary Services/Neurology [address] [place] [address] NCS and/or EMG Patient MR#: [id number] Acct: [id number] Name: PREMTOVARMadalyn BLAKEE Rep #: [id number] : 1965 48 From: Ever Allen MD Referring Dr: Carolina Bowman Status: REG CLI Ordering Dr: Carolina Bowman Date: 09/13/13 Location: PSN Sex: F C DATE OF SERVICE: 2013 REFERRING PHYSICIAN: Carolina Bowman. INTRODUCTION: This [...] Dictated: 09/13/13 1043 Date Transcribed: 09/13/13 1520 Marine Painter: SHARP Signed 12-Apr-2013 Bilat Scrn Digital & CAD Result: Comments: See Note; NOTES: [facility] Imaging Services [address] [place] [address] Breast Imaging Report MR#: [id number] Acct: [id number] Name: KATHRYN AMARO Rep # : [id number] : 1965 F 48 From: Luciano Dowell MD PCP: Samantha Barrera DO Status: REG CLI Exam# [id number] Ordering Dr: Samantha Barrera DO MAMMOGRAPHY - [...] M.D. at 8:09 EST , Service support [phone], CC: Samantha Barrera DO Marine Painter: Signed 12-Apr-2013 Dexa Bone Density Study (HP) Result: Comments: See Note; NOTES: [facility] Imaging Services [address] [place] [address] Bone Density Report MR#: [id number] Acct: [id number] Name: KATHRYN AMARO Rep #: [id number] : 1965 F 48 From: Luciano Dowell MD PCP: Samantha Barrera DO Status: [facility] Study: Dexa Bone Density Study (HP) Date of Exam: 04/12/13 Exam# [id number] Ordering Dr: Gasper Barrera DO STUDY: DUAL [...] M.D. at 15:36 EST , Service support [phone], CC: Samantha Barrera DO Marine Painter: Signed Family History Unknown Family Member Name Dates Details Father Comments: Prostate CA, High cholesterol Status: Active First Degree Relatives Comments: Grandparents had diabetes Status: Active Mother Comments: HBP Status: Active Social History Name Dates Details Alcohol Use Comments: Occasional alcohol use Status: Active Caffeine Use Status: Active Living Situation Comments: , homosexual Status: Active Most Recent Primary Occupation Comments: [employer] Status: Active No Drug Use Status: Active Non Smoker/No Tobacco Use Status: Active Tobacco use: Never smoker. Comments: 06/23/11 Status: Active Smoking Status Name Dates Details Never smoker Vital Signs Date Test Result Details 82-Zec-327796:51 Comments: ortho scatic bp: sitting 105/66 P [...] kg/m2 Body Surface Area Calculated 1.61 m2 03-Hzb-556268:14 Pulse 88 /min Comments: Pattern: Regular Respiration [...] 0.00 cm Results Date Description Value Details :56 HEPATIC FUNCTION PANEL Comments: PATIENT NOT FASTINGPERFORMED BY: [facility] Ytktoz2568 [facility] [id number] ([id number]) ALT (SGPT) 110 [iU]/L (Abnormal) Range: 0-32 AST (SGOT) 48 [iU]/L (Abnormal) Range: 0-40 Alkaline Phosphatase 52 [iU]/L (Normal) Range: 39-117 Bilirubin, Direct 0.16 mg/dL (Normal) Range: 0.00-0.40 Bilirubin, Total 0.5 mg/dL (Normal) Range: 0.0-1.2 Albumin 4.5 g/dL (Normal) Range: 3.5-5.5 Protein, Total 6.5 g/dL (Normal) Range: 6.0-8.5 :56 CBC & PLATELETS (AUTO) Comments: PATIENT NOT FASTINGPERFORMED BY: [employer] Exdgnd5629 [facility] [place] [id number] (45468) Platelets 312 {x10E3/uL} (Normal) Range: 150-379 RDW 12.7 % (Normal) Range: 12.3-15.4 MCHC 34.6 g/dL (Normal) Range: 31.5-35.7 MCH 30.7 pg (Normal) Range: 26.6-33.0 MCV 89 fL (Normal) Range: 79-97 Hematocrit 38.4 % (Normal) Range: 34.0-46.6 Hemoglobin 13.3 g/dL (Normal) Range: 11.1-15.9 RBC 4.33 {x10E6/uL} (Normal) Range: 3.77-5.28 WBC 6.0 {x10E3/uL} (Normal) Range: 3.4-10.8 :56 PARATHORMONE (08195) Comments: PATIENT NOT FASTINGPERFORMED BY: [employer] Ravcam4574 [facility] [place] [id number] PTH, Intact 30 pg/mL (Normal) Range: 15-65 40-Ujk-723387:56 CALCIFEDIOL (22378) Comments: PATIENT NOT FASTINGPERFORMED BY: [facility] Trszuh9028 [facility] [place] [id number] Vitamin D, 25-Hydroxy 79.3 ng/mL (Normal) Range: 30.0-100.0 Comments: Vitamin D deficiency has been defined by the [place] ofMedicine and an Endocrine Society practice guideline as alevel of serum 25-OH vitamin D less than 20 ng/mL (1,2).The Endocrine Society went on to further define vitamin Dinsufficiency as a level between 21 and 29 ng/mL (2).1. IOM ([place] of Medicine). 2010. Dietary reference intakes for calcium and D. [place]: The National Academies Press.2. Henna MF, Jerman MORRIS, iPedad SHARP, et al. Evaluation, treatment, and prevention of vitamin D deficiency: an Endocrine Society clinical practice guideline. JCEM. 2010; 96(7):1911-30. 12-Uaj-729626:56 MAGNESIUM (42194) Comments: PATIENT NOT FASTINGPERFORMED BY: [facility] Wtqzex1721 [facility] [id number] Magnesium 2.1 mg/dL (Normal) Range: 1.6-2.3 13-Izr-374909:51 Metabolic Panel, Comprehensive Comments: PATIENT NOT FASTINGPERFORMED BY: [facility] Uoosps4016 [facility] [id number] (12401) ALT (SGPT) 67 [iU]/L (Abnormal) Range: 0-32 [...] 6-24 Glucose 116 mg/dL (Abnormal) Range: 65-99 31-Yba-540645:51 CBC & PLATELETS (AUTO) Comments: PATIENT NOT FASTINGPERFORMED BY: Lab[facility] 0622170 [facility] [id number] (54372) Platelets 101 {x10E3/uL} Range: 150-379 (Abnormal) RDW [...] ug/dL (Normal) Comments: PATIENT NOT FASTINGPERFORMED BY: LabCoBrett [place] 7160570 [facility] [id number] BY: [address] [id number] 0 Range: 6.2-19.4 10-Rba-90217:10 CALCIFEDIOL (70448) Comments: PATIENT NOT FASTINGPERFORMED BY: Lab[facility] [place] 0622170 [facility] [id number] BY: [address] [id number] Vitamin D, 25-Hydroxy 86.0 ng/mL (Normal) Range: 30.0-100.0 Comments: Vitamin D deficiency has been defined by the [place] ofMedicine and an Endocrine Society practice guideline as alevel of serum 25-OH vitamin D less than 20 ng/mL (1,2).The Endocrine Society went on to further define vitamin Dinsufficiency as a level between 21 and 29 ng/mL (2).1. IOM ([place] of Medicine). 2010. Dietary reference intakes for calcium and D. [place]: The National Academies Press.2. Henna MF, Jerman MORRIS, Piedad SHARP, et al. Evaluation, treatment, and prevention of vitamin D deficiency: an Endocrine Society clinical practice guideline. JCEM. 2010; 96(7):1911-30. 93-Pfp-70691:10 TESTOSTERONE TOTAL (12539) Comments: PATIENT NOT FASTINGPERFORMED BY: [employer] Vwwnhk0321 [facility] [id number] BY: [employer] [place] [address] [id number] Information: AM CORTISOL Testosterone, Serum <3 ng/dL (Abnormal) Range: 3-41 :10 ESTRONE (85927) Comments: PATIENT NOT FASTINGPERFORMED BY: [employer]70 [facility] HospitalCrushBlvdAtrium [facility] [id number] BY: [employer] [facility] [id number] Estrone, Serum 36 pg/mL (Normal) Comments: . [...] - 114 Post Menopausal 14 - 103 07-Kxo-15421:10 PROGESTERONE (21358) Comments: PATIENT NOT FASTINGPERFORMED BY: [employer]70 [facility] [id number] BY: [employer] Vrrzrhtemv[address] [place] [address] [id number] Progesterone 0.2 ng/mL (Normal) Comments: Follicular phase 0.1 - 0.9 Luteal phase 1.8 - 23.9 Ovulation phase 0.1 - 12.0 First trimester 11.0 - 44.3 Second trimester 25.4 - 83.3 Third t rimester 58.7 - 214.0 Postmenopausal 0.0 - 0.1 22-Cou-72215:10 ESTRADIOL (24875) Comments: PATIENT NOT FASTINGPERFORMED BY: [place] 3106770 [facility] [id number] BY: [place] 007467 [facility] [id number] Estradiol <5.0 pg/mL (Normal) Comments: Adult Female: Follicular phase 12.5 - 166.0 Ovulation phase 85.8 - 498.0 Luteal phase 43.8 - 211.0 Postmenopausal <6.0 - 54.7 1st trimester 215.0 - & gt;4300.0 Girls (1-10 years) 6.0 - 27.0Roche ECLIA methodology 26-Cst-343737:02 CBC & PLATELETS (AUTO) Comments: PATIENT NOT FASTINGPERFORMED BY: [address] [id number] (50916) Platelets 214 {x10E3/uL} (Normal) Range: 150-379 RDW 13.0 % (Normal) Range: 12.3-15.4 MCHC 32.9 g/dL (Normal) Range: 31.5-35.7 MCH 31.3 pg (Normal) Range: 26.6-33.0 MCV 95 fL (Normal) Range: 79-97 Hematocrit 41.0 % (Normal) Range: 34.0-46.6 Hemoglobin 13.5 g/dL (Normal) Range: 11.1-15.9 RBC 4.32 {x10E6/uL} (Normal) Range: 3.77-5.28 WBC 6.8 {x10E3/uL} (Normal) Range: 3.4-10.8 23-Vbg-787908:02 TSH (78434) Comments: PATIENT NOT FASTINGPERFORMED BY: [address] [id number] TSH 1.190 {uIU/mL} (Normal) Range: 0.450-4.500 86-Rey-101272:02 T4, FREE (THYROXINE) (61524) Comments: PATIENT NOT FASTINGPERFORMED BY: [address] [id number] T4,Free(Direct) 1.07 ng/dL (Normal) Range: 0.82-1.77 19-Rzw-661997:02 T3, FREE (TRIDOTHYRONINE) (02695) Comments: PATIENT NOT FASTINGPERFORMED BY: [facility]6370 [facility] [id number] Triiodothyronine,Free,Serum 2.9 pg/mL (Normal) Range: 2.0-4.4 13-Prf-680543:02 Metabolic Panel, Comprehensive Comments: PATIENT NOT FASTINGPERFORMED BY: [facility] [id number] (35585) ALT (SGPT) 14 [iU]/L (Normal) Range: 0-32 [...] Glucose, Serum 84 mg/dL (Normal) Range: 65-99 19-Fsw-064596:02 IRON (54955) Comments: PATIENT NOT FASTINGPERFORMED BY: [facility] [id number] Iron, Serum 46 ug/dL (Normal) Range: 27-159 66-Ikk-322671:02 DHEA-S (DEHYDROEPIANDROSTERONE Comments: PATIENT NOT FASTINGPERFORMED BY: [facility] [id number] SULFATE) (11835) DHEA-Sulfate 40.7 ug/dL (Abnormal) Range: 41.2-243.7 :57 Microscopic Examination Comments: PATIENT NOT FASTINGPERFORMED BY: [facility] [id number] Bacteria Few (Normal) Mucus Threads Present (Normal) Epithelial Cells (non renal) 0-10 {/hpf} (Normal) Range: 0 - 10 RBC 0-2 {/hpf} (Normal) Range: 0 - 2 WBC 0-5 {/hpf} (Normal) Range: 0 - 5 :57 URINALYSIS (85467) Comments: PATIENT NOT FASTINGPERFORMED BY: [facility] [id number] Microscopic Examination See below: (Normal) Comments: Microscopic was indicated and was performed. Nitrite, Urine Negative (Normal) Urobilinogen,Semi-Qn 0.2 mg/dL (Normal) Range: 0.2-1.0 Bilirubin Negative (Normal) Occult Blood Negative (Normal) Ketones Negative (Normal) Glucose Negative (Normal) Protein Negative (Normal) WBC Esterase 1+ (Abnormal) Appearance Clear (Normal) Urine-Color Yellow (Normal) pH 7.0 (Normal) Range: 5.0-7.5 Specific [place] 1.008 (Normal) Range: 1.005-1.030 78-Jar-058792:50 Basic Metabolic Profile (BMP) Comments: [facility] Wjkefystei[address] [place], [address] GAP 4 (Abnormal) Range: 5-15 CO2 27.0 [...] 7-18 GLU 87 mg/dL (Normal) Range: 70-110 37-Mvm-803289:50 CBC W/Diff, Automated Comments: [facility] N[address]ijpisvv[address] [place], [place], [id number] Absolute Lymph 1.18 {X10_3/ul} (Normal) Range: 0.83-4.51 [...] 4.2-5.4 WBC 10.3 K/mm3 (Normal) Range: 4.4-11.0 35-Kao-436397:00 Urinalysis, Complete Comments: Order Date: 07/22/16Order Date: 07/22/16How was Urine Obtained? SENIOR TAX MANAGER TO SPEC[facility]WK[facility] Njobmtsptv3759 [facility] [place], [address] MUCUS, URINE 0 SEEN {/hpf} (Normal) BACTERIA [...] BELOW (Normal) Comments: Visual Urine Color: PINK 55-Hkj-171392:44 Culture, Wound Comments: [facility] Nvambjqfnn[address] [place], [address] CUW See Note (Normal) Comments: Order Date: [...] pneumoniae, beta-hemolytic Streptococcus or Staphylococcus aureus isolated. 27-Obm-325014:49 HgA1C , Office (23631) HgA1C , Office 5.3 % (Normal) Range: 4.6 - 7.1 :03 Metabolic Panel, Basic Comments: PATIENT NOT FASTINGPERFORMED BY: [facility] Fdrmgi8699 [facility] [id number] Information: [id number] (19388) Calcium, Serum 9.4 mg/dL (Normal) Range: 8.7-10.2 [...] 103 mg/dL (Abnormal) Range: 65-99 :03 CALCIFEDIOL (24921) Comments: PATIENT NOT FASTINGPERFORMED BY: [facility] Cocond4970 [facility] [id number] Vitamin D, 25-Hydroxy 38.0 ng/mL (Normal) Range: 30.0-100.0 Comments: Vitamin D deficiency has been defined by the [place]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
--- OUTSIDE RECORDS SUMMARY | 2018-07-05 09:38 | XMS RPT_ITS | Continuity of Care Document ---
:1965 Author Organization [facility] Address [address] [facility] [address] [place] [address] Phone Care Team Providers Name Role Phone Samantha Barrera DO Unavailable Benedict Cormier MD Unavailable Bipin Carbajal Unavailable Unavailable Bipin Ackerman DO Unavailable Dr. Mike Varner Unavailable Justino MORENO, Dr. Jose Coughlin Unavailable Lupe Abdi Unavailable Unavailable Ciara Metzger LPN Unavailable Unavailable Angela Martínez Unavailable Unavailable Colby SAWYER Katie Unavailable Rekha Tracy Unavailable Unavailable David Joseph Unavailable Unavailable Unavailable Unavailable [...] 268.9) Status: Active Medications Name Dates Details [place] Saline Nasal Nasal Gel 1 (one) Gel Gel Apply BID for 0 days Quantity: 1 {Tube} Refills: 0 Ordered:23-Feb-2018 Lupe Abdi Start : 12-Nov-2017 Active CALCIUM 500/VITAMIN D, 155-762FQ-IZDL (Oral Tablet) 2 (two) Tablet daily for 360 days Quantity: 360 {Tablet} Refills: 0 Ordered:06-Aug-2015 Colby SAWYERCarolina Start : 06-Aug-2015 Active Citalopram Hydrobromide 10 [...] Quantity: 360 {Capsule} Refills: 3 Ordered:24-Dec-2015 Holly DOFrancisco Javier DO, Kathleen Start : 24-Dec-2015 Active Allergy 24-HR 180 MG Oral Tablet 1 (one) Tablet daily for 30 days Quantity: 30 {Tablet} Refills: 0 Ordered:21-Apr-2016 Carolina Bowman CNP Start : 04-Feb-2016 End : 05-Mar-2016 Inactive BACTROBAN NASAL, 2% (Nasal Ointment) 1 Ointment each nostril daily for 10 days Quantity: 10 {Ointment} Refills: 0 Ordered:18-Dec-2011 Holly LINDSAYFrancisco Javier DO, Kathleen Start : 18-Dec-2011 End [...] days Quantity: 30 {Capsule} Refills: 0 Ordered:06-Aug-2015 Domenica Ciara PHAN Start : 06-Aug-2015 End : 05-Sep-2015 Inactive Comments:Medication taken as needed. Clotrimazole 10 MG Mouth/Throat Rod 1 (one) Rod Rod 5x daily for 10 days Quantity: 50 {Rod} Refills: 0 Ordered:03-Dec-2015 Carolina Bowman CNP Start : 03-Dec-2015 End : 13-Dec-2015 Inactive CORTISPORIN, 3.5-58758-3 (Otic Solution) 4 Drop(s) tid for 10 days Quantity: 1 {Solution} Refills: 0 Ordered:19-Nov-2011 Carolina Bowman CNP Start : 19-Nov-2011 End : 29-Nov-2011 Inactive Dulera 200-5 MCG/ACT Inhalation Aerosol 2 (two) Puff BID for 30 days Quantity: 1 {Inhalation} Refills: 0 Ordered:21-Dec-2017 Holly LINDSAYFrancisco Javier DO Samantha Start : 21-Dec-2017 End : 20-Jan-2018 Inactive [...] : 12-Nov-2017 End : 19-Nov-2017 Inactive Nystatin 226114 UNIT/ML Mouth/Throat Suspension 5 cc 5times a [...] Quantity: 21 {Tablet} Refills: 0 Ordered:24-Nov-2016 Colby DIGNACarolina Start : 24-Nov-2016 End : 01-Dec-2016 Inactive [...] Quantity: 30 {Capsule} Refills: 1 Ordered:07-Aug-2015 Colby SAWYERCarolina Start : 07-Aug-2015 Discontinued Comments:1h before a [...] Discontinued Comments:please substitute generic albulterol VITAMIN D3, 38072FGKL (Oral Capsule) 1 Capsule 2 x week [...] days Quantity: 30 {Capsule} Refills: 0 Ordered:03-Dec-2015 Domenica PHANCiara Start : 06-Jun-2015 End : 03-Dec-2015 Discontinued Allergies and Adverse Reactions Name Dates Details No Known Drug Allergies (Allergy) Status: Active Past Medical History Name Dates Details Abdominal pain (R10.9, 789.00) Comments: if no improvement will send for US gallbladder Status: Inactive as of 24-Dec-2015 Abnormal glucose tolerance test (R73.02, 790.22) Comments: based on 2 [facility] -- will follow Status: Resolved as [...] EMG Patient Result: Comments: See Note; NOTES: [facility] Pulmonary Services/Neurology [address] [place] [address] MR#: [id number] Acct: [id number] Name: KATHRYN AMARO Rep #: [id number] : 1965 52 From: Ever Allen MD Referring Dr: Bipin Ackerman DO Status: REG CLI Ordering Dr: Date: Location: [facility] Sex: F C NCS and/or EMG Patient [...] Dictated: 01/26/18 1036 Date Transcribed: 01/26/18 103 Blueprint Maker: NF Signed 22-Oct-2017 12 Lead Electrocardiogram Result: Comments: See Note; NOTES: [facility] Cardiovascular Services [address] [place] [address] 12 Lead EKG 10/21/17 1508 MR#: [id number] Acct: [id number] Name: KATHRYN AMARO Rep #: [id number] : 1965 52 From: Carroll Emmanuel MD Attending Dr: Priscila Chance Status: REG CLI Ordering Dr: Priscila Chance Date: 10/21/17 Location: [facility] Sex: F C Admitted: Test Reason : PREO P Blood Pressure : / mmHG Vent. Rate : 070 BPM Atrial Rate : 070 BPM P-R Int : 142 ms QRS Dur : 064 ms QT Int : 392 ms P-R-T Axes : 069 063 066 degrees QTc Int : 423 ms Normal sinus rhythm Normal ECG Confirmed by CHOLO MORENO, CARROLL ([id number]), senior editor HILARIA DAVIDSON ([id number]) on 10/22/2017 12:52:17 PM Referred By: Priscila Chance Confirmed By:CARROLL EMMANUEL MD 10/22/17 1252 Date Carroll Emmanuel MD CC: Priscila Chance; Samantha Barrera DO Signed 30-Jun-2017 Skull min 4 Views Result: Comments: See Note; NOTES: [facility] Imaging Services [address] [place] [address] Skull min 4 Views MR#: [id number] Acct: [id number] Name: KATHRYN AMARO Rep #: [id number] : 1965 F 52 From: Marcus Angel MD PCP: Samantha Barrera DO Status: REG CLI Study: Skull min 4 Views Date of Exam: 06/30/17 Exam# [id number] Ordering Dr: Samantha Barrera DO STUDY: X-RAY [...] Service support , CC: Samantha Barrera DO Blueprint Maker: Signed 13-Oct-2016 SCREENING MAMM (CAD), BILAT Result: Comments: See Note; NOTES: [facility] Imaging Services [address] [place] [address] Verdana 4d SCREENING MAMM (CAD), BILAT MR#: [id number] Acct: [id number] Name: ALETHA AMARO Rep #: [id number] : 1965 F 51 From: Ron Roman MD PCP: Samantha Barrera DO Status: REG CLI Study: SCREENING MAMM (CAD), BILAT Date of Exam: 10/13/16 Exam# [id number] Ordering Dr: Karuna Mixon MD MAMMOGRAPHY - [...] delay biopsy of a clinically suspicious abnormality. [id number] Electronically Signed: Anjum Roman MD at 8:41 EDT , Service support , CC: Karuna Mixon MD; Samantha Barrera DO Blueprint Maker: Signed 22-Jul-2016 Emergency Department Summary Result: Comments: See Note; NOTES: [facility] Medical Records Department [address] [place] [address] Emergency Department Summary MR#: [id number] Acct: [id number] Name: ALETHA AMARO Rep #: [id number] : 1965 51 From: Kyle Tinsley MD [...] C: Samantha Barrera DO T: NTS JOB: [id number] 07/22/162113 &amp ;#60;Electronically signed by Kyle Tinsley MD> Date Kyle Tinsley MD Cosigner Signature (If Indicated): Date CC: Samantha Barrera DO Date Dictated: 07/22/162026 Date Transcribed: 07/22/162026 Blueprint Maker: Signed 22-Jul-2016 Discharge Instruction Result: Comments: See Note; NOTES: [facility] Medical Records Department [address] [place] [address] Discharge Instruction 07/22/162024 MR#: [id number] Acct: [id number] Name: KATHRYN AMARO Rep #: [id number] : 1965 51 From: Kyle Tinsley MD [...] Cont ONLY Result: Comments: See Note; NOTES: [facility] Imaging Services [address] [place] [address] Verdana 4d Abdomen/Pelvis W IV Cont ONLY MR#: [id number] Acct: [id number] Name: ROLLY AMARO Rep #: [id number] : 1965 F 51 From: Leo Shin DO PCP: Samantha Barrera DO Status: REG ER Study: Abdomen/Pelvis W IV Cont ONLY Date of Exam: 07/22/16 Exam# [id number] Ordering Dr: Kyle Tinsley MD STUDY: CT [...] at 20:11 EDT Tel , Service support [phone], CC: Samantha Barrera DO; Kyle Tinsley MD Blueprint Maker: Signed 07-Mar-2016 Esophagus Only Result: Comments: See Note; NOTES: [facility] Imaging Services [address] [place] [address] Verdana 4d Esophagus Only MR#: [id number] Acct: [id number] Name: KATHRYN AMARO Rep #: [id number] : 1965 F 50 From: Amrit Mac MD PCP: Carolina Bowman Status: REG CLI Study: Esophagus Only Date of Exam: 03/07/16 Exam# [id number] Ordering Dr: Mike Varner MD STUDY: AIR-CONTRAST [...] at 12:42 EST Tel , Service support [phone], CC: Carolina Bowman; Mike Varner Blueprint Maker: Signed 07-Aug-2015 Bilat Diag Digital AND CAD Result: Comments: See Note; NOTES: [facility] Imaging Services [address] [place] [address] Verdana 4d Bilat Diag Digital AND CAD MR#: [id number] Acct: [id number] Name: KATHRYN AMARO Rep #: [id number] : 1965 F 50 From: Luciano Dowell MD PCP: Carolina Bowman Status: REG CLI Study: Bilat Diag Digital AND CAD Date of Exam: 08/07/15 Exam# [id number] Itzel lara Dr: Carolina Bowman MAMMOGRAPHY - [...] Luciano Dowell MD at 9:36 EDT Tel [phone], Service support [phone], CC: Carolina Bowman Blueprint Maker: Signed 06-Aug-2015 Chest PA and Lateral Result: Comments: See Note; NOTES: [facility] Imaging Services [address] [place] [address] Verdana 4d Chest PA and Lateral MR#: [id number] Acct: [id number] Name: KATHRYN JACOBSEN Rep #: [id number] : 1965 F 50 From: Luciano Dowell MD PCP: Carolina Bowman Status: REG CLI Study: Chest PA and Lateral Date of Exam: 08/06/15 Exam# [id number] Ordering Dr: Carolina Bowman STUDY: X-RAY CHEST [...] Dowell MD 08/05 at 11:03 EDT Tel [phone], Service support [phone], RAD/Chest PA and Lateral IMPRESSION: No acute abnormality is seen. Electronically Signed: Agustin Dowell MD at 11:03 EDT Tel [phone], Service support [phone], CC: Carolina Bowman Blueprint Maker: Signed 06-Aug-2015 Ribs Unil 2V No CXR Result: Comments: See Note; NOTES: [facility] Imaging Services [address] [place] [address] Verdana 4d Ribs Unil 2V No CXR MR#: [id number] Acct: [id number] Name: KATHRYN AMARO Rep #: [id number] : 1965 F 50 From: Luciano Dowell MD PCP: Carolina Bowman Status: REG CLI Study: Ribs Unil 2V No CXR Date of Exam: 08/06/15 Exam# [id number] Ordering Dr: Jorje Bowman STUDY: X-RAY - UNILATERAL RIBS ( LEFT ) REASON FOR EXAM: Female, 50 years old. Upper chest pain. TECHNIQUE: 4 view(s) of the ribs. COMPARISON: None. FINDINGS: Normal visualized ribs without a demonstrated fracture. The visualized lung is clear and expanded. IMPRESSION: Normal x-ray examination of the ribs. Electronically Signed: Luciano Dowell MD at 11:02 EDT Tel [phone], Service support [phone], 0036 RAD/Ribs Unil 2V No CXR IMPRESSION: Norm al x-ray examination of the ribs. Electronically Signed: uLciano Dowell MD at 11:02 EDT Tel [phone], Service support [phone], CC: Carolina Bowman Blueprint Maker: Signed 06-Jun-2015 Spirometry (32075) Comments: Fevi/fvc 72% Result: 18-Nov-2014 Shoulder min 2 Views Result: Comments: See Note; NOTES: [facility] Imaging Services [address] [place] [address] Radiology Report MR#: [id number] Acct: [id number] Name: KATHRYN AMARO Rep #: [id number] : 1965 F 49 From: Pete Curtis MD PCP: Samantha Barrera DO Status: REG CLI Study: Shoulder min 2 Views Date of Exam: 11/18/14 Exam# [id number] Ordering Dr: Samantha Barrera TUDY: X-RAY - [...] MD at 22:54 EDT , Service support [phone], R AD/Shoulder min 2 Views IMPRESSION: Mild 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 Electronically Signed: Pete Curtis MD at 22:54 EDT , Service support , CC: Samantha Barrera DO Blueprint Maker: Signed 10-Jul-2014 Hepatobilliary Imaging Result: Comments: See Note; NOTES: [facility] Imaging Services [address] [place] [address] Nuclear Medicine Report MR#: [id number] Acct: [id number] Name: KATHRYN AMARO Rep #: [id number] : 1965 F 49 From: Shreyas Groves DO PCP: Samantha Barrera DO Status: REG CLI Study: Hepatobilliary Imaging Date of Exam: 07/10/14 Exam# [id number] Ordering Dr: Carolina Bowman LINICAL: 49-year-old female [...] Shreyas Groves DO at 22:24 EDT Tel [phone], Service support [phone], CC: Carolina Bowman; Samantha Barrera DO Blueprint Maker: Signed 30-Jun-2014 Pelvic (Non ) Result: Comments: See Note; NOTES: [facility] Imaging Services [address] [place] [address] Ultrasound Report MR#: [id number] Acct: [id number] Name: KATHRYN AMARO Rep #: [id number] : 1965 F 49 From: Pete Curtis MD PCP: Samantha Barrera DO Status: REG CLI Study: Pelvic (Non ) Date of Exam: 06/30/14 Exam# [id number] Ordering Dr: Carolina Bowman STUDY: U LTRASOUND [...] MD at 19:53 EDT , Service support [phone], CC: Carolina Bowman; Samantha Barrera DO Blueprint Maker: Signed 30-Jun-2014 Abdomen Complete Result: Comments: See Note; NOTES: [facility] Imaging Services [address] [place] [address] Ultrasound Report MR#: [id number] Acct: [id number] Name: KATHRYN AMARO Rep #: [id number] : 1965 F 49 From: Noé Pascual MD PCP: Samantha Barrera DO Status: REG CLI Study: Abdomen Complete Date of Exam: 06/30/14 Exam# [id number] Ordering Dr: Carolina Bowman STUDY: ABDOM INAL [...] MD at 15:42 EDT , Service support [phone], CC: Carolina Bowman; Samantha Barrera DO Blueprint Maker: Signed 21-Jun-2014 Toradol Injection, 30 mg (J1885) Comments: Lot:[id number]:02/11/2015Dose:1MlRoute:IMSite:R glutGiven By:RIC signed Result: Comments: Lot:Exp:Dose:1mlRoute:IMSite:R GlutGiven By:BRIANVIS signed 19-Apr-2014 Bilat Scrn Digital AND CAD Result: Comments: See Note; NOTES: [facility] Imaging Services [address] [place] [address] Breast Imaging Report MR#: [id number] Acct: [id number] Name: KATHRYN AMARO Rep # : [id number] : 1965 F 49 From: Luciano Dowell MD PCP: Samantha Barrera DO Status: REG CLI Study: Bilat Scrn Digital AND CAD Date of Exam: 04/19/14 Exam# [id number] Ordering Dr: Gasper Barrera DO MAMMOGRAPHY - [...] Luciano Dowell MD at 8:19 EST Tel [phone], Service support [phone], Fax CC: Samantha Barrera DO Blueprint Maker: Signed 20-Mar-2014 Abdomen/Pelvis WITH Contrast Result: Comments: See Note; NOTES: [facility] Imaging Services [address] [place] [address] CAT Scan Report MR#: [id number] Acct: [id number] Name: KATHRYN AMARO Rep #: [id number] : 1965 F 48 From: Brayan Wilson MD PCP: Samantha Barrera DO Status: REG CLI Study: Abdomen/Pelvis WITH Contrast Date of Exam: 03/20/14 Exam# [id number] Ordering Dr: Samantha Barrera DO STUDY: CT [...] MD at 21:48 EST , Service support [phone], CC: Samantha Barrera DO Blueprint Maker: Signed 15-Sep-2013 NCS and/or EMG Patient Result: Comments: See Note; NOTES: [facility] Pulmonary Services/Neurology [address] [place] [address] NCS and/or EMG Patient MR#: [id number] Acct: [id number] Name: LA AMARO RA Rep #: [id number] : 1965 48 From: Ever Allen MD Referring Dr: Carolina Bowman Status: REG CLI Ordering Dr: Carolina Bowman Date: 09/13/13 Location: [facility] Sex: F C DATE OF SERVICE: [facility] 2013 REFERRING PHYSICIAN: Carolina Bomwan. INTRODUCTION: This is a nerve conduction study [...] Dictated: 09/13/13 1043 Date Transcribed: 09/13/13 1520 Blueprint Maker: SHARP Signed 12-Apr-2013 Bilat Scrn Digital & CAD Result: Comments: See Note; NOTES: [facility] Imaging Services [address] [place] [address] Breast Imaging Report MR#: [id number] Acct: [id number] Name: KATHRYN AMARO Rep # : [id number] : 1965 F 48 From: Luciano Dowell MD PCP: Samantha Barrera DO Status: REG CLI Exam# [id number] Ordering Dr: Samantha Barrera DO MAMMOGRAPHY - [...] M.D. at 8:09 EST , Service support [phone], CC: Samantha Barrera DO Blueprint Maker: Signed 12-Apr-2013 Dexa Bone Density Study (HP) Result: Comments: See Note; NOTES: [facility] Imaging Services [address] [place] [address] Bone Density Report MR#: [id number] Acct: [id number] Name: KATHRYN AMARO Rep #: [id number] : 1965 F 48 From: Luciano Dowell MD PCP: Samantha Barrera DO Status: [facility] Study: Dexa Bone Density Study (HP) Date of Exam: 04/12/13 Exam# [id number] Ordering Dr: Gasper Barrera DO STUDY: DUAL [...] M.D. 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 Comments: 06/23/11 Status: Active Smoking Status Name Dates Details Never smoker Vital Signs Date Test Result Details 05-Gzw-030997:51 Comments: ortho scatic bp: sitting 105/66 P [...] kg/m2 Body Surface Area Calculated 1.63 m2 8-Isa-726967:06 Temperature 97.6 f Comments: Method: Temporal Pulse [...] 0.00 cm Results Date Description Value Details :51 Metabolic Panel, Comprehensive Comments: PATIENT NOT FASTINGPERFORMED BY: CATRACHO [facility] Erqnfw1035 [facility] [id number] (65865) ALT (SGPT) 67 [iU]/L (Abnormal) Range: 0-32 [...] 6-24 Glucose 116 mg/dL (Abnormal) Range: 65-99 36-Nef-031968:51 CBC & PLATELETS (AUTO) Comments: PATIENT NOT FASTINGPERFORMED BY: [facility] Mdvqja2310 [facility] [id number] (27959) Platelets 101 {x10E3/uL} Range: 150-379 (Abnormal) RDW [...] Comments: PATIENT NOT FASTINGPERFORMED BY: CB [facility] Bfbbht7704 Jacobs RoadDublin [place] [id number] BY: [address] [id number] 0 Range: 6.2-19.4 :10 CALCIFEDIOL (86366) Comments: PATIENT NOT FASTINGPERFORMED BY: CB [facility] Gnyzcb7614 Jacobs RoadDublin [place] [id number] BY: [address] [id number] Vitamin D, 25-Hydroxy 86.0 ng/mL (Normal) Range: 30.0-100.0 Comments: Vitamin D deficiency has been defined by the Cooks ofA[facility] Hospitalcine and an Endocrine Society practice guideline as alevel of serum 25-OH vitamin D less than 20 ng/mL (1,2).The Endocrine Society went on to further define vitamin Dinsufficiency as a level between 21 and 29 ng/mL (2).1. IOM (Cooks of Medicine). 2010. Dietary reference intakes for calcium and D. [place]: The National Academies Press.2. Henna MF, Jerman [place], Piedad SHARP, et al. Evaluation, treatment, and prevention of vitamin D deficiency: an Endocrine Society clinical practice guideline. JCEM. 2010; 96(7):1911-30. :10 TESTOSTERONE TOTAL (37931) Comments: PATIENT NOT FASTINGPERFORMED BY: CB [facility] Qrwmgu9916 Jacobs RoadDublin [place] [id number] BY: [address] [id number] Information: AM CORTISOL Testosterone, Serum <3 ng/dL (Abnormal) Range: 3-41 :10 ESTRONE (01765) Comments: PATIENT NOT FASTINGPERFORMED BY: CB [facility] Ukdisr8589 Jacobs RoadDublin [place] [id number] BY: [address] [id number] Estrone, Serum 36 pg/mL (Normal) Comments: . [...] - 114 Post Menopausal 14 - 103 12-Tkt-99073:10 PROGESTERONE (08588) Comments: PATIENT NOT FASTINGPERFORMED BY: Quietly [facility] [id number] BY: St[address] [id number] Progesterone 0.2 ng/mL (Normal) Comments: Follicular phase 0.1 - 0.9 Luteal phase 1.8 - 23.9 Ovulation phase 0.1 - 12.0 First trimester 11.0 - 44.3 Second trimester 25.4 - 83.3 Third t rimester 58.7 - 214.0 Postmenopausal 0.0 - 0.1 12-Obx-28239:10 ESTRADIOL (17780) Comments: PATIENT NOT FASTINGPERFORMED BY: opendorse [facility] HospitalRoche[facility] Flooring ResourcesAtrium Health Kings Mountain [id number] BY: [employer] [id number] Estradiol <5.0 pg/mL (Normal) Comments: Adult Female: Follicular phase 12.5 - 166.0 Ovulation phase 85.8 - 498.0 Luteal phase 43.8 - 211.0 Postmenopausal <6.0 - 54.7 1st trimester 215.0 - & gt;4300.0 Girls (1-10 years) 6.0 - 27.0Roche ECLIA methodology 80-Zth-200400:02 CBC & PLATELETS (AUTO) Comments: PATIENT NOT FASTINGPERFORMED BY: Quietly [facility] [id number] (24110) Platelets 214 {x10E3/uL} (Normal) Range: 150-379 RDW 13.0 % (Normal) Range: 12.3-15.4 MCHC 32.9 g/dL (Normal) Range: 31.5-35.7 MCH 31.3 pg (Normal) Range: 26.6-33.0 MCV 95 fL (Normal) Range: 79-97 Hematocrit 41.0 % (Normal) Range: 34.0-46.6 Hemoglobin 13.5 g/dL (Normal) Range: 11.1-15.9 RBC 4.32 {x10E6/uL} (Normal) Range: 3.77-5.28 WBC 6.8 {x10E3/uL} (Normal) Range: 3.4-10.8 70-Oms-238007:02 TSH (39589) Comments: PATIENT NOT FASTINGPERFORMED BY: [place] [address] [facility] [id number] TSH 1.190 {uIU/mL} (Normal) Range: 0.450-4.500 47-Gsq-562607:02 T4, FREE (THYROXINE) (83439) Comments: PATIENT NOT FASTINGPERFORMED BY: [address] [id number] T4,Free(Direct) 1.07 ng/dL (Normal) Range: 0.82-1.77 21-Dio-204217:02 T3, FREE (TRIDOTHYRONINE) (41665) Comments: PATIENT NOT FASTINGPERFORMED BY: [facility] [facility] [id number] Triiodothyronine,Free,Serum 2.9 pg/mL (Normal) Range: 2.0-4.4 86-Fsd-303554:02 Metabolic Panel, Comprehensive Comments: PATIENT NOT FASTINGPERFORMED BY: [address] [id number] (06189) ALT (SGPT) 14 [iU]/L (Normal) Range: 0-32 [...] Glucose, Serum 84 mg/dL (Normal) Range: 65-99 55-Jhh-053530:02 IRON (17071) Comments: PATIENT NOT FASTINGPERFORMED BY: [employer] Vacnbn0811 [facility] [id number] Iron, Serum 46 ug/dL (Normal) Range: 27-159 98-Hmd-920662:02 DHEA-S (DEHYDROEPIANDROSTERONE Comments: PATIENT NOT FASTINGPERFORMED BY: [employer] Wxzkev6116 [facility] [id number] SULFATE) (26017) DHEA-Sulfate 40.7 ug/dL (Abnormal) Range: 41.2-243.7 15-Aug-20167:57 Microscopic Examination Comments: PATIENT NOT FASTINGPERFORMED BY: [employer] Uopwal7316 [facility] [id number] Bacteria Few (Normal) Mucus Threads Present (Normal) Epithelial Cells (non renal) 0-10 {/hpf} (Normal) Range: 0 - 10 RBC 0-2 {/hpf} (Normal) Range: 0 - 2 WBC 0-5 {/hpf} (Normal) Range: 0 - 5 :57 URINALYSIS (12958) Comments: PATIENT NOT FASTINGPERFORMED BY: [facility] Yadxja8239 [address] [facility] [place] [id number] Microscopic Examination See below: (Normal) Comments: Microscopic was indicated and was performed. Nitrite, Urine Negative (Normal) Urobilinogen,Semi-Qn 0.2 mg/dL (Normal) Range: 0.2-1.0 Bilirubin Negative (Normal) Occult Blood Negative (Normal) Ketones Negative (Normal) Glucose Negative (Normal) Protein Negative (Normal) WBC Esterase 1+ (Abnormal) Appearance Clear (Normal) Urine-Color Yellow (Normal) pH 7.0 (Normal) Range: 5.0-7.5 Specific [place] 1.008 (Normal) Range: 1.005-1.030 05-Qvj-565504:50 Basic Metabolic Profile (BMP) Comments: [facility] [address] [place], [address] GAP 4 (Abnormal) Range: 5-15 CO2 27.0 [...] Range: 70-110 :50 CBC W/Diff, Automated Comments: [facility] [address] [place], [address] Absolute Lymph 1.18 {X10_3/ul} (Normal) Range: 0.83-4.51 [...] 4.2-5.4 WBC 10.3 K/mm3 (Normal) Range: 4.4-11.0 04-Mmb-206147:00 Urinalysis, Complete Comments: Order Date: 07/22/16Order Date: 07/22/16How was Urine Obtained? BOW MAKER MACHINE TENDER TO [facility] [address] [facility] [place], [address] MUCUS, URINE 0 SEEN {/hpf} [...] BELOW (Normal) Comments: Visual Urine Color: PINK :44 Culture, Wound Comments: [facility] [address] [place], [address] CUW See Note (Normal) Comments: Order Date: [...] pneumoniae, beta-hemolytic Streptococcus or Staphylococcus aureus isolated. 20-Zjy-492228:49 HgA1C , Office (93801) HgA1C , Office 5.3 % (Normal) Range: 4.6 - 7.1 :03 Metabolic Panel, Basic Comments: PATIENT NOT FASTINGPERFORMED BY: [facility] Tmpbyh9166 [facility] [id number] Information: [id number] (58634) Calcium, Serum 9.4 mg/dL (Normal) Range: 8.7-10.2 [...] 103 mg/dL (Abnormal) Range: 65-99 :03 CALCIFEDIOL (82412) Comments: PATIENT NOT FASTINGPERFORMED BY: [employer] Mdftou3480 [facility] [id number] Vitamin D, 25-Hydroxy 38.0 ng/mL (Normal) Range: 30.0-100.0 Comments: Vitamin D deficiency has been defined by the Cooks ofMedicine and an Endocrine Society practice guideline as alevel of serum 25-OH vitamin D less than 20 ng/mL (1,2).The Endocrine Society went on to further define vitamin Dinsufficiency as a level between 21 and 29 ng/mL (2).1. IOM (Cooks of Medicine). 2010. Dietary reference intakes for calcium and D. [place]: The National Academies Press.2. Henna MF, Jerman MORRIS, Piedad SHARP, et al. Evaluation, treatment, and prevention of vitamin D deficiency: an Endocrine Society clinical practice guideline. JCEM. 2010; 96(7):1911-30. 90-Wff-840450:03 TSH (THYROID STIMULATING Comments: PATIENT NOT FASTINGPERFORMED BY: [employer]IDE [employer] Todydp16[address] [facility] [id number] HORMONE) (81414) TSH 0.764 {uIU/mL} (Normal) Range: 0.450-4.500 :45 HEPATIC FUNCTION PANEL Comments: PATIENT NOT FASTINGPERFORMED BY: [facility] [facility] [id number] Information: [id number] (99217) ALT (SGPT) 12 [iU]/L (Normal) Range: 0-32 AST (SGOT) 12 [iU]/L (Normal) Range: 0-40 Alkaline Phosphatase, S 42 [iU]/L (Normal) Range: 39-117 Bilirubin,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
--- OUTSIDE RECORDS SUMMARY | 2018-07-05 09:39 | XMS RPT_ITS | Continuity of Care Document ---
:1965 Author Organization [facility] Address [address] [place] [address] Phone Care Team Providers Name Role Phone [...] 268.9) Status: Active Medications Name Dates Details Rocklin Saline Nasal Nasal Gel 1 (one) Gel Gel Apply BID for 0 days Quantity: 1 {Tube} Refills: 0 Ordered:23-Feb-2018 Lupe Abdi Start : 12-Nov-2017 Active CALCIUM 500/VITAMIN D, [id number]-[id number] (Oral Tablet) 2 (two) Tablet daily for [...] : 03-Dec-2015 End : 13-Dec-2015 Inactive CORTISPORIN, 3.5-70280-9 (Otic Solution) 4 Drop(s) tid for 10 [...] : 12-Nov-2017 End : 19-Nov-2017 Inactive Nystatin 656858 UNIT/ML Mouth/Throat Suspension 5 cc 5times a [...] Discontinued Comments:please substitute generic albulterol VITAMIN D3, 04739XCHG (Oral Capsule) 1 Capsule 2 x week [...] test (R73.02, 790.22) Comments: based on 2 [place] -- will follow Status: Resolved as of [...] EMG Patient Result: Comments: See Note; NOTES: [facility] Pulmonary Services/Neurology [address] [place] [address] MR#: [id number] Acct: [id number] Name: KATHRYN AMARO Rep #: [id number] : 1965 52 From: Ever Allen MD Referring Dr: Bipin Ackerman DO Status: REG CLI Ordering Dr: Date: Location: [facility] Sex: F C NCS and/or EMG [...] Dictated: 01/26/18 1036 Date Transcribed: 01/26/18 103 Waiter/Waitress Head: NF Signed 22-Oct-2017 12 Lead Electrocardiogram Result: Comments: See Note; NOTES: [facility] Cardiovascular Services [address] [place] [address] 12 Lead EKG 10/21/17 1508 MR#: [id number] Acct: [id number] Name: KATHRYN AMARO Rep #: [id number] : 1965 52 From: Carroll Emmanuel MD Attending Dr: Priscila Chance Status: REG CLI Ordering Dr: Priscila Chance Date: 10/21/17 Location: [facility] Sex: F C Admitted: Test Reason : PREO P Blood Pressure : / mmHG Vent. Rate : 070 BPM Atrial Rate : 070 BPM P-R Int : 142 ms QRS Dur : 064 ms QT Int : 392 ms P-R-T Axes : 069 063 066 degrees QTc Int : 423 ms Normal sinus rhythm Normal ECG Confirmed by CHOLO MORENO, CARROLL ([id number]), assignment editor HILARIA DAVIDSON ([id number]) on 10/22/2017 12:52:17 PM Referred By: Priscila Chance Confirmed By:CARROLL EMMANUEL MD 10/22/17 1252 Date Carroll Emmanuel MD CC: Priscila Chance; Samantha Barrera DO Signed 30-Jun-2017 Skull min 4 Views Result: Comments: See Note; NOTES: [facility] Imaging Services [address] [place] [address] Skull min 4 Views MR#: [id number] Acct: [id number] Name: KATHRYN AMARO Rep #: [id number] : 1965 F 52 From: Marcus Angel MD PCP: Samantha Barrera DO Status: REG CLI Study: Skull min 4 Views Date of Exam: 06/30/17 Exam# [id number] Ordering Dr: Samantha Barrera DO STUDY: X-RAY [...] Service support , CC: Samantha Barrera DO Waiter/Waitress Head: Signed 13-Oct-2016 SCREENING MAMM (CAD), BILAT Result: Comments: See Note; NOTES: [facility] Imaging Services [address] [place] [address] Verdana 4d SCREENING MAMM (CAD), BILAT MR#: [id number] Acct: [id number] Name: ALETHA AMARO Rep #: [id number] : 1965 F 51 From: Ron Roman MD PCP: Samantha Barrera DO Status: REG CLI Study: SCREENING MAMM (CAD), BILAT Date of Exam: 10/13/16 Exam# [id number] Ordering Dr: Karuna Mixon MD MAMMOGRAPHY - [...] delay biopsy of a clinically suspicious abnormality. [id number] Electronically Signed: Anjum Roman MD at 8:41 EDT , Service support , CC: Karuna Mixon MD; Samantha Barrera DO Waiter/Waitress Head: Signed 22-Jul-2016 Emergency Department Summary Result: Comments: See Note; NOTES: [facility] Medical Records Department [address] [place] [address] Emergency Department Summary MR#: [id number] Acct: [id number] Name: ALETHA AMARO Rep #: [id number] : 1965 51 From: Kyle Tinsley MD [...] C: Samantha Barrera DO T: NTS JOB: [id number] 07/22/162113 &amp ;#60;Electronically signed by Kyle Tinsley MD> Date Kyle Tinsley MD Cosigner Signature (If Indicated): Date CC: Samantha Barrera DO Date Dictated: 07/22/162026 Date Transcribed: 07/22/162026 Waiter/Waitress Head: Signed 22-Jul-2016 Discharge Instruction Result: Comments: See Note; NOTES: [facility] Medical Records Department [address] [place] [address] Discharge Instruction 07/22/162024 MR#: [id number] Acct: [id number] Name: KATHRYN AMARO Rep #: [id number] : 1965 51 From: Kyle Tinsley MD [...] Cont ONLY Result: Comments: See Note; NOTES: [facility] Imaging Services [address] [place] [address] Verdana 4d Abdomen/Pelvis W IV Cont ONLY MR#: [id number] Acct: [id number] Name: ROLLY AMARO Rep #: [id number] : 1965 F 51 From: Leo Shin DO PCP: Samantha Barrera DO Status: REG ER Study: Abdomen/Pelvis W IV Cont ONLY Date of Exam: 07/22/16 Exam# [id number] Ordering Dr: Kyle Tinsley MD STUDY: CT [...] at 20:11 EDT Tel , Service support [phone], CC: Samantha Barrera DO; Kyle Tinsley MD Waiter/Waitress Head: Signed 07-Mar-2016 Esophagus Only Result: Comments: See Note; NOTES: [facility] Imaging Services [address] [place] [address] Verdana 4d Esophagus Only MR#: [id number] Acct: [id number] Name: KATHRYN AMARO Rep #: [id number] : 1965 F 50 From: Amrit Mac MD PCP: Carolina Bowman Status: REG CLI Study: Esophagus Only Date of Exam: 03/07/16 Exam# [id number] Ordering Dr: Mike Varner MD STUDY: AIR-CONTRAST [...] at 12:42 EST Tel , Service support [phone], CC: Carolina Bowman; Mike Varner Waiter/Waitress Head: Signed 07-Aug-2015 Bilat Diag Digital AND CAD Result: Comments: See Note; NOTES: [facility] Imaging Services [address] [place] [address] Verdana 4d Bilat Diag Digital AND CAD MR#: [id number] Acct: [id number] Name: KATHRYN AMARO Rep #: [id number] : 1965 F 50 From: Luciano Dowell MD PCP: Carolina Bowman Status: REG CLI Study: Bilat Diag Digital AND CAD Date of Exam: 08/07/15 Exam# [id number] Itzel lara Dr: Carolina Bowman MAMMOGRAPHY - [...] Luciano Dowell MD at 9:36 EDT Tel [phone], Service support [phone], CC: Carolina Bowman Waiter/Waitress Head: Signed 06-Aug-2015 Chest PA and Lateral Result: Comments: See Note; NOTES: [facility] Imaging Services [address] [place] [address] Verdana 4d Chest PA and Lateral MR#: [id number] Acct: [id number] Name: KATHRYN JACOBSEN Rep #: [id number] : 1965 F 50 From: Luciano Dowell MD PCP: Carolina Bowman Status: REG CLI Study: Chest PA and Lateral Date of Exam: 08/06/15 Exam# [id number] Ordering Dr: Carolina Bowman STUDY: X-RAY CHEST [...] Dowell MD 08/05 at 11:03 EDT Tel [phone], Service support [phone], RAD/Chest PA and Lateral IMPRESSION: No acute abnormality is seen. Electronically Signed: Agustin Dowell MD at 11:03 EDT Tel [phone], Service support [phone], CC: Carolina Bowman Waiter/Waitress Head: Signed 06-Aug-2015 Ribs Unil 2V No CXR Result: Comments: See Note; NOTES: [facility] Imaging Services [address] [place] [address] Verdana 4d Ribs Unil 2V No CXR MR#: [id number] Acct: [id number] Name: KATHRYN AMARO Rep #: [id number] : 1965 F 50 From: Luciano Dowell MD PCP: Carolina Bowman Status: REG CLI Study: Ribs Unil 2V No CXR Date of Exam: 08/06/15 Exam# [id number] Ordering Dr: Jorje Bowman STUDY: X-RAY - UNILATERAL RIBS ( LEFT ) REASON FOR EXAM: Female, 50 years old. Upper chest pain. TECHNIQUE: 4 view(s) of the ribs. COMPARISON: None. FINDINGS: Normal visualized ribs without a demonstrated fracture. The visualized lung is clear and expanded. IMPRESSION: Normal x-ray examination of the ribs. Electronically Signed: Luciano Dowell MD at 11:02 EDT Tel [phone], Service support [phone], 0036 RAD/Ribs Unil 2V No CXR IMPRESSION: Norm al x-ray examination of the ribs. Electronically Signed: Luciano Dowell MD at 11:02 EDT Tel [phone], Service support [phone], CC: Carolina Bowman Waiter/Waitress Head: Signed 06-Jun-2015 Spirometry (56269) Comments: Fevi/fvc 72% Result: 18-Nov-2014 Shoulder min 2 Views Result: Comments: See Note; NOTES: [facility] Imaging Services [address] [place] [address] Radiology Report MR#: [id number] Acct: [id number] Name: KATHRYN AMARO Rep #: [id number] : 1965 F 49 From: Pete Curtis MD PCP: Samantha Barrera DO Status: REG CLI Study: Shoulder min 2 Views Date of Exam: 11/18/14 Exam# [id number] Ordering Dr: Samantha Barrera TUDY: X-RAY - [...] MD at 22:54 EDT , Service support [phone], R AD/Shoulder min 2 Views IMPRESSION: Mild 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 Electronically Signed: Pete Curtis MD at 22:54 EDT , Service support [phone], CC: Samantha Barrera DO Waiter/Waitress Head: Signed 10-Jul-2014 Hepatobilliary Imaging Result: Comments: See Note; NOTES: [facility] Imaging Services [address] [place] [address] Nuclear Medicine Report MR#: [id number] Acct: [id number] Name: KATHRYN AMARO Rep #: [id number] : 1965 F 49 From: Shreyas Groves DO PCP: Samantha Barrera DO Status: REG CLI Study: Hepatobilliary Imaging Date of Exam: 07/10/14 Exam# [id number] Ordering Dr: Carolina Bowman LINICAL: 49-year-old female [...] Shreyas Groves DO at 22:24 EDT Tel [phone], Service support [phone], CC: Carolina Bowman; Samantha Barrera DO Waiter/Waitress Head: Signed 30-Jun-2014 Pelvic (Non ) Result: Comments: See Note; NOTES: [facility] Imaging Services [address] [place] [address] Ultrasound Report MR#: [id number] Acct: [id number] Name: KATHRYN AMARO Rep #: [id number] : 1965 F 49 From: Pete Curtsi MD PCP: Samantha Barrera DO Status: REG CLI Study: Pelvic (Non ) Date of Exam: 06/30/14 Exam# [id number] Ordering Dr: Carolina Bowman STUDY: U LTRASOUND [...] MD at 19:53 EDT , Service support [phone], CC: Carolina Bowman; Samantha Barrera DO Waiter/Waitress Head: Signed 30-Jun-2014 Abdomen Complete Result: Comments: See Note; NOTES: [facility] Imaging Services [address] [place] [address] Ultrasound Report MR#: [id number] Acct: [id number] Name: KATHRYN AMARO Rep #: [id number] : 1965 F 49 From: Noé Pascual MD PCP: Samantha Barrera DO Status: REG CLI Study: Abdomen Complete Date of Exam: 06/30/14 Exam# [id number] Ordering Dr: Carolina Bowman STUDY: ABDOM INAL [...] MD at 15:42 EDT , Service support [phone], CC: Carolina Bowman; Samantha Barrera DO Waiter/Waitress Head: Signed 21-Jun-2014 Toradol Injection, 30 mg (J1885) Comments: Lot:01-257-FKZkh:02/11/2015Dose:1MlRoute:IMSite:R glutGiven By:RIC signed Result: Comments: Lot:Exp:Dose:1mlRoute:IMSite:R GlutGiven By:BRIANVIS signed 19-Apr-2014 Bilat Scrn Digital AND CAD Result: Comments: See Note; NOTES: [facility] Imaging Services [address] [place] [address] Breast Imaging Report MR#: [id number] Acct: [id number] Name: KATHRYN AMARO Rep # : [id number] : 1965 F 49 From: Luciano Dowell MD PCP: Samantha Barrera DO Status: REG CLI Study: Bilat Scrn Digital AND CAD Date of Exam: 04/19/14 Exam# [id number] Ordering Dr: Gasper Barrera DO MAMMOGRAPHY - [...] Luciano Dowell MD at 8:19 EST Tel [phone], Service support [phone], Fax CC: Samantha Barrera DO Waiter/Waitress Head: Signed 20-Mar-2014 Abdomen/Pelvis WITH Contrast Result: Comments: See Note; NOTES: [facility] Imaging Services [address] [place] [address] CAT Scan Report MR#: [id number] Acct: [id number] Name: KATHRYN AMARO Rep #: [id number] : 1965 F 48 From: Brayan Wilson MD PCP: Samantha Barrera DO Status: REG CLI Study: Abdomen/Pelvis WITH Contrast Date of Exam: 03/20/14 Exam# [id number] Ordering Dr: Samantha Barrera DO STUDY: CT [...] MD at 21:48 EST , Service support [phone], CC: Samantha Barrera DO Waiter/Waitress Head: Signed 15-Sep-2013 NCS and/or EMG Patient Result: Comments: See Note; NOTES: [facility] Pulmonary Services/Neurology [address] [place] [address] NCS and/or EMG Patient MR#: [id number] Acct: [id number] Name: LA AMARO RA Rep #: [id number] : 1965 48 From: Ever Allen MD Referring Dr: Carolina Bowman Status: REG CLI Ordering Dr: Carolina Bowman Date: 09/13/13 Location: [facility] Sex: F C DATE OF SERVICE: [facility] 2013 REFERRING PHYSICIAN: Carolina Bowman. INTRODUCTION: [...] Bowman; Dr. Carbajal; Samantha Barrera DO; Ever Allne MD Date Dictated: 09/13/13 1043 Date Transcribed: 09/13/13 1520 Waiter/Waitress Head: SHARP Signed 12-Apr-2013 Bilat Scrn Digital & CAD Result: Comments: See Note; NOTES: [facility] Imaging Services [address] [place] [address] Breast Imaging Report MR#: [id number] Acct: [id number] Name: KATHRYN AMARO Rep # : [id number] : 1965 F 48 From: Luciano Dowell MD PCP: Samantha Barrera DO Status: REG CLI Exam# [id number] Ordering Dr: Samantha Barrera DO MAMMOGRAPHY - [...] M.D. at 8:09 EST , Service support [phone], CC: Samantha Barrera DO Waiter/Waitress Head: Signed 12-Apr-2013 Dexa Bone Density Study (HP) Result: Comments: See Note; NOTES: [facility] Imaging Services [address] [place] [address] Bone Density Report MR#: [id number] Acct: [id number] Name: KATHRYN AMARO Rep #: [id number] : 1965 F 48 From: Luciano Dowell MD PCP: Samantha Barrera DO Status: [facility] Study: Dexa Bone Density Study (HP) Date of Exam: 04/12/13 Exam# [id number] Ordering Dr: Gasper Barrera DO STUDY: DUAL [...] M.D. 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 Comments: 06/23/11 Status: Active Smoking Status Name Dates Details Never smoker Vital Signs Date Test Result Details 30-Awg-016973:51 Comments: ortho scatic bp: sitting 105/66 P [...] kg/m2 Body Surface Area Calculated 1.63 m2 7-Rix-690972:06 Temperature 97.6 f Comments: Method: Temporal Pulse [...] Comments: PATIENT NOT FASTINGPERFORMED BY: CATRACHO [facility] Ipvpzk2722 [facility] [id number] (35885) ALT (SGPT) 67 [iU]/L (Abnormal) Range: 0-32 [...] 6-24 Glucose 116 mg/dL (Abnormal) Range: 65-99 65-Vqe-623374:51 CBC & PLATELETS (AUTO) Comments: PATIENT NOT FASTINGPERFORMED BY: [facility] Cubgcr6976 [facility] [id number] (46073) Platelets 101 {x10E3/uL} Range: 150-379 (Abnormal) RDW [...] Comments: PATIENT NOT FASTINGPERFORMED BY: CB [facility] Nzsdzm9573 [address] RoadDublin [place] [id number] BY: [address] [id number] Range: 6.2-19.4 :10 CALCIFEDIOL (23730) Comments: PATIENT NOT FASTINGPERFORMED BY: CB [facility] Dvfdif9558 Jacobs RoadDublin [place] [id number] BY: [address] [id number] Vitamin D, 25-Hydroxy 86.0 ng/mL (Normal) Range: 30.0-100.0 Comments: Vitamin D deficiency has been defined by the [place] ofUpper [facility] Medical Centercine and an Endocrine Society practice guideline as alevel of serum 25-OH vitamin D less than 20 ng/mL (1,2).The Endocrine Society went on to further define vitamin Dinsufficiency as a level between 21 and 29 ng/mL (2).1. IOM (Lagrange of Medicine). 2010. Dietary reference intakes for calcium and D. [place]: The National Academies Press.2. Henna MF, Jerman [place], Piedad SHARP, et al. Evaluation, treatment, and prevention of vitamin D deficiency: an Endocrine Society clinical practice guideline. JCEM. 2010; 96(7):1911-30. :10 TESTOSTERONE TOTAL (21418) Comments: PATIENT NOT FASTINGPERFORMED BY: CB [facility] Uyydkp1910 Jacobs RoadDublin [place] [id number] BY: [address] [id number] Information: AM CORTISOL Testosterone, Serum <3 ng/dL (Abnormal) Range: 3-41 :10 ESTRONE (53955) Comments: PATIENT NOT FASTINGPERFORMED BY: CB [facility] Rabjvq0311 Jacobs RoadDublin [place] [id number] BY: [address] [id number] Estrone, Serum 36 pg/mL (Normal) Comments: . [...] - 114 Post Menopausal 14 - 103 36-Gis-00204:10 PROGESTERONE (53446) Comments: PATIENT NOT FASTINGPERFORMED BY: [employer] [facility]Nov[facility] [id number] BY: [address]inn[address] [id number] Progesterone 0.2 ng/mL (Normal) Comments: Follicular phase 0.1 - 0.9 Luteal phase 1.8 - 23.9 Ovulation phase 0.1 - 12.0 First trimester 11.0 - 44.3 Second trimester 25.4 - 83.3 Third t rimester 58.7 - 214.0 Postmenopausal 0.0 - 0.1 80-Nuv-41909:10 ESTRADIOL (07316) Comments: PATIENT NOT FASTINGPERFORMED BY: [facility] HospitalAvectraNovant [facility] [id number] BY: [employer] [id number] Estradiol <5.0 pg/mL (Normal) Comments: Adult Female: Follicular phase 12.5 - 166.0 Ovulation phase 85.8 - 498.0 Luteal phase 43.8 - 211.0 Postmenopausal <6.0 - 54.7 1st trimester 215.0 - & gt;4300.0 Girls (1-10 years) 6.0 - 27.0Roche ECLIA methodology 46-Owq-357459:02 CBC & PLATELETS (AUTO) Comments: PATIENT NOT FASTINGPERFORMED BY: [employer] [place] [facility] [id number] (55518) Platelets 214 {x10E3/uL} (Normal) Range: 150-379 RDW 13.0 % (Normal) Range: 12.3-15.4 MCHC 32.9 g/dL (Normal) Range: 31.5-35.7 MCH 31.3 pg (Normal) Range: 26.6-33.0 MCV 95 fL (Normal) Range: 79-97 Hematocrit 41.0 % (Normal) Range: 34.0-46.6 Hemoglobin 13.5 g/dL (Normal) Range: 11.1-15.9 RBC 4.32 {x10E6/uL} (Normal) Range: 3.77-5.28 WBC 6.8 {x10E3/uL} (Normal) Range: 3.4-10.8 00-Isz-494853:02 TSH (18798) Comments: PATIENT NOT FASTINGPERFORMED BY: [place] 0121170 [facility] [id number] TSH 1.190 {uIU/mL} (Normal) Range: 0.450-4.500 84-Qdy-478731:02 T4, FREE (THYROXINE) (61112) Comments: PATIENT NOT FASTINGPERFORMED BY: [address] [id number] T4,Free(Direct) 1.07 ng/dL (Normal) Range: 0.82-1.77 73-Lcq-534398:02 T3, FREE (TRIDOTHYRONINE) (51358) Comments: PATIENT NOT FASTINGPERFORMED BY: [facility]6370 [facility] [id number] Triiodothyronine,Free,Serum 2.9 pg/mL (Normal) Range: 2.0-4.4 42-Jxi-614451:02 Metabolic Panel, Comprehensive Comments: PATIENT NOT FASTINGPERFORMED BY: [address] [id number] (10071) ALT (SGPT) 14 [iU]/L (Normal) Range: 0-32 [...] Glucose, Serum 84 mg/dL (Normal) Range: 65-99 05-Ipf-254514:02 IRON (18202) Comments: PATIENT NOT FASTINGPERFORMED BY: [employer] Ghlpqy2109 [facility] [id number] Iron, Serum 46 ug/dL (Normal) Range: 27-159 97-Bks-352058:02 DHEA-S (DEHYDROEPIANDROSTERONE Comments: PATIENT NOT FASTINGPERFORMED BY: [employer] Xoiizx0903 [facility] [id number] SULFATE) (08519) DHEA-Sulfate 40.7 ug/dL (Abnormal) Range: 41.2-243.7 15-Aug-20167:57 Microscopic Examination Comments: PATIENT NOT FASTINGPERFORMED BY: [employer] Byfxap4660 [facility] [id number] Bacteria Few (Normal) Mucus Threads Present (Normal) Epithelial Cells (non renal) 0-10 {/hpf} (Normal) Range: 0 - 10 RBC 0-2 {/hpf} (Normal) Range: 0 - 2 WBC 0-5 {/hpf} (Normal) Range: 0 - 5 :57 URINALYSIS (15976) Comments: PATIENT NOT FASTINGPERFORMED BY: [facility] Fxbzxc4871 [address] [facility] [id number] Microscopic Examination See below: (Normal) Comments: Microscopic was indicated and was performed. Nitrite, Urine Negative (Normal) Urobilinogen,Semi-Qn 0.2 mg/dL (Normal) Range: 0.2-1.0 Bilirubin Negative (Normal) Occult Blood Negative (Normal) Ketones Negative (Normal) Glucose Negative (Normal) Protein Negative (Normal) WBC Esterase 1+ (Abnormal) Appearance Clear (Normal) Urine-Color Yellow (Normal) pH 7.0 (Normal) Range: 5.0-7.5 Specific [place] 1.008 (Normal) Range: 1.005-1.030 61-Ozi-827451:50 Basic Metabolic Profile (BMP) Comments: [facility] [address] [place], [address] GAP 4 (Abnormal) Range: 5-15 [...] Range: 70-110 :50 CBC W/Diff, Automated Comments: [facility] [address] [place], [address] Absolute Lymph 1.18 {X10_3/ul} (Normal) [...] 4.2-5.4 WBC 10.3 K/mm3 (Normal) Range: 4.4-11.0 45-Jfh-004053:00 Urinalysis, Complete Comments: Order Date: 07/22/16Order Date: 07/22/16How was Urine Obtained? STAFF MIDWIFE TO [facility] Xipwjthate[address] [facility] [place], [address] MUCUS, URINE 0 SEEN {/hpf} [...] Urine Color: PINK :44 Culture, Wound Comments: [facility] [address] [place], [address] CUW See Note (Normal) Comments: Order Date: [...] pneumoniae, beta-hemolytic Streptococcus or Staphylococcus aureus isolated. 04-Etl-098795:49 HgA1C , Office (23884) HgA1C , Office 5.3 % (Normal) Range: 4.6 - 7.1 :03 Metabolic Panel, Basic Comments: PATIENT NOT FASTINGPERFORMED BY: [facility] Sxggwx3533 [facility] [id number] Information: [id number] (93444) Calcium, Serum 9.4 mg/dL (Normal) Range: 8.7-10.2 [...] 103 mg/dL (Abnormal) Range: 65-99 :03 CALCIFEDIOL (78808) Comments: PATIENT NOT FASTINGPERFORMED BY: [employer] Gslubw3328 [facility] [id number] Vitamin D, 25-Hydroxy 38.0 ng/mL (Normal) Range: 30.0-100.0 Comments: Vitamin D deficiency has been defined by the [place] ofMedicine and an Endocrine Society practice guideline as alevel of serum 25-OH vitamin D less than 20 ng/mL (1,2).The Endocrine Society went on to further define vitamin Dinsufficiency as a level between 21 and 29 ng/mL (2).1. IOM ([place] of Medicine). 2010. Dietary reference intakes for calcium and D. [place]: The National Academies Press.2. Henna MF, Jerman MORRIS, Piedad SHARP, et al. Evaluation, treatment, and prevention of vitamin D deficiency: an Endocrine Society clinical practice guideline. JCEM. 2010; 96(7):1911-30. 04-Ure-359781:03 TSH (THYROID STIMULATING Comments: PATIENT NOT FASTINGPERFORMED BY: [employer] Xqodtr9484 [facility] [id number] HORMONE) (77282) TSH 0.764 {uIU/mL} (Normal) Range: 0.450-4.500 :45 HEPATIC FUNCTION PANEL Comments: PATIENT NOT FASTINGPERFORMED BY: [facility]Hel[facility]6370 [facility] [id number] Information: [id number] (21940) ALT (SGPT) 12 [iU]/L (Normal) Range: 0-32 AST (SGOT) 12 [iU]/L (Normal) Range: 0-40 Alkaline Phosphatase, S 42 [iU]/L (Normal) Range: 39-117 Bilirubin, Direct 0.17 mg/dL (Normal) Range: 0.00-0.40 Bilirubin, Total 0.6 mg/dL (Normal) Range: 0.0-1.2 Albumin, Serum 4.7 g/dL (Normal) Range: 3.5-5.5 Protein, Total, Serum 6.6 g/dL (Normal) Range: 6.0-8.5 :58 HEPATIC FUNCTION PANEL Comments: PATIENT NOT FASTINGPERFORMED BY: [facility]6370 [facility] [id number] Information: [id number] (13157) ALT (SGPT) 14 [iU]/L (Normal) Range: 0-32 AST (SGOT) 14 [iU]/L (Normal) Range: 0-40 Alkaline Phosphatase, S 42 [iU]/L (Normal) Range: 39-117 Bilirubin, Direct 0.17 mg/dL (Normal) Range: 0.00-0.40 Bilirubin, Total 0.7 mg/dL (Normal) Range: 0.0-1.2 Albumin, Serum 4.9 g/dL (Normal) Range: 3.5-5.5 Protein, Total, Serum 6.9 g/dL (Normal) Range: 6.0-8.5 :43 HEPATIC FUNCTION PANEL Comments: PATIENT NOT FASTINGPERFORMED BY: [facility]6370 [facility] [id number] Information: [id number] (79598) ALT (SGPT) 16 [iU]/L (Normal) Range: 0-32 AST (SGOT) 12 [iU]/L (Normal) Range: 0-40 Alkaline Phosphatase, S 44 [iU]/L (Normal) Range: 39-117 Bilirubin, Direct 0.13 mg/dL Range: 0.00-0.40 (Normal) Bilirubin, Total 0.4 mg/dL (Normal) Range: 0.0-1.2 Albumin, Serum 4.6 g/dL (Normal) Range: 3.5-5.5 Protein, Total, Serum 6.6 g/dL (Normal) Range: 6.0-8.5 Amylase, Serum 68 U/L (Normal) Comments: PATIENT NOT FASTINGPERFORMED BY: [facility] [id number] 0:23 Range: 31-124 Lipase, Serum 17 U/L (Normal) Comments: PATIENT NOT FASTINGPERFORMED BY: [facility]6[address] [facility] [id number] Information: [id number] 0:23 Range: 0-59 Written Authorization WAR (Normal) Comments: PATIENT NOT FASTINGPERFORMED BY: [facility]6[address] [facility] [id number] 0:23 Comments: Written Authorization Received.Authorization received from KELIN MURILLO 01-27-1208Jxudbv by Rosemary Staples 54-Icw-554546:23 Metabolic Panel, Comprehensive Comments: PATIENT NOT FASTINGPERFORMED BY: [facility]6[address] [facility] [id number] ([id number]) ALT (SGPT) 13 [iU]/L (Normal) Range: 0-32 [...] Glucose, Serum 105 mg/dL (Abnormal) Range: 65-99 29-Wgc-620093:23 HEPATIC FUNCTION PANEL Comments: PATIENT NOT FASTINGPERFORMED BY: [facility] [id number] (50266) Bilirubin, Direct 0.10 mg/dL (Normal) Range: 0.00-0.40 83-Gmw-748682:23 CBC, Platelets & Auto Comments: PATIENT NOT FASTINGPERFORMED BY: [facility]CoB[facility]ore Community HospitalJitsji5898 [facility] [id number] Information: [id number] Diff (31392) Immature Grans (Abs) 0.0 {x10E3/uL} (Normal) Range: [...] 3.77-5.28 WBC 6.5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
--- OUTSIDE RECORDS SUMMARY | 2018-07-05 09:40 | XMS RPT_ITS | Continuity of Care Document ---
:1965 Author Organization [facility] Address [address] [facility] [address] [place] [address] Phone Care Team Providers Name Role Phone [...] 268.9) Status: Active Medications Name Dates Details [place] Saline Nasal Nasal Gel 1 (one) Gel Gel Apply BID for 0 days Quantity: 1 {Tube} Refills: 0 Ordered:23-Feb-2018 Lupe Abdi Start : 12-Nov-2017 Active CALCIUM 500/VITAMIN D, 016-426XB-OESD (Oral Tablet) 2 (two) Tablet daily for [...] : 03-Dec-2015 End : 13-Dec-2015 Inactive CORTISPORIN, 3.5-29914-4 (Otic Solution) 4 Drop(s) tid for 10 [...] : 12-Nov-2017 End : 19-Nov-2017 Inactive Nystatin 715855 UNIT/ML Mouth/Throat Suspension 5 cc 5times a [...] Discontinued Comments:please substitute generic albulterol VITAMIN D3, 56093WONC (Oral Capsule) 1 Capsule 2 x week [...] test (R73.02, 790.22) Comments: based on 2 [facility] -- will follow Status: Resolved [...] EMG Patient Result: Comments: See Note; NOTES: [facility] Pulmonary Services/Neurology [address] [place] [address] MR#: [id number] Acct: [id number] Name: KATHRYN AMARO Rep #: [id number] : 1965 52 From: Ever Allen MD Referring Dr: Bipin Ackerman DO Status: REG CLI Ordering Dr: Date: Location: [facility] Sex: F C NCS and/or EMG Patient [...] Dictated: 01/26/18 1036 Date Transcribed: 01/26/18 103 Flight Superintendent: MAUREEN Signed 22-Oct-2017 12 Lead Electrocardiogram Result: Comments: See Note; NOTES: [facility] Cardiovascular Services [address] [place] [address] 12 Lead EKG 10/21/17 1508 MR#: [id number] Acct: [id number] Name: KATHRYN AMARO Rep #: [id number] : 1965 52 From: Carroll Emmanuel MD [...] Normal ECG Confirmed by CHOLO MORENO, CARROLL ([id number]), mapping editor HILARIA DAVIDSON ([id number]) on 10/22/2017 12:52:17 PM Referred By: Priscila Chance Confirmed By:CARROLL EMMANUEL MD 10/22/17 1252 Date Carroll Emmanuel MD CC: Priscila Chance; Samantha Barrera DO Signed 30-Jun-2017 Skull min 4 Views Result: Comments: See Note; NOTES: [facility] Imaging Services [address] [place] [address] Skull min 4 Views MR#: [id number] Acct: [id number] Name: KATHRYN AMARO Rep #: [id number] : 1965 F 52 From: Marcus Angel MD PCP: Samantha Barrera DO Status: REG CLI Study: Skull min 4 Views Date of Exam: 06/30/17 Exam# [id number] Ordering Dr: Samantha Barrera DO STUDY: X-RAY [...] Service support , CC: Samantha Barrera DO Flight Superintendent: Signed 13-Oct-2016 SCREENING MAMM (CAD), BILAT Result: Comments: See Note; NOTES: [facility] Imaging Services [address] [place] [address] Verdana 4d SCREENING MAMM (CAD), BILAT MR#: [id number] Acct: [id number] Name: ALETHA AMARO Rep #: [id number] : 1965 F 51 From: Ron Roman MD PCP: Samantha Barrera DO Status: REG CLI Study: SCREENING MAMM (CAD), BILAT Date of Exam: 10/13/16 Exam# [id number] Ordering Dr: Karuna Mixon MD MAMMOGRAPHY - [...] delay biopsy of a clinically suspicious abnormality. [id number] Electronically Signed: Anjum Roman MD at 8:41 EDT , Service support , CC: Karuna Mixon MD; Samantha Barrera DO Flight Superintendent: Signed 22-Jul-2016 Emergency Department Summary Result: Comments: See Note; NOTES: [facility] Medical Records Department [address] [place] [address] Emergency Department Summary MR#: [id number] Acct: [id number] Name: ALETHA AMARO Rep #: [id number] : 1965 51 From: Kyle Tinsley MD [...] C: Samantha Barrera DO T: NTS JOB: [id number] 07/22/162113 &amp ;#60;Electronically signed by Kyle Tinsley MD> Date Kyle Tinsley MD Cosigner Signature (If Indicated): Date CC: Samantha Barrera DO Date Dictated: 07/22/162026 Date Transcribed: 07/22/162026 Flight Superintendent: Signed 22-Jul-2016 Discharge Instruction Result: Comments: See Note; NOTES: [facility] Medical Records Department [address] [place] [address] Discharge Instruction 07/22/162024 MR#: [id number] Acct: [id number] Name: KATHRYN AMARO Rep #: [id number] : 1965 51 From: Kyle Tinsley MD [...] Cont ONLY Result: Comments: See Note; NOTES: [facility] Imaging Services [address] [place] [address] Verdana 4d Abdomen/Pelvis W IV Cont ONLY MR#: [id number] Acct: [id number] Name: ROLLY AMARO Rep #: [id number] : 1965 F 51 From: Leo Shin DO PCP: Samantha Barrera DO Status: REG ER Study: Abdomen/Pelvis W IV Cont ONLY Date of Exam: 07/22/16 Exam# [id number] Ordering Dr: Kyle Tinsley MD STUDY: CT [...] at 20:11 EDT Tel , Service support [phone], CC: Samantha Barrera DO; Kyle Tinsley MD Flight Superintendent: Signed 07-Mar-2016 Esophagus Only Result: Comments: See Note; NOTES: [facility] Imaging Services [address] [place] [address] Verdana 4d Esophagus Only MR#: [id number] Acct: [id number] Name: KATHRYN AMARO Rep #: [id number] : 1965 F 50 From: Amrit Mac MD PCP: Carolina Bowman Status: REG CLI Study: Esophagus Only Date of Exam: 03/07/16 Exam# [id number] Ordering Dr: Mike Varner MD STUDY: AIR-CONTRAST [...] at 12:42 EST Tel , Service support [phone], CC: Carolina Bowman; Mike Varner Flight Superintendent: Signed 07-Aug-2015 Bilat Diag Digital AND CAD Result: Comments: See Note; NOTES: [facility] Imaging Services [address] [place] [address] Verdana 4d Bilat Diag Digital AND CAD MR#: [id number] Acct: [id number] Name: KATHRYN AMARO Rep #: [id number] : 1965 F 50 From: Luciano Dowell MD PCP: Carolina Bowman Status: REG CLI Study: Bilat Diag Digital AND CAD Date of Exam: 08/07/15 Exam# [id number] Itzel lara Dr: Carolina Bowman MAMMOGRAPHY - [...] Luciano Dowell MD at 9:36 EDT Tel [phone], Service support [phone], CC: Carolina Bowman Flight Superintendent: Signed 06-Aug-2015 Chest PA and Lateral Result: Comments: See Note; NOTES: [facility] Imaging Services [address] [place] [address] Verdana 4d Chest PA and Lateral MR#: [id number] Acct: [id number] Name: KATHRYN JACOBSEN Rep #: [id number] : 1965 F 50 From: Luciano Dowell MD PCP: Carolina Bowman Status: REG CLI Study: Chest PA and Lateral Date of Exam: 08/06/15 Exam# [id number] Ordering Dr: Carolina Bowman STUDY: X-RAY CHEST [...] Dowell MD 08/05 at 11:03 EDT Tel [phone], Service support [phone], RAD/Chest PA and Lateral IMPRESSION: No acute abnormality is seen. Electronically Signed: Agustin Dowell MD at 11:03 EDT Tel [phone], Service support [phone], CC: Carolina Bowman Flight Superintendent: Signed 06-Aug-2015 Ribs Unil 2V No CXR Result: Comments: See Note; NOTES: [facility] Imaging Services [address] [place] [address] Verdana 4d Ribs Unil 2V No CXR MR#: [id number] Acct: [id number] Name: KATHRYN AMARO Rep #: [id number] : 1965 F 50 From: Luciano Dowell MD PCP: Carolina Bowman Status: REG CLI Study: Ribs Unil 2V No CXR Date of Exam: 08/06/15 Exam# [id number] Ordering Dr: Jorje Bowman STUDY: X-RAY - UNILATERAL RIBS ( LEFT ) REASON FOR EXAM: Female, 50 years old. Upper chest pain. TECHNIQUE: 4 view(s) of the ribs. COMPARISON: None. FINDINGS: Normal visualized ribs without a demonstrated fracture. The visualized lung is clear and expanded. IMPRESSION: Normal x-ray examination of the ribs. Electronically Signed: Luciano Dowell MD at 11:02 EDT Tel [phone], Service support [phone], 0036 RAD/Ribs Unil 2V No CXR IMPRESSION: Norm al x-ray examination of the ribs. Electronically Signed: Luciano Dowell MD at 11:02 EDT Tel [phone], Service support [phone], CC: Carolina Bestbenita Flight Superintendent: Signed 06-Jun-2015 Spirometry (89022) Comments: Fevi/fvc 72% Result: 18-Nov-2014 Shoulder min 2 Views Result: Comments: See Note; NOTES: [facility] Imaging Services [address] [place] [address] Radiology Report MR#: [id number] Acct: [id number] Name: KATHRYN AMARO Rep #: [id number] : 1965 F 49 From: Pete Curtis MD PCP: Samantha Barrera DO Status: REG CLI Study: Shoulder min 2 Views Date of Exam: 11/18/14 Exam# [id number] Ordering Dr: Samantha Barrera TUDY: X-RAY - [...] MD at 22:54 EDT , Service support [phone], R AD/Shoulder min 2 Views IMPRESSION: Mild 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 Electronically Signed: Pete Curtis MD at 22:54 EDT , Service support [phone], CC: Samantha Barrera DO Flight Superintendent: Signed 10-Jul-2014 Hepatobilliary Imaging Result: Comments: See Note; NOTES: [facility] Imaging Services [address] [place] [address] Nuclear Medicine Report MR#: [id number] Acct: [id number] Name: KATHRYN AMARO Rep #: [id number] : 1965 F 49 From: Shreyas Groves DO PCP: Samantha Barrera DO Status: REG CLI Study: Hepatobilliary Imaging Date of Exam: 07/10/14 Exam# [id number] Ordering Dr: Carolina Bowman LINICAL: 49-year-old female [...] Shreyas Groves DO at 22:24 EDT Tel [phone], Service support [phone], CC: Carolina Bowman; Samantha Barrera DO Flight Superintendent: Signed 30-Jun-2014 Pelvic (Non ) Result: Comments: See Note; NOTES: [facility] Imaging Services [address] [place] [address] Ultrasound Report MR#: [id number] Acct: [id number] Name: KATHRYN AMARO Rep #: : 1965 F 49 From: Pete Curtis MD PCP: Samantha Barrera DO Status: REG CLI Study: Pelvic (Non ) Date of Exam: 06/30/14 Exam# [id number] Ordering Dr: Carolina Bowman STUDY: U LTRASOUND [...] MD at 19:53 EDT , Service support [phone], CC: Carolina Bowman; Samantha Barrera DO Flight Superintendent: Signed 30-Jun-2014 Abdomen Complete Result: Comments: See Note; NOTES: [facility] Imaging Services [address] [place] [address] Ultrasound Report MR#: [id number] Acct: [id number] Name: KATHRYN AMARO Rep #: : 1965 F 49 From: Noé Pascual MD PCP: Samantha Barrera DO Status: REG CLI Study: Abdomen Complete Date of Exam: 06/30/14 Exam# [id number] Ordering Dr: Carolina Bowman STUDY: ABDOM INAL [...] MD at 15:42 EDT , Service support [phone], CC: Carolina Bowman; Samantha Barrera DO Flight Superintendent: Signed 21-Jun-2014 Toradol Injection, 30 mg (J1885) Comments: Lot:[id number]:02/11/2015Dose:1MlRoute:IMSite:R glutGiven By:RIC signed Result: Comments: Lot:Exp:Dose:1mlRoute:IMSite:R GlutGiven By:RIC signed 19-Apr-2014 Bilat Scrn Digital AND CAD Result: Comments: See Note; NOTES: [facility] Imaging Services [address] [place] [address] Breast Imaging Report MR#: [id number] Acct: [id number] Name: KATHRYN AMARO Rep # : [id number] : 1965 F 49 From: Luciano Dowell MD PCP: Samantha Barrera DO Status: REG CLI Study: Bilat Scrn Digital AND CAD Date of Exam: 04/19/14 Exam# [id number] Ordering Dr: Gasper Barrera DO MAMMOGRAPHY - [...] Luciano Dowell MD at 8:19 EST Tel [phone], Service support [phone], Fax CC: Samantha Barrera DO Flight Superintendent: Signed 20-Mar-2014 Abdomen/Pelvis WITH Contrast Result: Comments: See Note; NOTES: [facility] Imaging Services [address] [place] [address] CAT Scan Report MR#: [id number] Acct: [id number] Name: KATHRYN AMARO Rep #: [id number] : 1965 F 48 From: Brayan Wilson MD PCP: Samantha Barrera DO Status: REG CLI Study: Abdomen/Pelvis WITH Contrast Date of Exam: 03/20/14 Exam# [id number] Ordering Dr: Samantha Barrera DO STUDY: CT [...] MD at 21:48 EST , Service support [phone], CC: Samantha Barrera DO Flight Superintendent: Signed 15-Sep-2013 NCS and/or EMG Patient Result: Comments: See Note; NOTES: [facility] Pulmonary Services/Neurology [address] [place] [address] NCS and/or EMG Patient MR#: [id number] Acct: [id number] Name: PREMTOVARMadalyn BLAKEE Rep #: [id number] : 1965 48 From: Ever Allen MD [...] Dictated: 09/13/13 1043 Date Transcribed: 09/13/13 1520 Flight Superintendent: SHARP Signed 12-Apr-2013 Bilat Scrn Digital & CAD Result: Comments: See Note; NOTES: [facility] Imaging Services [address] [place] [address] Breast Imaging Report MR#: [id number] Acct: [id number] Name: KATHRYN AMARO Rep # : [id number] : 1965 F 48 From: Luciano Dowell MD PCP: Samantha Barrera DO Status: REG CLI Exam# [id number] Ordering Dr: Samantha Barrera DO MAMMOGRAPHY - [...] M.D. at 8:09 EST , Service support [phone], CC: Samantha Barrera DO Flight Superintendent: Signed 12-Apr-2013 Dexa Bone Density Study (HP) Result: Comments: See Note; NOTES: [facility] Imaging Services [address] [place] [address] Bone Density Report MR#: [id number] Acct: [id number] Name: KATHRYN AMARO Rep #: [id number] : 1965 F 48 From: Luciano Dowell MD PCP: Samantha Barrera DO Status: [facility] Study: Dexa Bone Density Study (HP) Date of Exam: 04/12/13 Exam# [id number] Ordering Dr: Gasper Barrera DO STUDY: DUAL [...] M.D. 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 Comments: 06/23/11 Status: Active Smoking Status Name Dates Details Never smoker Vital Signs Date Test Result Details 01-Csr-040500:51 Comments: ortho scatic bp: sitting 105/66 P [...] kg/m2 Body Surface Area Calculated 1.61 m2 98-Nqv-013097:14 Pulse 88 /min Comments: Pattern: Regular Respiration [...] Comments: PATIENT NOT FASTINGPERFORMED BY: CATR[facility]O [facility] Nzsyqr7747 [facility] [id number] (53947) ALT (SGPT) 67 [iU]/L (Abnormal) Range: 0-32 [...] 6-24 Glucose 116 mg/dL (Abnormal) Range: 65-99 80-Fdt-264301:51 CBC & PLATELETS (AUTO) Comments: PATIENT NOT FASTINGPERFORMED BY: [facility] Vocutq5221 [facility] [id number] (83484) Platelets 101 {x10E3/uL} Range: 150-379 (Abnormal) RDW [...] Comments: PATIENT NOT FASTINGPERFORMED BY: CB [facility] Tuaryk7217 [facility] [place] [id number] BY: [address] [id number] 0 Range: 6.2-19.4 :10 CALCIFEDIOL (27003) Comments: PATIENT NOT FASTINGPERFORMED BY: CB [facility] Wnnvnq4302 [facility] [id number] BY: [address] [id number] Vitamin D, 25-Hydroxy 86.0 ng/mL (Normal) Range: 30.0-100.0 Comments: Vitamin D deficiency has been defined by the [place] ofMedicine and an Endocrine Society practice guideline as alevel of serum 25-OH vitamin D less than 20 ng/mL (1,2).The Endocrine Society went on to further define vitamin Dinsufficiency as a level between 21 and 29 ng/mL (2).1. IOM ([place] of Medicine). 2010. Dietary reference intakes for calcium and D. [place]: The National Academies Press.2. Henna MF, Jerman MORRIS, Piedad SHARP, et al. Evaluation, treatment, and prevention of vitamin D deficiency: an Endocrine Society clinical practice guideline. JCEM. 2010; 96(7):1911-30. 14-Ocm-85045:10 TESTOSTERONE TOTAL (07408) Comments: PATIENT NOT FASTINGPERFORMED BY: CB [facility] Rreqql0806 [facility] [id number] BY: [address] [id number] Information: AM CORTISOL Testosterone, Serum <3 ng/dL (Abnormal) Range: 3-41 49-Qza-69331:10 ESTRONE (47562) Comments: PATIENT NOT FASTINGPERFORMED BY: CB [facility] Pluesr7434 [facility] [id number] BY: [address] [id number] Estrone, Serum 36 pg/mL (Normal) Comments: . [...] - 114 Post Menopausal 14 - 103 01-Nsl-68760:10 PROGESTERONE (06419) Comments: PATIENT NOT FASTINGPERFORMED BY: [employer] Jobzella [facility] [id number] BY: [employer] [id number] Progesterone 0.2 ng/mL (Normal) Comments: Follicular phase 0.1 - 0.9 Luteal phase 1.8 - 23.9 Ovulation phase 0.1 - 12.0 First trimester 11.0 - 44.3 Second trimester 25.4 - 83.3 Third t rimester 58.7 - 214.0 Postmenopausal 0.0 - 0.1 73-Mbu-22305:10 ESTRADIOL (49167) Comments: PATIENT NOT FASTINGPERFORMED BY: [employer]ella [facility] [id number] BY: [address] [id number] Estradiol <5.0 pg/mL (Normal) Comments: Adult Female: Follicular phase 12.5 - 166.0 Ovulation phase 85.8 - 498.0 Luteal phase 43.8 - 211.0 Postmenopausal <6.0 - 54.7 1st trimester 215.0 - & gt;4300.0 Girls (1-10 years) 6.0 - 27.0Roche ECLIA methodology 26-Axl-982926:02 CBC & PLATELETS (AUTO) Comments: PATIENT NOT FASTINGPERFORMED BY: [employer] Bevpkk9172 [facility] [id number] (74613) Platelets 214 {x10E3/uL} (Normal) Range: 150-379 RDW 13.0 % (Normal) Range: 12.3-15.4 MCHC 32.9 g/dL (Normal) Range: 31.5-35.7 MCH 31.3 pg (Normal) Range: 26.6-33.0 MCV 95 fL (Normal) Range: 79-97 Hematocrit 41.0 % (Normal) Range: 34.0-46.6 Hemoglobin 13.5 g/dL (Normal) Range: 11.1-15.9 RBC 4.32 {x10E6/uL} (Normal) Range: 3.77-5.28 WBC 6.8 {x10E3/uL} (Normal) Range: 3.4-10.8 94-Uzr-820696:02 TSH (63376) Comments: PATIENT NOT FASTINGPERFORMED BY: [address] [id number] TSH 1.190 {uIU/mL} (Normal) Range: 0.450-4.500 23-Nej-649595:02 T4, FREE (THYROXINE) (39236) Comments: PATIENT NOT FASTINGPERFORMED BY: [address] [id number] T4,Free(Direct) 1.07 ng/dL (Normal) Range: 0.82-1.77 00-Djb-688061:02 T3, FREE (TRIDOTHYRONINE) (92792) Comments: PATIENT NOT FASTINGPERFORMED BY: [place] [address]18[address] [facility] [id number] Triiodothyronine,Free,Serum 2.9 pg/mL (Normal) Range: 2.0-4.4 57-Klo-677252:02 Metabolic Panel, Comprehensive Comments: PATIENT NOT FASTINGPERFORMED BY: [address] [id number] (63960) ALT (SGPT) 14 [iU]/L (Normal) Range: 0-32 [...] Glucose, Serum 84 mg/dL (Normal) Range: 65-99 33-Yml-423389:02 IRON (04362) Comments: PATIENT NOT FASTINGPERFORMED BY: HWCHRISTUS [facility] CenterWqxudg1482 [facility] [id number] Iron, Serum 46 ug/dL (Normal) Range: 27-159 86-Jle-694243:02 DHEA-S (DEHYDROEPIANDROSTERONE Comments: PATIENT NOT FASTINGPERFORMED BY: HWEast Orange General HospitalJonjgw0776 [facility] [id number] SULFATE) (19624) DHEA-Sulfate 40.7 ug/dL (Abnormal) Range: 41.2-243.7 15-Aug-20167:57 Microscopic Examination Comments: PATIENT NOT FASTINGPERFORMED BY: HW Zzakhc0100 [facility] [id number] Bacteria Few (Normal) Mucus Threads Present (Normal) Epithelial Cells (non renal) 0-10 {/hpf} (Normal) Range: 0 - 10 RBC 0-2 {/hpf} (Normal) Range: 0 - 2 WBC 0-5 {/hpf} (Normal) Range: 0 - 5 15-Aug-20167:57 URINALYSIS (61761) Comments: PATIENT NOT FASTINGPERFORMED BY: [facility] Gtfmmt4899 [facility] [id number] Microscopic Examination See below: (Normal) Comments: Microscopic was indicated and was performed. Nitrite, Urine Negative (Normal) Urobilinogen,Semi-Qn 0.2 mg/dL (Normal) Range: 0.2-1.0 Bilirubin Negative (Normal) Occult Blood Negative (Normal) Ketones Negative (Normal) Glucose Negative (Normal) Protein Negative (Normal) WBC Esterase 1+ (Abnormal) Appearance Clear (Normal) Urine-Color Yellow (Normal) pH 7.0 (Normal) Range: 5.0-7.5 Specific Cranberry 1.008 (Normal) Range: 1.005-1.030 12-Vpy-135619:50 Basic Metabolic Profile (BMP) Comments: [facility] [address] [place], [place], [id number] GAP 4 (Abnormal) Range: 5-15 CO2 27.0 [...] 7-18 GLU 87 mg/dL (Normal) Range: 70-110 91-Apl-666490:50 CBC W/Diff, Automated Comments: [facility] [address] [place], [address] Absolute Lymph 1.18 {X10_3/ul} (Normal) [...] 4.2-5.4 WBC 10.3 K/mm3 (Normal) Range: 4.4-11.0 23-Tzj-200213:00 Urinalysis, Complete Comments: Order Date: 07/22/16Order Date: 07/22/16How was Urine Obtained? VIDEO NEWS EDITOR TO [facility] Blfkxguvdn9[address] [facility] [place], [address] MUCUS, URINE 0 SEEN {/hpf} [...] BELOW (Normal) Comments: Visual Urine Color: PINK 24-Rrg-309281:44 Culture, Wound Comments: [facility] [address] [place], [address] CUW See Note (Normal) Comments: Order Date: [...] pneumoniae, beta-hemolytic Streptococcus or Staphylococcus aureus isolated. 09-Jcd-192526:49 HgA1C , Office (94640) HgA1C , Office 5.3 % (Normal) Range: 4.6 - 7.1 83-Pjb-114404:03 Metabolic Panel, Basic Comments: PATIENT NOT FASTINGPERFORMED BY: [facility]CoEast [facility] HospitalAxoabz0395 [facility] [id number] Information: [id number],[id number] (35227) Calcium, Serum 9.4 mg/dL (Normal) Range: 8.7-10.2 [...] 103 mg/dL (Abnormal) Range: 65-99 :03 CALCIFEDIOL (11201) Comments: PATIENT NOT FASTINGPERFORMED BY: HW Ycrnbj2669 [facility] [id number] Vitamin D, 25-Hydroxy 38.0 ng/mL (Normal) Range: 30.0-100.0 Comments: Vitamin D deficiency has been defined by the [place] ofMedicine and an Endocrine Society practice guideline as alevel of serum 25-OH vitamin D less than 20 ng/mL (1,2).The Endocrine Society went on to further define vitamin Dinsufficiency as a level between 21 and 29 ng/mL (2).1. IOM ([place] of Medicine). 2010. Dietary reference intakes for calcium and D. [place]: The National Academies Press.2. Henna MF, Jerman MORRIS, Piedad SHARP, et al. Evaluation, treatment, and prevention of vitamin D deficiency: an Endocrine Society clinical practice guideline. JCEM. 2010; 96(7):1911-30. 24-Gzm-582935:03 TSH (THYROID STIMULATING Comments: PATIENT NOT FASTINGPERFORMED BY: HW Rrisyj4881 [facility] [id number] HORMONE) (67644) TSH 0.764 {uIU/mL} (Normal) Range: 0.450-4.500 17-Jan-20159:45 HEPATIC FUNCTION PANEL Comments: PATIENT NOT FASTINGPERFORMED BY: [facility] [facility] [id number] Information: [id number],[id number] (37843) ALT (SGPT) 12 [iU]/L (Normal) Range: 0-32 AST (SGOT) 12 [iU]/L (Normal) Range: 0-40 Alkaline Phosphatase, S 42 [iU]/L (Normal) Range: 39-117 Bilirubin, Direct 0.17 mg/dL (Normal) Range: 0.00-0.40 Bilirubin, Total 0.6 mg/dL (Normal) Range: 0.0-1.2 Albumin, Serum 4.7 g/dL (Normal) Range: 3.5-5.5 Protein, Total, Serum 6.6 g/dL (Normal) Range: 6.0-8.5 :58 HEPATIC FUNCTION PANEL Comments: PATIENT NOT FASTINGPERFORMED BY: [facility] [facility] [id number] Information: [id number] (48568) ALT (SGPT) 14 [iU]/L (Normal) Range: 0-32 AST (SGOT) 14 [iU]/L (Normal) Range: 0-40 Alkaline Phosphatase, S 42 [iU]/L (Normal) Range: 39-117 Bilirubin, Direct 0.17 mg/dL (Normal) Range: 0.00-0.40 Bilirubin, Total 0.7 mg/dL (Normal) Range: 0.0-1.2 Albumin, Serum 4.9 g/dL (Normal) Range: 3.5-5.5 Protein, Total, Serum 6.9 g/dL (Normal) Range: 6.0-8.5 :43 HEPATIC FUNCTION PANEL Comments: PATIENT NOT FASTINGPERFORMED BY: [facility] [facility] [id number] Information: 510200,J29911 (67684) ALT (SGPT) 16 [iU]/L (Normal) Range: 0-32 AST (SGOT) 12 [iU]/L (Normal) Range: 0-40 Alkaline Phosphatase, S 44 [iU]/L (Normal) Range: 39-117 Bilirubin, Direct 0.13 mg/dL Range: 0.00-0.40 (Normal) Bilirubin, Total 0.4 mg/dL (Normal) Range: 0.0-1.2 Albumin, Serum 4.6 g/dL (Normal) Range: 3.5-5.5 Protein, Total, Serum 6.6 g/dL (Normal) Range: 6.0-8.5 Amylase, Serum 68 U/L (Normal) Comments: PATIENT NOT FASTINGPERFORMED BY: [facility] [facility] [id number] 0:23 Range: 31-124 Lipase, Serum 17 U/L (Normal) Comments: PATIENT NOT FASTINGPERFORMED BY: [facility] [facility] [id number] Information: [id number] 0:23 Range: 0-59 Written Authorization WAR (Normal) Comments: PATIENT NOT FASTINGPERFORMED BY: [facility] [facility] [id number] 0:23 Comments: Written Authorization Received.Authorization received from KELIN MURILLO [id number] by Rosemary Staples 10-Sxk-385512:23 Metabolic Panel, Comprehensive Comments: PATIENT NOT FASTINGPERFORMED BY: [facility] [facility] [id number] (69802) ALT (SGPT) 13 [iU]/L (Normal) Range: 0-32 [...] Glucose, Serum 105 mg/dL (Abnormal) Range: 65-99 49-Koo-662279:23 HEPATIC FUNCTION PANEL Comments: PATIENT NOT FASTINGPERFORMED BY: [facility] [facility] [id number] (58022) Bilirubin, Direct 0.10 mg/dL (Normal) Range: 0.00-0.40 47-Eda-749776:23 CBC, Platelets & Auto Comments: PATIENT NOT FASTINGPERFORMED BY: [facility] [facility] [id number] Information: [id number] Diff (48461) Immature Grans (Abs) 0.0 {x10E3/uL} (Normal) Range: [...] 3.77-5.28 WBC 6.5 {x10E3/uL} (Normal) Range: 3.4-10.8 52-Ull-068584:13 URINE TULIO CULTURE-IDENTIFICATN Comments: PATIENT NOT FASTINGPERFORMED BY: HWMichael Ville [id number] [facility] [id number] Information: SRC: URINE [id number] ([id number]) Result 1 MUG (Normal) Comments: Mixed urogenital flora5,000 Colonies/mL Urine Culture,Comprehensive Final report (Normal) 14-Tbq-916428:07 Urinalysis, Office (91771) UA - LEUKOCYTE ESTERASE Negative (Normal) UA - NITRITE Negative (Normal) URINE UROBILINGN DEBBIE TIMED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
--- OUTSIDE RECORDS SUMMARY | 2018-07-05 09:41 | XMS RPT_ITS | Continuity of Care Document ---
:1965 Author Organization [facility] Address [address] [place] [address] Phone Care Team Providers Name Role Phone [...] 268.9) Status: Active Medications Name Dates Details Jasper Saline Nasal Nasal Gel 1 (one) Gel Gel Apply BID for 0 days Quantity: 1 {Tube} Refills: 0 Ordered:23-Feb-2018 Lupe Abdi Start : 12-Nov-2017 Active CALCIUM 500/VITAMIN D, 358-361FS-BBQJ (Oral Tablet) 2 (two) Tablet daily for [...] : 03-Dec-2015 End : 13-Dec-2015 Inactive CORTISPORIN, 3.5-38756-0 (Otic Solution) 4 Drop(s) tid for 10 [...] : 12-Nov-2017 End : 19-Nov-2017 Inactive Nystatin 975071 UNIT/ML Mouth/Throat Suspension 5 cc 5times a [...] Discontinued Comments:please substitute generic albulterol VITAMIN D3, 57681XIKX (Oral Capsule) 1 Capsule 2 x week [...] test (R73.02, 790.22) Comments: based on 2 [facility] -- will follow Status: Resolved as [...] EMG Patient Result: Comments: See Note; NOTES: [facility] Pulmonary Services/Neurology [address] [place] [address] MR#: [id number] Acct: [id number] Name: KATHRYN AMARO Rep #: [id number] : 1965 52 From: Ever Allen MD [...] Dictated: 01/26/18 1036 Date Transcribed: 01/26/18 103 Analytical Lab Technician: NF Signed 22-Oct-2017 12 Lead Electrocardiogram Result: Comments: See Note; NOTES: [facility] Cardiovascular Services [address] [place] [address] 12 Lead EKG 10/21/17 1508 MR#: [id number] Acct: [id number] Name: KATHRYN AMARO Rep #: [id number] : 1965 52 From: Carroll Emmanuel MD [...] Normal ECG Confirmed by CHOLO MORENO, CARROLL ([id number]), staff editor HILARIA DAVIDSON ([id number]) on 10/22/2017 12:52:17 PM Referred By: Priscila Chance Confirmed By:CARROLL EMMANUEL MD 10/22/17 1252 Date Carroll Emmanuel MD CC: Priscila Chance; Samantha Barrera DO Signed 30-Jun-2017 Skull min 4 Views Result: Comments: See Note; NOTES: [facility] Imaging Services [address] [facility] [place] [place] [address] Skull min 4 Views MR#: [id number] Acct: [id number] Name: KATHRYN AMARO Rep #: [id number] : 1965 F 52 From: Marcus Angel MD PCP: Samantha Barrera DO Status: REG CLI Study: Skull min 4 Views Date of Exam: 06/30/17 Exam# [id number] Ordering Dr: Samantha Barrera DO STUDY: X-RAY [...] Service support , CC: Samantha Barrera DO Analytical Lab Technician: Signed 13-Oct-2016 SCREENING MAMM (CAD), BILAT Result: Comments: See Note; NOTES: [facility] Imaging Services [address] [place] [address] Verdana 4d SCREENING MAMM (CAD), BILAT MR#: [id number] Acct: [id number] Name: ALETHA AMARO Rep #: [id number] : 1965 F 51 From: Ron Roman MD PCP: Samantha Barrera DO Status: REG CLI Study: SCREENING MAMM (CAD), BILAT Date of Exam: 10/13/16 Exam# [id number] Ordering Dr: Karuna Mixon MD MAMMOGRAPHY - [...] delay biopsy of a clinically suspicious abnormality. [id number] Electronically Signed: Anjum Roman MD at 8:41 EDT , Service support , CC: Karuna Mixon MD; Samantha Barrera DO Analytical Lab Technician: Signed 22-Jul-2016 Emergency Department Summary Result: Comments: See Note; NOTES: [facility] Medical Records Department [address] [place] [address] Emergency Department Summary MR#: [id number] Acct: [id number] Name: ALETHA AMARO Rep #: [id number] : 1965 51 From: Kyle Tinsley MD [...] C: Samantha Barrera DO T: NTS JOB: [id number] 07/22/162113 &amp ;#60;Electronically signed by Kyle Tinsley MD> Date Kyle Tinsley MD Cosigner Signature (If Indicated): Date CC: Samantha Barrera DO Date Dictated: 07/22/162026 Date Transcribed: 07/22/162026 Analytical Lab Technician: Signed 22-Jul-2016 Discharge Instruction Result: Comments: See Note; NOTES: [facility] Medical Records Department [address] [place] [address] [place] [address] Discharge Instruction 07/22/162024 MR#: [id number] Acct: [id number] Name: KATHRYN AMARO BETTYE Rep #: [id number] : 1965 51 From: Kyle Tinsley MD PCP: Samnatha Barrera DO Status: REG ER ED Disposition [...] Cont ONLY Result: Comments: See Note; NOTES: [facility] Imaging Services [address] [place] [address] Verdana 4d Abdomen/Pelvis W IV Cont ONLY MR#: [id number] Acct: [id number] Name: ROLLY AMARO Rep #: [id number] : 1965 F 51 From: Leo Shin DO PCP: Samantha Barrera DO Status: REG ER Study: Abdomen/Pelvis W IV Cont ONLY Date of Exam: 07/22/16 Exam# [id number] Ordering Dr: Kyle Tinsley MD STUDY: CT [...] at 20:11 EDT Tel , Service support [phone], CC: Samantha Barrera DO; Kyle Tinsley MD Analytical Lab Technician: Signed 07-Mar-2016 Esophagus Only Result: Comments: See Note; NOTES: [facility] Imaging Services [address] [place] [address] Verdadeirdre 4d Esophagus Only MR#: [id number] Acct: [id number] Name: KATHRYN AMARO Rep #: [id number] : 1965 F 50 From: Amrit Mac MD PCP: Carolina Bowman Status: REG CLI Study: Esophagus Only Date of Exam: 03/07/16 Exam# [id number] Ordering Dr: Mike Varner MD STUDY: AIR-CONTRAST [...] at 12:42 EST Tel , Service support [phone], CC: Carolina Bowman; Mike Varner Analytical Lab Technician: Signed 07-Aug-2015 Bilat Diag Digital AND CAD Result: Comments: See Note; NOTES: [facility] Imaging Services [address] [place] [address] Verdana 4d Bilat Diag Digital AND CAD MR#: [id number] Acct: [id number] Name: KATHRYN AMARO Rep #: [id number] : 1965 F 50 From: Luciano Dowell MD PCP: Carolina Bowman Status: REG CLI Study: Bilat Diag Digital AND CAD Date of Exam: 08/07/15 Exam# [id number] Itzel lara Dr: Carolina Bowman MAMMOGRAPHY - [...] Luciano Dowell MD at 9:36 EDT Tel [phone], Service support [phone], CC: Carolina Bowman Analytical Lab Technician: Signed 06-Aug-2015 Chest PA and Lateral Result: Comments: See Note; NOTES: [facility] Imaging Services [address] [place] [address] Verdana 4d Chest PA and Lateral MR#: [id number] Acct: [id number] Name: SREEDHAR AdornoKATHRYN WEN Rep #: [id number] : 1965 F 50 From: Luciano Dowell MD PCP: Carolina Bowman Status: REG CLI Study: Chest PA and Lateral Date of Exam: 08/06/15 Exam# [id number] Ordering Dr: Carolina Bowman STUDY: X-RAY CHEST [...] Dowell MD 08/05 at 11:03 EDT Tel [phone], Service support [phone], RAD/Chest PA and Lateral IMPRESSION: No acute abnormality is seen. Electronically Signed: Agustin Dowell MD at 11:03 EDT Tel [phone], Service support [phone], CC: Carolina Bowman Analytical Lab Technician: Signed 06-Aug-2015 Ribs Unil 2V No CXR Result: Comments: See Note; NOTES: [facility] Imaging Services [address] [place] [address] Verdana 4d Ribs Unil 2V No CXR MR#: [id number] Acct: [id number] Name: KATHRYN AMARO Rep #: [id number] : 1965 F 50 From: Luciano Dowell MD PCP: Carolina Bowman Status: REG CLI Study: Ribs Unil 2V No CXR Date of Exam: 08/06/15 Exam# [id number] Ordering Dr: Jorje Bowman STUDY: X-RAY - UNILATERAL RIBS ( LEFT ) REASON FOR EXAM: Female, 50 years old. Upper chest pain. TECHNIQUE: 4 view(s) of the ribs. COMPARISON: None. FINDINGS: Normal visualized ribs without a demonstrated fracture. The visualized lung is clear and expanded. IMPRESSION: Normal x-ray examination of the ribs. Electronically Signed: Luciano Dowell MD at 11:02 EDT Tel [phone], Service support [phone], 0036 RAD/Ribs Unil 2V No CXR IMPRESSION: Norm al x-ray examination of the ribs. Electronically Signed: Luciano Dowell MD at 11:02 EDT Tel [phone], Service support [phone], CC: Carolina Bowman Analytical Lab Technician: Signed 06-Jun-2015 Spirometry (81590) Comments: Fevi/fvc 72% Result: 18-Nov-2014 Shoulder min 2 Views Result: Comments: See Note; NOTES: [facility] Imaging Services [address] [place] [address] Radiology Report MR#: [id number] Acct: [id number] Name: KATHRYN AMARO Rep #: [id number] : 1965 F 49 From: Pete Curtis MD PCP: Samantha Barrera DO Status: REG CLI Study: Shoulder min 2 Views Date of Exam: 11/18/14 Exam# [id number] Ordering Dr: Samantha Barrera TUDY: X-RAY - [...] MD at 22:54 EDT , Service support [phone], R AD/Shoulder min 2 Views IMPRESSION: Mild 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 Electronically Signed: Pete Curtis MD at 22:54 EDT , Service support [phone], CC: Samantha Barrera DO Analytical Lab Technician: Signed 10-Jul-2014 Hepatobilliary Imaging Result: Comments: See Note; NOTES: [facility] Imaging Services [address] [place] [address] Nuclear Medicine Report MR#: [id number] Acct: [id number] Name: KATHRYN AMARO Rep #: [id number] : 1965 F 49 From: Shreyas Groves DO PCP: Samantha Barrera DO Status: REG CLI Study: Hepatobilliary Imaging Date of Exam: 07/10/14 Exam# [id number] Ordering Dr: Carolina Bowman LINICAL: 49-year-old female [...] Shreyas Groves DO at 22:24 EDT Tel [phone], Service support [phone], CC: Carolina Bowman; Samantha Barrera DO Analytical Lab Technician: Signed 30-Jun-2014 Pelvic (Non ) Result: Comments: See Note; NOTES: [facility] Imaging Services [address] [facility] [place] [address] Ultrasound Report MR#: [id number] Acct: [id number] Name: KATHRYN AMARO Rep #: : 1965 F 49 From: Pete Curtis MD PCP: Samantha Barrera DO Status: REG CLI Study: Pelvic (Non ) Date of Exam: 06/30/14 Exam# [id number] Ordering Dr: Carolina Bowman STUDY: U LTRASOUND [...] MD at 19:53 EDT , Service support [phone], CC: Carolina Bowman; Samantha Barrera DO Analytical Lab Technician: Signed 30-Jun-2014 Abdomen Complete Result: Comments: See Note; NOTES: [facility] Imaging Services [address] [place] [address] Ultrasound Report MR#: [id number] Acct: [id number] Name: KATHRYN AMARO Rep #: [id number] : 1965 F 49 From: Noé Pascual MD PCP: Samantha Barrera DO Status: REG CLI Study: Abdomen Complete Date of Exam: 06/30/14 Exam# [id number] Ordering Dr: Carolina Bowman STUDY: ABDOM INAL [...] MD at 15:42 EDT , Service support [phone], CC: Carolina Bowman; Samantha Barrera DO Analytical Lab Technician: Signed 21-Jun-2014 Toradol Injection, 30 mg (J1885) Comments: Lot:[id number]-[id number]:02/11/2015Dose:1MlRoute:IMSite:R glutGiven By:RIC signed Result: Comments: Lot:Exp:Dose:1mlRoute:IMSite:R GlutGiven By:RIC signed 19-Apr-2014 Bilat Scrn Digital AND CAD Result: Comments: See Note; NOTES: [facility] Imaging Services [address] [place] [address] Breast Imaging Report MR#: [id number] Acct: [id number] Name: KATHRYN AMARO Rep # : [id number] : 1965 F 49 From: Luciano Dowell MD PCP: Samantha Barrera DO Status: REG CLI Study: Bilat Scrn Digital AND CAD Date of Exam: 04/19/14 Exam# [id number] Ordering Dr: Gasper Barrera DO MAMMOGRAPHY - [...] Luciano Dowell MD at 8:19 EST Tel [phone], Service support [phone], Fax CC: Samantha Barrera DO Analytical Lab Technician: Signed 20-Mar-2014 Abdomen/Pelvis WITH Contrast Result: Comments: See Note; NOTES: [facility] Imaging Services [address] [place] [address] CAT Scan Report MR#: [id number] Acct: [id number] Name: AKTHRYN AMARO Rep #: [id number] : 1965 F 48 From: Brayan Wilson MD PCP: Samantha Barrera DO Status: REG CLI Study: Abdomen/Pelvis WITH Contrast Date of Exam: 03/20/14 Exam# [id number] Ordering Dr: Samantha Barrera DO STUDY: CT [...] MD at 21:48 EST , Service support [phone], CC: Samantha Barrera DO Analytical Lab Technician: Signed 15-Sep-2013 NCS and/or EMG Patient Result: Comments: See Note; NOTES: [facility] Pulmonary Services/Neurology [address] [place] [address] NCS and/or EMG Patient MR#: [id number] Acct: [id number] Name: LA AMARO RA Rep #: [id number] : 1965 48 From: Ever Allen MD Referring Dr: Carolina Bowman Status: REG CLI Ordering Dr: Carolina Bowman Date: 09/13/13 Location: PSN Sex: F C DATE OF SERVICE: [facility] 2013 REFERRING PHYSICIAN: Carolina Bowman. [...] Dictated: 09/13/13 1043 Date Transcribed: 09/13/13 1520 Analytical Lab Technician: SHARP Signed 12-Apr-2013 Bilat Scrn Digital & CAD Result: Comments: See Note; NOTES: [facility] Imaging Services [address] [place] [address] Breast Imaging Report MR#: [id number] Acct: [id number] Name: KATHRYN AMARO Rep # : [id number] : 1965 F 48 From: Luciano Dowell MD PCP: Samantha Barrera DO Status: REG CLI Exam# [id number] Ordering Dr: Samantha Barrera DO MAMMOGRAPHY - [...] M.D. at 8:09 EST , Service support [phone], CC: Samantha Barrera DO Analytical Lab Technician: Signed 12-Apr-2013 Dexa Bone Density Study (HP) Result: Comments: See Note; NOTES: [facility] Imaging Services [address] [place] [address] Bone Density Report MR#: [id number] Acct: [id number] Name: KATHRYN AMARO Rep #: [id number] : 1965 F 48 From: Luciano Dowell MD PCP: Samantha Barrera DO Status: [facility] Study: Dexa Bone Density Study (HP) Date of Exam: 04/12/13 Exam# [id number] Ordering Dr: Gasper Barrera DO STUDY: DUAL [...] M.D. 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 Comments: 06/23/11 Status: Active Smoking Status Name Dates Details Never smoker Vital Signs Date Test Result Details 17-Wfq-964212:51 Comments: ortho scatic bp: sitting 105/66 P [...] kg/m2 Body Surface Area Calculated 1.6 m2 86-Edx-085549:19 Pulse 72 /min Comments: Pattern: Regular Respiration [...] Comments: PATIENT NOT FASTINGPERFORMED BY: CATRACHO Holden6370 [facility] [id number] BY: JACQUES LabCaro Fgpkxhybxj5299 [facility] [id number] Range: 6.2-19.4 74-Ksk-58015:10 CALCIFEDIOL (22515) Comments: PATIENT NOT FASTINGPERFORMED BY: CATRACHO Holden6370 [facility] [id number] BY: [employer] [id number] Vitamin D, 25-Hydroxy 86.0 ng/mL (Normal) Range: 30.0-100.0 Comments: Vitamin D deficiency has been defined by the [place] of[facility] Centerc[facility] and an Endocrine Society practice guideline as alevel of serum 25-OH vitamin D less than 20 ng/mL (1,2).The Endocrine Society went on to further define vitamin Dinsufficiency as a level between 21 and 29 ng/mL (2).1. IOM ([place] of Medicine). 2010. Dietary reference intakes for calcium and D. [place]: The National Academies Press.2. Henna MF, Jerman MORRIS, Piedad SHARP, et al. Evaluation, treatment, and prevention of vitamin D deficiency: an Endocrine Society clinical practice guideline. JCEM. 2010; 96(7):1911-30. 98-Klz-49080:10 TESTOSTERONE TOTAL (51227) Comments: PATIENT NOT FASTINGPERFORMED BY: Haofangtong Lhidod6569 [facility] [id number] BY: [employer] [id number] Information: AM CORTISOL Testosterone, Serum <3 ng/dL (Abnormal) Range: 3-41 66-Bmp-03684:10 ESTRONE (32843) Comments: PATIENT NOT FASTINGPERFORMED BY: Haofangtong Bqdyls7083 [facility] [id number] BY: [employer] [id number] Estrone, Serum 36 pg/mL (Normal) Comments: . [...] - 114 Post Menopausal 14 - 103 81-Qsp-63410:10 PROGESTERONE (01364) Comments: PATIENT NOT FASTINGPERFORMED BY: PowervationSaint Barnabas Behavioral Health CenterRbdmhd9610 [facility] [id number] BY: [address] [id number] Progesterone 0.2 ng/mL (Normal) Comments: Follicular phase 0.1 - 0.9 Luteal phase 1.8 - 23.9 Ovulation phase 0.1 - 12.0 First trimester 11.0 - 44.3 Second trimester 25.4 - 83.3 Third t rimester 58.7 - 214.0 Postmenopausal 0.0 - 0.1 81-Anr-00827:10 ESTRADIOL (62252) Comments: PATIENT NOT FASTINGPERFORMED BY: [employer] Mhehov9847 [facility] [id number] BY: [employer] [id number] Estradiol <5.0 pg/mL (Normal) Comments: Adult Female: Follicular phase 12.5 - 166.0 Ovulation phase 85.8 - 498.0 Luteal phase 43.8 - 211.0 Postmenopausal <6.0 - 54.7 1st trimester 215.0 - & gt;4300.0 Girls (1-10 years) 6.0 - 27.0Roche ECLIA methodology 09-Dvg-896862:02 CBC & PLATELETS (AUTO) Comments: PATIENT NOT FASTINGPERFORMED BY: PowervationWilliam [place] 1993670 [facility] [id number] (45495) Platelets 214 {x10E3/uL} (Normal) Range: 150-379 RDW 13.0 % (Normal) Range: 12.3-15.4 MCHC 32.9 g/dL (Normal) Range: 31.5-35.7 MCH 31.3 pg (Normal) Range: 26.6-33.0 MCV 95 fL (Normal) Range: 79-97 Hematocrit 41.0 % (Normal) Range: 34.0-46.6 Hemoglobin 13.5 g/dL (Normal) Range: 11.1-15.9 RBC 4.32 {x10E6/uL} (Normal) Range: 3.77-5.28 WBC 6.8 {x10E3/uL} (Normal) Range: 3.4-10.8 07-Mgi-073338:02 TSH (65645) Comments: PATIENT NOT FASTINGPERFORMED BY: [facility]6370 [facility] [id number] TSH 1.190 {uIU/mL} (Normal) Range: 0.450-4.500 50-Wdn-713462:02 T4, FREE (THYROXINE) (43184) Comments: PATIENT NOT FASTINGPERFORMED BY: [address] [id number] T4,Free(Direct) 1.07 ng/dL (Normal) Range: 0.82-1.77 42-Olh-350329:02 T3, FREE (TRIDOTHYRONINE) (06595) Comments: PATIENT NOT FASTINGPERFORMED BY: [facility]6370 [facility] [id number] Triiodothyronine,Free,Serum 2.9 pg/mL (Normal) Range: 2.0-4.4 63-Ryx-908885:02 Metabolic Panel, Comprehensive Comments: PATIENT NOT FASTINGPERFORMED BY: [place] 0941870 [facility] [id number] (61619) ALT (SGPT) 14 [iU]/L (Normal) Range: 0-32 [...] Glucose, Serum 84 mg/dL (Normal) Range: 65-99 00-Hqq-184476:02 IRON (84676) Comments: PATIENT NOT FASTINGPERFORMED BY: Xer[employer] TechnologiesFormerly [facility] [id number] Iron, Serum 46 ug/dL (Normal) Range: 27-159 96-Cpa-080701:02 DHEA-S (DEHYDROEPIANDROSTERONE Comments: PATIENT NOT FASTINGPERFORMED BY: [employer] TechnologyFormerly [facility] [id number] SULFATE) (41872) DHEA-Sulfate 40.7 ug/dL (Abnormal) Range: 41.2-243.7 :57 Microscopic Examination Comments: PATIENT NOT FASTINGPERFORMED BY: [employer]70 JacobsRanken [facility] [id number] Bacteria Few (Normal) Mucus Threads Present (Normal) Epithelial Cells (non renal) 0-10 {/hpf} (Normal) Range: 0 - 10 RBC 0-2 {/hpf} (Normal) Range: 0 - 2 WBC 0-5 {/hpf} (Normal) Range: 0 - 5 :57 URINALYSIS (37001) Comments: PATIENT NOT FASTINGPERFORMED BY: [employer] TechnologyFormerly [facility] [id number] Microscopic Examination See below: (Normal) Comments: Microscopic was indicated and was performed. Nitrite, Urine Negative (Normal) Urobilinogen,Semi-Qn 0.2 mg/dL (Normal) Range: 0.2-1.0 Bilirubin Negative (Normal) Occult Blood Negative (Normal) Ketones Negative (Normal) Glucose Negative (Normal) Protein Negative (Normal) WBC Esterase 1+ (Abnormal) Appearance Clear (Normal) Urine-Color Yellow (Normal) pH 7.0 (Normal) Range: 5.0-7.5 Specific [place] 1.008 (Normal) Range: 1.005-1.030 42-Qhp-754947:50 Basic Metabolic Profile (BMP) Comments: [facility] [address] [place], [place], [id number] GAP 4 (Abnormal) Range: 5-15 CO2 27.0 [...] Range: 70-110 :50 CBC W/Diff, Automated Comments: [facility] [address]bp[address] [place], [place], [id number] Absolute Lymph 1.18 {X10_3/ul} (Normal) Range: 0.83-4.51 [...] 4.2-5.4 WBC 10.3 K/mm3 (Normal) Range: 4.4-11.0 16-Njp-805984:00 Urinalysis, Complete Comments: Order Date: 07/22/16Order Date: 07/22/16How was Urine Obtained? LABORER CUTTING TOOL TO [facility] Xpuoeohqbp1476 [facility] [address]. [place], [place], [id number] MUCUS, URINE 0 SEEN {/hpf} (Normal) BACTERIA [...] BELOW (Normal) Comments: Visual Urine Color: PINK 76-Tiu-061615:44 Culture, Wound Comments: [facility] [address] [place], [address] CUW See Note (Normal) Comments: Order Date: [...] pneumoniae, beta-hemolytic Streptococcus or Staphylococcus aureus isolated. 32-Inx-325065:49 HgA1C , Office (23045) HgA1C , Office 5.3 % (Normal) Range: 4.6 - 7.1 :03 Metabolic Panel, Basic Comments: PATIENT NOT FASTINGPERFORMED BY: Xerico TechnologiesFormerly [facility] [id number] Information: [id number] (90280) Calcium, Serum 9.4 mg/dL (Normal) Range: 8.7-10.2 [...] 103 mg/dL (Abnormal) Range: 65-99 :03 CALCIFEDIOL (02666) Comments: PATIENT NOT FASTINGPERFORMED BY: [employer] TechnologiesFormerly [facility] [id number] Vitamin D, 25-Hydroxy 38.0 ng/mL (Normal) Range: 30.0-100.0 Comments: Vitamin D deficiency has been defined by the [place] ofMedicine and an Endocrine Society practice guideline as alevel of serum 25-OH vitamin D less than 20 ng/mL (1,2).The Endocrine Society went on to further define vitamin Dinsufficiency as a level between 21 and 29 ng/mL (2).1. IOM ([place] of Medicine). 2010. Dietary reference intakes for calcium and D. [place]: The National Academies Press.2. Henna MF, Jerman MORRIS, Piedad SHARP, et al. Evaluation, treatment, and prevention of vitamin D deficiency: an Endocrine Society clinical practice guideline. JCEM. 2010; 96(7):1911-30. 90-Utb-700205:03 TSH (THYROID STIMULATING Comments: PATIENT NOT FASTINGPERFORMED BY: [employer] NetworkFormerly [facility] [id number] HORMONE) (44285) TSH 0.764 {uIU/mL} (Normal) Range: 0.450-4.500 :45 HEPATIC FUNCTION PANEL Comments: PATIENT NOT FASTINGPERFORMED BY: [employer]70 [employer] [facility] [id number] Information: [id number] (76425) ALT (SGPT) 12 [iU]/L (Normal) Range: 0-32 AST (SGOT) 12 [iU]/L (Normal) Range: 0-40 Alkaline Phosphatase, S 42 [iU]/L (Normal) Range: 39-117 Bilirubin, Direct 0.17 mg/dL (Normal) Range: 0.00-0.40 Bilirubin, Total 0.6 mg/dL (Normal) Range: 0.0-1.2 Albumin, Serum 4.7 g/dL (Normal) Range: 3.5-5.5 Protein, Total, Serum 6.6 g/dL (Normal) Range: 6.0-8.5 :58 HEPATIC FUNCTION PANEL Comments: PATIENT NOT FASTINGPERFORMED BY: Haofangtong Vshjlh1214 [facility]Ranken [facility] [id number] Information: [id number] (41444) ALT (SGPT) 14 [iU]/L (Normal) Range: 0-32 AST (SGOT) 14 [iU]/L (Normal) Range: 0-40 Alkaline Phosphatase, S 42 [iU]/L (Normal) Range: 39-117 Bilirubin, Direct 0.17 mg/dL (Normal) Range: 0.00-0.40 Bilirubin, Total 0.7 mg/dL (Normal) Range: 0.0-1.2 Albumin, Serum 4.9 g/dL (Normal) Range: 3.5-5.5 Protein, Total, Serum 6.9 g/dL (Normal) Range: 6.0-8.5 :43 HEPATIC FUNCTION PANEL Comments: PATIENT NOT FASTINGPERFORMED BY: [place] 0941870 [facility] [id number] Information: [id number] (26012) ALT (SGPT) 16 [iU]/L (Normal) Range: 0-32 AST (SGOT) 12 [iU]/L (Normal) Range: 0-40 Alkaline Phosphatase, S 44 [iU]/L (Normal) Range: 39-117 Bilirubin, Direct 0.13 mg/dL Range: 0.00-0.40 (Normal) Bilirubin, Total 0.4 mg/dL (Normal) Range: 0.0-1.2 Albumin, Serum 4.6 g/dL (Normal) Range: 3.5-5.5 Protein, Total, Serum 6.6 g/dL (Normal) Range: 6.0-8.5 Amylase, Serum 68 U/L (Normal) Comments: PATIENT NOT FASTINGPERFORMED BY: [facility]6370 [facility] [id number] 0:23 Range: 31-124 Lipase, Serum 17 U/L (Normal) Comments: PATIENT NOT FASTINGPERFORMED BY: [facility]6370 [facility] [id number] Information: [id number] 0:23 Range: 0-59 Written Authorization WAR (Normal) Comments: PATIENT NOT FASTINGPERFORMED BY: [facility]6[address] [facility] [id number] 0:23 Comments: Written Authorization Received.Authorization received from KELIN MURILLO [id number] by Rosemary Staples 27-Xyx-008484:23 Metabolic Panel, Comprehensive Comments: PATIENT NOT FASTINGPERFORMED BY: [facility]ascularAsc[facility]6[address] [facility] [id number] ([id number]) ALT (SGPT) 13 [iU]/L (Normal) Range: 0-32 [...] Glucose, Serum 105 mg/dL (Abnormal) Range: 65-99 33-Vep-728891:23 HEPATIC FUNCTION PANEL Comments: PATIENT NOT FASTINGPERFORMED BY: [facility]6[address] [facility] [id number] (28114) Bilirubin, Direct 0.10 mg/dL (Normal) Range: 0.00-0.40 42-Uly-473170:23 CBC, Platelets & Auto Comments: PATIENT NOT FASTINGPERFORMED BY: LabCoSaint Barnabas Behavioral Health CenterDzjsti2269 [facility] [id number] Information: [id number],[id number] Diff (57363) Immature Grans (Abs) 0.0 {x10E3/uL} (Normal) Range: [...] 3.77-5.28 WBC 6.5 {x10E3/uL} (Normal) Range: 3.4-10.8 21-Hab-926259:13 URINE TULIO CULTURE-IDENTIFICATN Comments: PATIENT NOT FASTINGPERFORMED BY: LabCoSaint Barnabas Behavioral Health CenterOyimev7264 [facility] [id number] Information: SRC: URINE [id number] (17308) Result 1 MUG (Normal) Comments: Mixed urogenital flora5,000 Colonies/mL Urine Culture,Comprehensive Final report (Normal) 73-Eqi-876212:07 Urinalysis, Office (87201) UA - LEUKOCYTE ESTERASE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
--- OUTSIDE RECORDS SUMMARY | 2018-07-05 09:42 | XMS RPT_ITS | Continuity of Care Document ---
:1965 Author Organization [facility] Address [address] [facility] [address] [place] [address] Phone Care Team Providers Name Role Phone [...] 268.9) Status: Active Medications Name Dates Details Surprise Saline Nasal Nasal Gel 1 (one) Gel Gel Apply BID for 0 days Quantity: 1 {Tube} Refills: 0 Ordered:23-Feb-2018 Lupe Abdi Start : 12-Nov-2017 Active CALCIUM 500/VITAMIN D, 953-958PN-UDUU (Oral Tablet) 2 (two) Tablet daily for 360 days Quantity: 360 {Tablet} Refills: 0 Ordered:06-Aug-2015 Colby SAWYER Katie Start : 06-Aug-2015 Active Citalopram Hydrobromide 10 MG Oral Tablet 1 (one) Tablet qd for 0 days Quantity: 30 {Tablet} Refills: 3 Ordered:21-Dec-2017 Francisco Javier Barrera DO, DO, Kathleen Start : 21-Dec-2017 Active Dulera 200-5 MCG/ACT Inhalation Aerosol 2 (two) Puff BID for 30 days Quantity: 1 {Inhalation} Refills: 0 Ordered:23-Mar-2018 DO Kassandra A Start : 23-Mar-2018 Active ProAir HFA [...] Quantity: 30 {Capsule} Refills: 0 Ordered:06-Aug-2015 Ciara Mtezger LPN Start : 06-Aug-2015 End : 05-Sep-2015 Inactive Comments:Medication taken as needed. Clotrimazole 10 MG Mouth/Throat Rod 1 (one) Rod Rod 5x daily for 10 days Quantity: 50 {Rod} Refills: 0 Ordered:03-Dec-2015 Colby SAWYERCarolina Start : 03-Dec-2015 End : 13-Dec-2015 Inactive CORTISPORIN, 3.5-60897-2 (Otic Solution) 4 Drop(s) tid for 10 [...] : 12-Nov-2017 End : 19-Nov-2017 Inactive Nystatin 675065 UNIT/ML Mouth/Throat Suspension 5 cc 5times a [...] Discontinued Comments:please substitute generic albulterol VITAMIN D3, 41599MYOE (Oral Capsule) 1 Capsule 2 x week [...] EMG Patient Result: Comments: See Note; NOTES: [facility] Pulmonary Services/Neurology [address] [place] [address] MR#: [id number] Acct: [id number] Name: KATHRYN AMARO Rep #: [id number] : 1965 52 From: Ever Allen MD Referring Dr: Bipin Ackerman DO Status: REG CLI Ordering Dr: Date: Location: [facility] Sex: F C NCS and/or [...] Dictated: 01/26/18 1036 Date Transcribed: 01/26/18 1036 Senior Hardware Design Engineer: NF Signed 22-Oct-2017 12 Lead Electrocardiogram Result: Comments: See Note; NOTES: [facility] Cardiovascular Services [address] [place] [address] 12 Lead EKG 10/21/17 1508 MR#: [id number] Acct: [id number] Name: KATHRYN AMARO Rep #: [id number] : 1965 52 From: Carroll Emmanuel MD [...] Normal ECG Confirmed by CHOLO MORENO, CARROLL ([id number]), assistant film editor HILARIA DAVIDSON ([id number]) on 10/22/2017 12:52:17 PM Referred By: Priscila Chance Confirmed By:CARROLL EMMANUEL MD 10/22/17 1252 Date Carroll Emmanuel MD CC: Priscila Chance; Samantha Barrera DO Signed 30-Jun-2017 Skull min 4 Views Result: Comments: See Note; NOTES: [facility] Imaging Services [address] [place] [address] Skull min 4 Views MR#: [id number] Acct: [id number] Name: KATHRYN AMARO Rep #: [id number] : 1965 F 52 From: Marcus Angel MD PCP: Samantha Barrera DO Status: REG CLI Study: Skull min 4 Views Date of Exam: 06/30/17 Exam# [id number] Ordering Dr: Samantha Barrera DO STUDY: X-RAY [...] Service support , CC: Samantha Barrera DO Senior Hardware Design Engineer: Signed 13-Oct-2016 SCREENING MAMM (CAD), BILAT Result: Comments: See Note; NOTES: [facility] Imaging Services [address] [place] [address] Verdana 4d SCREENING MAMM (CAD), BILAT MR#: [id number] Acct: [id number] Name: ALETHA AMARO Rep #: [id number] : 1965 F 51 From: Ron Roman MD PCP: Samantha Barrera DO Status: [facility] CLI Study: SCREENING MAMM (CAD), BILAT Date of Exam: 10/13/16 Exam# [id number] Ordering Dr: Karuna Mixon MD MAMMOGRAPHY - [...] delay biopsy of a clinically suspicious abnormality. [id number] Electronically Signed: Anjum Roman MD at 8:41 EDT , Service support , CC: Karuna Mixon MD; Samantha Barrera DO Senior Hardware Design Engineer: Signed 22-Jul-2016 Emergency Department Summary Result: Comments: See Note; NOTES: [facility] Medical Records Department [address] [place] [address] Emergency Department Summary MR#: [id number] Acct: [id number] Name: ALETHA AMARO Rep #: [id number] : 1965 51 From: Kyle Tinsley MD [...] Vik Retana C: Samantha Barrera DO T: [facility] JOB: [id number] 07/22/162113 &amp ;#60;Electronically signed by Kyle Tinsley MD> Date Kyle Tinsley MD Cosigner Signature (If Indicated): Date CC: Samantha Barrera DO Date Dictated: 07/22/162026 Date Transcribed: 07/22/162026 Senior Hardware Design Engineer: Signed 22-Jul-2016 Discharge Instruction Result: Comments: See Note; NOTES: [facility] Medical Records Department [address] [place] [address] [place] [address] Discharge Instruction 07/22/162024 MR#: [id number] Acct: [id number] Name: KATHRYN AMARO BETTYE Rep #: [id number] : 1965 51 From: Kyle Tinsley MD [...] Cont ONLY Result: Comments: See Note; NOTES: [facility] Imaging Services [address] [place] [address] Verdana 4d Abdomen/Pelvis W IV Cont ONLY MR#: [id number] Acct: [id number] Name: ROLLY AMARO Rep #: [id number] : 1965 F 51 From: Leo Shin DO PCP: Samantha Barrera DO Status: REG ER Study: Abdomen/Pelvis W IV Cont ONLY Date of Exam: 07/22/16 Exam# [id number] Ordering Dr: Kyle Tinsley MD STUDY: CT [...] at 20:11 EDT Tel , Service support [phone], CC: Samantha Barrera DO; Kyle Tinsley MD Senior Hardware Design Engineer: Signed 07-Mar-2016 Esophagus Only Result: Comments: See Note; NOTES: [facility] Imaging Services [address] [place] [address] Verdana 4d Esophagus Only MR#: [id number] Acct: [id number] Name: KATHRYN AMARO Rep #: [id number] : 1965 F 50 From: Amrit Mac MD PCP: Carolina Bowman Status: REG CLI Study: Esophagus Only Date of Exam: 03/07/16 Exam# [id number] Ordering Dr: Mike Varner MD STUDY: AIR-CONTRAST [...] at 12:42 EST Tel , Service support [phone], CC: Carolina Bowman; Mike Varner Senior Hardware Design Engineer: Signed 07-Aug-2015 Bilat Diag Digital AND CAD Result: Comments: See Note; NOTES: [facility] Imaging Services [address] [place] [address] Verdana 4d Bilat Diag Digital AND CAD MR#: [id number] Acct: [id number] Name: KATHRYN AMARO Rep #: [id number] : 1965 F 50 From: Luciano Dowell MD PCP: Carolina Bowman Status: REG CLI Study: Bilat Diag Digital AND CAD Date of Exam: 08/07/15 Exam# [id number] Itzel lara Dr: Carolina Bowman MAMMOGRAPHY - [...] Luciano Dowell MD at 9:36 EDT Tel [phone], Service support [phone], CC: Carolina Bowman Senior Hardware Design Engineer: Signed 06-Aug-2015 Chest PA and Lateral Result: Comments: See Note; NOTES: [facility] Imaging Services [address] [place] [address] Verdana 4d Chest PA and Lateral MR#: [id number] Acct: [id number] Name: KATHRYN JACOBSEN Rep #: [id number] : 1965 F 50 From: Luciano Dowell MD PCP: Carolina Bowman Status: REG CLI Study: Chest PA and Lateral Date of Exam: 08/06/15 Exam# [id number] Ordering Dr: Carolina Bowman STUDY: X-RAY CHEST [...] Dowell MD 08/05 at 11:03 EDT Tel [phone], Service support [phone], RAD/Chest PA and Lateral IMPRESSION: No acute abnormality is seen. Electronically Signed: Agustin Dowell MD at 11:03 EDT Tel [phone], Service support [phone], CC: Carolina Bowman Senior Hardware Design Engineer: Signed 06-Aug-2015 Ribs Unil 2V No CXR Result: Comments: See Note; NOTES: [facility] Imaging Services [address] [place] [address] Verdana 4d Ribs Unil 2V No CXR MR#: [id number] Acct: [id number] Name: KATHRYN AMARO Rep #: [id number] : 1965 F 50 From: Luciano Dowell MD PCP: Carolina Bowman Status: REG CLI Study: Ribs Unil 2V No CXR Date of Exam: 08/06/15 Exam# [id number] Ordering Dr: Jorje Bowman STUDY: X-RAY - UNILATERAL RIBS ( LEFT ) REASON FOR EXAM: Female, 50 years old. Upper chest pain. TECHNIQUE: 4 view(s) of the ribs. COMPARISON: None. FINDINGS: Normal visualized ribs without a demonstrated fracture. The visualized lung is clear and expanded. IMPRESSION: Normal x-ray examination of the ribs. Electronically Signed: Luciano Dowell MD at 11:02 EDT Tel [phone], Service support [phone], 0036 RAD/Ribs Unil 2V No CXR IMPRESSION: Norm al x-ray examination of the ribs. Electronically Signed: Luciano Dowell MD at 11:02 EDT Tel [phone], Service support [phone], CC: Carolina Bowman Senior Hardware Design Engineer: Signed 06-Jun-2015 Spirometry (71243) Comments: Fevi/fvc 72% Result: 18-Nov-2014 Shoulder min 2 Views Result: Comments: See Note; NOTES: [facility] Imaging Services [address] [place] [address] Radiology Report MR#: [id number] Acct: [id number] Name: KATHYRN AMARO Rep #: [id number] : 1965 F 49 From: Pete Curtis MD PCP: Samantha Barrera DO Status: REG CLI Study: Shoulder min 2 Views Date of Exam: 11/18/14 Exam# [id number] Ordering Dr: Samantha Barrera TUDY: X-RAY - [...] MD at 22:54 EDT , Service support [phone], R AD/Shoulder min 2 Views IMPRESSION: Mild 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 Electronically Signed: Pete Curtis MD at 22:54 EDT , Service support [phone], CC: Samantha Barrera DO Senior Hardware Design Engineer: Signed 10-Jul-2014 Hepatobilliary Imaging Result: Comments: See Note; NOTES: [facility] Imaging Services [address] [place] [address] Nuclear Medicine Report MR#: [id number] Acct: [id number] Name: KATHRYN AMARO Rep #: [id number] : 1965 F 49 From: Shreyas Groves DO PCP: Samantha Barrera DO Status: REG CLI Study: Hepatobilliary Imaging Date of Exam: 07/10/14 Exam# [id number] Ordering Dr: Carolina Bowman LINICAL: 49-year-old female [...] Shreyas Groves DO at 22:24 EDT Tel [phone], Service support [phone], CC: Carolina Bowman; Samantha Barrera DO Senior Hardware Design Engineer: Signed 30-Jun-2014 Pelvic (Non ) Result: Comments: See Note; NOTES: [facility] Imaging Services [address] [facility] [place] [address] Ultrasound Report MR#: [id number] Acct: [id number] Name: KATHRYN AMARO Rep #: : 1965 F 49 From: Pete Curtis MD PCP: Samantha Barrera DO Status: REG CLI Study: Pelvic (Non ) Date of Exam: 06/30/14 Exam# [id number] Ordering Dr: Carolina Bowman STUDY: U LTRASOUND [...] MD at 19:53 EDT , Service support [phone], CC: Carolina Bowman; Samantha Barrera DO Senior Hardware Design Engineer: Signed 30-Jun-2014 Abdomen Complete Result: Comments: See Note; NOTES: [facility] Imaging Services [address] [place] [address] Ultrasound Report MR#: [id number] Acct: [id number] Name: KATHRYN AMARO Rep #: : 1965 F 49 From: Noé Pascual MD PCP: Samantha Barrera DO Status: REG CLI Study: Abdomen Complete Date of Exam: 06/30/14 Exam# [id number] Ordering Dr: Carolina Bowman STUDY: ABDOM INAL [...] MD at 15:42 EDT , Service support [phone], CC: Carolina Bowman; Samantha Barrera DO Senior Hardware Design Engineer: Signed 21-Jun-2014 Toradol Injection, 30 mg (J1885) Comments: Lot:[id number]-[id number]:02/11/2015Dose:1MlRoute:IMSite:R glutGiven By:RIC signed Result: Comments: Lot:Exp:Dose:1mlRoute:IMSite:R GlutGiven By:RIC signed 19-Apr-2014 Bilat Scrn Digital AND CAD Result: Comments: See Note; NOTES: [facility] Imaging Services [address] [place], [place] [address] Breast Imaging Report MR#: [id number] Acct: [id number] Name: KATHRYN AMARO Rep # : [id number] : 1965 F 49 From: Luciano Dowell MD PCP: Samantha Barrera DO Status: REG CLI Study: Bilat Scrn Digital AND CAD Date of Exam: 04/19/14 Exam# [id number] Ordering Dr: Gasper Barrera DO MAMMOGRAPHY - [...] Luciano Dowell MD at 8:19 EST Tel [phone], Service support [phone], Fax CC: Samantha Barrera DO Senior Hardware Design Engineer: Signed 20-Mar-2014 Abdomen/Pelvis WITH Contrast Result: Comments: See Note; NOTES: [facility] Imaging Services [address] [place] [address] CAT Scan Report MR#: [id number] Acct: [id number] Name: KATHRYN AMARO Rep #: [id number] : 1965 F 48 From: Brayan Wilson MD PCP: Samantha Barrera DO Status: REG CLI Study: Abdomen/Pelvis WITH Contrast Date of Exam: 03/20/14 Exam# [id number] Ordering Dr: Samantha Barrera DO STUDY: CT [...] MD at 21:48 EST , Service support [phone], CC: Samantha Barrera DO Senior Hardware Design Engineer: Signed 15-Sep-2013 NCS and/or EMG Patient Result: Comments: See Note; NOTES: [facility] Pulmonary Services/Neurology [facility] [place] [address] NCS and/or EMG Patient MR#: [id number] Acct: [id number] Name: LA AMARO RA Rep #: [id number] : 1965 48 From: Ever Allen MD Referring Dr: Carolina Bowman Status: REG CLI Ordering Dr: Carolina Bowman Date: 09/13/13 Location: PSN Sex: F C DATE OF SERVICE: [facility] 2013 REFERRING PHYSICIAN: Carolina Bowman. INTRODUCTION: This [...] Dictated: 09/13/13 1043 Date Transcribed: 09/13/13 1520 Senior Hardware Design Engineer: SHARP Signed 12-Apr-2013 Bilat Scrn Digital & CAD Result: Comments: See Note; NOTES: [facility] Imaging Services [address] [place] [address] Breast Imaging Report MR#: [id number] Acct: [id number] Name: KATHRYN AMARO Rep # : [id number] : 1965 F 48 From: Luciano Dowell MD PCP: Samantha Barrera DO Status: REG CLI Exam# [id number] Ordering Dr: Samantha Barrera DO MAMMOGRAPHY - [...] M.D. at 8:09 EST , Service support [phone], CC: Samantha Barrera DO Senior Hardware Design Engineer: Signed 12-Apr-2013 Dexa Bone Density Study (HP) Result: Comments: See Note; NOTES: [facility] Imaging Services [address] [place] [address] Bone Density Report MR#: [id number] Acct: [id number] Name: KATHRYN AMARO Rep #: [id number] : 1965 F 48 From: Luciano Dowell MD PCP: Samantha Barrera DO Status: [facility] Study: Dexa Bone Density Study (HP) Date of Exam: 04/12/13 Exam# [id number] Ordering Dr: Gasper Barrera DO STUDY: DUAL [...] M.D. 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 Comments: 06/23/11 Status: Active Smoking Status Name Dates Details Never smoker Vital Signs Date Test Result Details 44-Uux-575100:51 Comments: ortho scatic bp: sitting 105/66 P [...] cm Results Date Description Value Details :06 UCLFK-FZZKDZRRNOI-KOJSS (55302) Comments: PATIENT NOT FASTINGPERFORMED BY: CATRACHO [employer]agi70 JacobsSonitus TechnologiesQu[facility] [id number] AFP, Serum, Tumor Marker 6.2 ng/mL (Normal) Range: 0.0-8.3 Comments: Kyler ECLIA methodology :06 HEPATIC FUNCTION PANEL Comments: PATIENT NOT FASTINGPERFORMED BY: [employer]70 [facility] [id number] ([id number]) ALT (SGPT) 30 [iU]/L (Normal) Range: 0-32 AST (SGOT) 18 [iU]/L (Normal) Range: 0-40 Alkaline Phosphatase 56 [iU]/L (Normal) Range: 39-117 Bilirubin, Direct 0.10 mg/dL (Normal) Range: 0.00-0.40 Bilirubin, Total 0.2 mg/dL (Normal) Range: 0.0-1.2 Albumin 4.8 g/dL (Normal) Range: 3.5-5.5 Protein, Total 6.7 g/dL (Normal) Range: 6.0-8.5 :56 HEPATIC FUNCTION PANEL Comments: PATIENT NOT FASTINGPERFORMED BY: [facility]Co[facility] HospitalJnhnjq6810 [facility] [id number] ([id number]) ALT (SGPT) 110 [iU]/L (Abnormal) Range: 0-32 AST (SGOT) 48 [iU]/L (Abnormal) Range: 0-40 Alkaline Phosphatase 52 [iU]/L (Normal) Range: 39-117 Bilirubin, Direct 0.16 mg/dL (Normal) Range: 0.00-0.40 Bilirubin, Total 0.5 mg/dL (Normal) Range: 0.0-1.2 Albumin 4.5 g/dL (Normal) Range: 3.5-5.5 Protein, Total 6.5 g/dL (Normal) Range: 6.0-8.5 :56 CBC & PLATELETS (AUTO) Comments: PATIENT NOT FASTINGPERFORMED BY: [facility] HospitalVpgniu7687 [facility] [id number] ([id number]) Platelets 312 {x10E3/uL} (Normal) Range: 150-379 RDW 12.7 % (Normal) Range: 12.3-15.4 MCHC 34.6 g/dL (Normal) Range: 31.5-35.7 MCH 30.7 pg (Normal) Range: 26.6-33.0 MCV 89 fL (Normal) Range: 79-97 Hematocrit 38.4 % (Normal) Range: 34.0-46.6 Hemoglobin 13.3 g/dL (Normal) Range: 11.1-15.9 RBC 4.33 {x10E6/uL} (Normal) Range: 3.77-5.28 WBC 6.0 {x10E3/uL} (Normal) Range: 3.4-10.8 :56 PARATHORMONE (22524) Comments: PATIENT NOT FASTINGPERFORMED BY: [facility] Xyctks3510 Jacobs RoadDublin [place] [id number] PTH, Intact 30 pg/mL (Normal) Range: 15-65 :56 CALCIFEDIOL (61765) Comments: PATIENT NOT FASTINGPERFORMED BY: [facility] Giqddm2026 Jacobs RoadDublin [place] [id number] Vitamin D, 25-Hydroxy 79.3 ng/mL (Normal) Range: 30.0-100.0 Comments: Vitamin D deficiency has been defined by the [place] ofMedicine and an Endocrine Society practice guideline as alevel of serum 25-OH vitamin D less than 20 ng/mL (1,2).The Endocrine Society went on to further define vitamin Dinsufficiency as a level between 21 and 29 ng/mL (2).1. IOM ([place] of Medicine). 2010. Dietary reference intakes for calcium and D. [place]: The National Academies Press.2. Henna MF, Jerman [place], Piedad SHARP, et al. Evaluation, treatment, and prevention of vitamin D deficiency: an Endocrine Society clinical practice guideline. JCEM. 2010; 96(7):1911-30. :56 MAGNESIUM (04366) Comments: PATIENT NOT FASTINGPERFORMED BY: [facility] Vweeyq5762 Jacobs RoadDublin [place] [id number] Magnesium 2.1 mg/dL (Normal) Range: 1.6-2.3 :51 Metabolic Panel, Comprehensive Comments: PATIENT NOT FASTINGPERFORMED BY: [facility] Ldxfji3294 Jacobs RoadDublin [place] [id number] (03175) ALT (SGPT) 67 [iU]/L (Abnormal) Range: 0-32 [...] 6-24 Glucose 116 mg/dL (Abnormal) Range: 65-99 77-Jdm-437334:51 CBC & PLATELETS (AUTO) Comments: PATIENT NOT FASTINGPERFORMED BY: [facility] Hapdkj7049 [facility] [id number] (38757) Platelets 101 {x10E3/uL} Range: 150-379 (Abnormal) RDW 12.8 % (Normal) Range: 12.3-15.4 MCHC 35.2 g/dL (Normal) Range: 31.5-35.7 MCH 30.9 pg (Normal) Range: 26.6-33.0 MCV 88 fL (Normal) Range: 79-97 Hematocrit 37.8 % (Normal) Range: 34.0-46.6 Hemoglobin 13.3 g/dL (Normal) Range: 11.1-15.9 RBC 4.30 {x10E6/uL} Range: 3.77-5.28 (Normal) WBC 10.6 {x10E3/uL} Range: 3.4-10.8 (Normal) 10-Pnq-68256:1 Cortisol - AM 13.3 ug/dL (Normal) Comments: PATIENT NOT FASTINGPERFORMED BY: CB [facility] Mcmcbi5658 [facility] [place] [id number] BY: [address] [id number] 0 Range: 6.2-19.4 73-Tgh-73530:10 CALCIFEDIOL (80164) Comments: PATIENT NOT FASTINGPERFORMED BY: CB [facility] Hezfnv3369 [facility] [id number] BY: [address] [id number] Vitamin D, 25-Hydroxy 86.0 ng/mL (Normal) Range: 30.0-100.0 Comments: Vitamin D deficiency has been defined by the [place] ofMedicine and an Endocrine Society practice guideline as alevel of serum 25-OH vitamin D less than 20 ng/mL (1,2).The Endocrine Society went on to further define vitamin Dinsufficiency as a level between 21 and 29 ng/mL (2).1. IOM ([place] of Medicine). 2010. Dietary reference intakes for calcium and D. [place]: The National Academies Press.2. Henna MF, Jerman [place], Piedad SHARP, et al. Evaluation, treatment, and prevention of vitamin D deficiency: an Endocrine Society clinical practice guideline. JCEM. 2010; 96(7):1911-30. :10 TESTOSTERONE TOTAL (73903) Comments: PATIENT NOT FASTINGPERFORMED BY: CB [facility] Haatio4199 [facility] [id number] BY: Lab[address] [id number] Information: AM CORTISOL Testosterone, Serum <3 ng/dL (Abnormal) Range: 3-41 :10 ESTRONE (16014) Comments: PATIENT NOT FASTINGPERFORMED BY: CB [facility] Uqxnhg9500 [facility] [id number] BY: [address] [id number] Estrone, Serum 36 pg/mL (Normal) Comments: . [...] - 114 Post Menopausal 14 - 103 18-Iad-39027:10 PROGESTERONE (87534) Comments: PATIENT NOT FASTINGPERFORMED BY: [employer] [facility] [id number] BY: [employer] [id number] Progesterone 0.2 ng/mL (Normal) Comments: Follicular phase 0.1 - 0.9 Luteal phase 1.8 - 23.9 Ovulation phase 0.1 - 12.0 First trimester 11.0 - 44.3 Second trimester 25.4 - 83.3 Third t rimester 58.7 - 214.0 Postmenopausal 0.0 - 0.1 83-Mrb-78440:10 ESTRADIOL (03934) Comments: PATIENT NOT FASTINGPERFORMED BY: [employer] [facility] HospitalPure Energy SolutionsQu[facility] Health [id number] BY: [employer] [id number] Estradiol <5.0 pg/mL (Normal) Comments: Adult Female: Follicular phase 12.5 - 166.0 Ovulation phase 85.8 - 498.0 Luteal phase 43.8 - 211.0 Postmenopausal <6.0 - 54.7 1st trimester 215.0 - & gt;4300.0 Girls (1-10 years) 6.0 - 27.0Roche ECLIA methodology 70-Mle-555081:02 CBC & PLATELETS (AUTO) Comments: PATIENT NOT FASTINGPERFORMED BY: [employer] [facility] [id number] (11929) Platelets 214 {x10E3/uL} (Normal) Range: 150-379 RDW 13.0 % (Normal) Range: 12.3-15.4 MCHC 32.9 g/dL (Normal) Range: 31.5-35.7 MCH 31.3 pg (Normal) Range: 26.6-33.0 MCV 95 fL (Normal) Range: 79-97 Hematocrit 41.0 % (Normal) Range: 34.0-46.6 Hemoglobin 13.5 g/dL (Normal) Range: 11.1-15.9 RBC 4.32 {x10E6/uL} (Normal) Range: 3.77-5.28 WBC 6.8 {x10E3/uL} (Normal) Range: 3.4-10.8 96-Lts-689164:02 TSH (79550) Comments: PATIENT NOT FASTINGPERFORMED BY: [place] 1075170 [facility] [id number] TSH 1.190 {uIU/mL} (Normal) Range: 0.450-4.500 45-Dai-343054:02 T4, FREE (THYROXINE) (38351) Comments: PATIENT NOT FASTINGPERFORMED BY: [address] [id number] T4,Free(Direct) 1.07 ng/dL (Normal) Range: 0.82-1.77 90-Bxd-043934:02 T3, FREE (TRIDOTHYRONINE) (60653) Comments: PATIENT NOT FASTINGPERFORMED BY: [facility]6370 [facility] [id number] Triiodothyronine,Free,Serum 2.9 pg/mL (Normal) Range: 2.0-4.4 54-Wcf-079784:02 Metabolic Panel, Comprehensive Comments: PATIENT NOT FASTINGPERFORMED BY: [place] 1075170 [facility] [id number] (59339) ALT (SGPT) 14 [iU]/L (Normal) Range: 0-32 [...] Glucose, Serum 84 mg/dL (Normal) Range: 65-99 96-Pxs-512154:02 IRON (60564) Comments: PATIENT NOT FASTINGPERFORMED BY: [facility] AdventureWeisman Children's Rehabilitation HospitalIvfiel0274 [facility] [id number] Iron, Serum 46 ug/dL (Normal) Range: 27-159 23-Sbk-094388:02 DHEA-S (DEHYDROEPIANDROSTERONE Comments: PATIENT NOT FASTINGPERFORMED BY: [employer] AdventureWeisman Children's Rehabilitation HospitalQvtarc3134 [facility] [id number] SULFATE) (33394) DHEA-Sulfate 40.7 ug/dL (Abnormal) Range: 41.2-243.7 :57 Microscopic Examination Comments: PATIENT NOT FASTINGPERFORMED BY: [facility] AdventureWeisman Children's Rehabilitation HospitalOdvzeq5037 [facility] [id number] Bacteria Few (Normal) Mucus Threads Present (Normal) Epithelial Cells (non renal) 0-10 {/hpf} (Normal) Range: 0 - 10 RBC 0-2 {/hpf} (Normal) Range: 0 - 2 WBC 0-5 {/hpf} (Normal) Range: 0 - 5 :57 URINALYSIS (27893) Comments: PATIENT NOT FASTINGPERFORMED BY: LabCoWe[facility] Children's Rehabilitation HospitalNwerqh8274 [address] [place] [id number] Microscopic Examination See below: (Normal) Comments: Microscopic was indicated and was performed. Nitrite, Urine Negative (Normal) Urobilinogen,Semi-Qn 0.2 mg/dL (Normal) Range: 0.2-1.0 Bilirubin Negative (Normal) Occult Blood Negative (Normal) Ketones Negative (Normal) Glucose Negative (Normal) Protein Negative (Normal) WBC Esterase 1+ (Abnormal) Appearance Clear (Normal) Urine-Color Yellow (Normal) pH 7.0 (Normal) Range: 5.0-7.5 Specific Seney 1.008 (Normal) Range: 1.005-1.030 79-Bkp-178547:50 Basic Metabolic Profile (BMP) Comments: [facility] M[address] [facility] [place], [place], [phone] GAP 4 (Abnormal) Range: 5-15 CO2 27.0 [...] Range: 70-110 :50 CBC W/Diff, Automated Comments: [facility] [address] [place], [place], [phone] Absolute Lymph 1.18 {X10_3/ul} (Normal) Range: 0.83-4.51 [...] 4.2-5.4 WBC 10.3 K/mm3 (Normal) Range: 4.4-11.0 30-Aaf-134507:00 Urinalysis, Complete Comments: Order Date: 07/22/16Order Date: 07/22/16How was Urine Obtained? 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 [place], [place], [phone] MUCUS, URINE 0 SEEN {/hpf} (Normal) BACTERIA [...] BELOW (Normal) Comments: Visual Urine Color: PINK 67-Mmt-759908:44 Culture, Wound Comments: [facility] [address] [place], [address] CUW See Note (Normal) Comments: Order Date: [...] pneumoniae, beta-hemolytic Streptococcus or Staphylococcus aureus isolated. 80-Usf-637217:49 HgA1C , Office (96336) HgA1C , Office 5.3 % (Normal) Range: 4.6 - 7.1 33-Cos-487114:03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
--- OUTSIDE RECORDS SUMMARY | 2018-07-05 09:42 | XMS RPT_ITS ---
:1965 Author Organization OHIP Care Team Providers Name Role Phone Holly DO, Samantha Attending Unavailable Holly DO, Samantha Referring Unavailable Holly DO, Samantha Consulting Unavailable Holly, Samantha Attending Unavailable Holly, Samantha Referring Unavailable Holly, Samantha Primary Care Unavailable Holly, Samantha Attending Unavailable Holly, Samantha Primary Care Unavailable Holly, Samantha Referring Unavailable Robson, Priscila Attending Unavailable Robson, Priscila Referring Unavailable Holly, Samantha Primary Care Unavailable Moodispaw, Carroll Attending Unavailable Moodispaw, Carroll Referring Unavailable Knapic, Kuldeep Attending Unavailable Knapic, Kuldeep Referring Unavailable Holly, Samantha Primary Care Unavailable PROBLEMS PROBLEMS DATE TYPE CONDITION / CODE ATTENDING STATUS SOURCE 05/01/2018 Unknown E78.5 - Holly, Active Aye Hyperlipidemia, [facility] unspecified / Hospital E78.5(ICD-10) Repository 05/01/2018 Unknown L65.9 - Nonscarring Holly, Active Aye hair loss, [facility] unspecified / Hospital L65.9(ICD-10) Repository 11/19/2017 Unknown Z01.810 - Encounter Carroll Emmanuel Active Aye for preprocedural [facility] examination / Repository Z01.810(ICD-10) 06/30/2017 Unknown 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, 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, unspecified / Repository M95.9(ICD-10) PROCEDURES PROCEDURES No Procedure Records FoundRESULTS RESULTS CBC W/DIFF, AUTOMATED Collected: 05/01/2018 Status: F Source: AYE 8:38 AM [facility] REPOSITORY TYPE CODE TESTS RESULT OUT OF RANGE REFERENCE UNITS LAB L100.1000 4.4-11.0 K/mm3 Normal WBC 4.5 LAB L100.1200 4.2-5.4 M/mm3 Normal RBC 4.72 LAB L100.1300 12.0-15.0 g/dl Normal HGB 14.5 LAB L100.1400 37-47 % Normal HCT 43.8 LAB L100.1500 81-99 fL Normal MCV 92.8 LAB L100.1600 27.0-32.0 pg Normal MCH 30.7 LAB L100.1700 32-36 g/gl Normal MCHC 33.1 LAB L100.1810 11.6-14.6 % Normal RDW CV 12.4 LAB L100.1820 35.1-43.9 fl Normal RDW SD 42.1 LAB L100.1900 150-450 K/mm3 Normal PLT 206 LAB L100.2000 6.2-12.0 fl Normal MPV 9.7 LAB L100.2100 47-70 % Normal NEUT% 51.8 LAB L100.2200 19-41 % Normal LY% 25.7 LAB L100.2300 0-10 % High MONO% 10.4 LAB L100.2400 0-5 % High EO% 11.5 LAB L100.2500 0-1 % Normal BASO% 0.4 LAB L100.2550 0.0-0.9 % Normal IM GRAN % 0.200 Result Comment: IG% - Immature Granulocytes (promyelocytes, myelocytes and metamyelocytes) > 1% indicates that a LEFT SHIFT is Present. LAB L100.2620 2.0-7.7 X10 3/uL Normal Absolute Neut 2.3 LAB L100.2720 0.83-4.51 X10 3/ul Normal Absolute Lymph 1.16 Performed By: #### L100.0100 #### [facility] [address] [place], [address] COMPREHENSIVE METABOLIC Collected: 05/01/2018 Status: F Source: [facility] 8:38 AM [facility] REPOSITORY TYPE CODE TESTS RESULT OUT OF RANGE REFERENCE UNITS LAB L501.0100 74-106 mg/dL Normal GLU 103 Result Comment: Fasting Glucose result from 100 to 125 mg/dL suggests IMPAIRED HOMEOSTASIS per A.D.A. criteria. Please note revised GLUCOSE reference range effective 2017. LAB L501.1000 7-18 mg/dL High BUN 19 LAB L501.1100 0.55-1.02 mg/dL Normal CREAT,SERUM 0.77 Result Comment: The validity of the calculated GFR AND GFRAA in patients over 70 years has not been determined. Clinical correlation is essential. LAB L501.1110 >60 mL/min Normal EST GFR 83 Result Comment: Non- GFR Calc LAB L501.1115 >60 mL/min Normal EST GFR - AA 101 Result Comment: GFR Calc LAB L501.1300 10-20 RATIO High BUN/CRE 24.6 LAB L501.1500 6.4-8.2 g/dL T Normal PROT 7.2 LAB L501.1800 3.2-5.0 g/dL Normal ALB 4.0 LAB L501.1950 2.2-4.2 g/dL Normal GLOB 3.2 LAB L501.2000 0.9-2.4 RATIO Normal A/G 1.2 LAB L501.2200 8.5-10.1 mg/dL CA Normal 8.5 LAB L501.4100 15-37 U/L Low AST 11 LAB L501.4305 45-117 U/L Normal ALK P 65 LAB L501.4405 13-56 U/L Normal ALT 21 LAB L501.4600 0.20-1.00 mg/dL T Normal BILI 0.40 LAB L501.5300 136-145 mmol/L NA Normal 141 LAB L501.5600 3.5-5.1 mmol/L K Normal 4.2 LAB L501.5900 98-107 mmol/L High CL 110 LAB L501.6100 21.0-32.0 mmol/L Normal CO2 24.0 LAB L501.6200 5-15 Normal GAP 7 Performed By: #### L500.4050, L500.4100, L501.9520 #### [facility] [address] [place], [place], [address] LIPID PROFILE Collected: 05/01/2018 Status: F Source: [place] 8:38 AM [facility] REPOSITORY TYPE CODE TESTS RESULT OUT OF RANGE REFERENCE UNITS LAB L501.4900 200 mg/dL High CHOL 230 Result Comment: <200 mg/dL Desirable 200-240 mg/dL Borderline >240 mg/dL High Risk LAB L501.5000 mg/dL Normal TRIG 123 Result Comment: The drugs N-Acetylcysteine and Metamizole may falsely depress this assay. Serum Triglycerides Reference Interval Normal <150 mg/dL Borderline high 150 - 199 mg/dL High 200 - 499 mg/dL Very High > or = 500 mg/dL LAB L501.6400 mg/dL Normal HDL 62 Result Comment: The drugs N-Acetylcysteine and Metamizole may falsely depress this assay. Reference Range HDL <40 mg/dL Low HDL Cholesterol HDL >or= 60 mg/dL High HDL Cholesterol LAB L501.6500 0-130 mg/dL High LDL 143 LAB L501.6600 5-40 mg/dL Normal VLDL 25 Performed By: #### L500.4050, L500.4100, L501.9520 #### [facility] [address] [place], [address] THYROID STIM HORMONE Collected: 05/01/2018 Status: F Source: AYE (TSH) 8:38 AM [facility] REPOSITORY TYPE CODE TESTS RESULT OUT OF RANGE REFERENCE UNITS LAB L501.9520 0.358-3.74 uIU/mL Normal TSH 0.76 Performed By: #### L500.4050, L500.4100, L501.9520 #### [facility] [address] [facility] [place], [address] NCS AND/OR EMG Observed: 01/26/2018 Status: F Source: [place] PATIENT 11:05 AM [facility] REPOSITORY [facility] Pulmonary Services/Neurology [address] [place] [address] MR#: [id number] Acct: [id number] Name: KATHRYN AMARO Rep #: [id number] : 1965 52 From: Ever Allen MD Referring Dr: Kuldeep Ackerman DO Status: REG CLI Ordering Dr: Date: Location: [facility] Sex: F C NCS and/or EMG Patient Report Ordering Doctor: Kuldeep Ackerman DATE OF SERVICE: 01/26/18 This is a right upper extremity EMG and nerve conduction study performed on this 52-year-old female who is had right upper extremity discomfort not involving the hand or fingers without trigger. She did have a rotator cuff [...] evaluated included the first dorsal interosseous, abductor pollicis brevis, brachioradialis, biceps, triceps and deltoid muscles. [...] MD> Date Ever Allen MD CC: Samantha Barrera DO; Kuldeep Ackerman DO; Ever Allen MD Date Dictated: 01/26/18 1036 Date Transcribed: 01/26/18 103 Supervisor Modern Languages: NF Signed 12 LEAD ELECTROCARDIOGRAM Observed: 10/22/2017 Status: F Source: [place] 12:52 PM [facility] REPOSITORY [facility] Cardiovascular Services [address] [place] [address] 12 Lead EKG 10/21/17 1508 MR#: [id number] Acct: [id number] Name: KATHRYN AMARO Rep #: [id number] : 1965 52 From: Carroll Emmanuel MD Attending Dr: Priscila Chance Status: REG CLI Ordering Dr: Priscila Chance Date: 10/21/17 Location: [facility] Sex: F C Admitted: Test Reason : PREOP Blood Pressure : / mmHG Vent. Rate : 070 BPM Atrial Rate : 070 BPM P-R Int : 142 ms QRS Dur : 064 ms QT Int : 392 ms P-R-T Axes : 069 063 066 degrees QTc Int : 423 ms Normal sinus rhythm Normal ECG Confirmed by CHOLO MORENO, CARROLL ([id number]), editor book HILARIA DAVIDSON ([id number]) on 10/22/2017 12:52:17 PM Referred By: Priscila Chance Confirmed By:CARROLL EMMANUEL MD 10/22/17 1252 Date Carroll Emmanuel MD CC: Priscila Chance; Samantha Barrera DO Signed SKULL MIN 4 VIEWS Observed: 06/30/2017 Status: F Source: [facility] 4:10 PM [facility] REPOSITORY [facility] Imaging Services [address] [place] [address] Skull min 4 Views MR#: [id number] Acct: [id number] Name: KATHRYN AMARO Rep #: [id number] : 1965 F 52 From: Marcus Angel MD PCP: Samantha Barrera DO Status: REG CLI Study: Skull min 4 Views Date of Exam: 06/30/17 Exam# [id number] Ordering Dr: Samantha Barrera DO STUDY: X-RAY - SKULL REASON FOR EXAM: Female, 52 years old. Lumps TECHNIQUE: 7 view(s) of the skull were obtained. COMPARISON: None. FINDINGS: There is no demonstrated soft tissue swelling. Normal visualized soft tissues. Normal osseous calvarium. There is no demonstrated calvarial fracture. No destructive lesions. Normal visualized facial bones. Normal visualized paranasal sinuses. RAD/Skull min 4 Views IMPRESSION: Normal x-ray examination of the skull. Electronically Signed: Marcus Angel MD at 11:31 EDT , Service support , CC: Samantha Barrera DO Supervisor Modern Languages: Signed ALLERGIES ALLERGIES DATE TYPE / CODE NAME / CODE REACTION SEVERITY SOURCE 07/22/2016 Drug No Known Unknown [facility] Allergy/4160 Allergies/F00 Hospital 96499(SNOMED 0023915(RXNOR Repository CT) M) ENCOUNTERS ENCOUNTERS ADMIT/DISCHARGE ACCOUNT ADMITTING ENCOUNTER LOCATION SOURCE NUMBER CLASS 05/01/2018 [id number] Ambulatory [address] ing:LAB Repository 04/26/2018 [address] Ambulatory Building:[facility] Practices Repository 01/26/2018 [id number] Ambulatory Aye [place] 0 [facility] ing:PSN Repository 10/21/2017 [id number] Ambulatory Aye [place] 0 [facility] ing:CVS Repository 10/21/2017 [id number] Ambulatory BMSBuilding:W [place] [facility] Repository 06/30/2017 [id number] Ambulatory [place] Aye 8 [facility] ing:RAD.FUTUR Repository E PAYERS PAYERS ENCOUNTER GUARANTOR PAYER SUBSCRIBER SOURCE 05/01/2018 KATHRYN ENID Primary KATHRYN ENID [place] [id number] Insurance:ANTHEMPolic WATKINSDOB: [facility] Number: [id number] [id number] Repository [address]Scz: (330) Date:4639-96-87[phone] (HP) 455920INZURFDSANDY RID[place], [place] [address]JP: 05/01/2018 Secondary NOT GIVENUNK Aye Insurance:SELF PAY [facility] Number: Effective Repository Date:2018-05-01 04/26/2018 Kathryn S Primary Kathryn S OHIP Practices WatkinsDOB: Insurance:[place] WatkinsDOB: Repository [id number] [facility]: [id number] [place] [id number] [place], [place] Date:2252-52-29Rxmd [place], [place] [address]Mpt: (330) Name:[facility] [address]Bea: [id number], [place] [phone] () (HP)Tel: [phone]: [phone] 04/26/2018 Secondary Kuldeep R OHIP Practices Insurance:[place] WatkinsDOB: Repository [facility] Number: [id number] [place] Date: - [place], [place] [id number] [address]Mjp: (330) Name:[facility] [phone] () [address]27[address]Zcfgwgi, [place] [id number]: 04/26/2018 Tertiary Kathryn S OHIP Practices Insurance:Medical WatkinsDOB: Repository [facility] [id number] Number: [place] [id number] [place], [place] Date:2009-01-11 - [address]Opt: [phone] [id number] [phone] (HP) Name:[facility] [address] [address]Xtsnlghhs, [place] [address]EX: 04/26/2018 Tertiary Kathryn S OHIP Practices Insurance:UMRPolicy WatkinsDOB: Repository Number: [id number] [place] Date: - [place], [place] [id number] [id number]: ([phone]) Name:. [phone] () [address]NnidEast [place], [place] [address]PL: 01/26/2018 KATHRYN ENID Primary KATHRYN ENID Aye [id number] Insurance:ANTHEMPolic WATKINSDOB: Community MAIDEN y Number: [id number] [place], [place] [id number] Repository [address]Ijd: (330) Date:5707-97-89XM [phone] (HP) [id number] [place] [address]FJ: 01/26/2018 Secondary NOT GIVENUNK [place] Insurance:SELF PAY [facility] Number: Effective Repository Date:2017-10-02 10/21/2017 Kathryn Enid Primary Kathryn Enid [place] [id number] Insurance:ANTHEMPolic WatkinsDOB: Community MAIDEN y Number: [id number] [place], [place] [id number] Repository [address]Ttn: (330) Date:9096-25-31[phone] (HP) [id number], [place] [address]ER: 10/21/2017 Secondary NOT GIVENUNK Aye Insurance:SELF PAY [facility] Number: Effective Repository Date:2017-10-21 10/21/2017 Kathryn Enid Primary Kathryn Aranda [id number] Insurance:ANTHEMPolic WatkinsDOB: Community MAIDEN y Number: [id number] [id number] Repository [address]Nvv: (330) Date:6025-09-94SI [phone] () [address]996[address]OBJOVNP, [place] [address]JY: 10/21/2017 Secondary NOT GIVENUNK [place] Insurance:SELF PAY [facility] Number: Effective Repository Date:2017-10-21 06/30/2017 Kathryn Enid Primary Kathryn Aranda [id number] Insurance:ANTHEMPolic WatkinsDOB: [facility] MAIDEN y Number: [id number] [place] [address] [id number] Repository [address]Byz: (330) Date:7767-38-61WW [phone] () [address], [place] [address]ZC: 06/30/2017 Secondary NOT GIVENUNK [place] Insurance:SELF PAY [facility] Number: Effective Repository Date:2017-06-30
== END ==
PROVIDERS: Family Provider Internal Medicine; PCP Internal Medicine; Referring Provider Internal Medicine; Visit Provider Internal Medicine
DX: E78.5 Hyperlipidemia, unspecified (principal); L65.9 Nonscarring hair loss, unspecified
CPT/HCPCS: 36415; 80053; 80061; 84443; 85025

== ENCOUNTER → 2018-05-10 16:00 | Outpatient (CLI) | payer BC, SELFPAY ==
--- NOTE | 2018-05-10 16:21 | MRI_ITS ---
STUDY: MRI RIGHT SHOULDER REASON FOR EXAM: Continued right shoulder pain after surgery 10/28/2017. TECHNIQUE: Standardized fat and water weighted pulse sequences were obtained in all 3 orthogonal planes. COMPARISON: MRI images 09/11/2017 and radiographs 08/21/2017. FINDINGS: There is postoperative scarring of the supraspinatus tendon (T2 sagittal images 15, 16) without a fluid-filled gap to indicate recurrent tendon tear. Normal infraspinatus tendon. There is mild subscapularis tendinosis (proton density axial images 13, 14) without discrete tendon tear Normal teres minor tendon. Normal supraspinatus muscle. Normal infraspinatus muscle. Normal subscapularis muscle. Normal teres minor muscle. There is a glenohumeral joint effusion with fluid extending into the bicipital tendon sheath. There are anchors in the humeral head. There is a small enchondroma in the surgical neck of the humerus (T2 coronal image 7) measuring 0.8 cm in mediolateral dimension. Normal biceps labral complex. Normal intracapsular long biceps tendon. Normal labrum. Normal capsulo- ligamentous complex. Status post subacromial decompression. There is no subacromial-subdeltoid bursal fluid. Normal deltoid muscle. Normal trapezius muscle. MRI/Upper Ext Joint Only(Routine) IMPRESSION: Postoperative scarring of the supraspinatus tendon without demonstrated recurrent rotator cuff tear. Mild subscapularis tendinosis. Glenohumeral joint effusion. 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 Electronically Signed: Gómez Jacobs MD at 11:15 EST Tel , Service support ,
== END ==
PROVIDERS: Family Provider Internal Medicine; PCP Internal Medicine; Referring Provider Orthopaedic Surgery; Visit Provider Orthopaedic Surgery
DX: S46.011D Strain of muscle(s) and tendon(s) of the rotator cuff of right shoulder, subsequent encounter (principal)
CPT/HCPCS: 73221

== ENCOUNTER → 2018-07-15 12:25 | Outpatient (CLI) | payer BC, SELFPAY ==
[2018-07-15 13:06] LABS: Estradiol < 11.0 pg/mL
[2018-07-15 13:14] LABS: Progesterone Level 4.12 ng/mL (See Comment); Vitamin D,25 Hydroxy 55.5 ng/mL (29.95-100.01)
[2018-07-16 04:08] LABS: DHEA Sulfate 43.1 ug/dL (41.2-243.7)
[2018-07-16 12:23] LABS: Sex Hormone-binding Globulin 82.8 nmol/L (17.3-125.0)
== END ==
PROVIDERS: Family Provider Internal Medicine; PCP Internal Medicine; Referring Provider Internal Medicine; Visit Provider Internal Medicine
DX: E34.9 Endocrine disorder, unspecified (principal)
CPT/HCPCS: 82306; 82533; 82627; 82670; 84144; 84270; 84403; 82626

== ENCOUNTER → 2018-07-17 09:03 | Outpatient (CLI) | payer BC, SELFPAY ==
--- NOTE | 2018-07-17 09:05 | BI_ITS ---
MAMMOGRAPHY - BILATERAL SCREENING REASON FOR EXAM: Female, 53 years old. Routine annual screening examination. PERTINENT HISTORY: Non-contributory. TECHNIQUE: Digital bilateral breast lee (3D mammographic acquisition) in the CC and MLO projections. 2-D mediolateral oblique (MLO) and craniocaudad (CC) views of both breasts were obtained. CAD: Full Field Digital Mammography with Computer Added Detection was performed. COMPARISON: Comparison is made with prior study dated October 13, 2016 and August 07, 2015. FINDINGS: Breast Composition: The breasts are heterogeneously dense, which may obscure small masses. There are no dominant masses or suspicious calcifications. Asymmetry of breast tissue were more breast tissue is seen in the upper outer quadrant of the left breast as compared to right side. Correlation with ultrasound is recommended. Stable densely calcified nodule in the slightly inferior medial portion of the right breast. No other significant abnormalities are identified. BI/SCREENING MAMM (CAD), BILAT IMPRESSION: Asymmetry of breast tissue where more breast tissue is seen in the upper outer quadrant of the left breast as compared to the right side. Correlation with ultrasound is recommended. ASSESSMENT CATEGORY: BIRADS Category 0: Incomplete. Need additional imaging evaluation. A letter regarding these results will be sent to the patient by the facility within 30 days. Approximately 10% of breast cancers are not detected by mammography. A normal mammogram should not delay biopsy of a clinically suspicious abnormality. [id number] Electronically Signed: Luciano Dowell, at 8:59 EDT , Service support ,
== END ==
PROVIDERS: Family Provider Internal Medicine; PCP Internal Medicine; Referring Provider Obstetrics & Gynecology; Visit Provider Obstetrics & Gynecology
DX: Z12.31 Encounter for screening mammogram for malignant neoplasm of breast (principal)
CPT/HCPCS: 77063; 77067

== ENCOUNTER → 2018-07-30 | Outpatient (CLI) | payer BC, SELFPAY ==
--- NOTE | 2018-07-30 08:47 | US_ITS ---
STUDY: ULTRASOUND BREAST - LEFT REASON FOR EXAM: Female, 53 years old. Breast asymmetry. TECHNIQUE: Axial and longitudinal images of the LEFT breast were performed with a high resolution ultrasound transducer. COMPARISON: Comparison is made with prior mammogram dated July 17, 2018. FINDINGS: LEFT Breast: The upper outer quadrant of the left breast was examined by ultrasound. There is homogeneous fibroglandular tissue. No solid or cystic mass lesion is seen. US/Breast Limited Unilateral IMPRESSION: Unremarkable sonogram of the upper outer quadrant of the left breast. ASSESSMENT CATEGORY: BIRADS Category 1: Negative. A letter regarding these results will be sent to the patient by the facility within 30 days. Electronically Signed: Luciano Dowell, at 11:00 EDT , Service support ,
== END | disposition home or self-care (01) ==
PROVIDERS: Family Provider Internal Medicine; PCP Internal Medicine; Referring Provider Obstetrics & Gynecology; Visit Provider Obstetrics & Gynecology
DX: N64.89 Other specified disorders of breast (principal)
CPT/HCPCS: 76642

== ENCOUNTER → 2019-03-08 09:15 | Outpatient (CLI) | payer BC, SELFPAY ==
--- NOTE | 2019-03-08 09:40 | RAD_ITS ---
Under fluoroscopic control and following proper antiseptic preparation and local anesthesia contrast media was introduced to the right shoulder joint to identified the joint space this was followed by the injection of 4 cc lidocaine mixed with 2cc off betamethasone this combination was injected into the joint space. Patient had previous surgery of the rotator cuff as she said. The patient tolerated the procedure well. Impression : Uneventful right shoulder joint injection. Electronically Signed: Rajeshsamantha Bryant, at 16:00 EST Tel , Service support , RAD/Inj/Asp Terence Jt Should/Hip/Knee
== END ==
PROVIDERS: Family Provider Internal Medicine; PCP Internal Medicine; Referring Provider Specialist; Visit Provider Specialist
DX: M19.011 Primary osteoarthritis, right shoulder (principal)
CPT/HCPCS: 20610; 77002; Q9967; J0702

== ENCOUNTER → 2019-04-30 10:41 | Outpatient (CLI) | payer BC, SELFPAY ==
--- NOTE | 2019-04-30 10:47 | CT_ITS ---
STUDY: CT BRAIN WITHOUT CONTRAST REASON FOR EXAM: Female, 54 years old. Headaches x 3 months, no known injury. Pain is all over. RADIATION DOSAGE (If Supplied By Facility): CTDIvol = ( 44.99 ) mGy, DLP = ( 678.00 ) mGycm TECHNIQUE: Transaxial CT imaging of the brain was performed without administration of intravenous contrast material. Individualized dose optimization techniques were used for this CT. COMPARISON: No relevant priors. FINDINGS: Normal soft tissue structures. Normal calvarium. Normal size ventricles and extra-axial spaces for the patient''s age. Normal white matter tracts of the cerebral hemispheres. Normal basal ganglia and thalami. Normal brainstem. Adjacent to the falx along the right side, there is a partially calcified extra-axial mass measuring 1.3 x 1.2 cm without underlying mass effect. Normal cerebellum. There is no intracranial hemorrhage. There are no findings of an acute ischemic infarction. There is mucoperiosteal inflammatory disease of the right maxillary sinus consistent with moderate chronic sinusitis. CT/Brain/Head without Contrast IMPRESSION: 1. No acute intracranial hemorrhage or mass effect. 2. Right parafalcine partially calcified meningioma. No underlying mass effect/edema. Electronically Signed: Michael Leon MD (Brooks) at 14:16 EST , Service support ,
== END ==
PROVIDERS: Family Provider Internal Medicine; PCP Internal Medicine; Referring Provider Internal Medicine; Visit Provider Internal Medicine
DX: R51 Headache (principal)
CPT/HCPCS: 70450

== ENCOUNTER → 2019-05-19 15:40 | Outpatient (CLI) | payer BC, SELFPAY ==
--- NOTE | 2019-05-19 15:50 | RAD_ITS ---
STUDY: X-RAY - CERVICAL SPINE REASON FOR EXAM: Female, 54 years old. patient has neck pain, also has been having headaches TECHNIQUE: 5 view(s) of the cervical spine were obtained. COMPARISON: None FINDINGS: Normal anterior atlantoaxial articulation. Normal odontoid process. Normal cervical lordosis. There is multi-level endplate spondylosis and uncovertebral hypertrophy. Disc space narrowing at C3-C4, C4-C5, C5-C6 and C6-C7. There is mild bony foraminal encroachment of bilateral C5-C6. The soft tissue structures are unremarkable. RAD/Cerv Spine 4 or 5 Views IMPRESSION: Degenerative disc disease with bilateral C5-C6 foraminal narrowing, mild. Electronically Signed: Michael Leon MD (Brooks) at 10:03 EST , Service support ,
== END ==
PROVIDERS: PCP Internal Medicine; Referring Provider Nurse Practitioner Family; Visit Provider Nurse Practitioner Family
DX: M54.2 Cervicalgia (principal)
CPT/HCPCS: 72050

== ENCOUNTER → 2020-01-03 17:00 | Outpatient (CLI) | payer BC, SELFPAY ==
--- NOTE | 2020-01-03 16:58 | BI_ITS ---
MAMMOGRAPHY - BILATERAL SCREENING REASON FOR EXAM: Female, 54 years old. Routine annual screening examination. PERTINENT HISTORY: Non-contributory. TECHNIQUE: Digital bilateral breast erick (3D mammographic acquisition) in the CC and MLO projections. 2-D mediolateral oblique (MLO) and craniocaudad (CC) views of both breasts were obtained. CAD: Full Field Digital Mammography with Computer Added Detection was performed. COMPARISON: Comparison is made with prior study dated 07/17/2018 and 10/13/2016. FINDINGS: Breast Composition: The breasts are heterogeneously dense, which may obscure small masses. There are no dominant masses or suspicious calcifications. Stable asymmetry of breast tissue where more breast tissue is seen in the upper outer quadrant of the left breast as compared to the right side. Stable calcified nodule in the mid medial aspect of the right breast. No other significant abnormalities are identified. There has been no significant change since the prior study. BI/SCREEN MAMM (CAD) W/ERICK BILAT IMPRESSION: Stable bilateral screening mammogram. Yearly follow-up mammogram recommended. (A) ASSESSMENT CATEGORY: BIRADS Category 2: Benign. A letter regarding these results will be sent to the patient by the facility within 30 days. Approximately 10% of breast cancers are not detected by mammography. A normal mammogram should not delay biopsy of a clinically suspicious abnormality. [id number] Electronically Signed: Luciano Dowell, at 9:02 EDT , Service support ,
== END ==
PROVIDERS: PCP Internal Medicine; Referring Provider Obstetrics & Gynecology; Visit Provider Obstetrics & Gynecology
DX: Z12.31 Encounter for screening mammogram for malignant neoplasm of breast (principal)
CPT/HCPCS: 77063; 77067

== ENCOUNTER → 2020-01-25 17:04 | Outpatient (CLI) | payer BC, SELFPAY ==
--- NOTE | 2020-01-25 17:06 | RAD_ITS ---
STUDY: X-RAY - LEFT KNEE REASON FOR EXAM: Female, 54 years old. Acute left knee pain TECHNIQUE: 4 view(s) of the knee. COMPARISON: None. FINDINGS: Normal visualized distal femur. Normal visualized proximal tibia and fibula. Normal proximal tibiofibular articulation. Normal medial femorotibial compartment. Normal lateral femorotibial compartment. Normal patellofemoral articulation. The soft tissue structures are unremarkable. RAD/Knee 4 or More Views IMPRESSION: Within normal limits x-ray examination of the knee. Electronically Signed: Ariela Bustamante MD at 16:02 EDT Tel , Service support ,
== END ==
PROVIDERS: PCP Internal Medicine; Referring Provider Internal Medicine; Visit Provider Internal Medicine
DX: M25.562 Pain in left knee (principal)
CPT/HCPCS: 73564

== ENCOUNTER 2020-03-15 08:03 | Emergency (ER) | payer BC, SELFPAY ==
[2020-03-15 08:04] VITALS: O2SAT 98
[2020-03-15 08:05] VITALS: BP 122/94; PULSE 89; RESP 16; TEMP 36.3; O2SAT 100; BMI 24.3
--- NOTE | 2020-03-15 08:20 | ED.DCSUM_ITS ---
History of Present Illness Chief Complaint: Cold Sx Informant: Patient Onset: Days - Onset Thursday Context: Sudden Onset Timing: Continuous Quality: Nasal congestion, runny nose, blood noted this morning, head pressure Location: Also complains of right ear pain Current Severity: Mild Maximum Severity: Moderate Worsened by: Nothing specific Relieved by: Nothing Associated Symptoms: No fever, chills, change in taste or smell or photophobia Narrative: Patient is a middle-age woman who presents because of blood in her nasal drainage when she blew her nose this morning. She complains of facial pressure. She denies photophobia, neck pain and inability to move neck. She does report stiffness, however. She does report postnasal drainage and is coughing up the secretions. She denies cough otherwise. She denies chest pain. Denies dyspnea or dyspnea on exertion. She denies GI symptoms. She has not had a rash. She had a rapid Covid test that reportedly was negative. Daughter feels it is an accurate because her nose was dry. Patient was prescribed antibiotic by nurse practitioner yesterday for sinus infection. Patient does report history of allergies. Prior similar symptoms: Yes - Sinus infection Recent Illness/Hospitalization: No - Past Medical History (1) Allergic rhinitis Status: Acute Past Medical History - Allergies and Home Meds Allergies/Adverse Reactions: Allergies No Known Allergies Allergy (Verified 03/15/20 08:05) Primary Care Physician: Samantha Barrera DO [Primary Care Provider] - Prior records reviewed: No Surgical History: noncontributory Lives: Spouse/ Significant Other Smoking Status: Never smoker Alcohol: Rare Drugs: None Review of Systems General: Denies: Chills, Fever, Malaise, Subjective Eyes: Denies: Visual changes - bilaterally, Blurred Vision - bilaterally ENT: Reports: Right ear pain, Rhinorrhea. Denies: Sore throat Cardiovascular: Denies: Chest pain, Palpitations Respiratory: Reports: Cough - Due to postnasal drainage. Denies: Dyspnea, Dyspnea on exertion Gastrointestinal: Denies: Abdominal pain, Nausea, Vomiting, Diarrhea Musculoskeletal: Denies: Myalgias, Arthralgias, Neck pain, Back pain, Swelling, Extremity Pain Skin: Denies: Rash Neurological: Reports: Headache - Facial pain. Denies: Weakness, Parasthesia Endocrine: Denies: Polyuria, Polydipsia Hematologic: Denies: Easy bruising Allergy: Denies: Swelling of the mouth, Swelling of the tongue Physical Exam Vital Signs/Narrative: Vital Signs Temp Pulse Resp BP Pulse Ox 03/15/20 08:05 97.3 F L 89 16 122/94 H 100 Inital Vital Signs reviewed: Yes General: Well nourished, Well developed, No Acute Distress, - - After asking questions patient seemed slightly tearful. Head: Normocephalic, Atraumatic Eyes: Perrl, EOMI, - - Conjunctive is not injected. There is no drainage.. Ne gative for: Pale conjunctiva, Scleral icterus ENT: Moist mucous membranes, TM's clear - External auditory canal is normal. There is no evidence of herpetic lesions to raise concern for [place] Fang syndrome., Nasal congestion, Sinus tenderness - Right maxillary, only.. Negative for: No rhinorrhea - Clear drainage with cyst light blood-tinged. Inferior the inferior turbinate on the lateral wall and medial wall there is slight irritation and believed to be source of bleeding. Neck: Supple, Nontender, No lymphadenopathy, No JVD Cardiovascular: Regular rate, Regular rhythm, No murmurs, Normal S1, Normal S2 Respiratory: No distress, CTA bilaterally, Chest nontender Skin: Normal color, No rash, No Trauma. Negative for: Cyanosis, Diaphoresis, Jaundice Neurological: Alert, Oriented x3, Cranial nerves II-XII grossly intact, Normal Strength, Normal Sensation, Normal Gait Psychological: Tearful, - - Affect is blunted Diagnostic/Tx/Re-eval - Medical Decision Making Patient states she has a do [place] fire not a humidifier. Recommended changing setting from humidifier to [place] fire in the fall. She was informed that she does not have a sinus infection since symptoms started on Thursday. She was informed for someone to be considered a sinus infection symptoms must be present for 14 days. Patient was informed she is probably experiencing sinus pressure from allergies or upper respiratory infection. Recommended discontinuing antibiotics. Nasal spray. She was informed the ear pain may be due to eustachian tube dysfunction. ED Disposition - Plan for ED Patient: Disposition: Home or Assisted Living Diagnosis: Nasal congestion with rhinorrhea, Eustachian tube dysfunction, Sinus pressure Instructions: ED Sinus Headache, ED Earache Without Infection (Adult) Referrals: Samantha Barrera, [Primary Care Provider] - 10-14 Days if not better
== END 2020-03-15 09:02 | disposition home or self-care (01) ==
LOC: ED 08:41
PROVIDERS: Emergency Provider Emergency Medicine; PCP Internal Medicine
DX: R09.81 Nasal congestion (principal); J34.89 Other specified disorders of nose and nasal sinuses; H69.80 Other specified disorders of Eustachian tube, unspecified ear
CPT/HCPCS: 99282

== ENCOUNTER 2020-07-06 19:05 | Emergency (ER) | payer OTHER, SELFPAY ==
[2020-07-06 19:06] VITALS: BP 141/80; PULSE 99; RESP 16; TEMP 35.9; O2SAT 96; BMI 26.8
--- NOTE | 2020-07-06 19:48 | RAD_ITS ---
STUDY: X-RAY - RIGHT HAND REASON FOR EXAM: Female, 55 years old. second mcp pain, swelling TECHNIQUE: 3 view(s) of the hand. COMPARISON: Right hand x-ray dated AUGUST 23, 2010 FINDINGS: Normal radiocarpal articulation. Normal distal radioulnar joint. Normal visualized carpal bones. Normal carpal articulations Normal carpometacarpal articulation of the thumb. Normal second through fifth carpometacarpal joints. Normal metacarpi. Normal joints. No visualized fractures. The soft tissue structures are unremarkable. RAD/Hand Min 3 Views IMPRESSION: Normal x-ray examination of the hand. Electronically Signed: Abdoul Flores MD at 20:37 EDT , Service support ,
--- NOTE | 2020-07-06 20:09 | ED.VISSUMM ---
- ER Visit Summary Date of Service: 07/06/20 Chief Complaint: [Pain and swelling to right index finger] History of Present Illness: The patient is a 55 F [does the emergency department with pain and swelling to the right index finger that started 2 days ago. Patient denies any trauma. 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 Patient is right-hand dominant. She denies any fevers. She has no history of gout. Patient complains of pain with range of motion of the digit.] Physical Examination: [Right hand-patient does have soft tissue swelling over the second MCP joint of the index finger. Patient does have some faint erythema noted. She has good range of motion in flexion extension. Patient neurovascularly intact.] ] Emergency Department Course and Treatment: [Patient had an aluminum splint applied to her index finger. Area of erythema was outlined with permanent marker. Patient will be started on Keflex. ] Treatment Plan: [Patient will treat with Keflex and will be given a prescription for few [place] for pain. She is advised to use naproxen as well which I will write her prescription for. She is to follow-up with her primary care physician in 3 to 5 days for wound check. At this point etiology of her pain and swelling is unclear although we will cover her for infectious etiology with the Keflex and she will use an anti-inflammatory.] Patient did not want work restrictions. Disposition: [Discharged home in stable condition] Impression: [Right index finger pain and swelling-suspect cellulitis] This note was generated with [employer] dictation software. It may contain incorrect words, spelling, and punctuation that were not noted in review of the chart prior to signing ED Disposition - Plan for ED Patient: Referrals: Samantha Barrera DO [Primary Care Provider] -
--- NOTE | 2020-07-06 20:13 | DCINST.ED_ITS ---
ED Disposition - Plan for ED Patient: Instructions: Cellulitis Prescriptions: Cephalexin [Keflex] 500 mg PO Q6 #40 capsule Transmission Status: Pending to [facility] Cephalexin [Keflex] 500 mg PO Q6 #40 capsule Prescription Printed Naproxen [Naprosyn] 500 mg PO BID PRN #20 tablet Transmission Status: Pending to [facility] Naproxen [Naprosyn] 500 mg PO BID PRN #20 tablet Prescription Printed Hydrocodone Bitart/Apap 5-325 [[place] 5MG-325MG] 1 tablet PO Q4H PRN PRN 2 Days #10 tab PRN Reason: Pain Transmission Status: Pending to [facility] Hydrocodone Bitart/Apap 5-325 [[place] 5MG-325MG] 1 tablet PO Q4H PRN PRN 2 Days #10 tab PRN Reason: Pain Prescription Printed Referrals: Samantha Barrera DO [Primary Care Provider] - 3-5 Days
--- NOTE | 2020-07-06 20:27 | ED.RN ---
pt stated that the doctor and her were debating about the splint, she and her was not sure she needed it.it was not applied.
[2020-07-06 20:29] VITALS: BP 138/60; PULSE 100; RESP 18; O2SAT 98
== END 2020-07-06 20:30 | disposition home or self-care (01) ==
PROVIDERS: Emergency Provider Emergency Medicine; PCP Internal Medicine
DX: L03.011 Cellulitis of right finger (principal); L03.113 Cellulitis of right upper limb; M25.441 Effusion, right hand; M79.644 Pain in right finger(s); J45.909 Unspecified asthma, uncomplicated
CPT/HCPCS: 73130; 99282

== ENCOUNTER → 2020-07-11 16:18 | Outpatient (CLI) | payer OTHER, SELFPAY ==
[2020-07-06 19:06] VITALS: BMI 26.8
[2020-07-11 17:45] LABS: Absolute Lymphocyte Count 1.15 X10^3/uL (0.83-4.51); Absolute Neutrophil Count 3.5 X10^3/uL (2.0-7.7); Basophil# 0.04 X10^3/uL; Basophil% 0.7 % (0-1); Eosinophil# 0.57 X10^3/uL; Eosinophils% 9.7 % (0-5); Hematocrit 43.4 % (37-47); Hemoglobin 14.1 g/dL (12.0-15.0); Lymphocyte # 1.15 X10^3/ul (4.0); Lymphocyte % 19.6 % (19-41); Mean Corp Hgb Conc 32.5 g/dL (32-36); Mean Corpuscular Hgb 30.5 pg (27.0-32.0); Mean Corpuscular Volume 93.7 fL (81-99); Mean Platelet Vol. 9.7 fl (6.2-12.0); Monocyte# 0.59 X10^3/uL; Monocyte% 10.1 % (0-10); NRBC Flagged by Analyzer 0 % (0-5); Neutrophil # 3.49 X10^3/uL (2.7-7.7); Neutrophil % 59.4 % (47-70); Platelet Count 247 K/mm3 (150-450); RBC Distribution Width CV 12.4 % (11.6-14.6); RBC Distribution Width SD 42.9 fl (35.1-43.9); Red Blood Count 4.63 M/mm3 (4.2-5.4); White Blood Count 5.9 K/mm3 (4.4-11.0)
[2020-07-11 18:05] LABS: CRP < 2.90 mg/L (0.0-3.0); Rheumatoid Factor < 10.0 IU/mL (<15)
[2020-07-11 18:14] LABS: Erythrocyte Sedimentation Rate 1 mm/hr (0-30)
== END ==
PROVIDERS: PCP Internal Medicine; Referring Provider Nurse Practitioner; Visit Provider Nurse Practitioner
DX: M79.641 Pain in right hand (principal)
CPT/HCPCS: 36415; 84550; 85025; 85652; 86140; 86431

== ENCOUNTER → 2021-02-06 15:50 | Outpatient (CLI) | payer OTHER, SELFPAY ==
--- NOTE | 2021-02-06 15:52 | BI_ITS ---
MAMMOGRAPHY - BILATERAL SCREENING REASON FOR EXAM: Female, 55 years old. Routine annual screening examination. PERTINENT HISTORY: Non-contributory. TECHNIQUE: Digital bilateral breast erick (3D mammographic acquisition) in the CC and MLO projections. 2-D mediolateral oblique (MLO) and craniocaudad (CC) views of both breasts were obtained. CAD: Full Field Digital Mammography with Computer Added Detection was performed. COMPARISON: Comparison is made with prior study discussed 01/03/2020 and 07/17/2018. FINDINGS: Breast Composition: The breasts are heterogeneously dense, which may obscure small masses. There are no dominant masses or suspicious calcifications. Stable calcified nodule in the medial midportion of the right breast. Stable benign-appearing bilateral axillary lymph nodes. No other significant abnormalities are identified. There has been no significant change since the prior study. BI/SCRN MAMM (CAD)W/ERICK BILAT IMPRESSION: Stable bilateral screening mammogram. Yearly follow-up mammogram recommended. (A) ASSESSMENT CATEGORY: BIRADS Category 2: Benign. A letter regarding these results will be sent to the patient by the facility within 30 days. Approximately 10% of breast cancers are not detected by mammography. A normal mammogram should not delay biopsy of a clinically suspicious abnormality. [id number] Electronically Signed: Luciano Dowell MD at 8:20 EDT , Service support ,
== END ==
PROVIDERS: PCP Internal Medicine; Visit Provider Student in an Organized Health Care Education/Training Program
DX: Z12.31 Encounter for screening mammogram for malignant neoplasm of breast (principal)
CPT/HCPCS: 77063; 77067

== ENCOUNTER → 2021-12-12 | Outpatient (CLI) | payer BC, SELFPAY ==
[2021-12-12 12:52] LABS: Absolute Lymphocyte Count 1.14 X10^3/uL (0.83-4.51); Absolute Neutrophil Count 3.7 X10^3/uL (2.0-7.7); Basophil# 0.03 X10^3/uL; Basophil% 0.5 % (0-1); Eosinophil# 0.26 X10^3/uL; Eosinophils% 4.6 % (0-5); Hematocrit 39.4 % (37-47); Hemoglobin 13.3 g/dL (12.0-15.0); Lymphocyte # 1.14 X10^3/ul (0.83-4.51); Lymphocyte % 20.3 % (19-41); Mean Corp Hgb Conc 33.8 g/dL (32-36); Mean Corpuscular Hgb 31.7 pg (27.0-32.0); Mean Corpuscular Volume 93.8 fL (81-99); Mean Platelet Vol. 10.4 fl (6.2-12.0); Monocyte# 0.45 X10^3/uL; NRBC Flagged by Analyzer 0 % (0-5); Neutrophil # 3.71 X10^3/uL (2.7-7.7); Neutrophil % 66.1 % (47-70); Platelet Count 245 K/mm3 (150-450); RBC Distribution Width CV 12.2 % (11.6-14.6); RBC Distribution Width SD 42.4 fl (35.1-43.9); White Blood Count 5.6 K/mm3 (4.4-11.0)
[2021-12-12 13:10] LABS: ALB/GLOB Ratio 1.2 RATIO (0.9-2.4); AST(SGOT) 6 U/L (15-37); Alanine Aminotransfer ALT/SGPT 20 U/L (13-56); Albumin, Serum 3.9 g/dL (3.2-5.0); Alkaline Phosphatase 63 U/L (45-117); Anion Gap 7 (5-15); BUN 12 mg/dL (7-18); BUN/Creat Ratio 13.2 RATIO (10-20); Bilirubin, Direct 0.14 mg/dL (0.00-0.30); Chloride 108 mmol/L (98-107); Cholesterol 212 mg/dL (200); Creatinine, Serum 0.91 mg/dL (0.55-1.02); EST Glomerular Filtration Rate 68 mL/min (>60); Est Glom Filt Rate - Afr Amer 83 mL/min (>60); Globulin 3.2 g/dL (2.2-4.2); Glucose 75 mg/dL (74-106); High Density Lipoprotein 53 mg/dL; Potassium 3.7 mmol/L (3.5-5.1); Protein, Total 7.1 g/dL (6.4-8.2); Sodium Level 140 mmol/L (136-145); Thyroid Stim Hormone (TSH) 1.13 uIU/mL (0.358-3.74); Triglycerides 159 mg/dL; Very Low Density Lipoprotein 32 mg/dL (5-40)
== END | disposition home or self-care (01) ==
PROVIDERS: PCP Internal Medicine; Visit Provider Internal Medicine
DX: R74.8 Abnormal levels of other serum enzymes (principal); E78.5 Hyperlipidemia, unspecified; F34.1 Dysthymic disorder
CPT/HCPCS: 80053; 80061; 82248; 84443; 85025

== ENCOUNTER 2023-07-10 08:25 | Emergency (ER) | payer BC, SELFPAY ==
[2023-07-10 08:26] VITALS: BP 122/73; PULSE 95; PULSE 98; RESP 16; TEMP 36.7; O2SAT 95; O2SAT 96; BMI 26.6
[2023-07-10 08:28] VITALS: BP 122/73; PULSE 96; RESP 15; TEMP 36.7; O2SAT 95
--- NOTE | 2023-07-10 08:41 | CT_ITS ---
STUDY: CT ABDOMEN AND PELVIS WITH CONTRAST REASON FOR EXAM: Female, 58 years old. Lower abd pain RADIATION DOSAGE (If Supplied By Facility): CTDIvol = ( 13.42 ) mGy, DLP = ( 837.87 ) mGycm TECHNIQUE: Transaxial images were obtained from the dome of the diaphragm to the symphysis pubis without oral contrast. IV 100mL Isovue-300 was administered. Sagittal and coronal images were reconstructed. Individualized dose optimization techniques were used for this CT. COMPARISON: Comparison is made with prior study July 22, 2016. FINDINGS: The visualized lung bases are unremarkable. The visualized portions of the heart are within normal limits. Normal liver. Normal gallbladder and extrahepatic biliary system. Normal spleen. Normal pancreas. Normal bilateral adrenal glands. Normal right kidney. There is a 4.2 cm x 3.1 cm cyst in the upper lateral aspect of the left kidney. There is a small hiatal hernia. Normal small intestine. There is diverticulosis, with thickening of the colon wall, and pericolonic inflammation changes consistent with acute diverticulitis. The appendix is visualized and appears normal. Normal abdominal aorta. Normal inferior vena cava. Normal retroperitoneum. Normal urinary bladder. There is absence of the uterus consistent with a prior hysterectomy. Normal abdominal wall. Normal osseous structures. CT/Abdomen/Pelvis W IV Cont ONLY IMPRESSION: Findings in keeping with a noncomplicated acute sigmoid diverticulitis. Left renal cyst. Electronically Signed: Luciano Dowell MD at 9:42 EDT ,
--- NOTE | 2023-07-10 08:42 | ED.VIS.GI ---
HPI HPI - GI History of Present Illness Chief Complaint: Abd Pain Informant: patient Abdominal Pain/Flank Pain Onset: Days (2-3) Context: Gradual Onset Timing: Continuous Quality: Aching Location: - (Lower abdomen mostly, but also epigastrium) Current Severity: Moderate Maximum Severity: Moderate Worsened by: Nothing; Not Worsened By Food Relieved by: Nothing Nausea/Vomiting/Emesis GI Symptom: Positive for Nausea; Negative for Vomiting Diarrhea/Melena/Hematochezia GI Symptom: Negative for Diarrhea, Melena or Hematochezia Associated Symptoms Associated Symptoms: Negative for Dysuria, Frequency, Hematuria or Urgency Narrative Narrative: Patient states he been having lower abdominal pain for couple days. Gradual in onset. Has not gone away. No fevers or chills. Some occasional mild nausea but no vomiting. She had 1 loose bowel movement yesterday but it was normal today no blood or melena, no urinary symptoms. Remote hysterectomy no other abdominal surgeries. Has never had a colonoscopy, but one of her parents had diverticulosis. She has never had diverticulitis that she knows of. [facility] Medical History (Updated 07/10/23 @ 10:[address] Noé Ascencio MD) Asthma Depression Home Medications calcium carbonate 250 mg-vitamin D3 3.125 mcg (125 unit) tablet 1 each PO DAILY 07/06/20 [History Last Taken Unknown] cephalexin 500 mg capsule 500 mg PO Q6 #40 CAPSULES 07/06/20 [Rx Last Taken Unknown] cephalexin 500 mg capsule 500 mg PO Q6 #40 CAPSULES 07/06/20 [Rx Last Taken Unknown] cholecalciferol (vitamin D3) 50 mcg (2,000 unit) capsule 2,000 unit PO 07/06/20 [History Last Taken Unknown] cyanocobalamin (vitamin B-12) 100 mcg tablet 100 mcg PO DAILY 07/06/20 [History Last Taken Unknown] mometasone-formoterol HFA 200 mcg-5 mcg/actuation aerosol inhaler 2 puff inhalation BID 07/06/20 [History Last Taken Unknown] naproxen 500 mg tablet 500 mg PO BID PRN #20 tabs 07/06/20 [Rx Last Taken Unknown] naproxen 500 mg tablet 500 mg PO BID PRN #20 tabs 07/06/20 [Rx Last Taken Unknown] zinc 50 mg tablet 50 mg PO DAILY 07/06/20 [History Last Taken Unknown] amoxicillin 875 mg-potassium clavulanate 125 mg tablet 875 mg (0.875 x 875-125 mg) PO Q12H #20 TABLETS 07/10/23 [Rx Last Taken Unknown] tramadol 50 mg tablet 50 mg PO Q6H PRN pain 3 days #12 tabs 07/10/23 [Rx Last Taken Unknown] Allergy/AdvReac Type Severity Reaction Status Date / Time No Known Allergies Allergy Verified 07/10/23 08:29 Surgical History (Updated 07/10/23 @ 08:[address] Noé Ascencio MD) History of hysterectomy Social History Smoking Status: Never smoker ROS ROS ED Constitutional Constitutional ED: Reports other Details: Decreased appetite ; Denies chills or fever(s) Eyes Eyes: Denies change in vision or diplopia ENT ENT ED: Denies rhinorrhea or sore throat Cardiovascular Cardiovascular: Denies chest pain or palpitations Respiratory/Chest Respiratory/Chest: Denies cough or dyspnea Gastrointestinal Gastrointestinal: Reports abdominal pain and nausea; Denies diarrhea, melena or vomiting Genitourinary Genitourinary ED: Denies dysuria or hematuria Musculoskeletal Musculoskeletal: Denies back pain or neck pain Integumentary Denies abscess or rash Neurologic Neurologic: Denies headache(s), paresthesias or weakness Psychiatric Psychiatric: Denies anxiety or suicidal thoughts EXAM Physical Exam Const Vital Signs: 07/10/23 08:26 07/10/23 08:26 07/10/23 08:28 Temperature 98.1 F 98.1 F 98.1 F Temperature Source Temporal Temporal Temporal Pulse Rate 95 98 96 Respiratory Rate 16 16 15 Blood Pressure 122/73 H 122/73 H 122/73 H Blood Pressure Mean 89 89 89 Pulse Ox 96 95 95 Oxygen Delivery Method Room Air Room Air Room Air 07/10/23 09:44 Temperature Temperature Source Pulse Rate 85 Respiratory Rate 16 Blood Pressure 105/66 Blood Pressure Mean 79 Pulse Ox 97 Oxygen Delivery Method Room Air Positive well nourished and well developed General Appearance ED: well developed and NAD HEENT Reports moist mucous membranes normocephalic and atraumatic Eyes PERRL and EOMs intact bilaterally Neck full ROM and supple Resp normal respiratory effort and clear to auscultation bilaterally Cardio regular rate, regular rhythm and no murmurs GI non-distended GI Narrative: Diffuse tenderness, but worse in the suprapubic area. No guarding or rebound. Negative [place]. Auscultation: normoactive bowel sounds Palpation: soft Back/Spine no CVA tenderness General Back: other FROM Extremity normal to inspection General Extremety ED: Negative for edema, pulses abnormal or tenderness General Extremity: Negative for edema or pulses abnormal Neuro oriented x3, CN's II-XII intact bilaterally and no sensory deficits noted Sensorium / Orientation: awake and alert Motor Exam: strength 5/5 throughout Skin no rashes or lesions noted and no wounds MDM MDM MDM Narrative Medical decision making narrative: CT obtained partially to evaluate for diverticulitis, but also obtain liver enzymes because she was having some upper abdominal discomfort. Total bilirubin is slightly elevated but not significantly so, her other liver enzymes and lipase are normal. White blood count slightly elevated, urinalysis is abnormal but she does not have urinary symptoms so I am sending out for culture, and I reviewed the images of the CT and the report which I agree with, consistent with mild sigmoid diverticulitis. This explains the patient's symptoms. She is doing well, she is not vomiting, she is able to be treated safely as an outpatient from my perspective. Will start her on Augmentin, and will prescribe her something for pain and discussed other medication she can take [id number] for supportive care, follow-up advised or return to the ER if intractable symptoms she is comfortable with that plan. Lab Data Attestation: I reviewed the patient's lab results. Labs: Laboratory Results - last 24 hr 07/10/23 07/10/23 08:53 08:59 WBC 13.1 H RBC 4.55 Hgb 14.2 Hct 41.6 MCV 91.4 MCH 31.2 MCHC 34.1 RDW Std Deviation 39.9 RDW Coeff of Yogesh 11.9 Plt Count 230 MPV 9.4 Immature Gran % (Auto) 0.500 Neut % (Auto) 81.9 H Lymph % (Auto) 5.4 L [place] % (Auto) 9.7 Eos % (Auto) 2.1 Baso % (Auto) 0.4 Absolute Neuts (auto) 10.7 H Absolute Lymphs (auto) 0.71 L Nucleated RBC % 0 Sodium 139 Potassium 4.1 Chloride 109 H Carbon Dioxide 24.0 Anion Gap 6 BUN 16 Creatinine 1.00 Estim Creat Clear Calc 55.41 Est GFR (MDRD) Af Amer 73 Est GFR (MDRD) Non-Af 61 BUN/Creatinine Ratio 16.0 Glucose 124 H Calcium 9.7 Total Bilirubin 1.20 H AST 11 L ALT 20 Alkaline Phosphatase 85 Total Protein 7.5 Albumin 3.9 Globulin 3.6 Albumin/Globulin Ratio 1.1 Lipase 27 Urine Color Yellow Urine Clarity Sl. Cloudy Urine pH 5.0 Ur Specific [place] 1.025 Urine Protein 30 H Urine Glucose (UA) Normal Urine Ketones 5 H Urine Occult Blood 10 H Urine Nitrite Positive H Urine Bilirubin Negative Urine Urobilinogen 1 H Ur Leukocyte Esterase 500 H Urine RBC 0-5 SEEN Urine WBC 25-50 SEEN Ur Squamous Epith Cells 0-5 SEEN Urine Bacteria 3+ Urine Mucus 1+ Radiography Diagnostic Testing: Clinical Impression(s) from Imaging Studies Abdomen/Pelvis CT 07/10/23 08:41 IMPRESSION: Findings in keeping with a noncomplicated acute sigmoid diverticulitis. Left renal cyst. Electronically Signed: Luciano Dowell MD at 9:42 EDT , Discharge Plan Triage Chief Complaint: Abd Pain ED Provider: Noé Ascencio Dx/Rx/DC Orders Clinical Impression: Diverticulitis of sigmoid colon Instructions: Diverticulitis Dc Prescriptions: New tramadol 50 mg tablet 50 mg PO Q6H PRN (Reason: pain) 3 Days Qty: 12 0RF amoxicillin-pot clavulanate [amoxicillin-pot clavulanate] 875-125 mg tablet 875 mg PO Q12H Qty: 20 0RF No Action cyanocobalamin (vitamin B-12) 100 MCG tablet 100 mcg PO DAILY zinc 50 MG tablet 50 mg PO DAILY calcium carbonate-vitamin D3 1 EACH tablet 1 each PO DAILY cholecalciferol (vitamin D3) 2,000 UNIT capsule 2,000 unit PO mometasone-formoterol 13 GM HFA aerosol inhaler 2 puff INHALATION BID cephalexin 500 MG capsule 500 mg PO Q6 Qty: 40 0RF naproxen 500 MG tablet 500 mg PO BID PRN Qty: 20 0RF cephalexin 500 MG capsule 500 mg PO Q6 Qty: 40 0RF naproxen 500 MG tablet 500 mg PO BID PRN Qty: 20 0RF Primary Care Provider: Samantha Barrera Referrals: Samantha Barrera DO [Primary Care Provider] - 5-7 Days Disposition Disposition: Home, Self Care
[2023-07-10] MEDS: 0.9% Normal Saline (1000mL) 1,000 ML 125 ML IV (08:56)
[2023-07-10] MEDS: Ketorolac 30 MG/ML Syringe IV (08:56)
[2023-07-10] MEDS: Ondansetron 4 MG/2 ML Vial IV (08:56)
[2023-07-10] MEDS: Dicyclomine 10 MG Capsule 20 MG PO (08:57)
[2023-07-10 09:00] LABS: Absolute Lymphocyte Count 0.71 X10^3/uL (0.83-4.51); Absolute Neutrophil Count 10.7 X10^3/uL (2.0-7.7); Basophil# 0.05 X10^3/uL; Basophil% 0.4 % (0-1); Eosinophil# 0.27 X10^3/uL; Eosinophils% 2.1 % (0-5); Hematocrit 41.6 % (37-47); Hemoglobin 14.2 g/dL (12.0-15.0); Lymphocyte # 0.71 X10^3/ul (0.83-4.51); Lymphocyte % 5.4 % (19-41); Mean Corp Hgb Conc 34.1 g/dL (32-36); Mean Corpuscular Hgb 31.2 pg (27.0-32.0); Mean Corpuscular Volume 91.4 fL (81-99); Mean Platelet Vol. 9.4 fl (6.2-12.0); Monocyte# 1.27 X10^3/uL; Monocyte% 9.7 % (0-10); NRBC Flagged by Analyzer 0 % (0-5); Neutrophil # 10.74 X10^3/uL (2.7-7.7); Neutrophil % 81.9 % (47-70); Platelet Count 230 K/mm3 (150-450); RBC Distribution Width CV 11.9 % (11.6-14.6); RBC Distribution Width SD 39.9 fl (35.1-43.9); Red Blood Count 4.55 M/mm3 (4.2-5.4); White Blood Count 13.1 K/mm3 (4.4-11.0)
[2023-07-10 09:04] LABS: Color, Urine Yellow (Yellow); Glucose, Dipstick Normal (Normal); Ketone-Dipstick 5 mg/dl (Negative); Leukocyte Esterase-Dipstick 500 /ul (Negative); Nitrite-Dipstick Positive (Negative); Occult Blood-Urine 10 /ul (Negative); Protein-Dipstick 30 mg/dl (Negative); Specific Gravity, Urine 1.025 (1.002-1.030); Urine Bilirubin Dipstick Negative (Negative); Urine Clarity Sl. Cloudy (Clear); Urine Urobilinogen 1 mg/dl (Normal)
[2023-07-10 09:10] LABS: Bacteria 3+ /hpf (None Seen); Mucous, Urine 1+ /hpf (<or=2+); Red Blood Cells-Urine 0-5 SEEN /hpf (0-5); Squamous Epithelial Cells - UA 0-5 SEEN /hpf (5-10); White Blood Cells 25-50 SEEN /hpf (0-5)
[2023-07-10 09:19] LABS: ALB/GLOB Ratio 1.1 RATIO (0.9-2.4); AST(SGOT) 11 U/L (15-37); Alanine Aminotransfer ALT/SGPT 20 U/L (13-56); Albumin, Serum 3.9 g/dL (3.2-5.0); Alkaline Phosphatase 85 U/L (45-117); Anion Gap 6 (5-15); BUN 16 mg/dL (7-18); Calcium,Total 9.7 mg/dL (8.5-10.1); Chloride 109 mmol/L (98-107); EST Glomerular Filtration Rate 61 mL/min (>60); Est Glom Filt Rate - Afr Amer 73 mL/min (>60); Estimated Creatinine Clearance 55.41 ml/min; Globulin 3.6 g/dL (2.2-4.2); Glucose 124 mg/dL (74-106); Lipase 27 U/L (13-75); Potassium 4.1 mmol/L (3.5-5.1); Protein, Total 7.5 g/dL (6.4-8.2); Sodium Level 139 mmol/L (136-145)
[2023-07-10 09:44] VITALS: BP 105/66; PULSE 85; RESP 16; O2SAT 97
--- NOTE | 2023-07-10 09:56 | ED.RN ---
PT LAB WORK RESULTED. PER MD OLSON TO COMPLETE SEPSIS SCREEN.
[2023-07-10] MEDS: Amox/Clavulanate 875 MG Tablet PO (10:50)
[2023-07-10 10:54] VITALS: BP 101/71; PULSE 87; RESP 16; TEMP 36.8; O2SAT 99
== END 2023-07-10 11:45 | disposition home or self-care (01) ==
PROVIDERS: Emergency Provider Emergency Medicine; PCP Internal Medicine; Visit Provider Emergency Medicine
DX: K57.32 Diverticulitis of large intestine without perforation or abscess without bleeding (principal); Z90.710 Acquired absence of both cervix and uterus
CPT/HCPCS: 74177; 80053; 81001; 83690; 85025; 96361; 96374; 99284; J7030; Q9967; A4216; J2405

== ENCOUNTER 2025-01-18 06:29 | Emergency (ER) | payer BC, SELFPAY ==
[2025-01-18 06:30] VITALS: BP 138/82; PULSE 88; RESP 18; TEMP 36.8; O2SAT 98; BMI 27.1
[2025-01-18 06:32] VITALS: BP 138/82; PULSE 88; RESP 18; TEMP 36.8; O2SAT 98
--- NOTE | 2025-01-18 06:45 | EX.ED.DYSGE1 ---
HPI History of Present Illness Chief Complaint: Asthma Informant: patient Narrative Narrative: Patient is a 59-year-old female with past medical history of asthma as well as depression. She states that for the past few years her asthma has been well-controlled with just an occasional albuterol inhaler. She states however in the last 1 to 2 months that she has been having increasing flares of her asthma. She states that she used to be on Advair but her insurance will no longer cover this and she is concerned that that may be the cause of her recurrent symptoms. She was seen as an outpatient at a urgent care roughly 1 month ago and had an x-ray which revealed no pneumonia. She states there is no new exposures such as air fresheners or other chemicals that could have caused an exacerbation. However as she has been using her inhaler at home with minimal symptom improvement she presents for evaluation. [facility] Medical History Asthmatic bronchitis with acute exacerbation Asthma Depression Home Medications ?Medication ?Instructions ?Recorded ?Last Taken ?Type calcium 250 mg (as 1 each PO DAILY 07/06/20 Unknown History carbonate)-vitamin D3 3.125 mcg (125 unit) tablet cholecalciferol (vitamin D3) 50 2,000 unit PO DAILY 07/06/20 Unknown History mcg (2,000 unit) capsule cyanocobalamin (vitamin B-12) 100 100 mcg PO DAILY 07/06/20 Unknown History mcg tablet zinc 50 mg tablet 50 mg PO DAILY 07/06/20 Unknown History albuterol sulfate 90 mcg/actuation 2 puff inhalation Q4-6H PRN 12/20/24 Unknown History aerosol inhaler (Ventolin HFA) shortness of breath or wheezing sertraline 100 mg tablet 100 mg PO QDAY 12/20/24 Unknown History azithromycin 250 mg tablet See Rx Instructions PO .COMPLEX #6 01/18/25 Unknown Rx (Zithromax Z-Harrison) tabs fluticasone furoate 100 1 inh inhalation DAILY #60 ea 01/18/25 Unknown Rx mcg-vilanterol 25 mcg/dose inhalation powder (Breo Ellipta) prednisone 10 mg tablet 10 mg PO UD #33 tabs 01/18/25 Unknown Rx Allergy/AdvReac Type Severity Reaction Status Date / Time No Known Allergies Allergy Verified 01/18/25 06:30 Surgical History History of hysterectomy Social History Smoking Status: Never smoker ROS ROS ED Constitutional Constitutional ED: Denies chills or fever(s) ENT ENT ED: Denies rhinorrhea or sore throat Cardiovascular Cardiovascular: Denies chest pain Respiratory/Chest Respiratory/Chest: Reports cough, dyspnea and other Details: Positive wheeze Gastrointestinal Gastrointestinal: Denies abdominal pain, diarrhea, nausea or vomiting Musculoskeletal Musculoskeletal: Denies myalgias Integumentary Denies rash Neurologic Neurologic: Denies headache(s) Hematologic/Lymphatic Hematologic/Lymphatic: Denies easy bleeding or easy bruising Allergic/Immunologic Allergic/Immunologic ED: Denies mouth swelling or tongue swelling EXAM Physical Exam Const Vital Signs: 01/18/25 06:30 01/18/25 06:30 01/18/25 06:32 Temperature 98.2 F 98.2 F Temperature Source Oral Oral Pulse Rate 88 88 Respiratory Rate 18 18 Respiratory Effort Short of Breath Respiratory Depth Shallow Respiratory Pattern Normal Blood Pressure 138/82 H 138/82 H Blood Pressure Mean 100 100 Pulse Ox 98 98 Oxygen Delivery Method Room Air Room Air Room Air Positive well nourished and well developed General Appearance ED: well developed; Negative for pallor HEENT Reports moist mucous membranes HEENT Narrative: Normocephalic atraumatic No tongue or lip swelling no oral lesions no airway edema or compromise; no secondary findings in the posterior pharynx to suggest infection Eyes PERRL and EOMs intact bilaterally General Eye ED: Negative for scleral icterus Neck supple and no JVD Chest Wall palpation of chest normal Resp Resp Narrative: Patient is in mild respiratory distress with slight accessory muscle use. Breath sounds are diminished throughout with diffuse inspiratory and expiratory wheezing. There is no nasal flaring or retractions or tachypnea or dyspnea with speech. Cardio regular rate and regular rhythm Extremity normal to inspection Extremity Narrative: No asymmetric edema no pitting edema negative Homans' sign bilaterally Neuro oriented x3, CN's II-XII intact bilaterally and no sensory deficits noted Sensorium / Orientation: alert Motor Exam: strength 5/5 throughout Psych mental status grossly normal Skin no rashes or lesions noted General Skin Exam: Negative for jaundice or pallor MDM MDM MDM Narrative Medical decision making narrative: Patient arrived to the ER satting 98% on room air which is mild increased work of breathing. Her history and exam is consistent with asthma exacerbation. Without fever or sputum production I have low concern for secondary pneumonia. We did discuss obtaining a chest x-ray in the ER because of her symptoms but the patient reports she had an x-ray roughly 1 month ago that was normal and therefore she agrees she does not have high concern for pneumonia or want the chest x-ray at this time. There is also potential patient is having a upper respiratory tract infection such as COVID influenza or RSV leading to asthma exacerbation. However she has not had fevers or chills and there is only minimal congestion. As she is not hypoxic or in respiratory distress this would not change our plan of care and therefore there is no need to obtain the viral swab. The patient was given albuterol and DuoNeb nebulizer treatments in the ER as well as oral steroid. On reevaluation she has had improvement of her breath sounds and reports feeling better. At this time she is not in respiratory distress or hypoxic and therefore I do not feel there is need for further intervention or admission. I do feel that with her previous normal chest x-ray but persistent symptoms that her recurrent asthma exacerbations are most likely related to the fact she is no longer on Advair. As she states her insurance will not cover this medication I will change her to Breo as a once a day medication. I will also place her on a prednisone taper as this helped her roughly 1 month ago. However at this time with improvement of breath sounds as well as no signs of severe respiratory distress or hypoxia there is no need for further workup and she is otherwise safe for discharge History & Record Review Discussion w/independent historian: Patient Discharge Plan Triage Chief Complaint: Asthma ED Provider: Brendon Drummond Dx/Rx/DC Orders Clinical Impression: Asthmatic bronchitis with acute exacerbation, Depression Instructions: Asthma Action Plan, Asthma Prescriptions: New azithromycin [Zithromax Z-Harrison] 250 mg tablet See Rx Instructions .ROUTE .COMPLEX Qty: 6 0RF Rx Instructions: For 250 mg dose pack: take 500 mg today (day 1), then 250 mg for 4 days (days 2-5) prednisone 10 mg tablet 10 mg PO UD Qty: 33 0RF Rx Instructions: 4 tablets daily for 3 days, 3 daily for 3 days, 2 daily for 3 days, 1 a day for 3 days then 1 QOD for 3 doses. fluticasone furoate-vilanterol [Breo Ellipta] 100-25 mcg/dose blister with device 1 inh inhalation DAILY Qty: 60 2RF No Action sertraline 100 mg tablet 100 mg PO QDAY albuterol sulfate [Ventolin HFA] 90 mcg/actuation HFA aerosol inhaler 2 puff inhalation Q4-6H PRN (Reason: shortness of breath or wheezing) cyanocobalamin (vitamin B-12) 100 MCG tablet 100 mcg PO DAILY zinc 50 MG tablet 50 mg PO DAILY calcium carbonate-vitamin D3 1 EACH tablet 1 each PO DAILY cholecalciferol (vitamin D3) 2,000 UNIT capsule 2,000 unit PO DAILY Primary Care Provider: Samantha Barrera Referrals: Samantha Barrera DO [Primary Care Provider, Internal Medicine] Activity Restrictions/Additional Instructions: Your history and exam is consistent with recurrent asthma exacerbation which is most likely related to the fact you are no longer on Advair. Please take the Z-Harrison to cover for potential developing infection and use the steroid taper as directed to control lung inflammation. Begin taking the Breo inhaler once a day to prevent recurrent exacerbations and return to the ER should you have any further concerns. You may still use your albuterol rescue inhaler as needed if you feel increased shortness of breath Print Language: Nepali Disposition Disposition: Home, Self Care
[2025-01-18] MEDS: Albuterol 2.5 MG/3 ML VIAL.NEB. INHALATION (06:53)
[2025-01-18 06:54] VITALS: PULSE 103; RESP 14
[2025-01-18 07:32] VITALS: BP 123/78; PULSE 99; RESP 16; TEMP 36.6; O2SAT 100
== END 2025-01-18 07:33 | disposition home or self-care (01) ==
LOC: ED 07:08
PROVIDERS: Emergency Provider Emergency Medicine; PCP Internal Medicine; Visit Provider Emergency Medicine
DX: J45.901 Unspecified asthma with (acute) exacerbation (principal); F32.A Depression, unspecified; Z90.710 Acquired absence of both cervix and uterus; Z79.899 Other long term (current) drug therapy; Z79.51 Long term (current) use of inhaled steroids
CPT/HCPCS: 94640; 99283